=== PATIENT | male | born 1955 | race Caucasian/White ===

== ENCOUNTER → 2016-12-23 | Outpatient (CLI) | payer OTHER ==
[~2016-12-23] MED LIST: ASPI325T45 PO; CHOLCAP5 PO; LEVO75TA5 PO; LPT40 PO; METO25TA56 PO; NTRGSL/4 SL; OSEL75CA12 PO; PLV75 PO; WLLSR150 PO
[2016-12-23 14:47] LABS: ALT/SGPT 47 U/L (12-78); AST/SGOT 23 U/L (15-37); BLOOD UREA NITROGEN 23 mg/dl (7-18); BUN/CREATININE RATIO 19.1 (10-20); CALCIUM 8.4 mg/dl (8.5-10.1); CARBON DIOXIDE 25 mmol/L (21-32); CHLORIDE 108 mmol/L (98-107); GLUCOSE 110 mg/dl (70-99); POTASSIUM 3.7 mmol/L (3.5-5.1); SODIUM 142 mmol/L (136-145)
[2016-12-23 14:58] LABS: ALB/GLOB RATIO 1.4 (0.9-2); ALKALINE PHOSPHATASE 107 U/L (45-117); CHOLESTEROL 134 mg/dl (0-200); CHOLESTEROL/HDL RATIO 2.6; HDL CHOLESTEROL 52 mg/dl; LDL CHOLESTEROL CALCULATED 58 mg/dl; PROSTATE SPECIFIC ANTIGEN 0.264 ng/ml (0.000-4.000); TRIGLYCERIDES 122 mg/dl (0-150); VERY LOW DENSITY LIPOPROT CALC 24 mg/dl
== END | disposition home or self-care (01) ==
LOC: C.LAB 13:32
PROVIDERS: ATTEND Internal Medicine
DX: I10 Essential (primary) hypertension (principal); E53.8 Deficiency of other specified B group vitamins; E03.9 Hypothyroidism, unspecified; E55.9 Vitamin D deficiency, unspecified; Z12.5 Encounter for screening for malignant neoplasm of prostate

== ENCOUNTER 2017-01-29 12:40 | Emergency (ER) | payer OTHER ==
[~2017-01-29] VITALS: Ht 167.6 cm; Wt 119.6 kg
[~2017-01-29 12:40] MED LIST changes: -OSEL75CA12 PO; -WLLSR150 PO
[2017-01-29 12:44] VITALS: TEMP 37.1; Ht 167.6 cm; Wt 119.6 kg
[2017-01-29] MEDS ORDERED: WLLSR150 PO (12:52)
--- NOTE | 2017-01-29 13:03 | EMERGENCY ROOM VISIT NOTE ---
History Report prepared by Torie: Jerome Packer Under the Supervision of: Dr. Aleks Dow M.D. First contact with patient: 12:53 Chief Complaint: RESPIRATORY PROBLEMS Stated Complaint: TIGHTNESS IN CHEST X 2 DAYS, SOB Nursing Triage Summary: pt reports he was exposed to pneumonia has chest tightness started reports sorethroat. pt takes blood thinner for 2 stents pt wanting gloves in triage, seems to have issues with germs History of Present Illness The patient is a 61 year old male who presents to the Emergency Room with complaints of persistent cough and chest tightness for the past three days. The patient has shortness of breath and a cough that exacerbates his chest pain. He also complains of a mild sore throat. The patient has has had some relief of his symptoms with NyQuil. The patient has a history of CAD, and notes that his current chest pain does not feel cardiac. The patient follows up with Dr. Johns in cardiology and has had two stents placed. The patient has not recorded his temperature and does not believe he has had any fevers. He denies body aches, nausea, vomiting, or diarrhea. The patient has not had any recent trauma or injury. The patient states that he has been exposed to pneumonia through his daughter. 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 Source of History: patient, family Onset: three days ago Position: chest Timing: other (persistent) Modifying Factors (Worsening): other (coughing) Modifying Factors (Relieving): other (NyQuil) Associated Symptoms: + SOB, + cough, + sorethroat, No diarrhea, No fevers, No nausea, No vomiting Review of Systems See HPI for pertinent positives & negatives. A total of 10 systems reviewed and were otherwise negative. Past Medical & Surgical Medical Problems: (1) AC MYOCARD INFARC OTH ANTER WALL,INIT EPISODE CARE (2) CORON ATHEROSCLER NOS TYPE VESSEL, NIGHTMUTE OR GRAFT (3) CORONARY ATHEROSCLEROSIS OF NIGHT[place] CORONARY VESSEL (4) HYPERLIPIDEMIA NEC/NOS (5) HYPERTENSION NOS Old medical records were reviewed. Nurse's notes were reviewed and I agree with. Family History No pertinent family history Social History Smoking Status: Never Smoker Alcohol Use: none Drug Use: none Marital Status: Housing Status: lives with family Occupation Status: employed Current/Historical Medications Scheduled Aspirin (Aspirin), 325 MG PO DAILY Atorvastatin (Atorvastatin Calcium), 40 MG PO DAILY Bupropion HCl (Bupropion HCl Sr), 150 MG PO DAILY Cholecalciferol (Vitamin D3), 5,000 INTER.UNIT PO DAILY Clopidogrel Bisulfate (Clopidogrel), 75 MG PO DAILY Levothyroxine Sodium (Levothyroxine Sodium), 75 MCG PO DAILY Metoprolol Tartrate (Lopressor) (Lopressor), 25 MG PO BID Oseltamivir (Tamiflu), 75 MG PO BID Scheduled PRN Nitroglycerin (Nitrostat), 0.4 MG SL UD PRN for Chest Pain Allergies Coded Allergies: Tuberculin (Verified Allergy, Mild, ., 09/14/15) Physical Exam Vital Signs Date Time Temp Pulse Resp B/P Pulse Ox O2 Delivery O2 Flow Rate FiO2 01/29/17 16:21 75 18 146/78 98 01/29/17 12:44 96 Room Air 01/29/17 12:44 37.1 72 18 156/94 96 Room Air Physical Exam General: Non ill-appearing older male, no acute distress, occasional hacking cough. HEENT: Normal cephalic atraumatic. Pupils are equal round and reactive to light. Extraocular movements are intact. Oropharynx is pink with moist mucous membranes. No swelling of the mouth lips or tongue. Neck: Supple with a midline trachea. No meningeal signs or stiffness, no JVD or bruits. No Stridor. Chest: Clear to auscultation bilaterally. No wheezes or rhonchi. No increased work of breathing. Heart: regular rate and rhythm. Abdomen: Soft nontender, nondistended without rebound guarding or rigidity. Extremities: No cyanosis clubbing or edema. No calf tenderness or assymetry Spine/Back. Non tender to palpation. No CVA tenderness Skin: Good turgor without rashes. Neurologic exam: Cranial nerves two through 12 are intact. Motor and sensation are intact and symmetrical throughout. Medical Decision & Procedures ER Provider Diagnostic Interpretation: X-ray results as stated below per interpretation by me and the radiologist: SINGLE VIEW CHEST CLINICAL HISTORY: Atypical chest pain. FINDINGS: An AP, portable, upright chest radiograph is compared to study dated 02/21/2013. The examination is degraded by portable technique, large body habitus, and patient rotation. The heart is markedly enlarged. The pulmonary vasculature is noncongested. Chronic interstitial thickening similar to previous. There is no airspace consolidation, large pleural effusion, or pneumothorax. The skeletal structures appear osteopenic. The bony thorax is grossly intact. IMPRESSION: Marked cardiomegaly with no acute cardiopulmonary abnormality. Electronically signed by: Ismael Riojas M.D. 01/29/2017 1:44 PM Dictated Date/Time: 01/29/2017 1:43 PM Laboratory Results 01/29/17 13:20 Red Blood Count 4.63, Mean Corpuscular Volume 93.1, Mean Corpuscular Hemoglobin 32.2, Mean Corpuscular Hemoglobin Concent 34.6, Mean Platelet Volume 10.4, Neutrophils (%) (Auto) 69.9, Lymphocytes (%) (Auto) 20.3, Monocytes (%) (Auto) 8.8, Eosinophils (%) (Auto) 0.2, Basophils (%) (Auto) 0.6, Neutrophils # (Auto) 3.59, Lymphocytes # (Auto) 1.04, Monocytes # (Auto) 0.45, Eosinophils # (Auto) 0.01, Basophils # (Auto) 0.03 01/29/17 13:20 Test 01/29/17 13:15 01/29/17 13:20 Influenza Type A Antigen Neg for Influ A (NEG) Influenza Type B Antigen POS for Influ B (NEG) White Blood Count 5.13 K/uL (4.8-10.8) Red Blood Count 4.63 M/uL (4.7-6.1) Hemoglobin 14.9 g/dL (14.0-18.0) Hematocrit 43.1 % (42-52) Mean Corpuscular Volume 93.1 fL (80-100) Mean Corpuscular Hemoglobin 32.2 pg (25-34) Mean Corpuscular Hemoglobin Concent 34.6 g/dl (32-36) Platelet Count 142 K/uL (130-400) Mean Platelet Volume 10.4 fL (7.4-10.4) Neutrophils (%) (Auto) 69.9 % Lymphocytes (%) (Auto) 20.3 % Monocytes (%) (Auto) 8.8 % Eosinophils (%) (Auto) 0.2 % Basophils (%) (Auto) 0.6 % Neutrophils # (Auto) 3.59 K/uL (1.4-6.5) Lymphocytes # (Auto) 1.04 K/uL (1.2-3.4) Monocytes # (Auto) 0.45 K/uL (0.11-0.59) Eosinophils # (Auto) 0.01 K/uL (0-0.5) Basophils # (Auto) 0.03 K/uL (0-0.2) RDW Standard Deviation 47.3 fL (36.4-46.3) RDW Coefficient of Variation 13.8 % (11.5-14.5) Immature Granulocyte % (Auto) 0.2 % Immature Granulocyte # (Auto) 0.01 K/uL (0.00-0.02) Anion Gap 11.0 mmol/L (3-11) Est Creatinine Clear Calc Drug Dose 88.1 ml/min Estimated GFR () 84.7 Estimated GFR (Non- 73.1 BUN/Creatinine Ratio 16.4 (10-20) Calcium Level 8.5 mg/dl (8.5-10.1) Total Bilirubin 0.3 mg/dl (0.2-1) Direct Bilirubin mg/dl (0-0.2) Aspartate Amino Transf (AST/SGOT) 31 U/L (15-37) Alanine Aminotransferase (ALT/SGPT) 35 U/L (12-78) Alkaline Phosphatase 115 U/L (45-117) Total Creatine Kinase 166 U/L (39-308) Creatine Kinase MB 2.4 ng/ml (0.5-3.6) Creatine Kinase MB Ratio 1.4 (0-3.0) Troponin I < 0.015 ng/ml (0-0.045) Total Protein 7.5 gm/dl (6.4-8.2) Albumin 3.7 gm/dl (3.4-5.0) Lipase 334 U/L (73-393) Chemistry Specimen Hemolysis Laboratory studies as stated above per my review. Medications Administered Medications (Trade) Dose Ordered Sig/Keyanna Route Start Time Stop Time Status Last Admin Dose Admin Oseltamivir Phosphate (Tamiflu Cap) 75 mg NOW STAT PO 01/29/17 14:43 01/29/17 14:44 DC 01/29/17 15:09 75 MG ECG Indication: SOB/dyspnea Rate (beats per minute): 76 Rhythm: normal sinus Findings: T-wave inversion (Lateral), no acute ischemic change Change: Mild T wave inversions are now present compared to EKG dated 21 February 2013. ED Course 1255: Past medical records reviewed. The patient was evaluated in room A12b, and a complete history and physical examination were performed. 1443: Tamiflu 75 mg PO. 1618: Reassessed the patient. Discussed the findings with him. He verbalized understanding and agreement of the treatment plan. The patient is ready for discharge. Medical Decision Differential diagnosis includes bronchitis, pneumonia, influenza, CHF, acute coronary syndrome, arrhythmia. This patient comes in as described above. He's had cough and URI type symptoms and also has sore throat and flulike symptoms for couple days. He denies any chest pain per se. He has been exposed to the flu where he works in a half-way. He appears in no respiratory distress. IV access established, EKG was obtained and multiple blood tests was obtained. Chest x-ray was clear and has no evidence of pneumonia .his cardiac enzymes are all normal despite having several days of pain, EKG does have some subtle T-wave nonspecific abnormalities with some mild inversions laterally which do look different than the most recent EKG but similar to the one prior. Clinically, I do not suspect this is a cardiac event. He does have a positive influenza rapid flu here for influenza B. I will treat him for influenza. He was given Tamiflu here as well as a prescription for Tamiflu twice a day for 10 days. He should return if : Worsening of symptoms, not tolerating fluids, chest pain, shortness of breath , any new problems or concerns. Impression Primary Impression: Influenza Scribe Attestation The scribe's documentation has been prepared under my direction and personally reviewed by me in its entirety. I confirm that the note above accurately reflects all work, treatment, procedures, and medical decision making performed by me. Departure Information Dispostion Home / Self-Care Prescriptions Oseltamivir (Tamiflu) 75 Mg Cap 75 MG PO BID, #10 CAP Prov: Aleks Dow M.D. 01/29/17 Referrals RV. Allen MD (PCP) Forms HOME CARE DOCUMENTATION FORM, IMPORTANT VISIT INFORMATION, WORK / SCHOOL INSTRUCTIONS Patient Instructions My [facility] Additional Instructions Rest Drink plenty of fluids Return if: worsening of symptoms, any new problems or concerns, chest pain, shortness of breath Use Tamiflu twice a day Follow-up with your doctor on Tuesday for recheck
[2017-01-29 13:32] LABS: BASO % 0.6 %; BASO ABS # 0.03 K/uL (0-0.2); COMPLETE YES; EOS % 0.2 %; HEMATOCRIT 43.1 % (42-52); IG% 0.2 %; LYMPH % 20.3 %; LYMPH ABS # 1.04 K/uL (1.2-3.4); MEAN CELL VOLUME 93.1 fL (80-100); MEAN CORPUSCULAR HEMOGLOBIN 32.2 pg (25-34); MEAN CORPUSCULAR HGB CONC 34.6 g/dl (32-36); MEAN PLATELET VOLUME 10.4 fL (7.4-10.4); MONO % 8.8 %; NEUT % 69.9 %; PLATELET COUNT 142 K/uL (130-400); RED BLOOD COUNT 4.63 M/uL (4.7-6.1); WHITE BLOOD COUNT 5.13 K/uL (4.8-10.8)
--- NOTE | 2017-01-29 13:46 | DIAGNOSTIC IMAGING REPORT ---
SINGLE VIEW CHEST CLINICAL HISTORY: Atypical chest pain. FINDINGS: An AP, portable, upright chest radiograph is compared to study dated 02/21/2013. The examination is degraded by portable technique, large body habitus, and patient rotation. The heart is markedly enlarged. The pulmonary vasculature is noncongested. Chronic interstitial thickening similar to previous. There is no airspace consolidation, large pleural effusion, or pneumothorax. The skeletal structures appear osteopenic. The bony thorax is grossly intact. IMPRESSION: Marked cardiomegaly with no acute cardiopulmonary abnormality. Electronically signed by: Ismael Riojas M.D. 01/29/2017 1:44 PM Dictated Date/Time: 01/29/2017 1:43 PM
[2017-01-29 13:59] LABS: ALKALINE PHOSPHATASE 115 U/L (45-117); ALT/SGPT 35 U/L (12-78); AST/SGOT 31 U/L (15-37); BLOOD UREA NITROGEN 18 mg/dl (7-18); BUN/CREATININE RATIO 16.4 (10-20); CALCIUM 8.5 mg/dl (8.5-10.1); CARBON DIOXIDE 23 mmol/L (21-32); CHLORIDE 105 mmol/L (98-107); CKMB/CK RATIO 1.4 (0-3.0); GLUCOSE 101 mg/dl (70-99); SODIUM 139 mmol/L (136-145)
[2017-01-29] MEDS ORDERED: OSELTAMIVIR PHOSPHATE 75 MG CAP PO STA (14:43)
[2017-01-29] MEDS ORDERED: OSEL75CA12 PO (16:10)
[2017-01-29 16:21] VITALS: BP 146/78; PULSE 75; O2SAT 98
== END 2017-01-29 16:22 | disposition home or self-care (01) ==
LOC: C.EDB 12:41 → C.EDA 16:22
DX: J11.1 Influenza due to unidentified influenza virus with other respiratory manifestations (principal); I25.10 Atherosclerotic heart disease of native coronary artery without angina pectoris; Z95.5 Presence of coronary angioplasty implant and graft; E78.5 Hyperlipidemia, unspecified; Z79.82 Long term (current) use of aspirin; Z79.899 Other long term (current) drug therapy

== ENCOUNTER → 2017-12-28 | Outpatient (CLI) | payer OTHER ==
[~2017-12-28] MED LIST changes: +WLLSR150 PO
[2017-12-28 16:37] LABS: BASO % 0.9 %; BASO ABS # 0.07 K/uL (0-0.2); EOS % 0.8 %; EOS ABS # 0.06 K/uL (0-0.5); HEMATOCRIT 41.8 % (42-52); HEMOGLOBIN 14.1 g/dL (14.0-18.0); IG# 0.03 K/uL (0.00-0.02); LYMPH % 34.2 %; LYMPH ABS # 2.68 K/uL (1.2-3.4); MEAN CELL VOLUME 94.6 fL (80-100); MEAN CORPUSCULAR HEMOGLOBIN 31.9 pg (25-34); MEAN CORPUSCULAR HGB CONC 33.7 g/dl (32-36); MEAN PLATELET VOLUME 10.5 fL (7.4-10.4); MONO % 5.7 %; MONO ABS # 0.45 K/uL (0.11-0.59); NEUT ABS # 4.54 K/uL (1.4-6.5); PLATELET COUNT 171 K/uL (130-400); RED CELL DISTRIBUTION WIDTH SD 48.1 fL (36.4-46.3); WHITE BLOOD COUNT 7.83 K/uL (4.8-10.8)
[2017-12-28 17:06] LABS: ALT/SGPT 38 U/L (12-78); AST/SGOT 23 U/L (15-37); BLOOD UREA NITROGEN 21 mg/dl (7-18); CALCIUM 8.9 mg/dl (8.5-10.1); CARBON DIOXIDE 27 mmol/L (21-32); CREATININE 1.33 mg/dl (0.60-1.40); GLUCOSE 79 mg/dl (70-99); POTASSIUM 3.9 mmol/L (3.5-5.1); SODIUM 138 mmol/L (136-145)
[2017-12-28 17:16] LABS: ALKALINE PHOSPHATASE 97 U/L (45-117); CHOLESTEROL 143 mg/dl (0-200); LDL CHOLESTEROL CALCULATED 64 mg/dl; TOTAL PROTEIN 7.5 gm/dl (6.4-8.2)
[2017-12-29 06:05] LABS: HEMOGLOBIN A1C 5.8 % (4.5-5.6)
== END | disposition home or self-care (01) ==
LOC: C.LAB 15:42
PROVIDERS: ATTEND Internal Medicine
DX: Z12.5 Encounter for screening for malignant neoplasm of prostate (principal); E03.9 Hypothyroidism, unspecified; I10 Essential (primary) hypertension; R53.83 Other fatigue; R73.9 Hyperglycemia, unspecified; E53.8 Deficiency of other specified B group vitamins; E55.9 Vitamin D deficiency, unspecified

== ENCOUNTER → 2018-03-21 | Outpatient (CLI) | payer OTHER ==
[~2018-03-21] MED LIST changes: +ASPECOTC PO; -ASPI325T45 PO
[2018-03-21 12:49] LABS: FOLLICLE STIMULAT HORMONE 4.16 IU/L; LUTEINIZING HORMONE 5.49 IU/L; PROLACTIN 7.51 ng/mL
== END | disposition home or self-care (01) ==
LOC: C.LAB 09:57
PROVIDERS: ATTEND Physician Assistant
DX: E29.1 Testicular hypofunction (principal)

== ENCOUNTER → 2018-06-19 | Outpatient (CLI) | payer OTHER ==
--- NOTE | 2018-06-19 15:10 | DIAGNOSTIC IMAGING REPORT ---
BRAIN WITHOUT CONTRAST HISTORY: 63 years-old Male PITUITARY HYPOGONADISM COMPARISON: None available TECHNIQUE: Multiplanar multisequence MRI of the brain was obtained without the use of IV contrast. FINDINGS: Rate Inserter localizer images demonstrate no gross abnormality. Midline structures including the corpus callosum, brainstem, optic chiasm and pineal gland appear unremarkable. No no cerebellar tonsillar herniation. The pituitary gland appears unremarkable on this noncontrast study demonstrates no focal mass or heterogeneity. Infundibulum and hypothalamus appear unremarkable. Degenerative changes about the imaged cervical spine. There is no restricted diffusion to suggest acute or subacute infarction. There is no acute intracranial hemorrhage, midline shift, abnormal extra axial collections or hydrocephalus. The study is motion degraded. Major flow voids appear patent. The orbits are within normal limits. Small left and trace right mastoid effusions. Minimal mucosal thickening of the ethmoid air cells. Left maciel bullosa. Soft tissues and skull are unremarkable. The coronal T1 images through the pituitary are nearly nondiagnostic as are the axial fast images. IMPRESSION: 1. Motion degraded exam without definite pituitary lesion identified. 2. No acute intracranial abnormality. 3. Small left and trace right mastoid effusions. The above report was generated using voice recognition software. It may contain grammatical, syntax or spelling errors. Electronically signed by: Sina Jennings M.D. 06/19/2018 3:08 PM Dictated Date/Time: 06/19/2018 3:01 PM
== END | disposition home or self-care (01) ==
LOC: C.MRIBC 13:45
PROVIDERS: ATTEND Internal Medicine Endocrinology, Diabetes & Metabolism
DX: E23.0 Hypopituitarism (principal); H74.93 Unspecified disorder of middle ear and mastoid, bilateral

== ENCOUNTER 2021-10-15 10:21 | Inpatient (IN) ==
[2021-10-15 11:20] LABS: Appearance Urine Clear (Clear); Bacteria Urine Automated Negative (Negative); Bilirubin Urine Negative (Negative); Blood Urine 3+ (Negative); Color Urine Yellow; Glucose Urine UA Negative (Negative); Ketones Urine Negative (Negative); Leukocyte Esterase Urine Negative (Negative); Nitrite Urine Negative (Negative); Protein Urine 1+ (Negative); RBC Urine Automated 0-4 /hpf (0-4); Specific Gravity Urine 1.016 (1.000-1.030); Urobilinogen Urine Negative (Negative)
[2021-10-15 12:30] LABS: Basophils # (auto) 0.02 K/uL (0-0.2); Basophils % (auto) 0.2 %; Hematocrit (blood only) 42.5 % (42-52); Hemoglobin 13.6 g/dL (14.0-18.0); Immature Granulocytes # (auto) 0.01 K/uL (0.00-0.02); Immature Granulocytes % (auto) 0.1 %; Lymphocytes # (auto) 1.47 K/uL (1.2-3.4); Lymphocytes % (auto) 14.1 %; Mean Corpuscular Hemoglobin 31.7 pg (25-34); Mean Corpuscular Volume 99.1 fL (80-100); Monocytes # (auto) 0.88 K/uL (0.11-0.59); Monocytes % (auto) 8.5 %; Neutrophils # (auto) 8.03 K/uL (1.4-6.5); Neutrophils % (auto) 77.1 %; Platelet Count 216 K/uL (130-400); RDW Coefficient of Variation 14.8 % (11.5-14.5); RDW Standard Deviation 53.3 fL (36.4-46.3); Red Blood Count 4.29 M/uL (4.7-6.1); White Blood Count 10.41 K/uL (4.8-10.8)
--- NOTE | 2021-10-15 12:42 | XRay Report ---
XR chest 1V portable HISTORY: 66 years-old Male weakness acute weakness COMPARISON: Chest radiograph 10/07/2021 TECHNIQUE: Portable AP view of the chest FINDINGS: Cardiac silhouette is enlarged. Mild linear subsegmental bibasilar atelectasis/scarring. There is no pneumothorax, pleural effusion or overt pulmonary edema. Degenerative changes of the shoulders and sp ine. IMPRESSION: Cardiomegaly without acute process. ACT 112: Negative or not required by law. The above report was generated using voice recognition software. It may contain grammatical, syntax o r spelling errors. Electronically signed by: Houston Jennings M.D. 10/15/2021 12:41 PM
[2021-10-15 12:46] LABS: Albumin Level 3.8 gm/dl (3.4-5.0); Calcium 8.2 mg/dl (8.5-10.1); Creatinine Clr Calc Pharmacy 51.1 ml/min; Est GFR (African American) 41.7 ml/min; Magnesium 2.4 mg/dl (1.8-2.4); Potassium 4.3 mmol/L (3.5-5.1)
[2021-10-15 13:06] LABS: Bilirubin,Total 0.9 mg/dl (0.2-1); Globulin 3.8 gm/dl (2.5-4.0); Thyroid Stimulating Hormone 1.49 uIu/ml (0.300-4.500); Total Protein 7.6 gm/dl (6.4-8.2); Troponin I 1.42 ng/ml (0-0.045)
[2021-10-15] MEDS ORDERED: OPTIRAY 320 125ml IV ONE (13:21)
--- NOTE | 2021-10-15 13:45 | CT Scan Report ---
ABDOMEN AND PELVIS CT WITH IV CONTRAST CT DOSE: 2217.20 mGy.cm HISTORY: Acute weakness with elevated LFTs status post abdominal hernia repair. S/p hernia repair, el evated liver enzymes, weaknes TECHNIQUE: Multiaxial CT images of the abdomen and pelvis were performed following the IV administrat ion of 121 cc of Optiray, A dose lowering technique was utilized adhering to the principles of ALARA . COMPARISON STUDY: CT abdomen and pelvis 02/07/2019 FINDINGS: Cardiomegaly. Mural fibrofatty changes of the left ventricular apex and apical septal wall suggest prior myocardial infarction. Coronary artery calcifications. Subsegmental bibasilar densities suggest atelectasis. Scattered foci of pneumoperitoneum noted within the mid to upper abdomen. Subcu taneous emphysema of the anterolateral abdominal wall and scrotum. There is a Roberto catheter noted. T here is a skin incision noted along the right lateral aspect of the lower abdominal wall pannus. A dr forbes catheter extends through the incision into the right hemiscrotum which is partially imaged margarita ng with scrotal wall edema. Postoperative changes of right inguinal hernia repair with expected posto perative edema within the inguinal canal. No inguinal postoperative fluid collection identified. Unremarkable spleen, pancreas and adrenal glands. Cholelithiasis without CT evidence of acute cholecy stitis. No biliary ductal dilation. Unremarkable liver. Subcentimeter scattered hypodensities of the liver redemonstrated suggestive of probable cysts. Patent portal vein. Pelvic positioning of the righ t kidney redemonstrated. There is symmetric enhancement of the kidneys without hydronephrosis. Decomp ressed urinary bladder with Roberto catheter. Mild prostamegaly. Atherosclerosis of the aorta without a neurysm identified. There is no adenopathy. No bowel obstruction. No bowel wall thickening. Noninflamed appendix. No acute fracture. Ankylosis of the SI joints with ankylosis and bridging syndesmophytes of the spine, suggestive of ankylosing spon dylosis. IMPRESSION: 1. Postoperative changes of recent right inguinal hernia repair with expected edema within the right inguinal canal. Partially imaged ZAN drain of the right scrotum is noted along with scrotal edema. 2. No postoperative fluid collection. 3. Pneumoperitoneum with subcutaneous emphysema of the abdominal wall are likely expected postoperati ve changes. 4. No bowel obstruction or bowel wall thickening. 5. Cholelithiasis. 6. Additional findings as above. ACT 112: Negative or not required by law. The above report was generated using voice recognition software. It may contain grammatical, syntax o r spelling errors. Electronically signed by: Houston Jennings M.D. 10/15/2021 1:44 PM
--- NOTE | 2021-10-15 14:20 | History & Physical Report ---
Date of Service October 15, 2021 Assessment & Plan (1) Elevated troponin: Plan: Patient presents with a elevated troponin without cardiac symptoms. He is a history of coronary disease with bare-metal stents. He did stop his Plavix preoperatively. At this point time without corroborating symptoms we will continue trending his troponins check echocardiogram for decline in systolic function or new regional wall motion abnormalities. Continue his antiplatelet medications as well as metoprolol succinate 50 daily (2) Acute kidney injury: Plan: Patient with acute kidney injury with a history of chronic kidney disease stage III. Consideration if this is from a brief hypertensive episode concerning his operative procedure. Given his history of systolic dysfunction we will cautiously provide some hydration. Holding diuretic and BRANDAN inhibitor Typically chronic kidney disease stage II (3) Rhabdomyolysis: Plan: Patient is found of elevated CK on presentation recently did have surgery which was a prolonged event unclear whether the CK elevation is from surgical trauma or prolonged table time. This could certainly influence the patient's renal function. We will increase his hydration and follow CKs. (4) CHF (congestive heart failure), NYHA class II: Plan: Patient with history of heart failure reduced ejection fraction EF 45 to 50% on last check he typically takes diuretic and BRANDAN inhibitor which will be held in the face of his acute kidney injury continue metoprolol 50 aspirin and atorvastatin (5) Neuropathy: Plan: Patient with weakness and gait dysfunction. Surgical concern for long operation time with morbid obesity and body positioning may have led to some neuropathy associate with postoperative state. Checking a CK at this point we will have PT OT evaluation thyroid is replete. Patient is not hyperreflexic to be concern for spinal cord injury or positioning injury likewise has no back pain or loss of sphincter function consideration of gabapentin if neuropathic pain becomes more of an issue (6) Elevated AST (SGOT): Plan: Elevation of AST and ALT could be resultant from operative hypotensive. With some shock liver bilirubin alkaline phosphatase are normal (7) Hypertension: Plan: Patient's history of hypertension is typically treated with furosemide metoprolol and lisinopril as mentioned previously the furosemide lisinopril are held given the face of renal dysfunction (8) Dyslipidemia: Plan: Patient atorvastatin 80 this will be maintained (9) Hypothyroidism: Plan: Patient is a TSH checked on presentation which is normal continue Synthroid dosing on 112 mcg a day (10) DVT prophylaxis: Plan: Patient given heparin for DVT prevention in case the patient needs to be converted to parenteral heparin if his troponin escalates History of Present Illness Primary Care Provider: Elaine Sofia MD 66-year-old male underwent bilateral inguinal hernia repair on October 14 Dr. Dudley. Patient is a significant coronary history with bare-metal stents in his left circumflex and left anterior distending some 1-2008 in 2010 range. He was instructed to hold his Plavix 7 days preop. Patient presents to the ER inability to walk found to have a elevated troponin 1.5 no acute EKG changes. Patient suffers from morbid obesity, chronic chronic kidney disease stage III, congestive heart failure felt to be heart failure reduced ejection fraction with [place] [employer] class II. Pts biggest concern is not being able to stand or even walk to the bathroom, he has some neuropathic pain/burning sensation to the left lateral thigh. I personally spoke to Dr Dudley and he states that concern for rhabdo or neuropathy from prolonged table time and morbid obesity, pending CK at this time. Allergies Allergy/AdvReac Type Severity Reaction Status Date / Time tuberculin, purified protein Allergy Mild SWELLING Verified 10/15/21 11:26 deriva AT SITE guaifenesin [From Mucinex] AdvReac Intermediate felt like Verified 10/15/21 11:26 was on fire pseudoephedrine AdvReac Mild ELECTRIC Verified 10/15/21 11:26 [From Sudafed] CURRENTS THRU BODY simvastatin AdvReac Mild MYALGIA Verified 10/15/21 11:26 Home Medications Medication Instructions Recorded Confirmed Type aspirin 81 mg tablet,delayed 81 mg PO QAM 10/24/18 10/15/21 History release metoprolol succinate 50 mg 50 mg PO QAM #90 tab 02/20/21 10/15/21 Rx tablet,extended release 24 hr nitroglycerin 0.4 mg sublingual 0.4 mg SUBLINGUAL .Q5 mins PRN #25 05/22/21 10/15/21 Rx tablet tab cholecalciferol (vitamin D3) 50 50 mcg PO QAM 07/13/21 10/15/21 History mcg (2,000 unit) capsule furosemide 20 mg tablet (Lasix) 20 mg PO QAM tab 07/13/21 10/15/21 History atorvastatin 80 mg tablet (Lipitor) 80 mg PO PM #90 tab 08/27/21 10/15/21 Rx docusate sodium 100 mg tablet 100 mg PO DAILY PRN 10/06/21 10/15/21 History (Stool Softener) finasteride 5 mg tablet 5 mg PO QAM 10/06/21 10/15/21 History levothyroxine 112 mcg tablet 112 mcg PO QAM 10/06/21 10/15/21 History lisinopril 5 mg tablet 5 mg PO QAM 10/06/21 10/15/21 History omega 3-tix-phz-fish oil 1,000 mg 1 cap PO QAM 10/06/21 10/15/21 History (120 mg-180 mg) capsule (Fish Oil) tamsulosin 0.4 mg capsule (Flomax) 0.4 mg PO QAM 10/06/21 10/15/21 History thiamine HCl (vitamin B1) 100 mg 100 mg PO QAM 10/06/21 10/15/21 History tablet umeclidinium 62.5 mcg-vilanterol 1 inh INHALATION DAILY PRN 10/06/21 10/15/21 History 25 mcg/actuation powdr for inhalation (Anoro Ellipta) potassium chloride 20 mEq 20 meq PO QAM #30 tab 10/09/21 10/15/21 Rx tablet,extended release(part/cryst) bupropion HCl 100 mg tablet 100 mg PO HS tab 10/12/21 10/15/21 History oxycodone-acetaminophen 5 mg-325 1 - 2 tab PO .q4-6h PRN #15 tab 10/14/21 10/15/21 Rx mg tablet (Percocet) vitamin B12 500 mcg-folic acid 400 1 tab PO QAM 10/15/21 10/15/21 History mcg tablet Past Med/Surg History Medical History (Updated 10/15/21 @ 18:03 by Ran Mosley MD) Arthralgia of multiple sites Bilateral inguinal hernia Cardiac murmur none noted on last cardio office visit 06/2021 Carpal tunnel syndrome Chronic obstructive pulmonary disease on maintenance inhalers-stable per pt-few nightly coughs, denies wheezing Congestive heart failure follows with [facility], stable per last office note Coronary artery disease h/o [place] and s/p 2 bare metal stents-LAD and Cx in 2008, follows with [facility]; last visit 06/2021 and stable per note Dyspnea on exertion increased over past 16 months per pt with gradual 50 lb weight gain with reduced activity d/t COVID 19 Elevated alkaline phosphatase level Hypertension controlled, stable per pt Hypothyroidism Indigestion Infarction of spleen under observation Ischemic cardiomyopathy follows with [facility], stable per last note Morbid obesity with BMI of 45.0-49.9, adult Pituitary hypogonadism follows with PCP Pre-diabetes Right hydrocele Signs and symptoms involving cognition Pt reports chronic mild memory dysfunction Snoring reports sleep study 4 yrs ago negative for sleep apnea, occ witnessed apneas per Surgical History (Updated 10/15/21 @ 15:02 by Rodrigo Dudley DO, FACS) H/O right inguinal hernia repair (10/14/21) Laparoscopic Converted to Open Right Inguinal Hernia Repair with Mesh(Right) - Rodrigo Dudley DO, FACS 10-14-2021 History of cardiac cath bare metal stent placement x 2 to LAD and Cx in 2008 History of colonoscopy Family History Brother Hx of CABG Myocardial infarction Mother Myocardial infarction Other Coronary heart disease Lung disease Denies family history of Ovarian cancer Prostate cancer Breast cancer Colorectal cancer Social History (Updated 10/06/21 @ 10:43 by Genie Smith RN) Smoking Status: Former smoker Second Hand Exposure: No; Hx Alcohol Use: No Hx Substance Use: No Preferred Language: Luxembourgish Communication Ability: Effective Visual Impairment: No Limitations Hearing Ability: Normal 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 Beliefs That Will Affect Care: None marital status: Current Living Situation: Spouse current occupational status: other current occupation: HAS NOT WORKED PAST 1.5 YRS How many Children do You have: 2 Feels Safe at Home: Yes Childhood Exposure to Second-Hand Smoke: No during the past year weight has: increased > 10 lbs Seatbelt Use: always Assistive Devices: Glasses Review of Systems Review of Systems: Mild distress and fatigue no headache, no visual changes no speech or swallowing issues no chest pain, pressure or palpitations no shortness of breath, cough or wheezes post operative abdominal pain at right lower abdomen, no nausea or vomiting, does have constipation darkened urine now lightening with hernández placement no focal joint pain or swelling no back pain, CVA tenderness or radicular pain, some hot sensation to left laeral thigh post op wounds without concern focal signs of weakness of B/l lower legs with altered sensation no complaints of anxiety or depression.. Physical Exam Physical Exam: The patient appeared well nourished and normally developed. no distress but morbidly obese with BMI of 51 Vital signs as documented. Head exam is normocephalic atraumatic Neck is without JVD, thyromegaly, or carotid bruits. Lungs are clear to auscultation, no focal loss of breath sounds Cardiac exam, Rhythm is regular.. No murmurs, rubs or gallops. Abdominal exam reveals normal bowel sounds, soft non wounds are cdi, discoloration of panus Dr Luis Enrique feels is bruising Extremities aretrace edematous and both pedal pulses are present Neurologic exam is alert and oriented, cam move legs with 4/5 strenght, but no patella reflexes and altered senastation to thigh Skin is with some chronic venous discoloration to LE Psychologically is without concerns for anxiety or depression Results & Data Results & Data ([facility]) Vital Signs (Past 12 Hours) Vital Signs Temp Pulse Pulse Resp BP BP Pulse Ox 10/15/21 13:32 84 22 107/51 L 94 10/15/21 12:54 78 20 121/74 94 10/15/21 10:45 98.8 F 81 20 113/63 94 Diagnostic Findings Abdomen pelvis CT scan 10/15/2021uppurative changes of recent right inguinal hernia repair ZAN drain visualized no postoperative fluid collection residual pneumoperitoneum Chest x-ray 10/15/2021 no acute process patient does have cardiomegaly ECG Additional Comments: EKG shows sinus rhythm without acute changes PG Care Time/CCT Total # of Minutes Spent Total Time Spent with Patient: Total time spent is greater than 50% in coordination of care (as documented) at patient's floor/unit and/or counseling patient: Coding Level of Care Code 54127 Initial Inpt Care Lvl 3 Diagnoses Hypertension I10 Dyslipidemia E78.5 Hypothyroidism E03.9 CHF (congestive heart failure), NYHA class II I50.9 Elevated troponin R77.8 Elevated AST (SGOT) R74.01 Acute kidney injury N17.9 DVT prophylaxis Z29.9 Neuropathy G62.9 Rhabdomyolysis M62.82
[2021-10-15 14:27] LABS: Partial Thromboplastin Ratio 0.9; Partial Thromboplastin Time 24.5 Seconds (21.0-31.0); Prothrombin Time 10.5 Seconds (9.0-12.0)
--- NOTE | 2021-10-15 15:06 | Surgery Consultation ---
Date of Consultation October 15, 2021 Assessment & Plan (1) H/O right inguinal hernia repair: POD#1 lap converted to open RIH repair, now with elevated troponin, SOFÍA, urinary retention, and leg numbness/weakness. Patient is being admitted to medicine for further evaluation and treatment. Agree with medical admission, appreciate assistance check CK to r/o rhabdo given BMI 50 and prolonged time on table Trend trop trop/sofía/lft elevation likely related to hypotension/fluid contraction consider duplex to r/o DVT no indication for abx or surgical intervetion at this time surgery will follow, call with questions or concerns. (2) Elevated troponin: (3) Elevated AST (SGOT): (4) Acute kidney injury: (5) Coronary artery disease: (6) Morbid obesity with BMI of 50.0-59.9, adult: History of Present Illness History of Present Illness 66 y/o male POD#1 lap converted to open repair of large, incarcerated inguinal/scrotal hernia. D/C'ed post op yesterday, but had worsening left weakness and urinary retention and presented to ED. In ED hernández placed with 600cc urine output. Was feeling better in PACU but leg weakness got worse overnight. Allergies Allergy/AdvReac Type Severity Reaction Status Date / Time tuberculin, purified protein Allergy Mild SWELLING Verified 10/15/21 11:26 deriva AT SITE guaifenesin [From Mucinex] AdvReac Intermediate felt like Verified 10/15/21 11:26 was on fire pseudoephedrine AdvReac Mild ELECTRIC Verified 10/15/21 11:26 [From Sudafed] CURRENTS THRU BODY simvastatin AdvReac Mild MYALGIA Verified 10/15/21 11:26 Home Medications Medication Instructions Recorded Confirmed Type aspirin 81 mg tablet,delayed 81 mg PO QAM 10/24/18 10/15/21 History release metoprolol succinate 50 mg 50 mg PO QAM #90 tab 02/20/21 10/15/21 Rx tablet,extended release 24 hr nitroglycerin 0.4 mg sublingual 0.4 mg SUBLINGUAL .Q5 mins PRN #25 05/22/21 10/15/21 Rx tablet tab cholecalciferol (vitamin D3) 50 50 mcg PO QAM 07/13/21 10/15/21 History mcg (2,000 unit) capsule furosemide 20 mg tablet (Lasix) 20 mg PO QAM tab 08/16/21 11/18/21 History atorvastatin 80 mg tablet (Lipitor) 80 mg PO PM #90 tab 08/27/21 10/15/21 Rx docusate sodium 100 mg tablet 100 mg PO DAILY PRN 10/06/21 10/15/21 History (Stool Softener) finasteride 5 mg tablet 5 mg PO QAM 10/06/21 10/15/21 History levothyroxine 112 mcg tablet 112 mcg PO QAM 10/06/21 10/15/21 History lisinopril 5 mg tablet 5 mg PO QAM 10/06/21 10/15/21 History omega 8-uol-cxc-fish oil 1,000 mg 1 cap PO QAM 10/06/21 10/15/21 History (120 mg-180 mg) capsule (Fish Oil) tamsulosin 0.4 mg capsule (Flomax) 0.4 mg PO QAM 10/06/21 10/15/21 History thiamine HCl (vitamin B1) 100 mg 100 mg PO QAM 10/06/21 10/15/21 History tablet umeclidinium 62.5 mcg-vilanterol 1 inh INHALATION DAILY PRN 10/06/21 10/15/21 History 25 mcg/actuation powdr for inhalation (Anoro Ellipta) potassium chloride 20 mEq 20 meq PO QAM #30 tab 10/09/21 10/15/21 Rx tablet,extended release(part/cryst) bupropion HCl 100 mg tablet 100 mg PO HS tab 10/12/21 10/15/21 History oxycodone-acetaminophen 5 mg-325 1 - 2 tab PO .q4-6h PRN #15 tab 10/14/21 10/15/21 Rx mg tablet (Percocet) vitamin B12 500 mcg-folic acid 400 1 tab PO QAM 10/15/21 10/15/21 History mcg tablet Patient History Medical History (Updated 10/15/21 @ 14:19 by Ran Mosley MD) Arthralgia of multiple sites Bilateral inguinal hernia Cardiac murmur none noted on last cardio office visit 06/2021 Carpal tunnel syndrome Chronic obstructive pulmonary disease on maintenance inhalers-stable per pt-few nightly coughs, denies wheezing Congestive heart failure follows [facility], stable per last office note Coronary artery disease h/o [place] and s/p 2 bare metal stents-LAD and Cx in 2008, follows [facility]; last visit 06/2021 and stable per note Dyspnea on exertion increased over past 16 months per pt with gradual 50 lb weight gain with reduced activity d/t COVID 19 Elevated alkaline phosphatase level Hypertension controlled, stable per pt Hypothyroidism Indigestion Infarction of spleen under observation Ischemic cardiomyopathy follows with [facility], stable per last note Morbid obesity with BMI of 45.0-49.9, adult Pituitary hypogonadism follows with PCP Pre-diabetes Right hydrocele Signs and symptoms involving cognition Pt reports chronic mild memory dysfunction Snoring reports sleep study 4 yrs ago negative for sleep apnea, occ witnessed apneas per Surgical History (Updated 10/15/21 @ 15:02 by Rodrigo Dudley DO, FACS) H/O right inguinal hernia repair (10/14/21) Laparoscopic Converted to Open Right Inguinal Hernia Repair with Mesh(Right) - Rodrigo Dduley DO, FACS 10-14-2021 History of cardiac cath bare metal stent placement x 2 to LAD and Cx in 2008 History of colonoscopy Family History Brother Hx of CABG Myocardial infarction Mother Myocardial infarction Other Coronary heart disease Lung disease Denies family history of Ovarian cancer Prostate cancer Breast cancer Colorectal cancer Social History (Updated 10/06/21 @ 10:43 by Genie Smith RN) Smoking Status: Former smoker Second Hand Exposure: No; Hx Alcohol Use: No Hx Substance Use: No Preferred Language: Latvian Communication Ability: Effective Visual Impairment: No Limitations Hearing Ability: Normal 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[employer] Press 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 Required: No Beliefs That Will Affect Care: None marital status: Current Living Situation: Spouse current occupational status: other current occupation: HAS NOT WORKED PAST 1.5 YRS How many Children do You have: 2 Feels Safe at Home: Yes Childhood Exposure to Second-Hand Smoke: No during the past year weight has: increased > 10 lbs Seatbelt Use: always Assistive Devices: Glasses Physical Exam Constitutional: WD/WN, vitals as above + morbidly obese Gastrointestinal (Abdomen): normal bowel sounds, soft, nontender, no hepatosplenomegaly Inspection/Auscultation: + abdominal wall ecchymosis (lower pannus, expected post op.), + abdominal surgical incision (incisions with lupe, no infection) and + abdominal surgical drain present (scrotal drain with SS drainage) Results & Data ([facility]) Vital Signs (Past 12 Hours) Vital Signs Temp Pulse Pulse Resp BP BP Pulse Ox 10/15/21 13:32 84 22 107/51 L 94 10/15/21 12:54 78 20 121/74 94 10/15/21 10:45 37.1 C 81 20 113/63 94 Laboratory Results Laboratory Results - last 24 hr 10/15/21 10/15/21 10/15/21 11:00 12:10 12:10 WBC 10.41 RBC 4.29 L Hgb 13.6 L Hct 42.5 MCV 99.1 MCH 31.7 MCHC 32.0 RDW Std Deviation 53.3 H RDW Coeff of Emilee 14.8 H Plt Count 216 MPV 10.0 Immature Gran % (Auto) 0.1 Neut % (Auto) 77.1 Lymph % (Auto) 14.1 [place] % (Auto) 8.5 Eos % (Auto) 0.0 Baso % (Auto) 0.2 Neut # (Auto) 8.03 H Lymph # (Auto) 1.47 [place] # (Auto) 0.88 H Eos # (Auto) 0.00 Baso # (Auto) 0.02 Immature Gran # (Auto) 0.01 PT INR APTT PTT Ratio Sodium 136 Potassium 4.3 Chloride 101 Carbon Dioxide 26 Anion Gap 9.0 BUN 35 H Creatinine 1.92 H Est Cr Clr Drug Dosing 51.1 Est GFR ( Amer) 41.7 Est GFR (Non-Af Amer) 36.0 BUN/Creatinine Ratio 18.0 Glucose 122 H Calcium 8.2 L Magnesium 2.4 Total Bilirubin 0.9 AST 470 H ALT 87 H Alkaline Phosphatase 60 Troponin I 1.420 H* Total Protein 7.6 Albumin 3.8 Globulin 3.8 Albumin/Globulin Ratio 1.0 TSH 1.490 Urine Color Yellow Urine Appearance Clear Urine pH 5.0 Ur Specific [place] 1.016 Urine Protein 1+ H Urine Glucose (UA) Negative Urine Ketones Negative Urine Blood 3+ H Urine Nitrite Negative Urine Bilirubin Negative Urine Urobilinogen Negative Ur Leukocyte Esterase Negative Urine WBC (Auto) 1-5 Urine RBC (Auto) 0-4 U Hyaline Cast (Auto) 1-5 U Epithel Cells (Auto) 5-10 H Urine Bacteria (Auto) Negative 10/15/21 14:02 WBC RBC Hgb Hct MCV MCH MCHC RDW Std Deviation RDW Coeff of Emilee Plt Count MPV Immature Gran % (Auto) Neut % (Auto) Lymph % (Auto) [place] % (Auto) Eos % (Auto) Baso % (Auto) Neut # (Auto) Lymph # (Auto) [place] # (Auto) Eos # (Auto) Baso # (Auto) Immature Gran # (Auto) PT 10.5 INR 1.0 APTT 24.5 PTT Ratio 0.9 Sodium Potassium Chloride Carbon Dioxide Anion Gap BUN Creatinine Est Cr Clr Drug Dosing Est GFR ( Amer) Est GFR (Non-Af Amer) BUN/Creatinine Ratio Glucose Calcium Magnesium Total Bilirubin AST ALT Alkaline Phosphatase Troponin I Total Protein Albumin Globulin Albumin/Globulin Ratio TSH Urine Color Urine Appearance Urine pH Ur Specific [place] Urine Protein Urine Glucose (UA) Urine Ketones Urine Blood Urine Nitrite Urine Bilirubin Urine Urobilinogen Ur Leukocyte Esterase Urine WBC (Auto) Urine RBC (Auto) U Hyaline Cast (Auto) U Epithel Cells (Auto) Urine Bacteria (Auto) Diagnostic Findings Personally reviewed and interpreted the CT. Expected post surgical changes, no obvious complication. ABDOMEN AND PELVIS CT WITH IV CONTRAST CT DOSE: 2217.20 mGy.cm HISTORY: Acute weakness with elevated LFTs status post abdominal hernia repair. S/p hernia repair, elevated liver enzymes, weaknes TECHNIQUE: Multiaxial CT images of the abdomen and pelvis were performed following the IV administration of 121 cc of Optiray, A dose lowering technique was utilized adhering to the principles of ALARA. COMPARISON STUDY: CT abdomen and pelvis 02/07/2019 FINDINGS: Cardiomegaly. Mural fibrofatty changes of the left ventricular apex and apical septal wall suggest prior myocardial infarction. Coronary artery calcifications. Subsegmental bibasilar densities suggest atelectasis. Scattered foci of pneumoperitoneum noted within the mid to upper abdomen. Subcutaneous emphysema of the anterolateral abdominal wall and scrotum. There is a Hernández catheter noted. There is a skin incision noted along the right lateral aspect of the lower abdominal wall pannus. A drainage catheter extends through the incision into the right hemiscrotum which is partially imaged along with scrotal wall edema. Postoperative changes of right inguinal hernia repair with expected postoperative edema within the inguinal canal. No inguinal postoperative fluid collection identified. Unremarkable spleen, pancreas and adrenal glands. Cholelithiasis without CT evidence of acute cholecystitis. No biliary ductal dilation. Unremarkable liver. Subcentimeter scattered hypodensities of the liver redemonstrated suggestive of probable cysts. Patent portal vein. Pelvic positioning of the right kidney redemonstrated. There is symmetric enhancement of the kidneys without hydronephrosis. Decompressed urinary bladder with Hernández catheter. Mild prostamegaly. Atherosclerosis of the aorta without aneurysm identified. There is no adenopathy. No bowel obstruction. No bowel wall thickening. Noninflamed appendix. No acute fracture. Ankylosis of the SI joints with ankylosis and bridging syndesmophytes of the spine, suggestive of ankylosing spondylosis. IMPRESSION: 1. Postoperative changes of recent right inguinal hernia repair with expected edema within the right inguinal canal. Partially imaged ZAN drain of the right scrotum is noted along with scrotal edema. 2. No postoperative fluid collection. 3. Pneumoperitoneum with subcutaneous emphysema of the abdominal wall are likely expected postoperative changes. 4. No bowel obstruction or bowel wall thickening. 5. Cholelithiasis. 6. Additional findings as above. PG Care Time/CCT Total # of Minutes Spent Total Time Spent with Patient: Total time spent is greater than 50% in coordination of care (as documented) at patient's floor/unit and/or counseling patient: Coding Level of Care Code None Diagnoses Elevated troponin R77.8 Elevated AST (SGOT) R74.01 Acute kidney injury N17.9 Coronary artery disease I25.10 Morbid obesity with BMI of 50.0-59.9, adult E66.01; Z68.43 H/O right inguinal hernia repair Z98.890; Z87.19
--- NOTE | 2021-10-15 16:27 | XCELERA ---
[id number]
[2021-10-15] MEDS ORDERED: ALUMINUM/MAGNESIUM SUSP 30 ML UDC PO PRN (17:35)
[2021-10-15] MEDS ORDERED: NITROGLYCERIN SL 0.4 MG/TAB TAB SL PRN (17:35)
[2021-10-15] MEDS ORDERED: UMECLIDINIUM/VILANTEROL 62.5/25MCG 7 PUFFS/INHALER INH PRN (17:35)
[2021-10-15] MEDS ORDERED: DOCUSATE SODIUM 100 MG CAP PO PRN (17:35)
[2021-10-15] MEDS ORDERED: ONDANSETRON INJ 2 MG/ML 2 ML VIAL IV PRN (17:35)
[2021-10-15] MEDS ORDERED: POLYETHYLENE (MIRALAX) 17 GM PACK PO PRN (17:35)
--- NOTE | 2021-10-15 18:00 | Emergency Department Note ---
Impression & Plan Acute non-ST elevation myocardial infarction (NSTEMI), Morbid obesity with BMI of 50.0-59.9, adult, Status post right inguinal hernia repair ED Provider Note CHIEF COMPLAINT: Leg weakness, unable to stand, 1 day post hernia repair HISTORY OF PRESENT ILLNESS: This 66-year-old male patient presents to the emergency department with complaints of generalized weakness, inability to stand and bilateral thigh numbness. He states his legs are "." Patient states he has had no fever, chest pain or shortness of breath. Patient has no complaints of abdominal pain or vomiting. He is worried that his abdomen is reddened. He states he has not taken any pain med since yesterday evening. REVIEW OF SYSTEMS: A review of systems was performed with positives and pertinent negatives listed in the history of present illness. 10 systems were reviewed and are otherwise negative. ALLERGIES: see below MEDICATIONS: see below PMH: see below SOCIAL HISTORY: see below DDx:cellulitis, dehydration, metabolic abnormality, hypo/hyperglycemia, electrolyte disturbance, anemia, hypoxia, cardiac sources, intracerebral event, toxicologic, neurologic, as well as other pathologies. PHYSICAL EXAM: Vital signs reviewed. General: Chronically ill-appearing 66-year-old male, in no significant distress. HEENT: No scleral icterus, PERRLA, neck supple. Atraumatic. Cardiovascular: Regular rate and rhythm, occasional ectopy, no extra sounds. Pulmonary: Clear to auscultation bilaterally, normal work of breathing. Abdomen: Soft, obese, nontender, nondistended, positive bowel sounds. Incision noted to the right lower abdomen at the inguinal fold, lupe are in tact without erythema or drainage. ZAN drain is in place. Musculoskeletal: Atraumatic, no peripheral edema. Neurologic: Patient awake alert and oriented x 3 Skin: Warm, dry, no rash EMERGENCY DEPARTMENT COURSE/MDM: This patient was evaluated and appeared to be in no significant distress. IV access was seen and laboratory work was drawn. Patient was placed on lunchroom monitor and noted to be in a normal sinus rhythm with occasional ectopy. IV fluids were initiated. Patient appeared to be weak but in no distress. Laboratory work reveals a prerenal state with BUN of 35 and creatinine 1.92. Troponin is elevated at 1.42. Nonspecific changes are noted on the EKG however no ST elevation GA, patient is pain-free at this time. Given the postoperative state and elevated troponin with generalized weakness, the patient's case was discussed with the hospitalist service for further management. A decision was made to hold the heparin currently secondary to the recent surgery, no acute changes on EKG and no chest pain. MONITORING: An order for cardiac monitoring was placed and the patient is noted to be in a normal sinus rhythm with PACs at 78 beats per minute. RADIOLOGY: See below EKG: Normal sinus rhythm with PACs at 79 bpm. Previous septal infarct with Q waves noted. ST and T wave abnormality noted in the lateral leads. QTC is 447. Normal axis. DISPOSITION: Hospitalist evaluation for admission Past Med/Surg History Medical History Arthralgia of multiple sites Bilateral inguinal hernia Cardiac murmur none noted on last cardio office visit 06/2021 Carpal tunnel syndrome Chronic obstructive pulmonary disease on maintenance inhalers-stable per pt-few nightly coughs, denies wheezing Congestive heart failure follows with [facility], stable per last office note Coronary artery disease h/o GA and s/p 2 bare metal stents-LAD and Cx in 2008, follows with [facility]; last visit 06/2021 and stable per note Dyspnea on exertion increased over past 16 months per pt with gradual 50 lb weight gain with reduced activity d/t COVID 19 Elevated alkaline phosphatase level Hypertension controlled, stable per pt Hypothyroidism Indigestion Infarction of spleen under observation Ischemic cardiomyopathy follows with [facility], stable per last note Morbid obesity with BMI of 45.0-49.9, adult Pituitary hypogonadism follows with PCP Pre-diabetes Right hydrocele Signs and symptoms involving cognition Pt reports chronic mild memory dysfunction Snoring reports sleep study 4 yrs ago negative for sleep apnea, occ witnessed apneas per Surgical History H/O right inguinal hernia repair (10/14/21) Laparoscopic Converted to Open Right Inguinal Hernia Repair with Mesh(Right) - Rodrigo Dudley DO, FACS 10-14-2021 History of cardiac cath bare metal stent placement x 2 to LAD and Cx in 2008 History of colonoscopy Family History Brother Hx of CABG Myocardial infarction Mother Myocardial infarction Other Coronary heart disease Lung disease Denies family history of Ovarian cancer Prostate cancer Breast cancer Colorectal cancer Social History Smoking Status: Former smoker Second Hand Exposure: No; Hx Alcohol Use: No Hx Substance Use: No Preferred Language: [place]ankan Communication Ability: Effective Visual Impairment: No Limitations Hearing Ability: Normal Agronomy Technician Required: No Beliefs That Will Affect Care: None marital status: Current Living Situation: Spouse current occupational status: other current occupation: HAS NOT WORKED PAST 1.5 YRS How many Children do You have: 2 Feels Safe at Home: Yes Childhood Exposure to Second-Hand Smoke: No during the past year weight has: increased > 10 lbs Seatbelt Use: always Assistive Devices: Glasses Allergies Allergies Allergy/AdvReac Type Severity Reaction Status Date / Time tuberculin, purified protein Allergy Mild SWELLING Verified 10/15/21 11:26 deriva AT SITE guaifenesin [From Mucinex] AdvReac Intermediate felt like Verified 10/15/21 11:26 was on fire pseudoephedrine AdvReac Mild ELECTRIC Verified 10/15/21 11:26 [From Sudafed] CURRENTS THRU BODY simvastatin AdvReac Mild MYALGIA Verified 10/15/21 11:26 Home Meds Home Medications Medication Instructions Recorded Confirmed aspirin 81 mg tablet,delayed 81 mg PO QAM 10/24/18 10/15/21 release cholecalciferol (vitamin D3) 50 50 mcg PO QAM 07/13/21 10/15/21 mcg (2,000 unit) capsule furosemide 20 mg tablet (Lasix) 20 mg PO QAM tab 07/13/21 10/15/21 docusate sodium 100 mg tablet 100 mg PO DAILY PRN 10/06/21 10/15/21 (Stool Softener) finasteride 5 mg tablet 5 mg PO QAM 10/06/21 10/15/21 levothyroxine 112 mcg tablet 112 mcg PO QAM 10/06/21 10/15/21 lisinopril 5 mg tablet 5 mg PO QAM 10/06/21 10/15/21 omega 7-kxx-vny-fish oil 1,000 mg 1 cap PO QAM 10/06/21 10/15/21 (120 mg-180 mg) capsule (Fish Oil) tamsulosin 0.4 mg capsule (Flomax) 0.4 mg PO QAM 10/06/21 10/15/21 thiamine HCl (vitamin B1) 100 mg 100 mg PO QAM 10/06/21 10/15/21 tablet umeclidinium 62.5 mcg-vilanterol 1 inh INHALATION DAILY PRN 10/06/21 10/15/21 25 mcg/actuation powdr for inhalation (Anoro Ellipta) bupropion HCl 100 mg tablet 100 mg PO HS tab 10/12/21 10/15/21 vitamin B12 500 mcg-folic acid 400 1 tab PO QAM 10/15/21 10/15/21 mcg tablet Previous Rx's Medication Instructions Recorded metoprolol succinate 50 mg 50 mg PO QAM #90 tab 02/20/21 tablet,extended release 24 hr nitroglycerin 0.4 mg sublingual 0.4 mg SUBLINGUAL .Q5 mins PRN #25 05/22/21 tablet tab atorvastatin 80 mg tablet (Lipitor) 80 mg PO PM #90 tab 08/27/21 potassium chloride 20 mEq 20 meq PO QAM #30 tab 10/09/21 tablet,extended release(part/cryst) oxycodone-acetaminophen 5 mg-325 1 - 2 tab PO .q4-6h PRN #15 tab 10/14/21 mg tablet (Percocet) Results & Data (ED) Vital Signs Vital Signs - 24 hr 10/15/21 10:45 10/15/21 12:54 10/15/21 13:32 Temperature 37.1 C Temperature Source Oral Pulse Rate 81 84 Pulse Rate [Left Finger] 78 Pulse Rate from SpO2 Sensor 85 Respiratory Rate 20 20 22 Respiratory Effort / Characteristics Non-Labored Non-Labored Respiratory Depth Normal Normal Blood Pressure 113/63 107/51 L Blood Pressure [Left Arm] 121/74 Blood Pressure Mean 79 69 Blood Pressure Mean [Left Arm] 89 Pulse Oximetry 94 94 94 Oxygen Delivery Method Room Air Room Air Sepsis Recent Fever Within 48 Hours No Sepsis New/Unexplained Change in Mental Status N/A Sepsis Action Taken by Nursing No Action Required Home Medications Current Medication List: was personally reviewed by me Laboratory Data Attestation: I reviewed the patient's lab results. Result diagrams: 10/15/21 12:10 10/15/21 12:10 Lab Results 10/15/21 10/15/21 10/15/21 Range/Units 11:00 12:10 12:10 WBC 10.41 (4.8-10.8) K/uL RBC 4.29 L (4.7-6.1) M/uL Hgb 13.6 L (14.0-18.0) g/dL Hct 42.5 (42-52) % MCV 99.1 (80-100) fL MCH 31.7 (25-34) pg MCHC 32.0 (32-36) g/dL RDW Std Deviation 53.3 H (36.4-46.3) fL RDW Coeff of Emilee 14.8 H (11.5-14.5) % Plt Count 216 (130-400) K/uL MPV 10.0 (7.4-10.4) fL Immature Gran % (Auto) 0.1 % Neut % (Auto) 77.1 % Lymph % (Auto) 14.1 % Elliott % (Auto) 8.5 % Eos % (Auto) 0.0 % Baso % (Auto) 0.2 % Neut # (Auto) 8.03 H (1.4-6.5) K/uL Lymph # (Auto) 1.47 (1.2-3.4) K/uL Elliott # (Auto) 0.88 H (0.11-0.59) K/uL Eos # (Auto) 0.00 (0-0.5) K/uL Baso # (Auto) 0.02 (0-0.2) K/uL Immature Gran # (Auto) 0.01 (0.00-0.02) K/uL PT (9.0-12.0) Seconds INR (0.9-1.1) APTT (21.0-31.0) Seconds PTT Ratio Sodium 136 (136-145) mmol/L Potassium 4.3 (3.5-5.1) mmol/L Chloride 101 (98-107) mmol/L Carbon Dioxide 26 (21-32) mmol/L Anion Gap 9.0 (3-11) BUN 35 H (7-18) mg/dl Creatinine 1.92 H (0.6-1.4) mg/dl Est Cr Clr Drug Dosing 51.1 ml/min Est GFR ( Amer) 41.7 ml/min Est GFR (Non-Af Amer) 36.0 ml/min BUN/Creatinine Ratio 18.0 (10-20) Glucose 122 H (70-99) mg/dl Calcium 8.2 L (8.5-10.1) mg/dl Magnesium 2.4 (1.8-2.4) mg/dl Total Bilirubin 0.9 (0.2-1) mg/dl AST 470 H (15-37) U/L ALT 87 H (12-78) U/L Alkaline Phosphatase 60 (45-117) U/L Total Creatine Kinase (39-308) U/L Troponin I 1.420 H* (0-0.045) ng/ml Total Protein 7.6 (6.4-8.2) gm/dl Albumin 3.8 (3.4-5.0) gm/dl Globulin 3.8 (2.5-4.0) gm/dl Albumin/Globulin Ratio 1.0 (0.9-2) TSH 1.490 (0.300-4.500) uIu/ml Urine Color Yellow Urine Appearance Clear (Clear) Urine pH 5.0 (4.5-7.5) Ur Specific Semora 1.016 (1.000-1.030) Urine Protein 1+ H (Negative) Urine Glucose (UA) Negative (Negative) Urine Ketones Negative (Negative) Urine Blood 3+ H (Negative) Urine Nitrite Negative (Negative) Urine Bilirubin Negative (Negative) Urine Urobilinogen Negative (Negative) Ur Leukocyte Esterase Negative (Negative) Urine WBC (Auto) 1-5 (0-5) /hpf Urine RBC (Auto) 0-4 (0-4) /hpf U Hyaline Cast (Auto) 1-5 (0-5) /lpf U Epithel Cells (Auto) 5-10 H (0-5) /lpf Urine Bacteria (Auto) Negative (Negative) 10/15/21 10/15/21 Range/Units 12:10 14:02 WBC (4.8-10.8) K/uL RBC (4.7-6.1) M/uL Hgb (14.0-18.0) g/dL Hct (42-52) % MCV (80-100) fL MCH (25-34) pg MCHC (32-36) g/dL RDW Std Deviation (36.4-46.3) fL RDW Coeff of Emilee (11.5-14.5) % Plt Count (130-400) K/uL MPV (7.4-10.4) fL Immature Gran % (Auto) % Neut % (Auto) % Lymph % (Auto) % Elliott % (Auto) % Eos % (Auto) % Baso % (Auto) % Neut # (Auto) (1.4-6.5) K/uL Lymph # (Auto) (1.2-3.4) K/uL Elliott # (Auto) (0.11-0.59) K/uL Eos # (Auto) (0-0.5) K/uL Baso # (Auto) (0-0.2) K/uL Immature Gran # (Auto) (0.00-0.02) K/uL PT 10.5 (9.0-12.0) Seconds INR 1.0 (0.9-1.1) APTT 24.5 (21.0-31.0) Seconds PTT Ratio 0.9 Sodium (136-145) mmol/L Potassium (3.5-5.1) mmol/L Chloride (98-107) mmol/L Carbon Dioxide (21-32) mmol/L Anion Gap (3-11) BUN (7-18) mg/dl Creatinine (0.6-1.4) mg/dl Est Cr Clr Drug Dosing ml/min Est GFR ( Amer) ml/min Est GFR (Non-Af Amer) ml/min BUN/Creatinine Ratio (10-20) Glucose (70-99) mg/dl Calcium (8.5-10.1) mg/dl Magnesium (1.8-2.4) mg/dl Total Bilirubin (0.2-1) mg/dl AST (15-37) U/L ALT (12-78) U/L Alkaline Phosphatase (45-117) U/L Total Creatine Kinase 93475 H (39-308) U/L Troponin I (0-0.045) ng/ml Total Protein (6.4-8.2) gm/dl Albumin (3.4-5.0) gm/dl Globulin (2.5-4.0) gm/dl Albumin/Globulin Ratio (0.9-2) TSH (0.300-4.500) uIu/ml Urine Color Urine Appearance (Clear) Urine pH (4.5-7.5) Ur Specific Semora (1.000-1.030) Urine Protein (Negative) Urine Glucose (UA) (Negative) Urine Ketones (Negative) Urine Blood (Negative) Urine Nitrite (Negative) Urine Bilirubin (Negative) Urine Urobilinogen (Negative) Ur Leukocyte Esterase (Negative) Urine WBC (Auto) (0-5) /hpf Urine RBC (Auto) (0-4) /hpf U Hyaline Cast (Auto) (0-5) /lpf U Epithel Cells (Auto) (0-5) /lpf Urine Bacteria (Auto) (Negative) Administered Medications Discontinued Medications Ioversol (Optiray 320 125ml) 121 ml IV ONCE ONE Stop: 10/15/21 13:22 Last Admin: 10/15/21 13:21 Dose: 121 ml Documented by: [id number] Imaging Data Radiologist's Impression: Chest X-Ray 10/15/21 11:24 XR chest 1V portable HISTORY: 66 years-old Male weakness acute weakness COMPARISON: Chest radiograph 10/07/2021 TECHNIQUE: Portable AP view of the chest FINDINGS: Cardiac silhouette is enlarged. Mild linear subsegmental bibasilar atelectasis/scarring. There is no pneumothorax, pleural effusion or overt pulmonary edema. Degenerative changes of the shoulders and spine. IMPRESSION: Cardiomegaly without acute process. ACT 112: Negative or not required by law. The above report was generated using voice recognition software. It may contain grammatical, syntax or spelling errors. Electronically signed by: Houston Jennings M.D. 10/15/2021 12:41 PM Abdomen/Pelvis CT 10/15/21 12:[address] WITH IV CONTRAST CT DOSE: 2217.20 mGy.cm HISTORY: Acute weakness with elevated LFTs status post abdominal hernia repair. S/p hernia repair, elevated liver enzymes, weaknes TECHNIQUE: Multiaxial CT images of the abdomen and pelvis were performed following the IV administration of 121 cc of Optiray, A dose lowering technique was utilized adhering to the principles of ALARA. COMPARISON STUDY: CT abdomen and pelvis 02/07/2019 FINDINGS: Cardiomegaly. Mural fibrofatty changes of the left ventricular apex and apical septal wall suggest prior myocardial infarction. Coronary artery calcifications. Subsegmental bibasilar densities suggest atelectasis. Scattered foci of pneumoperitoneum noted within the mid to upper abdomen. Subcutaneous emphysema of the anterolateral abdominal wall and scrotum. There is a Roberto catheter noted. There is a skin incision noted along the right lateral aspect of the lower abdominal wall pannus. A drainage catheter extends through the incision into the right hemiscrotum which is partially imaged along with scrotal wall edema. Postoperative changes of right inguinal hernia repair with expected postoperative edema within the inguinal canal. No inguinal postoperative fluid collection identified. Unremarkable spleen, pancreas and adrenal glands. Cholelithiasis without CT evidence of acute cholecystitis. No biliary ductal dilation. Unremarkable liver. Subcentimeter scattered hypodensities of the liver redemonstrated suggestive of probable cysts. Patent portal vein. Pelvic positioning of the right kidney redemonstrated. There is symmetric enhancement of the kidneys without hydronephrosis. Decompressed urinary bladder with Roberto catheter. Mild prostamegaly. Atherosclerosis of the aorta without aneurysm identified. There is no adenopathy. No bowel obstruction. No bowel wall thickening. Noninflamed appendix. No acute fracture. Ankylosis of the SI joints with ankylosis and bridging syndesmophytes of the spine, suggestive of ankylosing spondylosis. IMPRESSION: 1. Postoperative changes of recent right inguinal hernia repair with expected edema within the right inguinal canal. Partially imaged ZAN drain of the right scrotum is noted along with scrotal edema. 2. No postoperative fluid collection. 3. Pneumoperitoneum with subcutaneous emphysema of the abdominal wall are likely expected postoperative changes. 4. No bowel obstruction or bowel wall thickening. 5. Cholelithiasis. 6. Additional findings as above. ACT 112: Negative or not required by law. The above report was generated using voice recognition software. It may contain grammatical, syntax or spelling errors. Electronically signed by: Houston Jennings M.D. 10/15/2021 1:44 PM Blood Pressure Blood Pressure Findings: Normal blood pressure Blood Pressure Disposition: did not require urgent referral Discharge Plan Visit Data Chief Complaint: Illness Stated Complaint: DIFFICULTY AMBULATING ED Provider: Radha Dawn Discharge Problem: Acute non-ST elevation myocardial infarction (NSTEMI), Morbid obesity with BMI of 50.0-59.9, adult, Status post right inguinal hernia repair Patient Disposition: Admitted As Inpatient Discharge Instructions Interventions: ED Discharge Assessment Last Done: 10/15/21 17:27
[2021-10-15] MEDS: LACTATED RINGER'S 1,000 ML IV SCH (19:46)
[2021-10-15] MEDS: oxyCODONE HCL IR 5 MG TAB (IMMEDIATE RELEASE) PO PRN (19:47)
[2021-10-15] MEDS: buPROPion HCl 100 MG TABLET PO SCH (20:08)
[2021-10-15] MEDS: HEPARIN SOD 5,000 UNIT/0.5 ML VIAL SQ SCH (20:21)
[2021-10-15] MEDS: ATORVASTATIN 40 MG TAB PO SCH (20:21)
[2021-10-16] MEDS: ACETAMINOPHEN 325 MG TAB PO PRN (00:44)
[2021-10-16 01:48] LABS: Albumin Level 3.4 gm/dl (3.4-5.0); BUN Creatinine Ratio 19.4 (10-20); Bilirubin Direct 0.3 mg/dl (0-0.2); Calcium 7.9 mg/dl (8.5-10.1); Creatinine Clr Calc Pharmacy 49.5 ml/min; Est GFR (African American) 40.2 ml/min; Est GFR (Non-African American) 34.7 ml/min; Magnesium 2.2 mg/dl (1.8-2.4); Potassium 4.4 mmol/L (3.5-5.1)
[2021-10-16] MEDS: LACTATED RINGER'S 1,000 ML IV SCH ×4 (02:01→22:34)
[2021-10-16 02:28] LABS: Bilirubin,Total 0.9 mg/dl (0.2-1); Total Protein 7.1 gm/dl (6.4-8.2)
[2021-10-16] MEDS: LEVOTHYROXINE SODIUM 112 MCG TABLET PO SCH (06:10)
[2021-10-16] MEDS: HEPARIN SOD 5,000 UNIT/0.5 ML VIAL SQ SCH ×3 (06:11→21:33)
--- NOTE | 2021-10-16 08:00 | Surgery Progress Note ---
Date of Service October 16, 2021 Assessment & Plan (1) H/O right inguinal hernia repair: Plan: POD 2 lap/open hernia CK, trop down slightly, Cr remains 1.9 will follow peripherally, may remove drain prior to discharge Admission and Anticipated Discharge Date Admission Date: October 15, 2021 Subjective still has numbness in thighs, no other c/o Physical Exam Gastrointestinal (Abdomen): Inspection/Auscultation: + abdominal surgical d rain present (25 cc overnight serous) UOP 300 Results & Data ([facility]) Vital Signs (Past 12 Hours) Vital Signs Temp Pulse Pulse Resp BP Pulse Ox 10/16/21 03:36 36.8 C 86 17 116/69 92 10/16/21 00:35 36.8 C 92 H 18 130/69 91 10/15/21 22:19 90 PG Care Time/CCT Total # of Minutes Spent Total Time Spent with Patient: Total time spent is greater than 50% in coordination of care (as documented) at patient's floor/unit and/or counseling patient: Coding Level of Care Code None Diagnoses H/O right inguinal hernia repair Z98.890; Z87.19
[2021-10-16] MEDS: METOPROLOL SUCC 50MG EXT REL TAB PO SCH (08:13)
[2021-10-16] MEDS: TAMSULOSIN HCL 0.4 MG CAP PO SCH (08:14)
[2021-10-16] MEDS: ASPIRIN 81 MG ECTAB PO SCH (08:14)
[2021-10-16] MEDS: FINASTERIDE 5 MG TAB PO SCH (08:14)
[2021-10-16] MEDS: THIAMINE HCL 100 MG TAB PO SCH (08:14)
--- NOTE | 2021-10-16 08:28 | Electrocardiogram Report ---
Test Reason : Blood Pressure : / mmHG Vent. Rate : 085 BPM Atrial Rate : 085 BPM P-R Int : 120 ms QRS Dur : 076 ms QT Int : 384 ms P-R-T Axes : 063 018 135 degrees QTc Int : 456 ms Sinus rhythm with Premature supraventricular complexes Old Anteroseptal infarct (cited on or before 11-JAN-2020) Abnormal ECG When compared with ECG of 15-OCT-2021 11:59, No significant change Confirmed by Giovanni Benjamin ([id number]) on 10/16/2021 8:28:16 AM Referred By: REFERRED SELF Confirmed By:Giovanni Benjamin
--- NOTE | 2021-10-16 08:53 | Electrocardiogram Report ---
Test Reason : Blood Pressure : / mmHG Vent. Rate : 079 BPM Atrial Rate : 079 BPM P-R Int : 122 ms QRS Dur : 074 ms QT Int : 390 ms P-R-T Axes : 053 006 181 degrees QTc Int : 447 ms Sinus rhythm with Premature atrial complexes Old Septal infarct (cited on or before 11-JAN-2020) Abnormal ECG When compared with ECG of 07-OCT-2021 14:16, Premature atrial complexes are now Present Confirmed by Giovanni Benjamin ([id number]) on 10/16/2021 8:52:46 AM Referred By: REFERRED SELF Confirmed By:Giovanni Benjamin
[2021-10-16] MEDS ORDERED: COUGH DROP (SUGAR FREE) LOZ 24 LOZ/1 BOX BUCCAL PRN (10:35)
[2021-10-16] MEDS ORDERED: COUGH DROP (SUGAR FREE) LOZ 24 LOZ/1 BOX BUCCAL ONE (10:37)
--- NOTE | 2021-10-16 11:48 | Hospitalist Progress Note ---
Date of Service October 16, 2021 Assessment & Plan (1) Rhabdomyolysis: Plan: Patient is found of elevated CK on presentation recently did have surgery which was a prolonged event unclear whether the CK elevation is from surgical trauma or prolonged table time. This could certainly influence the patient's renal function. CK was 23,000 admission is now down to 21,000 Urine output is acceptable Continue LR at 150 mL's per hour and monitor pulmonary status closely given history of ischemic cardiomyopathy Follow BMP, CPK, LFTs in the morning Carefully monitor electrolytes, would not replace calcium even if low (2) Acute kidney injury: Plan: Patient with acute kidney injury with a history of chronic kidney disease stage III. This is most likely secondary to rhabdomyolysis Urinalysis with 1+ protein and 3+ blood but 0 RBCs consistent with myoglobinuria from rhabdomyolysis -Continue holding diuretic and BRANDAN inhibitor -Follow BMP in the morning Continue IV fluids Roberto catheter in place, no obstruction in the tract (3) Elevated troponin: Plan: Patient presents with a elevated troponin at 1.4 on admission without cardiac symptoms or EKG changes He is a history of coronary disease with bare-metal stents. He did stop his Plavix preoperatively. Echocardiogram here actually improved from previous as far as wall motion abnormalities, with preserved EF Troponin did trend downward after admission to 1.04 -Continue aspirin, metoprolol succinate 50 daily, and will restart Plavix when okay with surgery-still has a ZAN drain in place (4) CHF (congestive heart failure), NYHA class II: Plan: Patient with history of heart failure reduced ejection fraction EF 45 to 50% on last check, although echocardiogram here with improved/normalized EF He typically takes diuretic and BRANDAN inhibitor which will be held in the face of his acute kidney injury -Continue metoprolol 50 (5) Neuropathy: Plan: Patient with weakness and gait dysfunction with numbness down the legs all likely secondary to rhabdomyolysis and edema causing lateral femoral cutaneous impingement and meralgia paresthetica Numbness is now resolved today and he is ambulating PT/OT consults (6) Elevated AST (SGOT): Plan: Elevated LFTs most likely secondary to rhabdomyolysis Follow LFTs in the morning Improving (7) Hypertension: Plan: Blood pressures are acceptable Holding home Lasix and BRANDAN inhibitor Continue metoprolol (8) Dyslipidemia: Plan: Continue atorvastatin (9) Hypothyroidism: Plan: Patient is a TSH checked on presentation which is normal -Continue Synthroid dosing on 112 mcg a day (10) Coronary artery disease: Plan: With history of bare-metal stents Continue aspirin, statin, metoprolol, restart Plavix when okay with surgery (11) CKD (chronic kidney disease) stage 3, GFR 30-59 ml/min: Plan: As above (12) DVT prophylaxis: Plan: SQ heparin Disposition-continued stay in PCU Admission and Anticipated Discharge Date Admission Date: October 15, 2021 Subjective Patient very irritated about being in the hospital. I did explain that he has rhabdomyolysis and acute kidney injury and he was surprised to find out that he had kidney problems and this has convinced him to stay. He originally had wanted to leave the hospital today. His also called in later and discussed with the nurse that the patient would likely need a nicotine patch and perhaps this will help his agitation. He reports no further numbness in his legs. He denies chest pains or shortness of breath. He is having pain in his scrotal area and is requesting a waffle cushion and an air mattress bed. Telemetry with normal sinus rhythm with rates in the 80s to 90s He is making urine in his Roberto catheter but it is dark yellow in color Review of Systems Review of Systems: All systems reviewed & are unremarkable except as noted in HPI & below Physical Exam Constitutional: WD/WN, vitals as above + obese Eyes: + anicteric sclerae Neck: trachea midline, no thyromegaly Respiratory: normal respiratory effort, lungs clear to auscultation Cardiovascular: RRR, no murmur, no edema Chest (Breasts): Chest: normal inspection of chest Gastrointestinal (Abdomen): Inspection/Auscultation: normal bowel sounds; + abdomen abnormal to inspection (Multiple incisional wounds with Dermabond in place) and abdomen not distended With ZAN drain draining serosanguineous fluid coming from right scrotal region Musculoskeletal: Extremities: extremities normal to inspection; no cyanosis and no clubbing Skin: no rashes, warm and dry Neurologic: moves all extremities and awake; no focal motor deficits Psychiatric: Orientation: alert and oriented x 3 Affect: + irritable affect Genitourinary: Roberto catheter in place draining dark yellow urine Lymphatic: no lymphedema Results & Data Results & Data ([facility]) Vital Signs (Past 12 Hours) Vital Signs Temp Pulse Pulse Resp BP Pulse Ox 10/16/21 11:33 36.4 C L 84 19 136/71 91 10/16/21 08:43 100 H 10/16/21 07:59 36.6 C 86 21 128/63 91 10/16/21 03:36 36.8 C 86 17 116/69 92 10/16/21 00:35 36.8 C 92 H 18 130/69 91 Laboratory Results 10/16/21 10/16/21 Range/Units 01:25 01:25 Sodium 137 (136-145) mmol/L Potassium 4.4 (3.5-5.1) mmol/L Chloride 102 (98-107) mmol/L Carbon Dioxide 24 (21-32) mmol/L Anion Gap 11.0 (3-11) BUN 39 H (7-18) mg/dl Creatinine 1.98 H (0.6-1.4) mg/dl Est Cr Clr Drug Dosing 49.5 ml/min Est GFR ( Amer) 40.2 ml/min Est GFR (Non-Af Amer) 34.7 ml/min BUN/Creatinine Ratio 19.4 (10-20) Glucose 121 H (70-99) mg/dl Calcium 7.9 L (8.5-10.1) mg/dl Magnesium 2.2 (1.8-2.4) mg/dl Total Bilirubin 0.9 (0.2-1) mg/dl Direct Bilirubin 0.3 H (0-0.2) mg/dl AST 417 H (15-37) U/L ALT 81 H (12-78) U/L Alkaline Phosphatase 51 (45-117) U/L Total Creatine Kinase 86829 H (39-308) U/L Troponin I 1.040 H* (0-0.045) ng/ml Total Protein 7.1 (6.4-8.2) gm/dl Albumin 3.4 (3.4-5.0) gm/dl PG Care Time/CCT Total # of Minutes Spent Total Time Spent with Patient: Total time spent is greater than 50% in coordination of care (as documented) at patient's floor/unit and/or counseling patient: Coding Level of Care Code 54014 Subseq Hosp Care Lvl 3 Diagnoses Elevated troponin R77.8 Acute kidney injury N17.9 Rhabdomyolysis M62.82 CHF (congestive heart failure), NYHA class II I50.9 Neuropathy G62.9 Elevated AST (SGOT) R74.01 Hypertension I10 Dyslipidemia E78.5 Hypothyroidism E03.9 DVT prophylaxis Z29.9 Coronary artery disease I25.10 CKD (chronic kidney disease) stage 3, GFR 30-59 ml/min N18.30
[2021-10-16] MEDS: oxyCODONE HCL IR 5 MG TAB (IMMEDIATE RELEASE) PO PRN (16:18)
[2021-10-16] MEDS: NICOTINE 14 MG/24 HR PATCH TD SCH (17:00)
[2021-10-16] MEDS: ATORVASTATIN 40 MG TAB PO SCH (20:03)
[2021-10-16] MEDS: buPROPion HCl 100 MG TABLET PO SCH (20:04)
[2021-10-17] MEDS: ACETAMINOPHEN 325 MG TAB PO PRN (04:54)
[2021-10-17] MEDS: LACTATED RINGER'S 1,000 ML IV SCH ×3 (05:21→17:57)
[2021-10-17] MEDS: HEPARIN SOD 5,000 UNIT/0.5 ML VIAL SQ SCH ×3 (05:28→21:49)
[2021-10-17] MEDS: LEVOTHYROXINE SODIUM 112 MCG TABLET PO SCH (05:33)
[2021-10-17 06:52] LABS: Hematocrit (blood only) 35.4 % (42-52); Hemoglobin 11.1 g/dL (14.0-18.0); Mean Corpuscular Hemoglobin 31.4 pg (25-34); Mean Corpuscular Hgb Conc 31.4 g/dL (32-36); Mean Corpuscular Volume 100.3 fL (80-100); Mean Platelet Volume 10.1 fL (7.4-10.4); Platelet Count 185 K/uL (130-400); RDW Coefficient of Variation 14.5 % (11.5-14.5); RDW Standard Deviation 52.5 fL (36.4-46.3); Red Blood Count 3.53 M/uL (4.7-6.1); White Blood Count 9.79 K/uL (4.8-10.8)
--- NOTE | 2021-10-17 07:06 | Surgery Progress Note ---
Date of Service October 17, 2021 Assessment & Plan (1) Rhabdomyolysis: Plan: Patient readmitted after undergoing laparoscopic/open hernia repair Elevated troponin, rhabdomyolysis, acute renal insufficiency Patient currently is awake and alert sitting in his chair at the bedside and he wants to go home- He does have a Roberto catheter in place with clear yellow urine output and IV fluids running He does have a ZAN drain in place with minimal output Continue with medical management Leave drain for now and encourage ambulation in the hallway if possible Check a.m. labs-I did encourage him that he needs to stay in the hospital and going home would be the wrong decision Admission and Anticipated Discharge Date Admission Date: October 15, 2021 Results & Data ([facility]) Vital Signs (Past 12 Hours) Vital Signs Temp Pulse Pulse Resp BP Pulse Ox 10/17/21 04:08 36.6 C 77 18 130/74 90 10/16/21 23:15 36.7 C 77 18 148/84 H 93 10/16/21 23:10 76 10/16/21 20:12 37.0 C 83 18 112/65 93 PG Care Time/CCT Total # of Minutes Spent Total Time Spent with Patient: Total time spent is greater than 50% in coordination of care (as documented) at patient's floor/unit and/or counseling patient: Coding Level of Care Code None Diagnoses Rhabdomyolysis M62.82
[2021-10-17 07:32] LABS: BUN Creatinine Ratio 20.7 (10-20); Bilirubin Direct 0.2 mg/dl (0-0.2); Calcium 8.6 mg/dl (8.5-10.1); Creatinine Clr Calc Pharmacy 79.8 ml/min; Est GFR (African American) 75.1 ml/min; Est GFR (Non-African American) 64.8 ml/min; Magnesium 2.6 mg/dl (1.8-2.4); Potassium 4.1 mmol/L (3.5-5.1)
[2021-10-17 07:57] LABS: Bilirubin,Total 0.8 mg/dl (0.2-1); Total Protein 6.8 gm/dl (6.4-8.2)
[2021-10-17] MEDS: FINASTERIDE 5 MG TAB PO SCH (08:22)
[2021-10-17] MEDS: TAMSULOSIN HCL 0.4 MG CAP PO SCH (08:22)
[2021-10-17] MEDS: METOPROLOL SUCC 50MG EXT REL TAB PO SCH (08:22)
[2021-10-17] MEDS: ASPIRIN 81 MG ECTAB PO SCH (08:22)
[2021-10-17] MEDS: THIAMINE HCL 100 MG TAB PO SCH (08:22)
[2021-10-17] MEDS: NICOTINE 14 MG/24 HR PATCH TD SCH (08:22)
[2021-10-17 12:04] LABS: Albumin Level 3.1 gm/dl (3.4-5.0); BUN Creatinine Ratio 18.8 (10-20); Calcium 8.5 mg/dl (8.5-10.1); Creatinine Clr Calc Pharmacy 82.6 ml/min; Est GFR (African American) 78.3 ml/min; Est GFR (Non-African American) 67.6 ml/min
[2021-10-17 12:33] LABS: Albumin Globulin Ratio 0.8 (0.9-2); Bilirubin,Total 0.6 mg/dl (0.2-1); Globulin 3.9 gm/dl (2.5-4.0)
--- NOTE | 2021-10-17 14:47 | Hospitalist Progress Note ---
Date of Service October 17, 2021 Assessment & Plan (1) Rhabdomyolysis: Plan: Patient is found of elevated CK on presentation recently did have surgery which was a prolonged event unclear whether the CK elevation is from surgical trauma or prolonged table time. This could certainly influence the patient's renal function. CK was 23,000 admission is now down to 11,000 with IV fluid hydration Urine output is acceptable Continue LR but reduce rate to 125mL's per hour and monitor pulmonary status closely given history of ischemic cardiomyopathy Follow BMP, CPK, LFTs in the morning Carefully monitor electrolytes, would not replace calcium even if low (2) Acute kidney injury: Plan: Patient with acute kidney injury with a history of chronic kidney disease stage III. This is most likely secondary to rhabdomyolysis as well as urinary retention Urinalysis with 1+ protein and 3+ blood but 0 RBCs consistent with myoglobinuria from rhabdomyolysis -Continue holding diuretic and BRANDAN inhibitor -Maintain Roberto catheter Creatinine now improved back to normal at 1.1 -Follow BMP in the morning Continue IV fluids Roberto catheter in place, likely had urinary retention due to recent inguinal hernia surgery (3) Elevated troponin: Plan: Patient presents with a elevated troponin at 1.4 on admission without cardiac symptoms or EKG changes He is a history of coronary disease with bare-metal stents. He did stop his Plavix preoperatively. Echocardiogram here actually improved from previous as far as wall motion abnormalities, with preserved EF Troponin did trend downward after admission to 1.04 -Continue aspirin, metoprolol succinate 50 daily, and will restart Plavix when okay with surgery-still has a ZAN drain in place (4) CHF (congestive heart failure), NYHA class II: Plan: Patient with history of heart failure reduced ejection fraction EF 45 to 50% on last check, although echocardiogram here with improved/normalized EF He typically takes diuretic and BRANDAN inhibitor which will be held in the face of his acute kidney injury -Continue metoprolol 50 (5) Neuropathy: Plan: Patient with weakness and gait dysfunction with numbness down the legs all likely secondary to rhabdomyolysis and edema causing lateral femoral cutaneous impingement and meralgia paresthetica Numbness is now resolved today and he is ambulating PT/OT consults (6) Elevated AST (SGOT): Plan: Elevated LFTs most likely secondary to rhabdomyolysis LFTs continue to be trending downward today as rhabdomyolysis improving Follow LFTs in the morning (7) Hypertension: Plan: Blood pressures are acceptable Holding home Lasix and BRANDAN inhibitor Continue metoprolol (8) Dyslipidemia: Plan: Continue atorvastatin (9) Hypothyroidism: Plan: Patient is a TSH checked on presentation which is normal -Continue Synthroid dosing on 112 mcg a day (10) Coronary artery disease: Plan: With history of bare-metal stents Continue aspirin, statin, metoprolol, restart Plavix when okay with surgery (11) CKD (chronic kidney disease) stage 3, GFR 30-59 ml/min: Plan: As above (12) Urinary retention: Plan: Was having issues with urinary retention prior to his inguinal hernia surgery which acutely worsened postoperatively Now relieved with Roberto catheter in place Plan to maintain Roberto catheter upon discharge and have him follow-up with urology in the office in 1 week for trial of void Continue finasteride and tamsulosin (13) DVT prophylaxis: Plan: SQ heparin Disposition-continued stay in PCU, but can likely be discharged home tomorrow if okay with surgery and rhabdo continues to be improved Admission and Anticipated Discharge Date Admission Date: October 15, 2021 Subjective Patient feeling better, less pain when he feels the air mattress helped him however he still has trouble sleeping. Denies chest pain or shortness of breath, has some mild abdominal pain especially around the site of the ZAN drain. Telemetry with normal sinus rhythm PACs with rates in the 80s. I discussed his care with the general surgeon. Review of Systems Review of Systems: All systems reviewed & are unremarkable except as noted in HPI & below Physical Exam Constitutional: WD/WN, vitals as above + obese Eyes: + anicteric sclerae Neck: trachea midline, no thyromegaly Respiratory: normal respiratory effort, lungs clear to auscultation Cardiovascular: RRR, no murmur, no edema Chest (Breasts): Chest: normal inspection of chest Gastrointestinal (Abdomen): Inspection/Auscultation: normal bowel sounds; + abdomen abnormal to inspection (Multiple incisional wounds with Dermabond in place) and abdomen not distended ZAN drain coming from right lower quadrant with minimal serous fluid Musculoskeletal: Extremities: extremities normal to inspection; no cyanosis and no clubbing Skin: no rashes, warm and dry Neurologic: moves all extremities and awake; no focal motor deficits Psychiatric: Orientation: alert and oriented x 3 Lymphatic: no lymphedema Results & Data Results & Data ([facility]) Vital Signs (Past 12 Hours) Vital Signs Temp Pulse Resp BP Pulse Ox 10/17/21 11:15 36.4 C L 79 20 150/88 H 93 10/17/21 07:28 36.5 C 75 18 146/76 H 94 10/17/21 04:08 36.6 C 77 18 130/74 90 Laboratory Results 10/17/21 10/17/21 10/17/21 Range/Units 11:36 11:36 06:04 WBC 9.79 (4.8-10.8) K/uL RBC 3.53 L (4.7-6.1) M/uL Hgb 11.1 L (14.0-18.0) g/dL Hct 35.4 L (42-52) % MCV 100.3 H (80-100) fL MCH 31.4 (25-34) pg MCHC 31.4 L (32-36) g/dL RDW Std Deviation 52.5 H (36.4-46.3) fL RDW Coeff of Emilee 14.5 (11.5-14.5) % Plt Count 185 (130-400) K/uL MPV 10.1 (7.4-10.4) fL Sodium 134 L (136-145) mmol/L Potassium 4.0 (3.5-5.1) mmol/L Chloride 101 (98-107) mmol/L Carbon Dioxide 30 (21-32) mmol/L Anion Gap 3.0 (3-11) BUN 21 H (7-18) mg/dl Creatinine 1.14 (0.6-1.4) mg/dl Est Cr Clr Drug Dosing 82.6 ml/min Est GFR ( Amer) 78.3 ml/min Est GFR (Non-Af Amer) 67.6 ml/min BUN/Creatinine Ratio 18.8 (10-20) Glucose 116 H (70-99) mg/dl Calcium 8.5 (8.5-10.1) mg/dl Magnesium (1.8-2.4) mg/dl Total Bilirubin 0.6 (0.2-1) mg/dl Direct Bilirubin (0-0.2) mg/dl AST 295 H (15-37) U/L ALT 84 H (12-78) U/L Alkaline Phosphatase 55 (45-117) U/L Total Creatine Kinase Cancelled 75630 H (39-308) U/L Total Protein 7.0 (6.4-8.2) gm/dl Albumin 3.1 L (3.4-5.0) gm/dl Globulin 3.9 (2.5-4.0) gm/dl Albumin/Globulin Ratio 0.8 L (0.9-2) 10/17/ Range/Units 06:04 WBC (4.8-10.8) K/uL RBC (4.7-6.1) M/uL Hgb (14.0-18.0) g/dL Hct (42-52) % MCV (80-100) fL MCH (25-34) pg MCHC (32-36) g/dL RDW Std Deviation (36.4-46.3) fL RDW Coeff of Emilee (11.5-14.5) % Plt Count (130-400) K/uL MPV (7.4-10.4) fL Sodium 134 L (136-145) mmol/L Potassium 4.1 (3.5-5.1) mmol/L Chloride 100 (98-107) mmol/L Carbon Dioxide 30 (21-32) mmol/L Anion Gap 4.0 (3-11) BUN 24 H (7-18) mg/dl Creatinine 1.18 D (0.6-1.4) mg/dl Est Cr Clr Drug Dosing 79.8 ml/min Est GFR ( Amer) 75.1 ml/min Est GFR (Non-Af Amer) 64.8 ml/min BUN/Creatinine Ratio 20.7 H (10-20) Glucose 129 H (70-99) mg/dl Calcium 8.6 (8.5-10.1) mg/dl Magnesium 2.6 H (1.8-2.4) mg/dl Total Bilirubin 0.8 (0.2-1) mg/dl Direct Bilirubin 0.2 (0-0.2) mg/dl AST 302 H (15-37) U/L ALT 80 H (12-78) U/L Alkaline Phosphatase 51 (45-117) U/L Total Creatine Kinase 89960 H (39-308) U/L Total Protein 6.8 (6.4-8.2) gm/dl Albumin 3.0 L (3.4-5.0) gm/dl Globulin (2.5-4.0) gm/dl Albumin/Globulin Ratio (0.9-2) PG Care Time/CCT Total # of Minutes Spent Total Time Spent with Patient: Total time spent is greater than 50% in coordination of care (as documented) at patient's floor/unit and/or counseling patient: Coding Level of Care Code 39851 Subseq Hosp Care Lvl 3 Diagnoses Rhabdomyolysis M62.82 Acute kidney injury N17.9 Elevated troponin R77.8 CHF (congestive heart failure), NYHA class II I50.9 Neuropathy G62.9 Elevated AST (SGOT) R74.01 Hypertension I10 Dyslipidemia E78.5 Hypothyroidism E03.9 Coronary artery disease I25.10 CKD (chronic kidney disease) stage 3, GFR 30-59 ml/min N18.30 DVT prophylaxis Z29.9 Urinary retention R33.9
[2021-10-17] MEDS: buPROPion HCl 100 MG TABLET PO SCH (21:49)
[2021-10-17] MEDS: ATORVASTATIN 40 MG TAB PO SCH (21:49)
[2021-10-17] MEDS: oxyCODONE HCL IR 5 MG TAB (IMMEDIATE RELEASE) PO PRN (23:38)
[2021-10-18] MEDS: LACTATED RINGER'S 1,000 ML IV SCH ×2 (04:35→08:40)
[2021-10-18] MEDS: LEVOTHYROXINE SODIUM 112 MCG TABLET PO SCH (06:04)
[2021-10-18] MEDS: HEPARIN SOD 5,000 UNIT/0.5 ML VIAL SQ SCH (06:04)
--- NOTE | 2021-10-18 06:29 | Surgery Progress Note ---
Date of Service October 18, 2021 Assessment & Plan (1) Rhabdomyolysis: Plan: Patient is awake and alert sitting in the chair-he wants to go home and says he cannot stand it here another day He is frustrated at being in the hospital He has not had a bowel movement or is not passing flatus-he is trying He has had some belching There is some concern for an ileus We will try some MiraLAX and Senokot-S I try to warn the patient that if he goes home which would be essentially against my advice he gave begin to vomit And end up coming back to the emergency room and also stressed his surgical repairs We will see how he does this morning and check his laboratories Admission and Anticipated Discharge Date Admission Date: October 15, 2021 Results & Data ([place]) Vital Signs (Past 12 Hours) Vital Signs Temp Pulse Pulse Resp BP Pulse Ox 10/18/21 03:10 36.6 C 81 20 135/83 95 10/18/21 00:41 77 10/17/21 23:45 36.5 C 78 20 152/86 H 96 10/17/21 20:42 36.6 C 76 20 134/69 97 PG Care Time/CCT Total # of Minutes Spent Total Time Spent with Patient: Total time spent is greater than 50% in coordination of care (as documented) at patient's floor/unit and/or counseling patient: Coding Level of Care Code None Diagnoses Rhabdomyolysis M62.82
[2021-10-18 07:27] LABS: Albumin Level 2.9 gm/dl (3.4-5.0); BUN Creatinine Ratio 19.4 (10-20); Calcium 8.6 mg/dl (8.5-10.1); Creatinine Clr Calc Pharmacy 104.1 ml/min; Est GFR (African American) 98.9 ml/min; Est GFR (Non-African American) 85.3 ml/min; Magnesium 2.3 mg/dl (1.8-2.4)
[2021-10-18 07:42] LABS: Albumin Globulin Ratio 0.8 (0.9-2); Bilirubin,Total 0.8 mg/dl (0.2-1); Globulin 3.8 gm/dl (2.5-4.0); Total Protein 6.7 gm/dl (6.4-8.2)
[2021-10-18] MEDS: FINASTERIDE 5 MG TAB PO SCH (08:41)
[2021-10-18] MEDS: TAMSULOSIN HCL 0.4 MG CAP PO SCH (08:41)
[2021-10-18] MEDS: NICOTINE 14 MG/24 HR PATCH TD SCH (08:41)
[2021-10-18] MEDS: METOPROLOL SUCC 50MG EXT REL TAB PO SCH (08:41)
[2021-10-18] MEDS: ASPIRIN 81 MG ECTAB PO SCH (08:41)
[2021-10-18] MEDS: THIAMINE HCL 100 MG TAB PO SCH (08:41)
[2021-10-18] MEDS ORDERED: DOCUSATE SODIUM/SENNA 50/8.6MG TAB PO SCH (09:00)
[2021-10-18] MEDS ORDERED: POLYETHYLENE (MIRALAX) 17 GM PACK PO SCH (09:00)
--- NOTE | 2021-10-18 10:29 | Electrocardiogram Report ---
Test Reason : Blood Pressure : / mmHG Vent. Rate : 081 BPM Atrial Rate : 081 BPM P-R Int : 122 ms QRS Dur : 068 ms QT Int : 374 ms P-R-T Axes : 069 001 194 degrees QTc Int : 434 ms Sinus rhythm with Premature supraventricular complexes Septal infarct (cited on or before 11-JAN-2020) Abnormal ECG When compared with ECG of 16-OCT-2021 06:05, Questionable change in initial forces of Anteroseptal leads Nonspecific T wave abnormality now evident in Inferior leads Confirmed by Juan Eagle ([id number]) on 10/18/2021 10:29:08 AM Referred By: REFERRED SELF Confirmed By:Juan Eagle
--- NOTE | 2021-10-18 11:18 | Discharge Summary ---
Date of Service October 18, 2021 Admission HPI Per Admitting Provider 66-year-old male underwent bilateral inguinal hernia repair on October 14 Dr. Dudley. Patient is a significant coronary history with bare-metal stents in his left circumflex and left anterior distending some 1-2008 in 2010 range. He was instructed to hold his Plavix 7 days preop. Patient presents to the ER inability to walk found to have a elevated troponin 1.5 no acute EKG changes. Patient suffers from morbid obesity, chronic chronic kidney disease stage III, congestive heart failure felt to be heart failure reduced ejection fraction with [place] Heart [employer] class II. Pts biggest concern is not being able to stand or even walk to the bathroom, he has some neuropathic pain/burning sensation to the left lateral thigh. I personally spoke to Dr Dudley and he states that concern for rhabdo or neuropathy from prolonged table time and morbid obesity, pending CK at this time. Principal Diagnosis SOFÍA, Rhabdomyolysis, Urinary retention Discharge Exam Constitutional WD/WN, vitals as above + obese Eyes + anicteric sclerae Neck trachea midline, no thyromegaly Respiratory normal respiratory effort, lungs clear to auscultation Cardiovascular RRR, no murmur, no edema Chest (Breasts) Chest: normal inspection of chest Gastrointestinal (Abdomen) Inspection/Auscultation: normal bowel sounds; + abdomen abnormal to inspection (Multiple incisional wounds with Dermabond in place) and abdomen not distended Musculoskeletal Extremities: extremities normal to inspection; no cyanosis and no clubbing Skin no rashes, warm and dry Neurologic moves all extremities and awake; no focal motor deficits Psychiatric Orientation: alert and oriented x 3 Lymphatic no lymphedema Discharge Data Allergies Allergy/AdvReac Type Severity Reaction Status Date / Time tuberculin, purified protein Allergy Mild SWELLING Verified 10/15/21 11:26 deriva AT SITE guaifenesin [From Mucinex] AdvReac Intermediate felt like Verified 10/15/21 11:26 was on fire pseudoephedrine AdvReac Mild ELECTRIC Verified 10/15/21 11:26 [From Sudafed] CURRENTS THRU BODY simvastatin AdvReac Mild MYALGIA Verified 10/15/21 11:26 Consultations 10/15/21 14:15 ED Decision to Admit Stat 10/15/21 14:46 Consult General Surgery Stat Ordered Studies 10/15/21 12:55 CT abd pelvis IV con only Stat ECHO Hospital Course (1) Rhabdomyolysis: Patient is found of elevated CK on presentation recently did have surgery which was a prolonged event unclear whether the CK elevation is from surgical trauma or prolonged table time. This could certainly influence the patient's renal function. CK was 23,000 admission is now down to 6,000 with IV fluid hydration Urine output is acceptable Encouraged po fluid intake at home after discharge cautiously due to CHF, limit 2400mL per day discussed with him Follow CPK,CMP in 3 days as outpt Feels well, ambulating, no pain in thighs or buttocks (2) Acute kidney injury: Patient with acute kidney injury with a history of chronic kidney disease stage III. This is most likely secondary to rhabdomyolysis as well as urinary retention Urinalysis with 1+ protein and 3+ blood but 0 RBCs consistent with myoglobinuria from rhabdomyolysis -Continue holding diuretic but ok to restart BRANDAN inhibitor upon discharge [employer] down to normal x 2 days in a row prior to discharge -Maintain Roberto catheter upon discharge--> had urinary retention due to recent inguinal hernia surgery in setting of enlarged prostate--> f/u with Urology in 1 week -Follow CMP in 3 days as outpt (3) Elevated troponin: Patient presents with a elevated troponin at 1.4 on admission without cardiac symptoms or EKG changes He is a history of coronary disease with bare- metal stents. He did stop his Plavix preoperatively. Echocardiogram here actually improved from previous as far as wall motion abnormalities, with preserved EF Troponin did trend downward after admission to 1.04 -Continue aspirin, metoprolol succinate 50 daily, and will restart Plavix as per my d/w surgery-still has a ZAN drain in place and will go home with this (4) CHF (congestive heart failure), NYHA class II: Patient with history of heart failure reduced ejection fraction EF 45 to 50% on last check, although echocardiogram here with improved/normalized EF He typically takes diuretic and BRANDAN inhibitor which will be held in the face of his acute kidney injury -Continue metoprolol 50 (5) Neuropathy: Patient with weakness and gait dysfunction with numbness down the legs all likely secondary to rhabdomyolysis and edema causing lateral femoral cutaneous impingement and meralgia paresthetica Numbness is now resolved today and he is ambulating PT/OT consults appreciated (6) Elevated AST (SGOT): Elevated LFTs most likely secondary to rhabdomyolysis LFTs continue to be trending downward today as rhabdomyolysis improving Follow LFTs in 3 days (7) Hypertension: Blood pressures are acceptable Holding home Lasix and ok to restart BRANDAN inhibitor upon discharge Continue metoprolol (8) Dyslipidemia: Continue atorvastatin (9) Hypothyroidism: Patient is a TSH checked on presentation which is normal -Continue Synthroid dosing on 112 mcg a day (10) Coronary artery disease: With history of bare-metal stents Continue aspirin, statin, metoprolol, restart Plavix now (11) CKD (chronic kidney disease) stage 3, GFR 30-59 ml/min: As above (12) Urinary retention: Was having issues with urinary retention prior to his inguinal hernia surgery which acutely worsened postoperatively Now relieved with Roberto catheter in place Plan to maintain Roberto catheter upon discharge and have him follow-up with ur ology in the office in 1 week for trial of void Continue finasteride and tamsulosin (13) DVT prophylaxis: SQ heparin Disposition-dc to home. Had large BM prior to surgery and no further concern for ileus Total Time Total Time Spent Total Time Spent (In Minutes): 35 min Total Time Includes: Examination of the Patient, Discharge Planning, Medication Reconciliation and Communication With Other Providers Discharge Plan Discharge Items Patient Disposition: Home - Self-Care Reason For Visit: ELEVATED TROPONIN, SOFÍA, TRANSAMINITIS, WEAKNESS Discharge Diagnosis: Acute kidney injury, rhabdomyolysis, urinary retention Condition on Discharge: Fair Activity: Per Instructions section Lifting: No more than 10 pounds Bathing Comment: may shower; no soaking in tubs/pools Exercise/Sports: Wait until after follow-up appointment Driving/Machine Use: no driving while taking narcotics for pain Non-emergency contact: Primary Care Provider, Surgeon and Urologist Call non-emergency contact if: you have any medication questions, your symptoms worsen, your pain is not controlled, your pain is worsening, your pain is concerning for you, you have a fever, your temperature is above 101.5, your wound has increased redness, your wound has increased drainage and your wound pain has increased Follow-up/Referrals: Elaine Sofia MD [Primary Care Provider] - (Follow up within 1-2 weeks) Rodrigo Dudley DO, FACS [Physician] - (Please call to schedule follow up in clinic within 1-2 weeks) Roosevelt Lee DO [Physician] - (Please follow up within 1 week for your Roberto catheter.) Diet: Heart Healthy and Low Sodium (2gm) Ambulatory Orders: Creatine Kinase (Routine) Timeframe: 3 Days Location: Determined by Patient Ordered By: Daisy Marie Comprehensive Metabolic Panel (Routine) Timeframe: 3 Days Location: Determined by Patient Ordered By: Daisy Marie Addtl Attending Provider Instructions: You were admitted with kidney injury and rhabdomyolysis (injury to the muscles) as well as urinary retention requiring placement of a Roberto catheter. This all improved with IV fluids and draining your urine properly with the Roberto catheter. Please continue to follow your previous instructions as to your restrictions after surgery. Your drain will remain in place upon discharge and you need to follow up with the Surgeon to see when this can be removed. You also will be s ent home with the Roberto catheter in place as you were unable to empty your bladder. Hopefully this can be removed in the Urology office in 1 week and they will determine if you can then urinate on your own. Continue to drink about 2400mL per day for a few days and have repeat blood work done on Tuesday to check your muscle enzymes and kidney function. Follow up with your PCP within 1-2 weeks also. Keep your bowels moving with stool softeners or laxatives as needed. Pending Studies at Discharge: No Stand-Alone Forms: [facility], Sm[facility] Cess[facility] Medications and DC Order Prescriptions: New polyethylene glycol 3350 [Miralax] 17 gram Powder In Packet 17 g PO DAILY PRN (Reason: constipation) Qty: 14 RF: 0 clopidogrel [Plavix] 75 mg tablet 75 mg PO DAILY Qty: 30 RF: 0 Continued metoprolol succinate 50 mg tablet extended release 24 hr 50 mg PO QAM Qty: 90 RF: 3 nitroglycerin 0.4 mg tablet, sublingual 0.4 mg Sublingual .Q5 mins PRN (Reason: chest pain) Qty: 25 RF: 3 atorvastatin [Lipitor] 80 mg tablet 80 mg PO PM Qty: 90 RF: 3 cholecalciferol (vitamin D3) 50 mcg (2,000 unit) capsule 50 mcg PO QAM RF: 0 bupropion HCl 100 mg tablet 100 mg PO HS RF: 0 aspirin 81 mg Tablet,Delayed Release (Dr/Ec) 81 mg PO QAM RF: 0 finasteride 5 mg tablet 5 mg PO QAM RF: 0 levothyroxine 112 mcg tablet 112 mcg PO QAM RF: 0 tamsulosin [Flomax] 0.4 mg capsule 0.4 mg PO QAM RF: 0 lisinopril 5 mg tablet 5 mg PO QAM RF: 0 Anoro Ellipta 62.5-25 mcg/actuation blister with device 1 inh inhalation DAILY PRN (Reason: Shortness Of Breath) RF: 0 thiamine HCl (vitamin B1) 100 mg Tablet 100 mg PO QAM RF: 0 omega [id number] oil [Fish Oil] 1,000 mg (120 mg-180 mg) Capsule 1 cap PO QAM RF: 0 docusate sodium [Stool Softener] 100 mg Tablet 100 mg PO DAILY PRN (Reason: Constipation) RF: 0 oxycodone-acetaminophen [Percocet] 5-325 mg tablet 1 - 2 tab PO .q4-6h PRN (Reason: pain, for initial therapy, max 6 tabs per day) Qty: 15 RF: 0 vitamin [id number]-ltwbt acid 500-400 mcg Tablet 1 tab PO QAM RF: 0 Discontinued furosemide [Lasix] 20 mg tablet 20 mg PO QAM RF: 0 potassium chloride 20 mEq tablet,ER particles/crystals 20 meq PO QAM Qty: 30 RF: 5 Discharge Orders: Discharge Order (Routine); Ordered 10/18/21 Ordered By: Daisy Marie Admission Data Admit Date/Time: 10/15/21 14:31 Attending Provider: Daisy Marie Admit Provider: Ran Mosley Primary Care Provider: Elaine Sofia V. Other Providers: Rodrigo Dudley ; Ran Mosley Coding Level of Care Code D/C DAY MANAGEMENT >30 MINS Diagnoses Rhabdomyolysis M62.82 Acute kidney injury N17.9 Elevated troponin R77.8 CHF (congestive heart failure), NYHA class II I50.9 Neuropathy G62.9 Elevated AST (SGOT) R74.01 Hypertension I10 Dyslipidemia E78.5 Hypothyroidism E03.9 Coronary artery disease I25.10 CKD (chronic kidney disease) stage 3, GFR 30-59 ml/min N18.30 Urinary retention R33.9 DVT prophylaxis Z29.9
== END 2021-10-18 12:01 | disposition home or self-care (01) | DRG 683 ==
LOC: ED 10:21 → EDINP 14:31 → SUATTDRO 14:31 → EDINP 17:27 → 2S 18:34

== ENCOUNTER 2021-10-24 16:05 | Inpatient (IN) ==
[2021-10-24] MEDS ORDERED: SODIUM CHLORIDE 0.9% 1000ML 1,000 ML IV ONE (16:28)
[2021-10-24] MEDS ORDERED: PANTOprazole 40 MG in SYRINGE 0 ML IV ONE (16:31)
--- NOTE | 2021-10-24 16:38 | Emergency Department Note ---
Impression & Plan Acute GI bleeding, Symptomatic anemia, Hypotension, Elevated lactic acid level, Acute renal insufficiency ED Provider Note NAME: ANABELLA STEEL AGE: 66 SEX: M ARRIVES VIA: Ambulance INFORMANT: Patient, ED PROVIDER(S): Stone Prather MD CHIEF COMPLAINT: Bloody stool. PLAN: Disposition: Admit MEDICAL DECISION MAKING: The patient is a pleasant 66-year-old gentleman with a past medical history of CHF with history of reduced EF but with recent normalization, history of neuropathy, hypertension, hyperlipidemia, hypothyroidism, CAD with history of bare-metal stents on aspirin and Plavix, CKD who presents to the emergency department via EMS for gross blood per rectum in the setting of having an inguinal hernia repair on 10/14 with subsequent readmission for rhabdomyolysis. The patient reports he had well formed dark/black stool yesterday and this morning but then he had an episode of reddish blood which they had called EMS for initial evaluation but given he was appearing well and this was a single episode he did not come to the hospital. However subsequently he had numerous episodes of maroon-colored bloody stool and so EMS was called and brought him to the hospital. Of note, the patient did have urinary retention on his readmission and Roberto catheter was placed. On arrival the patient is acute on chronically ill-appearing, hypotensive with blood pressure 70s/40s which was fluid responsive. He has mild ecchymosis across his lower abdomen and healing lower abdominal trocar site and right lower quadrant incision site with lupe intact. The patient did have numerous maroon-colored stools in the emergency department. WBC 12.8K nonspecific. H/H 7.3/23 down from 11.1/35.41-week ago. Platelets within normal limits. Chemistry without metabolic acidosis. Creatinine is 1.7 increased from 0.91-week ago. Lactic acid 2.6. Electrolytes without significant abnormality. LFTs without significant abnormality. Lipase is mildly elevated at 566. COVID-19 RNA, NAAT test was negative. CT of the abdomen pelvis was performed and demonstrates inflammatory change between the pancreatic head and duodenum which could be suspicious for pancreatitis however given the patient's GI bleed unclear if represents duodenal ulcer. Given the patient's active GI bleed with acute anemia and hypotension he was consented and ordered for 2 units PRBCs. He additionally was given IV fluid hydration to which he was fluid res ponsive though still with guarded clinical status and low blood pressure. Case was discussed with Dr. Marie, [facility] hospitalist, who will evaluate the patient for admission. She discussed patient's presentation with GI on-call, Dr. Bunch. Plan for NPO, transfusion, and endoscopy in AM. Triage Nursing notes reviewed and agree them. Prior medical records reviewed Vital Signs: reviewed and remarkable for hypotension. Differential diagnosis: Diverticulosis, AVM, coagulopathy, colitis, inflammatory bowel disease, malignancy, Tamra-Burnham tear, esophagitis, peptic ulcer disease, variceal bleed, gastritis, epistaxis, fissure, hemorrhoids, as well as other pathologies. ER treatment provided: See below. Diagnostics interpreted by me: ECG: Sinus rhythm, 82 bpm, no ectopy, ST and TWA, no overt ST elevation or depression. Cardiac Monitoring: An order for continuous cardiac monitoring was placed and demonstrated Sinus rhythm, 82 bpm, no ectopy. Laboratory studies: See below Imaging studies: See below Consultation(s): Case was discussed with Dr. Marie [facility] hospitalist, who will evaluate the patient for admission. HPI: The patient is a pleasant 66-year-old gentleman with a past medical history of CHF with history of reduced EF but with recent normalization, history of neuropathy, hypertension, hyperlipidemia, hypothyroidism, CAD with history of bare-metal stents on aspirin and Plavix, CKD who presents to the emergency department via EMS for gross blood per rectum in the setting of having an inguinal hernia repair on 10/14 with subsequent readmission for rhabdomyolysis. The patient reports he had well formed dark/black stool yesterday and this morning but then he had an episode of reddish blood which they had called EMS for initial evaluation but given he was appearing well and this was a single ep isode he did not come to the hospital. However subsequently he had numerous episodes of maroon-colored bloody stool and so EMS was called and brought him to the hospital. Of note, the patient did have urinary retention on his readmission and Roberto catheter was placed. ROS: See above HPI for pertinent positives & negatives. A total of 10 systems reviewed and were otherwise negative. PAST MEDICAL HISTORY:See Below PAST SURGICAL HISTORY:See Below FAMILY HISTORY:See Below SOCIAL HISTORY:See Below HOME MEDICATIONS:See Below ALLERGIES:See Below VITALS:See Below PHYSICAL EXAMINATION: GENERAL: Awake, alert, acute on chronically ill-appearing, in no distress HENT: Normocephalic, atraumatic. Oropharynx with dry mucous membranes and otherwise unremarkable. EYES: Normal conjunctiva. Sclera non-icteric. NECK: Supple. No nuchal rigidity. FROM. No JVD. RESPIRATORY: Clear to auscultation. CARDIAC: Regular rate, normal rhythm. Extremities warm and well perfused. Pulses equal. ABDOMEN: Soft, non-distended. No tenderness to palpation. No rebound or guarding. Mild ecchymosis across his lower abdomen and healing lower abdominal trocar site and right lower quadrant incision site with lupe intact. : Edematous scrotum with scant ecchymosis. No crepitus. RECTAL: Deferred. MUSCULOSKELETAL: Chest examination reveals no tenderness. The back is symmetrical on inspection without obvious abnormality. There is no CVA tenderness to palpation. No joint edema. LOWER EXTREMITIES: Calves are equal size bilaterally and non-tender. No edema. No discoloration. NEURO: Normal sensorium. No sensory or motor deficits noted. SKIN: Moderate pallor. No rash or jaundice noted. ED COURSE: Critical Care: I have personally spent greater than 95 minutes of critical care time in the direct management of this patient. This includes bedside care, interpretation of diagnostic studies, and testing, discussion with consultants, patient, and family members, and other required patient management activities. This 95 minutes is in excess of all separately billable procedures. Stnoe Prather MD Past Med/Surg History Medical History Arthralgia of multiple sites Bilateral inguinal hernia Cardiac murmur none noted on last cardio office visit 06/2021 Carpal tunnel syndrome Chronic obstructive pulmonary disease on maintenance inhalers-stable per pt-few nightly coughs, denies wheezing Congestive heart failure follows with [facility], stable per last office note Coronary artery disease h/o NC and s/p 2 bare metal stents-LAD and Cx in 2008, follows with [facility]; last visit 06/2021 and stable per note Dyspnea on exertion increased over past 16 months per pt with gradual 50 lb weight gain with reduced activity d/t COVID 19 Elevated alkaline phosphatase level Hypertension controlled, stable per pt Hypothyroidism Indigestion Infarction of spleen under observation Ischemic cardiomyopathy follows with [facility], stable per last note Morbid obesity with BMI of 45.0-49.9, adult Pituitary hypogonadism follows with PCP Pre-diabetes Right hydrocele Signs and symptoms involving cognition Pt reports chronic mild memory dysfunction Snoring reports sleep study 4 yrs ago negative for sleep apnea, occ witnessed apneas per Surgical History H/O right inguinal hernia repair (10/14/21) Laparoscopic Converted to Open Right Inguinal Hernia Repair with Mesh(Right) - Rodrigo Dudley DO, FACS 10-14-2021 History of cardiac cath bare metal stent placement x 2 to LAD and Cx in 2008 History of colonoscopy Family History Brother Hx of CABG Myocardial infarction Mother Myocardial infarction Other Coronary heart disease Lung disease Denies family history of Ovarian cancer Prostate cancer Breast cancer Colorectal cancer Social History Smoking Status: Former smoker Tobacco Type: Cigarettes Second Hand Exposure: No; Hx Alcohol Use: No Hx Substance Use: No Preferred Language: Yakut Communication Ability: Effective Visual Impairment: No Limitations Hearing Ability: Normal 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 [employer]ing Required: No Beliefs That Will Affect Care: None marital status: Current Living Situation: Spouse current occupational status: other current occupation: HAS NOT WORKED PAST 1.5 YRS How many Children do You have: 2 Feels Safe at Home: Yes Childhood Exposure to Second-Hand Smoke: No during the past year weight has: increased > 10 lbs Seatbelt Use: always Assistive Devices: Glasses Allergies Allergies Allergy/AdvReac Type Severity Reaction Status Date / Time tuberculin, purified protein Allergy Mild SWELLING Verified 10/20/21 09:20 deriva AT SITE guaifenesin [From Mucinex] AdvReac Intermediate felt like Verified 10/20/21 09:20 was on fire pseudoephedrine AdvReac Mild ELECTRIC Verified 10/20/21 09:20 [From Sudafed] CURRENTS THRU BODY simvastatin AdvReac Mild MYALGIA Verified 10/20/21 09:20 Home Meds Home Medications Medication Instructions Recorded Confirmed aspirin 81 mg tablet,delayed 81 mg PO QAM 10/24/18 10/24/21 release cholecalciferol (vitamin D3) 50 50 mcg PO QAM 07/13/21 10/24/21 mcg (2,000 unit) capsule docusate sodium 100 mg tablet 100 mg PO DAILY PRN 10/06/21 10/24/21 (Stool Softener) finasteride 5 mg tablet 5 mg PO QAM 10/06/21 10/24/21 levothyroxine 112 mcg tablet 112 mcg PO QAM 10/06/21 10/24/21 lisinopril 5 mg tablet 5 mg PO QAM 10/06/21 10/24/21 omega [id number]-[id number]-fish oil 1,000 mg 1 cap PO QAM 10/06/21 10/24/21 (120 mg-180 mg) capsule (Fish Oil) tamsulosin 0.4 mg capsule (Flomax) 0.4 mg PO QAM 10/06/21 10/24/21 thiamine HCl (vitamin B1) 100 mg 100 mg PO QAM 10/06/21 10/24/21 tablet umeclidinium 62.5 mcg-vilanterol 1 inh INHALATION DAILY PRN 10/06/21 10/24/21 25 mcg/actuation powdr for inhalation (Anoro Ellipta) bupropion HCl 100 mg tablet 100 mg PO HS tab 10/12/21 10/24/21 vitamin B12 500 mcg-folic acid 400 1 tab PO QAM 10/15/21 10/24/21 mcg tablet Previous Rx's Medication Instructions Recorded metoprolol succinate 50 mg 50 mg PO QAM #90 tab 02/20/21 tablet,extended release 24 hr nitroglycerin 0.4 mg sublingual 0.4 mg SUBLINGUAL .Q5 mins PRN #25 05/22/21 tablet tab atorvastatin 80 mg tablet (Lipitor) 80 mg PO PM #90 tab 08/27/21 oxycodone-acetaminophen 5 mg-325 1 - 2 tab PO .q4-6h PRN #15 tab 10/14/21 mg tablet (Percocet) clopidogrel 75 mg tablet (Plavix) 75 mg PO DAILY #30 tab 10/18/21 polyethylene glycol 3350 17 gram 17 g PO DAILY PRN #14 ea 10/18/21 oral powder packet (Miralax) Results & Data (ED) Vital Signs Vital Signs - 24 hr 10/24/21 16:20 10/24/21 16:25 10/24/21 16:28 Temperature 36.9 C Temperature Source Oral Pulse Rate Pulse Rate [Right Finger] 83 Respiratory Rate 20 Blood Pressure Blood Pressure [Right Arm] 73/49 L 89/46 L Blood Pressure Mean Blood Pressure Mean [Right Arm] 57 60 Blood Pressure Position [Right Arm] Sitting Pulse Oximetry 99 96 Oxygen Delivery Method Room Air Room Air Sepsis Recent Fever Within 48 Hours Sepsis New/Unexplained Change in Mental Status Sepsis Action Taken by Nursing 10/24/21 16:29 10/24/21 17:30 10/24/21 18:18 Temperature Temperature Source Pulse Rate Pulse Rate [Right Finger] Respiratory Rate Blood Pressure Blood Pressure [Right Arm] 81/45 L 102/60 Blood Pressure Mean Blood Pressure Mean [Right Arm] 57 74 Blood Pressure Position [Right Arm] Pulse Oximetry Oxygen Delivery Method Sepsis Recent Fever Within 48 Hours No Sepsis New/Unexplained Change in Mental Status No Sepsis Action Taken by Nursing No Action Required 10/24/21 19:00 10/24/21 19:49 Temperature 36.6 C Temperature Source Oral Pulse Rate 120 H Pulse Rate [Right Finger] Respiratory Rate 20 Blood Pressure 108/76 Blood Pressure [Right Arm] 62/50 L Blood Pressure Mean 86 Blood Pressure Mean [Right Arm] 54 Blood Pressure Position [Right Arm] Pulse Oximetry 96 Oxygen Delivery Method Sepsis Recent Fever Within 48 Hours Sepsis New/Unexplained Change in Mental Status Sepsis Action Taken by Nursing Laboratory Data Attestation: I reviewed the patient's lab results. Result diagrams: 10/24/21 23:16 10/24/21 16:21 Lab Results 10/24/21 10/24/21 10/24/21 Range/Units 16:19 16:21 16:21 WBC 12.85 H (4.8-10.8) K/uL RBC 2.34 L (4.7-6.1) M/uL Hgb 7.3 L (14.0-18.0) g/dL POC Hgb (14.0-18.0) g/dl Hct 23.0 L (42-52) % POC Hct (42-52) % MCV 98.3 (80-100) fL MCH 31.2 (25-34) pg MCHC 31.7 L (32-36) g/dL RDW Std Deviation 52.7 H (36.4-46.3) fL RDW Coeff of Emilee 14.8 H (11.5-14.5) % Plt Count 363 (130-400) K/uL MPV 9.5 (7.4-10.4) fL Neutrophils % (Manual) 88.7 % Lymphocytes % (Manual) 7.8 % Monocytes % (Manual) 1.7 % Metamyelocytes % (Man) 0.9 % Myelocytes % (Man) 0.9 % Neutrophils # (Manual) 11.40 H (1.4-6.5) K/uL Total Absolute Neuts 11.40 H (1.4-6.5) K/uL Lymphocytes # (Manual) 1.00 L (1.2-3.4) K/uL Total Abs Lymphocytes 1.00 L (1.2-3.4) K/uL Monocytes # (Manual) 0.22 (0.11-0.59) K/uL Metamyelocytes # (Man) 0.12 H (0-0) K/uL Myelocytes # (Manual) 0.12 H (0-0) K/uL Polychromasia 1+ Hypochromasia Present PT 10.9 (9.0-12.0) Seconds INR 1.1 (0.9-1.1) POC Sodium (135-144) mmol/L Sodium (136-145) mmol/L POC Potassium (3.3-5.0) mmol/L Potassium (3.5-5.1) mmol/L POC Chloride (101-112) mmol/L Chloride (98-107) mmol/L Carbon Dioxide (21-32) mmol/L POC Total CO2 (24-31) mmol/L Anion Gap (3-11) POC Anion Gap (16-25) mmol/L POC BUN (7-18) mg/dl BUN (7-18) mg/dl Creatinine (0.6-1.4) mg/dl POC Creatinine (0.6-1.3) mg/dl Est Cr Clr Drug Dosing ml/min Est GFR ( Amer) ml/min Est GFR (Non-Af Amer) ml/min BUN/Creatinine Ratio (10-20) Glucose (70-99) mg/dl POC Glucose (other) (70-99) mg/dl Lactate (0.4-2.0) mmol/L Calcium (8.5-10.1) mg/dl POC Ioniz Calcium Shelli (1.12-1.32) mmol/l Total Bilirubin (0.2-1) mg/dl AST (15-37) U/L ALT (12-78) U/L Alkaline Phosphatase (45-117) U/L Total Creatine Kinase (39-308) U/L Total Protein (6.4-8.2) gm/dl Albumin (3.4-5.0) gm/dl Globulin (2.5-4.0) gm/dl Albumin/Globulin Ratio (0.9-2) Lipase (73-393) U/L Blood Type O Positive Blood Type Recheck Antibody Screen NEGATIVE Crossmatch See Detail 10/24/21 10/24/21 10/24/21 Range/Units 16:21 16: 16:30 WBC (4.8-10.8) K/uL RBC (4.7-6.1) M/uL Hgb (14.0-18.0) g/dL POC Hgb 7.8 L (14.0-18.0) g/dl Hct (42-52) % POC Hct 23 L (42-52) % MCV (80-100) fL MCH (25-34) pg MCHC (32-36) g/dL RDW Std Deviation (36.4-46.3) fL RDW Coeff of Emilee (11.5-14.5) % Plt Count (130-400) K/uL MPV (7.4-10.4) fL Neutrophils % (Manual) % Lymphocytes % (Manual) % Monocytes % (Manual) % Metamyelocytes % (Man) % Myelocytes % (Man) % Neutrophils # (Manual) (1.4-6.5) K/uL Total Absolute Neuts (1.4-6.5) K/uL Lymphocytes # (Manual) (1.2-3.4) K/uL Total Abs Lymphocytes (1.2-3.4) K/uL Monocytes # (Manual) (0.11-0.59) K/uL Metamyelocytes # (Man) (0-0) K/uL Myelocytes # (Manual) (0-0) K/uL Polychromasia Hypochromasia PT (9.0-12.0) Seconds INR (0.9-1.1) POC Sodium 133 L (135-144) mmol/L Sodium 135 L (136-145) mmol/L POC Potassium 5.1 H (3.3-5.0) mmol/L Potassium 5.1 (3.5-5.1) mmol/L POC Chloride 99 L (101-112) mmol/L Chloride 103 (98-107) mmol/L Carbon Dioxide 22 (21-32) mmol/L POC Total CO2 22 L (24-31) mmol/L Anion Gap 10.0 (3-11) POC Anion Gap 18.0 (16-25) mmol/L POC BUN 35 H (7-18) mg/dl BUN 39 H (7-18) mg/dl Creatinine 1.70 H (0.6-1.4) mg/dl POC Creatinine 1.7 H (0.6-1.3) mg/dl Est Cr Clr Drug Dosing 56.3 ml/min Est GFR ( Amer) 48.3 ml/min Est GFR (Non-Af Amer) 41.7 ml/min BUN/Creatinine Ratio 22.6 H (10-20) Glucose 117 H (70-99) mg/dl POC Glucose (other) 118 H (70-99) mg/dl Lactate 2.6 H* (0.4-2.0) mmol/L Calcium 8.0 L (8.5-10.1) mg/dl POC Ioniz Calcium Shelli 1.08 L (1.12-1.32) mmol/l Total Bilirubin 0.4 (0.2-1) mg/dl AST 27 (15-37) U/L ALT 50 (12-78) U/L Alkaline Phosphatase 49 (45-117) U/L Total Creatine Kinase 180 (39-308) U/L Total Protein 5.8 L (6.4-8.2) gm/dl Albumin 2.4 L (3.4-5.0) gm/dl Globulin 3.4 (2.5-4.0) gm/dl Albumin/Globulin Ratio 0.7 L (0.9-2) Lipase 566 H (73-393) U/L Blood Type Blood Type Recheck Antibody Screen Crossmatch 10/24/21 Range/Units 18:40 WBC (4.8-10.8) K/uL RBC (4.7-6.1) M/uL Hgb (14.0-18.0) g/dL POC Hgb (14.0-18.0) g/dl Hct (42-52) % POC Hct (42-52) % MCV (80-100) fL MCH (25-34) pg MCHC (32-36) g/dL RDW Std Deviation (36.4-46.3) fL RDW Coeff of Emilee (11.5-14.5) % Plt Count (130-400) K/uL MPV (7.4-10.4) fL Neutrophils % (Manual) % Lymphocytes % (Manual) % Monocytes % (Manual) % Metamyelocytes % (Man) % Myelocytes % (Man) % Neutrophils # (Manual) (1.4-6.5) K/uL Total Absolute Neuts (1.4-6.5) K/uL Lymphocytes # (Manual) (1.2-3.4) K/uL Total Abs Lymphocytes (1.2-3.4) K/uL Monocytes # (Manual) (0.11-0.59) K/uL Metamyelocytes # (Man) (0-0) K/uL Myelocytes # (Manual) (0-0) K/uL Polychromasia Hypochromasia PT (9.0-12.0) Seconds INR (0.9-1.1) POC Sodium (135-144) mmol/L Sodium (136-145) mmol/L POC Potassium (3.3-5.0) mmol/L Potassium (3.5-5.1) mmol/L POC Chloride (101-112) mmol/L Chloride (98-107) mmol/L Carbon Dioxide (21-32) mmol/L POC Total CO2 (24-31) mmol/L Anion Gap (3-11) POC Anion Gap (16-25) mmol/L POC BUN (7-18) mg/dl BUN (7-18) mg/dl Creatinine (0.6-1.4) mg/dl POC Creatinine (0.6-1.3) mg/dl Est Cr Clr Drug Dosing ml/min Est GFR ( Amer) ml/min Est GFR (Non-Af Amer) ml/min BUN/Creatinine Ratio (10-20) Glucose (70-99) mg/dl POC Glucose (other) (70-99) mg/dl Lactate (0.4-2.0) mmol/L Calcium (8.5-10.1) mg/dl POC Ioniz Calcium Shelli (1.12-1.32) mmol/l Total Bilirubin (0.2-1) mg/dl AST (15-37) U/L ALT (12-78) U/L Alkaline Phosphatase (45-117) U/L Total Creatine Kinase (39-308) U/L Total Protein (6.4-8.2) gm/dl Albumin (3.4-5.0) gm/dl Globulin (2.5-4.0) gm/dl Albumin/Globulin Ratio (0.9-2) Lipase (73-393) U/L Blood Type Blood Type Recheck O Positive Antibody Screen Crossmatch Administered Medications Atorvastatin Calcium (Atorvastatin 40 Mg Tab) 80 mg PO PM TREVOR Stop: 11/24/21 00:37 Last Admin: 10/25/21 01:37 Dose: 80 mg Documented by: [id number] Bupropion HCl (Bupropion Hcl 100 Mg Tablet) 100 mg PO HS TREVOR Stop: 11/24/21 00:37 Last Admin: 10/25/21 01:39 Dose: Not Given Documented by: [id number] Pantoprazole Sodium 40 mg/ (Dextrose) 100 mls @ 20 mls/hr IV Q5H TREVOR Stop: 11/23/21 20:31 Last Admin: 10/24/21 22:02 Dose: 8 mg/hr, 20 mls/hr Documented by: [id number] Discontinued Medications Fentanyl Citrate (Fentanyl Citrate 100 Mcg/2 Ml Vial) 50 mcg IV NOW STA Stop: 10/24/21 18:24 Last Admin: 10/24/21 18:31 Dose: 50 mcg Documented by: [id number] Sodium Chloride (Nss 1000ml) 1,000 mls @ 999 mls/hr IV .Q1H1M ONE Stop: 10/24/21 17:28 Last Infusion: 10/24/21 17:44 Dose: 0 mls/hr Documented by: [id number] Admin: 10/24/21 16:43 Dose: 999 mls/hr Documented by: [id number] Pantoprazole Sodium 40 mg/ (Syringe) 10 mls @ 5 mls/min IV NOW ONE Stop: 10/24/21 16:32 Last Admin: 10/24/21 20:15 Dose: 5 mls/min Documented by: [id number] Calcium Gluconate 1,000 mg/ (Sodium Chloride) 60 mls @ 240 mls/hr IV NOW ONE Stop: 10/24/21 21:14 Last Infusion: 10/24/21 21:31 Dose: 0 mls/hr Documented by: [id number] Admin: 10/24/21 21:16 Dose: 240 mls/hr Documented by: [id number] Morphine Sulfate (Morphine Sulfate 2 Mg/Ml Carp) 2 mg IV NOW STA Stop: 10/24/21 19:19 Last Admin: 10/24/21 19:29 Dose: 2 mg Documented by: [id number] Ondansetron HCl (Ondansetron Inj 2 Mg/Ml 2 Ml Vial) 4 mg IV NOW STA Stop: 10/24/21 18:24 Last Admin: 10/24/21 18:31 Dose: 4 mg Documented by: [id number] Imaging Data Radiologist's Impression: Abdomen/Pelvis CT 10/24/21 17:31 CT SCAN OF THE ABDOMEN AND PELVIS WITHOUT IV CONTRAST CLINICAL HISTORY: Generalized abdominal pain. Hematochezia. COMPARISON STUDY: Abdominal CT dated 10/15/2021. TECHNIQUE: CT scan of the abdomen and pelvis is performed from the lung bases to the proximal femora. Images are reviewed in the axial, sagittal, and coronal planes. IV contrast was not administered for this examination. Note that the exa mination was performed in significantly suboptimal fashion without oral and IV contrast. A dose lowering technique was utilized adhering to the principles of ALARA. CT DOSE: 1637.31 mGy.cm FINDINGS: Lung bases: The heart is normal in size and without pericardial effusion. The coronary arteries are densely calcified. There is diminished attenuation of the cardiac blood pool as compared to the myocardium suggesting anemia. The lung bases are clear noting dependent atelectasis. Liver: The unenhanced liver is normal in size, contour, and attenuation. There is no intrahepatic biliary ductal dilatation. Gallbladder: There are calcified gallstones with no CT evidence of acute cholecystitis. Spleen: Normal in size and attenuation. Pancreas: There is inflammatory change between the pancreatic head and duodenum, suspicious for acute pancreatitis. The unenhanced pancreas is otherwise grossly unremarkable. There is no evidence of organized peripancreatic fluid collection on this unenhanced examination. Adrenal glands: Unremarkable. Kidneys: The unenhanced kidneys are atrophic and without hydronephrosis. There are no renal calculi identified. There is no evidence of contour deforming renal mass lesion. Abdominal vasculature: The abdominal aorta is normal in course and caliber noting mild to moderate atherosclerotic calcification. Bowel: Mild duodenal wall thickening is likely related to adjacent pancreatitis. There is no bowel obstruction. Liquid stool is seen throughout the colon. The appendix is normal as visualized. Peritoneum: There is no intraperitoneal free air or abdominal ascites. There is a fat-containing umbilical hernia. Lymphadenopathy: None. Pelvic viscera: The bladder is decompressed around a Roberto catheter and could not be evaluated. The prostate and seminal vesicles are normal as imaged. Skeletal structures: No lytic or blastic lesions are seen. The skeletal structures are osteopenic. Spondylosis throughout the lumbosacral spine is similar to previous and suggests ankylosing spondylitis. There is near complete fusion of the sacroiliac joints. Soft tissues: Skin clips are noted in the right ventral pelvis. There is nonspecific anterior perineal soft tissue induration around the base of the penis. IMPRESSION: 1. Significantly suboptimal examination without oral and IV contrast. 2. Findings suggest acute pancreatitis. Correlate with clinical findings and serum amylase/lipase levels. 3. No organized peripancreatic fluid collection is identified. 4. Cholelithiasis. 5. Liquid stool seen throughout the colon. Correlate clinically for evidence of a diarrheal illness. 6. There is nonspecific anterior perineal soft tissue induration around the base of the penis. Clinical correlation will be required. 7. Additional findings as above. ACT 112: Negative or not required by law. Electronically signed by: Ismael Riojas M.D. 10/24/2021 6:24 PM Discharge Plan Visit Data Chief Complaint: Rectal Bleed Stated Complaint: Rectal Bleed, Abdominal Pain, Hypotension ED Provider: Stone Prather Discharge Problem: Acute GI bleeding, Symptomatic anemia, Hypotension, Elevated lactic acid level, Acute renal insufficiency Discharge Problem: Hypotension Qualifiers: Hypotension type: unspecified hypotension type Qualified Code(s): I95.9 - Hypotension, unspecified
[2021-10-24 16:41] LABS: Hemoglobin 7.3 g/dL (14.0-18.0); Mean Corpuscular Hemoglobin 31.2 pg (25-34); Mean Corpuscular Hgb Conc 31.7 g/dL (32-36); Mean Corpuscular Volume 98.3 fL (80-100); Mean Platelet Volume 9.5 fL (7.4-10.4); Platelet Count 363 K/uL (130-400); RDW Coefficient of Variation 14.8 % (11.5-14.5); RDW Standard Deviation 52.7 fL (36.4-46.3); Red Blood Count 2.34 M/uL (4.7-6.1); White Blood Count 12.85 K/uL (4.8-10.8)
[2021-10-24 16:42] LABS: iSTAT Creatinine 1.7 mg/dl (0.6-1.3); iSTAT Hemoglobin 7.8 g/dl (14.0-18.0); iSTAT Ionized Calcium 1.08 mmol/l (1.12-1.32); iSTAT Potassium 5.1 mmol/L (3.3-5.0)
[2021-10-24] MEDS ORDERED: SODIUM CHLORIDE 0.9% 250 ML IV PRN ×2 (16:47→23:37)
[2021-10-24 16:48] LABS: INR 1.1 (0.9-1.1); Prothrombin Time 10.9 Seconds (9.0-12.0)
[2021-10-24 16:55] LABS: Albumin Level 2.4 gm/dl (3.4-5.0); BUN Creatinine Ratio 22.6 (10-20); Creatinine Clr Calc Pharmacy 56.3 ml/min; Est GFR (African American) 48.3 ml/min; Est GFR (Non-African American) 41.7 ml/min; Potassium 5.1 mmol/L (3.5-5.1)
[2021-10-24 16:58] LABS: Albumin Globulin Ratio 0.7 (0.9-2); Bilirubin,Total 0.4 mg/dl (0.2-1); Globulin 3.4 gm/dl (2.5-4.0); Total Protein 5.8 gm/dl (6.4-8.2)
[2021-10-24 17:01] LABS: Hypochromasia Present; Lymphocytes % (manual) 7.8 %; Metamyelocytes # (manual) 0.12 K/uL (0-0); Metamyelocytes % (manual) 0.9 %; Monocytes # (manual) 0.22 K/uL (0.11-0.59); Monocytes % (manual) 1.7 %; Myelocytes # (manual) 0.12 K/uL (0-0); Myelocytes % (manual) 0.9 %; Neutrophils % (manual) 88.7 %; Polychromasia 1+
[2021-10-24] MEDS ORDERED: fentaNYL citrate 100 MCG/2 ML VIAL IV STA (18:23)
[2021-10-24] MEDS ORDERED: ONDANSETRON INJ 2 MG/ML 2 ML VIAL IV STA (18:23)
--- NOTE | 2021-10-24 18:25 | CT Scan Report ---
CT SCAN OF THE ABDOMEN AND PELVIS WITHOUT IV CONTRAST CLINICAL HISTORY: Generalized abdominal pain. Hematochezia. COMPARISON STUDY: Abdominal CT dated 10/15/2021. TECHNIQUE: CT scan of the abdomen and pelvis is performed from the lung bases to the proximal femora. Images are reviewed in the axial, sagittal, and coronal planes. IV contrast was not administered for this examination. Note that the examination was performed in significantly suboptimal fashion withou t oral and IV contrast. A dose lowering technique was utilized adhering to the principles of ALARA. CT DOSE: 1637.31 mGy.cm FINDINGS: Lung bases: The heart is normal in size and without pericardial effusion. The coronary arteries are d ensely calcified. There is diminished attenuation of the cardiac blood pool as compared to the myocar dium suggesting anemia. The lung bases are clear noting dependent atelectasis. Liver: The unenhanced liver is normal in size, contour, and attenuation. There is no intrahepatic narcisa iary ductal dilatation. Gallbladder: There are calcified gallstones with no CT evidence of acute cholecystitis. Spleen: Normal in size and attenuation. Pancreas: There is inflammatory change between the pancreatic head and duodenum, suspicious for acute pancreatitis. The unenhanced pancreas is otherwise grossly unremarkable. There is no evidence of org anized peripancreatic fluid collection on this unenhanced examination. Adrenal glands: Unremarkable. Kidneys: The unenhanced kidneys are atrophic and without hydronephrosis. There are no renal calculi i dentified. There is no evidence of contour deforming renal mass lesion. Abdominal vasculature: The abdominal aorta is normal in course and caliber noting mild to moderate at herosclerotic calcification. Bowel: Mild duodenal wall thickening is likely related to adjacent pancreatitis. There is no bowel ob struction. Liquid stool is seen throughout the colon. The appendix is normal as visualized. Peritoneum: There is no intraperitoneal free air or abdominal ascites. There is a fat-containing umbi lical hernia. Lymphadenopathy: None. Pelvic viscera: The bladder is decompressed around a Roberto catheter and could not be evaluated. The p rostate and seminal vesicles are normal as imaged. Skeletal structures: No lytic or blastic lesions are seen. The skeletal structures are osteopenic. Sp ondylosis throughout the lumbosacral spine is similar to previous and suggests ankylosing spondylitis . There is near complete fusion of the sacroiliac joints. Soft tissues: Skin clips are noted in the right ventral pelvis. There is nonspecific anterior perinea l soft tissue induration around the base of the penis. IMPRESSION: 1. Significantly suboptimal examination without oral and IV contrast. 2. Findings suggest acute pancreatitis. Correlate with clinical findings and serum amylase/lipase lev els. 3. No organized peripancreatic fluid collection is identified. 4. Cholelithiasis. 5. Liquid stool seen throughout the colon. Correlate clinically for evidence of a diarrheal illness. 6. There is nonspecific anterior perineal soft tissue induration around the base of the penis. Clinic al correlation will be required. 7. Additional findings as above. ACT 112: Negative or not required by law. Electronically signed by: Ismael Riojas M.D. 10/24/2021 6:24 PM
--- NOTE | 2021-10-24 19:15 | History & Physical Report ---
Date of Service October 24, 2021 Assessment & Plan (1) GI bleed: Plan: Presents with melena and maroon-colored stools quite frequently throughout the day of admission With epigastric pain radiating through to the back and evidence of peripancreatic inflammation between pancreatic head and duodenum on CT abdomen/pelvis. Lipase elevated in the 500s This is in the setting of recent surgery followed by hospitalization for rhabdomyolysis and acute kidney injury, followed by taking frequent NSAIDs for pain Suspect peptic ulcer disease, duodenal ulcer likely causing acute pancreatitis With hemoglobin 7.3 on admission down from 11.1 just 6 days ago-acute blood loss anemia With hypotension on arrival with systolics in the 70s-hemorrhagic shock- responded to boluses of crystalloid fluid -Admit to PCU -Awaiting transfusion of 2 units PRBCs -Follow serial CBC and transfuse as needed to keep him hemodynamically stable and to keep hemoglobin greater than 8 in the setting of active bleeding -Received Protonix 40 mg IV x1 in the ER-we will now start Protonix continuous infusion -Consult GI-plan to stabilize him overnight with transfusions, PPI drip, and perform EGD tomorrow -Keep n.p.o. -Morphine as needed for epigastric pain -Ionized calcium low-give 1 g of calcium gluconate stat x1 -Hold home aspirin, Plavix, and advised discontinuation of all NSAIDs in the future (2) Acute blood loss anemia: Plan: As above, secondary to GI bleed, but also does have some evidence of hematoma with large scrotum although I do not believe most of the bleeding and blood loss is into the scrotum (3) Hemorrhagic shock: Plan: As above, secondary to GI bleed (4) H/O right inguinal hernia repair: Plan: Had ZAN drain removed earlier this week, lupe remain in place Consult general surgery for further follow-up on postoperative care and scrotal hematoma (5) Acute kidney injury: Plan: Creatinine up to 1.7 which is an increase from previous 6 days ago Likely secondary to ATN from hypotension from hemorrhagic shock Potassium mildly elevated at 5.1 He is making plenty of urine UA pending Follow BMP -Treat hemorrhagic shock with blood transfusion as above (6) Acute pancreatitis: Plan: As above, likely secondary to duodenal ulcer or duodenitis from NSAID use With evidence on CT abdomen/pelvis of pancreatitis, lipase elevated in the 500s Gallbladder does have gallstones but no CBD dilatation He does not drink alcohol Calcium is actually low Keep n.p.o. Giving volume with PRBCs and IV fluids Pain control with IV morphine Follow lipase in the morning (7) Hypertension: Plan: With hypotension as above Hold home lisinopril, but can give metoprolol in the morning with hold parameters of blood pressure improved (8) CHF (congestive heart failure), NYHA class II: Plan: With a history of combined systolic and diastolic CHF, but most recent EF had improved back to normal No evidence of volume overload as above, with hypovolemia Holding home lisinopril, giving metoprolol with hold parameters Not on diuretics (9) Coronary artery disease: Plan: With a history of bare-metal stents Last admission had elevated troponin secondary to myocardial demand ischemia and echocardiogram was without change in wall motion abnormalities and with preserved EF Hold aspirin Plavix for GI bleeding Continue statin and metoprolol with hold parameters No chest pain (10) Ischemic cardiomyopathy: Plan: Improved since previous Holding lisinopril as above Metoprolol can be given with hold parameters Holding aspirin and Plavix (11) Chronic obstructive pulmonary disease: Plan: No acute issues Continue home Anoro (12) Urinary retention: Plan: With Roberto catheter in place since prior admission for urinary retention related to enlarged prostate as well as scrotal edema Follows with urology Maintain Roberto catheter Follow-up with urology as an outpatient Continue finasteride Hold home tamsulosin given ongoing hypotension (13) Dyslipidemia: Plan: Continue statin (14) Hypothyroidism: Plan: Continue levothyroxine (15) Obesity, morbid, BMI 40.0-49.9: Plan: BMI 49.3 Needs continued weight loss Continue bupropion Plan: DVT prophylaxis-SCDs only given GI bleeding Disposition-admit to PCU Full code His care was discussed with his at length at the bedside History of Present Illness Chief Complaint: Bloody stools Primary Care Provider: Elaine Sofia MD This patient is 66-year-old male well-known to myself very recently discharged 6 days ago after admission for rhabdomyolysis and acute kidney injury status post prolonged open bilateral inguinal hernia repair, with a history of CAD s/p bare- metal stent on aspirin/Plavix, ischemic cardiomyopathy, HTN, dyslipidemia, hypothyroidism, CKD stage III, and urinary retention requiring Roberto catheter placement who presents to the ER with development of initial formed dark/black stools yesterday which transitioned into maroon/reddish bloody stools all day long today. He has been having significant epigastric pain radiating straight through to his mid back all day long. He reports since he ran out of Percocet 5 days ago, he has been taking ibuprofen and Tylenol quite frequently for pain in addition to his aspirin and Plavix. He was brought in by EMS. Initially, his blood pressure was in the 70s systolic and this improved with IV fluid boluses. His hemoglobin was found to be 7.3 down from 11.1 just 6 days ago. He had acute kidney injury with creatinine up to 1.7. His CT of the abdomen/pelvis showed peripancreatic inflammation around the pancreatic head between the pancreas and the duodenum, but with was otherwise normal. There is a little bit of a delay in him getting his blood transfusion in the ER, but he was finally receiving first unit of blood shortly after I saw him. I discussed his care with GI at the time of admission who recommended volume resuscitation and transfusion along with Protonix drip and likely will perform EGD tomorrow. Allergies Allergy/AdvReac Type Severity Reaction Status Date / Time tuberculin, purified protein Allergy Mild SWELLING Verified 10/20/21 09:20 deriva AT SITE guaifenesin [From Mucinex] AdvReac Intermediate felt like Verified 10/20/21 09:20 was on fire pseudoephedrine AdvReac Mild ELECTRIC Verified 10/20/21 09:20 [From Sudafed] CURRENTS THRU BODY simvastatin AdvReac Mild MYALGIA Verified 10/20/21 09:20 Home Medications Medication Instructions Recorded Confirmed Type aspirin 81 mg tablet,delayed 81 mg PO QAM 10/24/18 10/24/21 History release metoprolol succinate 50 mg 50 mg PO QAM #90 tab 02/20/21 10/24/21 Rx tablet,extended release 24 hr nitroglycerin 0.4 mg sublingual 0.4 mg SUBLINGUAL .Q5 mins PRN #25 05/22/21 10/24/21 Rx tablet tab cholecalciferol (vitamin D3) 50 50 mcg PO QAM 07/13/21 10/24/21 History mcg (2,000 unit) capsule atorvastatin 80 mg tablet (Lipitor) 80 mg PO PM #90 tab 08/27/21 10/24/21 Rx docusate sodium 100 mg tablet 100 mg PO DAILY PRN 10/06/21 10/24/21 History (Stool Softener) finasteride 5 mg tablet 5 mg PO QAM 10/06/21 10/24/21 History levothyroxine 112 mcg tablet 112 mcg PO QAM 10/06/21 10/24/21 History lisinopril 5 mg tablet 5 mg PO QAM 10/06/21 10/24/21 History omega 4-ush-ovh-fish oil 1,000 mg 1 cap PO QAM 10/06/21 10/24/21 History (120 mg-180 mg) capsule (Fish Oil) tamsulosin 0.4 mg capsule (Flomax) 0.4 mg PO QAM 10/06/21 10/24/21 History thiamine HCl (vitamin B1) 100 mg 100 mg PO QAM 10/06/21 10/24/21 History tablet umeclidinium 62.5 mcg-vilanterol 1 inh INHALATION DAILY PRN 10/06/21 10/24/21 History 25 mcg/actuation powdr for inhalation (Anoro Ellipta) bupropion HCl 100 mg tablet 100 mg PO HS tab 10/12/21 10/24/21 History oxycodone-acetaminophen 5 mg-325 1 - 2 tab PO .q4-6h PRN #15 tab 10/14/21 10/24/21 Rx mg tablet (Percocet) vitamin B12 500 mcg-folic acid 400 1 tab PO QAM 10/15/21 10/24/21 History mcg tablet clopidogrel 75 mg tablet (Plavix) 75 mg PO DAILY #30 tab 10/18/21 10/24/21 Rx polyethylene glycol 3350 17 gram 17 g PO DAILY PRN #14 ea 10/18/21 10/24/21 Rx oral powder packet (Miralax) Past Med/Surg History Medical History Arthralgia of multiple sites Bilateral inguinal hernia Cardiac murmur none noted on last cardio office visit 06/2021 Carpal tunnel syndrome Chronic obstructive pulmonary disease on maintenance inhalers-stable per pt-few nightly coughs, denies wheezing Congestive heart failure follows with [facility], stable per last office note Coronary artery disease h/o HI and s/p 2 bare metal stents-LAD and Cx in 2008, follows with [facility]; last visit 06/2021 and stable per note Dyspnea on exertion increased over past 16 months per pt with gradual 50 lb weight gain with reduced activity d/t COVID 19 Elevated alkaline phosphatase level Hypertension controlled, stable per pt Hypothyroidism Indigestion Infarction of spleen under observation Ischemic cardiomyopathy follows with [facility], stable per last note Morbid obesity with BMI of 45.0-49.9, adult Pituitary hypogonadism follows with PCP Pre-diabetes Right hydrocele Signs and symptoms involving cognition Pt reports chronic mild memory dysfunction Snoring reports sleep study 4 yrs ago negative for sleep apnea, occ witnessed apneas per Surgical History H/O right inguinal hernia repair (10/14/21) Laparoscopic Converted to Open Right Inguinal Hernia Repair with Mesh(Right) - Rodrigo Dudley DO, FACS 10-14-2021 History of cardiac cath bare metal stent placement x 2 to LAD and Cx in 2008 History of colonoscopy Family History Brother Hx of CABG Myocardial infarction Mother Myocardial infarction Other Coronary heart disease Lung disease Denies family history of Ovarian cancer Prostate cancer Breast cancer Colorectal cancer Social History Smoking Status: Former smoker Tobacco Type: Cigarettes Second Hand Exposure: No; Hx Alcohol Use: No Hx Substance Use: No Preferred Language: Divehi Communication Ability: Effective Visual Impairment: No Limitations Hearing Ability: Normal Second Grade Teacher Required: No Beliefs That Will Affect Care: None marital status: Current Living Situation: Spouse current occupational status: other current occupation: HAS NOT WORKED PAST 1.5 YRS How many Children do You have: 2 Feels Safe at Home: Yes Childhood Exposure to Second-Hand Smoke: No during the past year weight has: increased > 10 lbs Seatbelt Use: always Assistive Devices: Glasses Review of Systems Review of Systems: All systems reviewed & are unremarkable except as noted in HPI & below Denies lightheadedness, no chest pains or shortness of breath Physical Exam Constitutional: WD/WN, vitals as above + morbidly obese Eyes: + anicteric sclerae ENMT: external ear and nose normal, oropharynx normal Neck: trachea midline, no thyromegaly Respiratory: normal respiratory effort, lungs clear to auscultation Cardiovascular: RRR, no murmur, no edema Chest (Breasts): Chest: normal inspection of chest Gastrointestinal (Abdomen): Inspection/Auscultation: + abdomen abnormal to inspection (Multiple surgical incisions healing well, scant serous drainage inferiorly) Percussion/Palpation: + abdomen tender (In epigastric region without guarding or rebound tenderness) and abdomen soft Musculoskeletal: Extremities: extremities normal to inspection; no cyanosis and no clubbing Skin: no rashes, warm and dry Neurologic: moves all extremities and awake; no focal motor deficits Psychiatric: Orientation: alert and oriented x 3 Affect: + anxious affect Genitourinary: Scrotum is quite large approximately the size of a small cantaloupe and with ecchymosis and edema, penis is partially buried Lymphatic: no lymphedema Results & Data Results & Data ([facility]) Vital Signs (Past 12 Hours) Vital Signs Temp Pulse Resp BP Pulse Ox 10/24/21 16:28 96 10/24/21 16:20 36.9 C 83 20 73/49 L 99 Laboratory Results 10/24/21 10/24/21 10/24/21 Range/Units Unknown 18:40 16:30 WBC (4.8-10.8) K/uL RBC (4.7-6.1) M/uL Hgb (14.0-18.0) g/dL POC Hgb 7.8 L (14.0-18.0) g/dl Hct (42-52) % POC Hct 23 L (42-52) % MCV (80-100) fL MCH (25-34) pg MCHC (32-36) g/dL RDW Std Deviation (36.4-46.3) fL RDW Coeff of Emilee (11.5-14.5) % Plt Count (130-400) K/uL MPV (7.4-10.4) fL Neutrophils % (Manual) % Lymphocytes % (Manual) % Monocytes % (Manual) % Metamyelocytes % (Man) % Myelocytes % (Man) % Neutrophils # (Manual) (1.4-6.5) K/uL Total Absolute Neuts (1.4-6.5) K/uL Lymphocytes # (Manual) (1.2-3.4) K/uL Total Abs Lymphocytes (1.2-3.4) K/uL Monocytes # (Manual) (0.11-0.59) K/uL Metamyelocytes # (Man) (0-0) K/uL Myelocytes # (Manual) (0-0) K/uL Polychromasia Hypochromasia PT (9.0-12.0) Seconds INR (0.9-1.1) POC Sodium 133 L (135-144) mmol/L Sodium (136-145) mmol/L POC Potassium 5.1 H (3.3-5.0) mmol/L Potassium (3.5-5.1) mmol/L POC Chloride 99 L (101-112) mmol/L Chloride (98-107) mmol/L Carbon Dioxide (21-32) mmol/L POC Total CO2 22 L (24-31) mmol/L Anion Gap (3-11) POC Anion Gap 18.0 (16-25) mmol/L POC BUN 35 H (7-18) mg/dl BUN (7-18) mg/dl Creatinine (0.6-1.4) mg/dl POC Creatinine 1.7 H (0.6-1.3) mg/dl Est Cr Clr Drug Dosing ml/min Est GFR ( Amer) ml/min Est GFR (Non-Af Amer) ml/min BUN/Creatinine Ratio (10-20) Glucose (70-99) mg/dl POC Glucose (other) 118 H (70-99) mg/dl Lactate (0.4-2.0) mmol/L Calcium (8.5-10.1) mg/dl POC Ioniz Calcium Shelli 1.08 L (1.12-1.32) mmol/l Total Bilirubin (0.2-1) mg/dl AST (15-37) U/L ALT (12-78) U/L Alkaline Phosphatase (45-117) U/L Total Creatine Kinase (39-308) U/L Total Protein (6.4-8.2) gm/dl Albumin (3.4-5.0) gm/dl Globulin (2.5-4.0) gm/dl Albumin/Globulin Ratio (0.9-2) Lipase (73-393) U/L SARS-CoV-2, RNA, NAAT NEGATIVE (NEGATIVE) Blood Type Blood Type Recheck O Positive Antibody Screen Crossmatch 10/24/21 10/24/21 10/24/21 Range/Units 16:21 16:21 16:21 WBC (4.8-10.8) K/uL RBC (4.7-6.1) M/uL Hgb (14.0-18.0) g/dL POC Hgb (14.0-18.0) g/dl Hct (42-52) % POC Hct (42-52) % MCV (80-100) fL MCH (25-34) pg MCHC (32-36) g/dL RDW Std Deviation (36.4-46.3) fL RDW Coeff of Emilee (11.5-14.5) % Plt Count (130-400) K/uL MPV (7.4-10.4) fL Neutrophils % (Manual) % Lymphocytes % (Manual) % Monocytes % (Manual) % Metamyelocytes % (Man) % Myelocytes % (Man) % Neutrophils # (Manual) (1.4-6.5) K/uL Total Absolute Neuts (1.4-6.5) K/uL Lymphocytes # (Manual) (1.2-3.4) K/uL Total Abs Lymphocytes (1.2-3.4) K/uL Monocytes # (Manual) (0.11-0.59) K/uL Metamyelocytes # (Man) (0-0) K/uL Myelocytes # (Manual) (0-0) K/uL Polychromasia Hypochromasia PT 10.9 (9.0-12.0) Seconds INR 1.1 (0.9-1.1) POC Sodium (135-144) mmol/L Sodium 135 L (136-145) mmol/L POC Potassium (3.3-5.0) mmol/L Potassium 5.1 (3.5-5.1) mmol/L POC Chloride (101-112) mmol/L Chloride 103 (98-107) mmol/L Carbon Dioxide 22 (21-32) mmol/L POC Total CO2 (24-31) mmol/L Anion Gap 10.0 (3-11) POC Anion Gap (16-25) mmol/L POC BUN (7-18) mg/dl BUN 39 H (7-18) mg/dl Creatinine 1.70 H (0.6-1.4) mg/dl POC Creatinine (0.6-1.3) mg/dl Est Cr Clr Drug Dosing 56.3 ml/min Est GFR ( Amer) 48.3 ml/min Est GFR (Non-Af Amer) 41.7 ml/min BUN/Creatinine Ratio 22.6 H (10-20) Glucose 117 H (70-99) mg/dl POC Glucose (other) (70-99) mg/dl Lactate 2.6 H* (0.4-2.0) mmol/L Calcium 8.0 L (8.5-10.1) mg/dl POC Ioniz Calcium Shelli (1.12-1.32) mmol/l Total Bilirubin 0.4 (0.2-1) mg/dl AST 27 (15-37) U/L ALT 50 (12-78) U/L Alkaline Phosphatase 49 (45-117) U/L Total Creatine Kinase 180 (39-308) U/L Total Protein 5.8 L (6.4-8.2) gm/dl Albumin 2.4 L (3.4-5.0) gm/dl Globulin 3.4 (2.5-4.0) gm/dl Albumin/Globulin Ratio 0.7 L (0.9-2) Lipase 566 H (73-393) U/L SARS-CoV-2, RNA, NAAT (NEGATIVE) Blood Type Blood Type Recheck Antibody Screen Crossmatch 10/24/21 10/24/21 Range/Units 16:21 16:19 WBC 12.85 H (4.8-10.8) K/uL RBC 2.34 L (4.7-6.1) M/uL Hgb 7.3 L (14.0-18.0) g/dL POC Hgb (14.0-18.0) g/dl Hct 23.0 L (42-52) % POC Hct (42-52) % MCV 98.3 (80-100) fL MCH 31.2 (25-34) pg MCHC 31.7 L (32-36) g/dL RDW Std Deviation 52.7 H (36.4-46.3) fL RDW Coeff of Emilee 14.8 H (11.5-14.5) % Plt Count 363 (130-400) K/uL MPV 9.5 (7.4-10.4) fL Neutrophils % (Manual) 88.7 % Lymphocytes % (Manual) 7.8 % Monocytes % (Manual) 1.7 % Metamyelocytes % (Man) 0.9 % Myelocytes % (Man) 0.9 % Neutrophils # (Manual) 11.40 H (1.4-6.5) K/uL Total Absolute Neuts 11.40 H (1.4-6.5) K/uL Lymphocytes # (Manual) 1.00 L (1.2-3.4) K/uL Total Abs Lymphocytes 1.00 L (1.2-3.4) K/uL Monocytes # (Manual) 0.22 (0.11-0.59) K/uL Metamyelocytes # (Man) 0.12 H (0-0) K/uL Myelocytes # (Manual) 0.12 H (0-0) K/uL Polychromasia 1+ Hypochromasia Present PT (9.0-12.0) Seconds INR (0.9-1.1) POC Sodium (135-144) mmol/L Sodium (136-145) mmol/L POC Potassium (3.3-5.0) mmol/L Potassium (3.5-5.1) mmol/L POC Chloride (101-112) mmol/L Chloride (98-107) mmol/L Carbon Dioxide (21-32) mmol/L POC Total CO2 (24-31) mmol/L Anion Gap (3-11) POC Anion Gap (16-25) mmol/L POC BUN (7-18) mg/dl BUN (7-18) mg/dl Creatinine (0.6-1.4) mg/dl POC Creatinine (0.6-1.3) mg/dl Est Cr Clr Drug Dosing ml/min Est GFR ( Amer) ml/min Est GFR (Non-Af Amer) ml/min BUN/Creatinine Ratio (10-20) Glucose (70-99) mg/dl POC Glucose (other) (70-99) mg/dl Lactate (0.4-2.0) mmol/L Calcium (8.5-10.1) mg/dl POC Ioniz Calcium Shelli (1.12-1.32) mmol/l Total Bilirubin (0.2-1) mg/dl AST (15-37) U/L ALT (12-78) U/L Alkaline Phosphatase (45-117) U/L Total Creatine Kinase (39-308) U/L Total Protein (6.4-8.2) gm/dl Albumin (3.4-5.0) gm/dl Globulin (2.5-4.0) gm/dl Albumin/Globulin Ratio (0.9-2) Lipase (73-393) U/L SARS-CoV-2, RNA, NAAT (NEGATIVE) Blood Type O Positive Blood Type Recheck Antibody Screen NEGATIVE Crossmatch See Detail Diagnostic Findings Abdomen/Pelvis CT 10/24/21 17:31 CT SCAN OF THE ABDOMEN AND PELVIS WITHOUT IV CONTRAST CLINICAL HISTORY: Generalized abdominal pain. Hematochezia. COMPARISON STUDY: Abdominal CT dated 10/15/2021. TECHNIQUE: CT scan of the abdomen and pelvis is performed from the lung bases to the proximal femora. Images are reviewed in the axial, sagittal, and coronal planes. IV contrast was not administered for this examination. Note that the examination was performed in significantly suboptimal fashion without oral and IV contrast. A dose lowering technique was utilized adhering to the principles of ALARA. CT DOSE: 1637.31 mGy.cm FINDINGS: Lung bases: The heart is normal in size and without pericardial effusion. The coronary arteries are densely calcified. There is diminished attenuation of the cardiac blood pool as compared to the myocardium suggesting anemia. The lung bases are clear noting dependent atelectasis. Liver: The unenhanced liver is normal in size, contour, and attenuation. There is no intrahepatic biliary ductal dilatation. Gallbladder: There are calcified gallstones with no CT evidence of acute cholecystitis. Spleen: Normal in size and attenuation. Pancreas: There is inflammatory change between the pancreatic head and duodenum, suspicious for acute pancreatitis. The unenhanced pancreas is otherwise grossly unremarkable. There is no evidence of organized peripancreatic fluid collection on this unenhanced examination. Adrenal glands: Unremarkable. Kidneys: The unenhanced kidneys are atrophic and without hydronephrosis. There are no renal calculi identified. There is no evidence of contour deforming renal mass lesion. Abdominal vasculature: The abdominal aorta is normal in course and caliber noting mild to moderate atherosclerotic calcification. Bowel: Mild duodenal wall thickening is likely related to adjacent pancreatitis. There is no bowel obstruction. Liquid stool is seen throughout the colon. The appendix is normal as visualized. Peritoneum: There is no intraperitoneal free air or abdominal ascites. There is a fat-containing umbilical hernia. Lymphadenopathy: None. Pelvic viscera: The bladder is decompressed around a Roberto catheter and could not be evaluated. The prostate and seminal vesicles are normal as imaged. Skeletal structures: No lytic or blastic lesions are seen. The skeletal structures are osteopenic. Spondylosis throughout the lumbosacral spine is similar to previous and suggests ankylosing spondylitis. There is near complete fusion of the sacroiliac joints. Soft tissues: Skin clips are noted in the right ventral pelvis. There is nonspecific anterior perineal soft tissue induration around the base of the penis. IMPRESSION: 1. Significantly suboptimal examination without oral and IV contrast. 2. Findings suggest acute pancreatitis. Correlate with clinical findings and serum amylase/lipase levels. 3. No organized peripancreatic fluid collection is identified. 4. Cholelithiasis. 5. Liquid stool seen throughout the colon. Correlate clinically for evidence of a diarrheal illness. 6. There is nonspecific anterior perineal soft tissue induration around the base of the penis. Clinical correlation will be required. 7. Additional findings as above. ACT 112: Negative or not required by law. Electronically signed by: Ismael Riojas M.D. 10/24/2021 6:24 PM Code Status & VTE Plan Code Status FULL CODE VTE Prophylaxis Plan VTE Prophylaxis will be ordered: Yes PG Care Time/CCT Total # of Minutes Spent Total Time Spent with Patient: Total time spent is greater than 50% in coordination of care (as documented) at patient's floor/unit and/or counseling patient: Coding Level of Care Code 69410 Initial Inpt Care Lvl 3 Diagnoses Urinary retention R33.9 H/O right inguinal hernia repair Z98.890; Z87.19 Acute kidney injury N17.9 Hypertension I10 Dyslipidemia E78.5 Hypothyroidism E03.9 Obesity, morbid, BMI 40.0-49.9 E66.01 CHF (congestive heart failure), NYHA class II I50.9 Coronary artery disease I25.10 Ischemic cardiomyopathy I25.5 Chronic obstructive pulmonary disease J44.9 GI bleed K92.2 Acute blood loss anemia D62 Hemorrhagic shock R57.8 Acute pancreatitis K85.90
[2021-10-24] MEDS ORDERED: MoRPHine SULFATE 2 MG/ML CARP IV STA (19:18)
[2021-10-24] MEDS ORDERED: CALCIUM GLUCONATE 10% 1,000 MG in SODIUM CHLORIDE 0.9% 50 ML IV ONE (21:00)
[2021-10-24] MEDS: PANTOprazole 40 MG in DEXTROSE 5% 100 ML IV SCH (22:02)
[2021-10-24 23:29] LABS: Hematocrit (blood only) 23.6 % (42-52); Hemoglobin 7.7 g/dL (14.0-18.0); Mean Corpuscular Hemoglobin 30.9 pg (25-34); Mean Corpuscular Hgb Conc 32.6 g/dL (32-36); Mean Corpuscular Volume 94.8 fL (80-100); Platelet Count 304 K/uL (130-400); RDW Coefficient of Variation 15.6 % (11.5-14.5); RDW Standard Deviation 53.8 fL (36.4-46.3); Red Blood Count 2.49 M/uL (4.7-6.1); White Blood Count 11.38 K/uL (4.8-10.8)
[2021-10-25] MEDS ORDERED: ONDANSETRON INJ 2 MG/ML 2 ML VIAL IV PRN ×2 (00:38→09:20)
[2021-10-25] MEDS ORDERED: MoRPHine SULFATE 2 MG/ML CARP IV PRN (00:38)
[2021-10-25] MEDS ORDERED: SODIUM CHLORIDE 0.9% 250 ML IV PRN (00:38)
[2021-10-25] MEDS: ATORVASTATIN 40 MG TAB PO SCH ×2 (01:37→23:36)
[2021-10-25] MEDS: buPROPion HCl 100 MG TABLET PO SCH ×2 (01:39→22:30)
[2021-10-25 03:26] LABS: Appearance Urine Clear (Clear); Bacteria Urine Automated 2+ (Negative); Bilirubin Urine Negative (Negative); Blood Urine Trace (Negative); Color Urine Yellow; Glucose Urine UA Negative (Negative); Ketones Urine Negative (Negative); Leukocyte Esterase Urine Trace (Negative); Nitrite Urine Negative (Negative); Protein Urine Negative (Negative); RBC Urine Automated 0-4 /hpf (0-4); Specific Gravity Urine 1.016 (1.000-1.030); Urobilinogen Urine Negative (Negative)
[2021-10-25] MEDS: PANTOprazole 40 MG in DEXTROSE 5% 100 ML IV SCH ×5 (03:45→21:58)
[2021-10-25 03:48] LABS: Hemoglobin 8.6 g/dL (14.0-18.0); Mean Corpuscular Volume 93.9 fL (80-100); Mean Platelet Volume 9.2 fL (7.4-10.4); Platelet Count 294 K/uL (130-400); RDW Coefficient of Variation 15.8 % (11.5-14.5); RDW Standard Deviation 54.3 fL (36.4-46.3); Red Blood Count 2.77 M/uL (4.7-6.1); White Blood Count 9.74 K/uL (4.8-10.8)
[2021-10-25] MEDS ORDERED: SODIUM CHLORIDE 0.9% 1000ML 1,000 ML IV SCH (04:00)
[2021-10-25 04:10] LABS: Basophils # (auto) 0.04 K/uL (0-0.2); Basophils % (auto) 0.4 %; Eosinophils # (auto) 0.02 K/uL (0-0.5); Eosinophils % (auto) 0.2 %; Immature Granulocytes # (auto) 0.05 K/uL (0.00-0.02); Immature Granulocytes % (auto) 0.5 %; Lymphocytes # (auto) 1.86 K/uL (1.2-3.4); Lymphocytes % (auto) 19.1 %; Mean Corpuscular Hgb Conc 33.1 g/dL (32-36); Monocytes # (auto) 0.56 K/uL (0.11-0.59); Monocytes % (auto) 5.7 %; Neutrophils # (auto) 7.21 K/uL (1.4-6.5); Neutrophils % (auto) 74.1 %; RBC Morphology Unremarkable
[2021-10-25] MEDS: LEVOTHYROXINE SODIUM 112 MCG TABLET PO SCH (06:10)
--- NOTE | 2021-10-25 07:09 | Anesthesiology Consultation ---
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 History Surgery Operation Date: 10/25/21 11:00 Proposed Procedures p EGD Hemostasis - Yasmany GPj Case, DO Height/Weight Height: 5 ft 5 in Weight: 134.5 kg Allergies Allergy/AdvReac Type Severity Reaction Status Date / Time tuberculin, purified protein Allergy Mild SWELLING Verified 10/20/21 09:20 deriva AT SITE guaifenesin [From Mucinex] AdvReac Intermediate felt like Verified 10/20/21 09:20 was on fire pseudoephedrine AdvReac Mild ELECTRIC Verified 10/20/21 09:20 [From Sudafed] CURRENTS THRU BODY simvastatin AdvReac Mild MYALGIA Verified 10/20/21 09:20 Medications Home Medications Medication Instructions Recorded Confirmed Last Taken aspirin 81 mg tablet,delayed 81 mg PO QAM 10/24/18 10/24/21 10/13/21 10:00 release metoprolol succinate 50 mg 50 mg PO QAM #90 tab 02/20/21 10/24/21 10/15/21 tablet,extended release 24 hr nitroglycerin 0.4 mg sublingual 0.4 mg SUBLINGUAL .Q5 mins PRN #25 05/22/21 10/24/21 Unknown tablet tab cholecalciferol (vitamin D3) 50 50 mcg PO QAM 07/13/21 10/24/21 10/15/21 mcg (2,000 unit) capsule atorvastatin 80 mg tablet (Lipitor) 80 mg PO PM #90 tab 08/27/21 10/24/21 10/12/21 10:00 docusate sodium 100 mg tablet 100 mg PO DAILY PRN 10/06/21 10/24/21 10/12/21 (Stool Softener) finasteride 5 mg tablet 5 mg PO QAM 10/06/21 10/24/21 10/13/21 10:00 levothyroxine 112 mcg tablet 112 mcg PO QAM 10/06/21 10/24/21 10/14/21 lisinopril 5 mg tablet 5 mg PO QAM 10/06/21 10/24/21 10/15/21 omega 4-kjp-tyy-fish oil 1,000 mg 1 cap PO QAM 10/06/21 10/24/21 10/12/21 (120 mg-180 mg) capsule (Fish Oil) tamsulosin 0.4 mg capsule (Flomax) 0.4 mg PO QAM 10/06/21 10/24/21 10/13/21 thiamine HCl (vitamin B1) 100 mg 100 mg PO QAM 10/06/21 10/24/21 10/12/21 10:00 tablet umeclidinium 62.5 mcg-vilanterol 1 inh INHALATION DAILY PRN 10/06/21 10/24/21 10/12/21 25 mcg/actuation powdr for inhalation (Anoro Ellipta) bupropion HCl 100 mg tablet 100 mg PO HS tab 10/12/21 10/24/21 10/13/21 10:00 oxycodone-acetaminophen 5 mg-325 1 - 2 tab PO .q4-6h PRN #15 tab 10/14/21 10/24/21 10/14/21 mg tablet (Percocet) vitamin B12 500 mcg-folic acid 400 1 tab PO QAM 10/15/21 10/24/21 10/12/21 mcg tablet clopidogrel 75 mg tablet (Plavix) 75 mg PO DAILY #30 tab 10/18/21 10/24/21 Unknown polyethylene glycol 3350 17 gram 17 g PO DAILY PRN #14 ea 10/18/21 10/24/21 Unknown oral powder packet (Miralax) Active Medications Generic Name Dose Route Start Last Admin Trade Name Freq PRN Reason Stop Dose Admin Atorvastatin Calcium 80 mg 10/25/21 00:38 10/25/21 01:37 Atorvastatin 40 Mg Tab PO 11/24/21 00:37 80 mg PM TREVOR Administration Bupropion HCl 100 mg 10/25/21 00:38 10/25/21 01:39 Bupropion Hcl 100 Mg Tablet PO 11/24/21 00:37 Not Given HS TREVOR Pantoprazole Sodium 40 mg/ 100 mls @ 20 mls/hr 10/24/21 20:32 10/25/21 03:45 Dextrose IV 11/23/21 20:31 8 mg/hr Q5H TREVOR 20 mls/hr Administration 8 MG/HR Sodium Chloride 1,000 mls @ 250 mls/hr 10/25/21 04:00 10/25/21 04:01 Nss 1000ml IV 10/25/21 07:59 250 mls/hr .Q4H TREVOR Administration Levothyroxine Sodium 112 mcg 10/25/21 06:30 10/25/21 06:10 Levothyroxine Sodium 112 Mcg Tablet PO 11/24/21 06:29 Not Given DAILYBB [facility] Past Medical History Medical History Arthralgia of multiple sites Bilateral inguinal hernia Cardiac murmur none noted on last cardio office visit 06/2021 Carpal tunnel syndrome Chronic obstructive pulmonary disease on maintenance inhalers-stable per pt-few nightly coughs, denies wheezing Congestive heart failure follows [facility], stable per last office note Coronary artery disease h/o DC and s/p 2 bare metal stents-LAD and Cx in 2008, follows [facility]; last visit 06/2021 and stable per note Dyspnea on exertion increased over past 16 months per pt with gradual 50 lb weight gain with reduced activity d/t COVID 19 Elevated alkaline phosphatase level Hypertension controlled, stable per pt Hypothyroidism Indigestion Infarction of spleen under observation Ischemic cardiomyopathy follows with [facility], stable per last note Morbid obesity with BMI of 45.0-49.9, adult Pituitary hypogonadism follows with PCP Pre-diabetes Right hydrocele Signs and symptoms involving cognition Pt reports chronic mild memory dysfunction Snoring reports sleep study 4 yrs ago negative for sleep apnea, occ witnessed apneas per Past Family History Family History Brother Hx of CABG Myocardial infarction Mother Myocardial infarction Other Coronary heart disease Lung disease Denies family history of Ovarian cancer Prostate cancer Breast cancer Colorectal cancer Past Surgical History Surgical History H/O right inguinal hernia repair (10/14/21) Laparoscopic Converted to Open Right Inguinal Hernia Repair with Mesh(Right) - Rodrigo Dudley DO, FACS 10-14-2021 History of cardiac cath bare metal stent placement x 2 to LAD and Cx in 2008 History of colonoscopy Social History Smoking Status: Former smoker Hx Alcohol Use: No Hx Substance Use: No Physical Exam Vital Signs Last Vital Signs Temp 98.2 F 10/25/21 03:32 Pulse 94 H 10/25/21 06:00 Resp 22 10/25/21 06:00 BP 122/78 10/25/21 06:00 Pulse Ox 91 10/25/21 06:00 Testing Laboratory Results 10/25/21 03:42 10/24/21 16:21 PT 10.9 Seconds (9.0-12.0) 10/24/21 16:21 INR 1.1 (0.9-1.1) 10/24/21 16:21 Urine Color Yellow 10/25/21 03:14 Urine Appearance Clear (Clear) 10/25/21 03:14 Urine pH 5.0 (4.5-7.5) 10/25/21 03:14 Ur Specific Cummings 1.016 (1.000-1.030) 10/25/21 03:14 Urine Protein Negative (Negative) 10/25/21 03:14 Urine Glucose (UA) Negative (Negative) 10/25/21 03:14 Urine Ketones Negative (Negative) 10/25/21 03:14 Urine Nitrite Negative (Negative) 10/25/21 03:14 Ur Leukocyte Esterase Trace (Negative) H 10/25/21 03:14 Urine WBC (Auto) 5-10 /hpf (0-5) H 10/25/21 03:14 Urine RBC (Auto) 0-4 /hpf (0-4) 10/25/21 03:14 U Hyaline Cast (Auto) 1-5 /lpf (0-5) 10/25/21 03:14 U Epithel Cells (Auto) 5-10 /lpf (0-5) H 10/25/21 03:14 Urine Bacteria (Auto) 2+ (Negative) H 10/25/21 03:14 Blood Type O Positive 10/24/21 16:19 Antibody Screen NEGATIVE 10/24/21 16:19 Electrocardiogram Date: 10/24/21 Sinus rhythm with short OK, rate 82 bpm Septal infarct (cited on or before 11-JAN-2020) ST & T wave abnormality, consider lateral ischemia Abnormal ECG When compared with ECG of 17-OCT-2021 17:29, Premature supraventricular complexes are no longer Present Questionable change in initial forces of Septal leads Chest X-Ray Date: 10/15/21 IMPRESSION: Cardiomegaly without acute process. Echocardiogram Date: 10/15/21 Compared with 12/25/20 study, wall motion abnormalities appear less severe and LV systolic function mildly improved LV is grossly normal size LV systolic function is low normal There is moderate apical wall hypokinesis
--- NOTE | 2021-10-25 07:13 | Electrocardiogram Report ---
Test Reason : Blood Pressure : / mmHG Vent. Rate : 082 BPM Atrial Rate : 082 BPM P-R Int : 106 ms QRS Dur : 078 ms QT Int : 374 ms P-R-T Axes : 052 008 174 degrees QTc Int : 436 ms Sinus rhythm Nonspecific ST abnormality Abnormal ECG When compared with ECG of 17-OCT-2021 17:29, Premature supraventricular complexes are no longer Present Confirmed by Rodney Hooks ([id number]) on 10/25/2021 7:13:11 AM Referred By: REFERRED SELF Confirmed By:Master Hooks
--- NOTE | 2021-10-25 08:05 | Surgery Consultation ---
Date of Consultation October 25, 2021 Assessment & Plan (1) H/O right inguinal hernia repair: No acute surgical issues Will remove skin lupe soon History of Present Illness Attending Physician: Rush Tong DO History of Present Illness 66 y/o male 11 s/p right inguinal hernia repair, laparoscopic converted to open. Was readmitted the next day for rhabdo, ALVINA, urinary retention. Was seen in clinic by Dr. Dudley last week. Once he finished his Percocet he was taking a combination of Advil, Tylenol and some left over ibuprofen 800 mg. Began having melena, now in ED holding and awaiting endoscopy. He still has hernández which was to be removed tomorrow in urology clinic. Has some scrotal swelling, thigh numbness has resolved. Allergies Allergy/AdvReac Type Severity Reaction Status Date / Time tuberculin, purified protein Allergy Mild SWELLING Verified 10/20/21 09:20 deriva AT SITE guaifenesin [From Mucinex] AdvReac Intermediate felt like Verified 10/20/21 09:20 was on fire pseudoephedrine AdvReac Mild ELECTRIC Verified 10/20/21 09:20 [From Sudafed] CURRENTS THRU BODY simvastatin AdvReac Mild MYALGIA Verified 10/20/21 09:20 Home Medications Medication Instructions Recorded Confirmed Type aspirin 81 mg tablet,delayed 81 mg PO QAM 10/24/18 10/24/21 History release metoprolol succinate 50 mg 50 mg PO QAM #90 tab 02/20/21 10/24/21 Rx tablet,extended release 24 hr nitroglycerin 0.4 mg sublingual 0.4 mg SUBLINGUAL .Q5 mins PRN #25 05/22/21 10/24/21 Rx tablet tab cholecalciferol (vitamin D3) 50 50 mcg PO QAM 07/13/21 10/24/21 History mcg (2,000 unit) capsule atorvastatin 80 mg tablet (Lipitor) 80 mg PO PM #90 tab 08/27/21 10/24/21 Rx docusate sodium 100 mg tablet 100 mg PO DAILY PRN 10/06/21 10/24/21 History (Stool Softener) finasteride 5 mg tablet 5 mg PO QAM 10/06/21 10/24/21 History levothyroxine 112 mcg tablet 112 mcg PO QAM 10/06/21 10/24/21 History lisinopril 5 mg tablet 5 mg PO QAM 10/06/21 10/24/21 History omega 6-aar-ihw-fish oil 1,000 mg 1 cap PO QAM 10/06/21 10/24/21 History (120 mg-180 mg) capsule (Fish Oil) tamsulosin 0.4 mg capsule (Flomax) 0.4 mg PO QAM 10/06/21 10/24/21 History thiamine HCl (vitamin B1) 100 mg 100 mg PO QAM 10/06/21 10/24/21 History tablet umeclidinium 62.5 mcg-vilanterol 1 inh INHALATION DAILY PRN 10/06/21 10/24/21 History 25 mcg/actuation powdr for inhalation (Anoro Ellipta) bupropion HCl 100 mg tablet 100 mg PO HS tab 10/12/21 10/24/21 History oxycodone-acetaminophen 5 mg-325 1 - 2 tab PO .q4-6h PRN #15 tab 10/14/21 10/24/21 Rx mg tablet (Percocet) vitamin B12 500 mcg-folic acid 400 1 tab PO QAM 10/15/21 10/24/21 History mcg tablet clopidogrel 75 mg tablet (Plavix) 75 mg PO DAILY #30 tab 10/18/21 10/24/21 Rx polyethylene glycol 3350 17 gram 17 g PO DAILY PRN #14 ea 10/18/21 10/24/21 Rx oral powder packet (Miralax) Patient History Medical History Arthralgia of multiple sites Bilateral inguinal hernia Cardiac murmur none noted on last cardio office visit 06/2021 Carpal tunnel syndrome Chronic obstructive pulmonary disease on maintenance inhalers-stable per pt-few nightly coughs, denies wheezing Congestive heart failure [place] [facility], stable per last office note Coronary artery disease h/o SD and s/p 2 bare metal stents-LAD and Cx in 2008, follows [facility]; last visit 06/2021 and stable per note Dyspnea on exertion increased over past 16 months per pt with gradual 50 lb weight gain with reduced activity d/t COVID 19 Elevated alkaline phosphatase level Hypertension controlled, stable per pt Hypothyroidism Indigestion Infarction of spleen under observation Ischemic cardiomyopathy follows with [facility], stable per last note Morbid obesity with BMI of 45.0-49.9, adult Pituitary hypogonadism follows with PCP Pre-diabetes Right hydrocele Signs and symptoms involving cognition Pt reports chronic mild memory dysfunction Snoring reports sleep study 4 yrs ago negative for sleep apnea, occ witnessed apneas per Surgical History H/O right inguinal hernia repair (10/14/21) Laparoscopic Converted to Open Right Inguinal Hernia Repair with Mesh(Right) - Rodrigo Dudley DO, FACS 10-14-2021 History of cardiac cath bare metal stent placement x 2 to LAD and Cx in 2008 History of colonoscopy Family History Brother Hx of CABG Myocardial infarction Mother Myocardial infarction Other Coronary heart disease Lung disease Denies family history of Ovarian cancer Prostate cancer Breast cancer Colorectal cancer Social History Smoking Status: Former smoker Tobacco Type: Cigarettes Second Hand Exposure: No; Hx Alcohol Use: No Hx Substance Use: No Preferred Language: [place] Citizen Communication Ability: Effective Visual Impairment: No Limitations Hearing Ability: Normal 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 Beliefs That Will Affect Care: None marital status: Current Living Situation: Spouse current occupational status: other current occupation: HAS NOT WORKED PAST 1.5 YRS How many Children do You have: 2 Feels Safe at Home: Yes Childhood Exposure to Second-Hand Smoke: No during the past year weight has: increased > 10 lbs Seatbelt Use: always Assistive Devices: Glasses Review of Systems Gastrointestinal: + blood in stools (red blood this AM) and + melena Physical Exam Constitutional: WD/WN, vitals as above Gastrointestinal (Abdomen): Inspection/Auscultation: + abdominal surgical incision (right groin dry no erythema, lupe in place) Genitourinary: + scrotal swelling; no scrotal ecchymosis Results & Data ([facility]) Vital Signs (Past 12 Hours) Vital Signs Temp Pulse Pulse Resp BP BP Pulse Ox 10/25/21 07:00 120 H 18 120/62 100 10/25/21 06:00 94 H 22 122/78 91 10/25/21 05:49 95 H 20 97/50 L 98 10/25/21 03:32 36.8 C 123 H 18 90/54 L 96 10/25/21 03:20 36.8 C 122 H 18 90/54 L 97 10/25/21 02:20 36.9 C 121 H 18 128/70 96 10/25/21 01:43 10/25/21 01:42 122 H 20 113/56 L 97 10/25/21 01:20 36.9 C 122 H 20 109/63 96 10/25/21 00:50 36.9 C 121 H 18 91/58 L 96 10/25/21 00:35 36.8 C 126 H 20 100/55 L 96 10/25/21 00:17 37.0 C 121 H 20 100/51 L 97 10/24/21 23:34 122 H 18 102/57 L 96 10/24/21 22:34 37.1 C 115 H 20 87/46 L 95 10/24/21 21:55 37.0 C 18 88/47 L 95 10/24/21 20:55 37.1 C 110 H 18 91/51 L 96 10/24/21 20:25 119 H 18 87/53 L 97 10/24/21 20:10 37.0 C 120 H 20 103/53 L 98 Pulse Ox 10/25/21 07:00 10/25/21 06:00 10/25/21 05:49 10/25/21 03:32 10/25/21 03:20 10/25/21 02:20 10/25/21 01:43 97 10/25/21 01:42 10/25/21 01:20 10/25/21 00:50 10/25/21 00:35 10/25/21 00:17 10/24/21 23:34 10/24/21 22:34 10/24/21 21:55 10/24/21 20:55 10/24/21 20:25 10/24/21 20:10 PG Care Time/CCT Total # of Minutes Spent Total Time Spent with Patient: Total time spent is greater than 50% in coordination of care (as documented) at patient's floor/unit and/or counseling patient: Coding Level of Care Code None Diagnoses H/O right inguinal hernia repair Z98.890; Z87.19
--- NOTE | 2021-10-25 08:27 | Gastrointestinal Consultation ---
Date of Consultation October 25, 2021 Assessment & Plan (1) Acute blood loss anemia: (2) Melena: (3) Melena: Continue protonix gtt at 8 mg/hour Keep NPO EGD this AM for further evaluation Further recommendations to follow above noted testing. History of Present Illness Reason for Consultation: Melena Attending Physician: Rush Tong DO History of Present Illness Froy Noel is a 66 yo CM who recently underwent a Right inguinal hernia repair which was complicated by an episode of Rhabdomyolysis and SOFÍA and NSAID use for pain from surgical incisional site who presented to the ER yesterday with melena. He also complained of epigastric pain 8/10 in intensity, sharp and stabbing which radiated into his back. Upon arrival to the ER he was noted to be hypotensive, and have an H/H of 7.3/23, which was noted to be 11.1/35.4 six days prior while hospitalized. He received IVF hydration with a good response, and subsequently had a CT abd/pelvis which showed peripancreatic inflammation between the pancreatic head and duodenum. I spoke with Dr. Marie regarding his care, and recommended further volume resuscitation prior to EGD, and he did receive 2 u of PRBC overnight with a rise in his H/H to 8.6/26.0. At the time I saw him, he was resting comfortably in bed. He states his abdominal pain has i mproved, but he did have a dark stool overnight. He denies any fevers, chills, nausea, vomiting, hematemesis, or hematochezia. He states he was taking, "alot of Ibuprofen over the past few days," leading up to his ER visit. He has no further complaints. Allergies Allergy/AdvReac Type Severity Reaction Status Date / Time tuberculin, purified protein Allergy Mild SWELLING Verified 10/20/21 09:20 deriva AT SITE guaifenesin [From Mucinex] AdvReac Intermediate felt like Verified 10/20/21 09:20 was on fire pseudoephedrine AdvReac Mild ELECTRIC Verified 10/20/21 09:20 [From Sudafed] CURRENTS THRU BODY simvastatin AdvReac Mild MYALGIA Verified 10/20/21 09:20 Home Medications Medication Instructions Recorded Confirmed Type aspirin 81 mg tablet,delayed 81 mg PO QAM 10/24/18 10/24/21 History release metoprolol succinate 50 mg 50 mg PO QAM #90 tab 02/20/21 10/24/21 Rx tablet,extended release 24 hr nitroglycerin 0.4 mg sublingual 0.4 mg SUBLINGUAL .Q5 mins PRN #25 05/22/21 10/24/21 Rx tablet tab cholecalciferol (vitamin D3) 50 50 mcg PO QAM 07/13/21 10/24/21 History mcg (2,000 unit) capsule atorvastatin 80 mg tablet (Lipitor) 80 mg PO PM #90 tab 08/27/21 10/24/21 Rx docusate sodium 100 mg tablet 100 mg PO DAILY PRN 10/06/21 10/24/21 History (Stool Softener) finasteride 5 mg tablet 5 mg PO QAM 10/06/21 10/24/21 History levothyroxine 112 mcg tablet 112 mcg PO QAM 10/06/21 10/24/21 History lisinopril 5 mg tablet 5 mg PO QAM 10/06/21 10/24/21 History omega 8-xre-gki-fish oil 1,000 mg 1 cap PO QAM 10/06/21 10/24/21 History (120 mg-180 mg) capsule (Fish Oil) tamsulosin 0.4 mg capsule (Flomax) 0.4 mg PO QAM 10/06/21 10/24/21 History thiamine HCl (vitamin B1) 100 mg 100 mg PO QAM 10/06/21 10/24/21 History tablet umeclidinium 62.5 mcg-vilanterol 1 inh INHALATION DAILY PRN 10/06/21 10/24/21 History 25 mcg/actuation powdr for inhalation (Anoro Ellipta) bupropion HCl 100 mg tablet 100 mg PO HS tab 10/12/21 10/24/21 History oxycodone-acetaminophen 5 mg-325 1 - 2 tab PO .q4-6h PRN #15 tab 10/14/21 10/24/21 Rx mg tablet (Percocet) vitamin B12 500 mcg-folic acid 400 1 tab PO QAM 10/15/21 10/24/21 History mcg tablet clopidogrel 75 mg tablet (Plavix) 75 mg PO DAILY #30 tab 10/18/21 10/24/21 Rx polyethylene glycol 3350 17 gram 17 g PO DAILY PRN #14 ea 10/18/21 10/24/21 Rx oral powder packet (Miralax) Patient History Medical History Arthralgia of multiple sites Bilateral inguinal hernia Cardiac murmur none noted on last cardio office visit 06/2021 Carpal tunnel syndrome Chronic obstructive pulmonary disease on maintenance inhalers-stable per pt-few nightly coughs, denies wheezing Congestive heart failure follows [facility], stable per last office note Coronary artery disease h/o CA and s/p 2 bare metal stents-LAD and Cx in 2008, follows [facility]; last visit 06/2021 and stable per note Dyspnea on exertion increased over past 16 months per pt with gradual 50 lb weight gain with reduced activity d/t COVID 19 Elevated alkaline phosphatase level Hypertension controlled, stable per pt Hypothyroidism Indigestion Infarction of spleen under observation Ischemic cardiomyopathy follows with [facility], stable per last note Morbid obesity with BMI of 45.0-49.9, adult Pituitary hypogonadism follows with PCP Pre-diabetes Right hydrocele Signs and symptoms involving cognition Pt reports chronic mild memory dysfunction Snoring reports sleep study 4 yrs ago negative for sleep apnea, occ witnessed apneas per Surgical History H/O right inguinal hernia repair (10/14/21) Laparoscopic Converted to Open Right Inguinal Hernia Repair with Mesh(Right) - Rodrigo Dudley DO, FACS 10-14-2021 History of cardiac cath bare metal stent placement x 2 to LAD and Cx in 2008 History of colonoscopy Family History Brother Hx of CABG Myocardial infarction Mother Myocardial infarction Other Coronary heart disease Lung disease Denies family history of Ovarian cancer Prostate cancer Breast cancer Colorectal cancer Social History Smoking Status: Former smoker Tobacco Type: Cigarettes Second Hand Exposure: No; Hx Alcohol Use: No Hx Substance Use: No Preferred Language: [place] Communication Ability: Effective Visual Impairment: No Limitations Hearing Ability: Normal 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 Beliefs That Will Affect Care: None marital status: Current Living Situation: Spouse current occupational status: other current occupation: HAS NOT WORKED PAST 1.5 YRS How many Children do You have: 2 Feels Safe at Home: Yes Childhood Exposure to Second-Hand Smoke: No during the past year weight has: increased > 10 lbs Seatbelt Use: always Assistive Devices: Glasses Review of Systems Constitutional: as per Subjective / HPI Eyes: as per Subjective / HPI Ear, Nose, Mouth, Throat: as per Subjective / HPI Respiratory: as per Subjective / HPI Cardiovascular: as per Subjective / HPI Gastrointestinal: as per Subjective / HPI Musculoskeletal: as per Subjective / HPI Integumentary: as per Subjective / HPI Neurologic: as per Subjective / HPI Psychiatric: as per Subjective / HPI Endocrine: as per Subjective / HPI Hematologic / Lymphatic: as per Subjective / HPI Allergy / Immunological: as per Subjective / HPI Physical Exam Constitutional: + ill appearing (Chronically) and + morbidly obese; no acute distress Eyes: + anicteric sclerae ENMT: external ear and nose normal, oropharynx normal Neck: trachea midline, no thyromegaly Respiratory: normal respiratory effort, lungs clear to auscultation Cardiovascular: RRR, no murmur, no edema Gastrointestinal (Abdomen): normal bowel sounds, soft, nontender, no hepatosplenomegaly Skin: + pallor Psychiatric: A+Ox3, euthymic affect Results & Data ([facility]) Vital Signs (Past 12 Hours) Vital Signs Temp Pulse Pulse Resp BP BP Pulse Ox 10/25/21 07:00 120 H 18 120/62 100 10/25/21 06:00 94 H 22 122/78 91 10/25/21 05:49 95 H 20 97/50 L 98 10/25/21 03:32 36.8 C 123 H 18 90/54 L 96 10/25/21 03:20 36.8 C 122 H 18 90/54 L 97 10/25/21 02:20 36.9 C 121 H 18 128/70 96 10/25/21 01:43 10/25/21 01:42 122 H 20 113/56 L 97 10/25/21 01:20 36.9 C 122 H 20 109/63 96 10/25/21 00:50 36.9 C 121 H 18 91/58 L 96 10/25/21 00:35 36.8 C 126 H 20 100/55 L 96 10/25/21 00:17 37.0 C 121 H 20 100/51 L 97 10/24/21 23:34 122 H 18 102/57 L 96 10/24/21 22:34 37.1 C 115 H 20 87/46 L 95 10/24/21 21:55 37.0 C 18 88/47 L 95 10/24/21 20:55 37.1 C 110 H 18 91/51 L 96 10/24/21 20:25 119 H 18 87/53 L 97 10/24/21 20:10 37.0 C 120 H 20 103/53 L 98 Pulse Ox 10/25/21 07:00 10/25/21 06:00 10/25/21 05:49 10/25/21 03:32 10/25/21 03:20 10/25/21 02:20 10/25/21 01:43 97 10/25/21 01:42 10/25/21 01:20 10/25/21 00:50 10/25/21 00:35 10/25/21 00:17 10/24/21 23:34 10/24/21 22:34 10/24/21 21:55 10/24/21 20:55 10/24/21 20:25 10/24/21 20:10 PG Care Time/CCT Total # of Minutes Spent Total Time Spent with Patient: Total time spent is greater than 50% in coordination of care (as documented) at patient's floor/unit and/or counseling patient: Coding Level of Care Code 48111 Inpt Consult Level 4 Diagnoses Acute blood loss anemia D62 Melena K92.1 Melena K92.1
[2021-10-25 08:39] LABS: Basophils # (auto) 0.03 K/uL (0-0.2); Basophils % (auto) 0.3 %; Eosinophils # (auto) 0.02 K/uL (0-0.5); Eosinophils % (auto) 0.2 %; Hemoglobin 8.9 g/dL (14.0-18.0); Immature Granulocytes # (auto) 0.08 K/uL (0.00-0.02); Immature Granulocytes % (auto) 0.8 %; Lymphocytes # (auto) 1.57 K/uL (1.2-3.4); Lymphocytes % (auto) 15.6 %; Mean Corpuscular Hemoglobin 30.1 pg (25-34); Mean Corpuscular Hgb Conc 31.8 g/dL (32-36); Mean Corpuscular Volume 94.6 fL (80-100); Mean Platelet Volume 10.1 fL (7.4-10.4); Monocytes # (auto) 0.56 K/uL (0.11-0.59); Monocytes % (auto) 5.6 %; Neutrophils # (auto) 7.82 K/uL (1.4-6.5); Neutrophils % (auto) 77.5 %; Platelet Count 276 K/uL (130-400); RDW Coefficient of Variation 16.1 % (11.5-14.5); Red Blood Count 2.96 M/uL (4.7-6.1); White Blood Count 10.08 K/uL (4.8-10.8)
[2021-10-25 08:57] LABS: Albumin Level 2.4 gm/dl (3.4-5.0); BUN Creatinine Ratio 21.8 (10-20); Calcium 7.9 mg/dl (8.5-10.1); Creatinine Clr Calc Pharmacy 80.3 ml/min; Est GFR (African American) 74.4 ml/min; Est GFR (Non-African American) 64.2 ml/min; Magnesium 2.1 mg/dl (1.8-2.4); Potassium 4.7 mmol/L (3.5-5.1)
[2021-10-25 09:00] LABS: Albumin Globulin Ratio 0.7 (0.9-2); Bilirubin,Total 0.6 mg/dl (0.2-1); Globulin 3.4 gm/dl (2.5-4.0); Total Protein 5.8 gm/dl (6.4-8.2)
[2021-10-25] MEDS: METOPROLOL SUCC 50MG EXT REL TAB PO SCH (09:14)
[2021-10-25] MEDS: UMECLIDINIUM/VILANTEROL 62.5/25MCG 7 PUFFS/INHALER INH SCH (09:17)
[2021-10-25] MEDS ORDERED: fentaNYL citrate 100 MCG/2 ML VIAL IV PRN (09:20)
[2021-10-25] MEDS ORDERED: ATROPINE SULFATE 0.1 MG/ML 10ML SYR IV PRN (09:20)
[2021-10-25] MEDS ORDERED: ePHEDrine sulfate 50 MG/ML AMP IV PRN (09:20)
[2021-10-25] MEDS ORDERED: MIDAZOLAM HCL 1 MG/ML 2ML VIAL ONE (09:50)
[2021-10-25] MEDS ORDERED: LIDOCAINE 2% 2 ML VIAL/AMP(20MG/ML) INFIL ONE (10:11)
[2021-10-25] MEDS ORDERED: ONDANSETRON INJ 2 MG/ML 2 ML VIAL ONE (10:11)
[2021-10-25] MEDS ORDERED: PROPOFOL IV EMULSION 10 MG/ML 20 ML VIAL IV ONE (10:11)
--- NOTE | 2021-10-25 10:22 | GI REPORT ---
Patient Name: Froy Noel Procedure Date: 10/25/2021 9:47 AM Date of : 1955 Admit Type: Inpatient Age: 66 Gender: Male Attending MD: Yasmany Bunch DO Procedure: Upper GI endoscopy Providers: Yasmany Bunch DO Referring MD: ROCHELLE KEYS Indications: Acute post hemorrhagic anemia, Melena Medicines: Monitored Anesthesia Care Complications: No immediate complications. Estimated Blood Loss: Estimated blood loss: none. Procedure: Pre-Anesthesia Assessment: - Prior to the procedure, a History and Physical was performed, and patient medications and allergies were reviewed. The patient's tolerance of previous anesthesia was also reviewed. The risks and benefits of the procedure and the sedation options and risks were discussed with the patient. All questions were answered, and informed consent was obtained. Prior Anticoagulants: The patient has taken Plavix (clopidogrel), last dose was 2 days prior to procedure. ASA Grade Assessment: IV - A patient with severe systemic disease that is a constant threat to life. After reviewing the risks and benefits, the patient was deemed in satisfactory condition to undergo the procedure. After obtaining informed consent, the endoscope was passed under direct vision. Throughout the procedure, the patient's blood pressure, pulse, and oxygen saturations were monitored continuously. The Endoscope was introduced through the mouth, and advanced to the second part of duodenum. The upper GI endoscopy was accomplished without difficulty. The patient tolerated the procedure well. Findings: The esophagus was normal. The stomach was normal. Biopsies were taken with a cold forceps for Helicobacter pylori testing. One non-bleeding cratered duodenal ulcer with no stigmata of bleeding was found in the duodenal bulb. The lesion was 30 mm in largest dimension. Impression: - Normal esophagus. - Normal stomach. Biopsied. - Non-bleeding duodenal ulcer with no stigmata of bleeding. Recommendation: - Return patient to [facility] for ongoing care. - Clear liquid diet. - Continue present medications, and will need to be on Protonix 40 mg PO BID indefinitely. - Avoid all NSAID's - Repeat upper endoscopy in 3 months to check healing. Yasmany Bunch DO 10/25/2021 10:21:14 AM This report has been signed electronically. Note Initiated On: 10/25/2021 9:47 AM Number of Addenda: 0 I attest to the content of the Intraoperative Record and orders documented therein, exceptions below {[id number]}
--- NOTE | 2021-10-25 10:33 | Anesthesiology Progress Note ---
Date of Service October 25, 2021 Anesthesia Post Procedure Vital Signs Vital Signs: Temp Pulse Pulse Pulse Resp BP BP 10/25/21 10:25 90 12 103/62 10/25/21 10:16 97.0 F L 88 16 108/67 10/25/21 07:00 120 H 18 10/25/21 06:00 94 H 22 10/25/21 05:49 95 H 20 10/25/21 03:32 98.2 F 123 H 18 10/25/21 03:20 98.2 F 122 H 18 90/54 L 10/25/21 02:20 98.4 F 121 H 18 128/70 10/25/21 01:43 10/25/21 01:42 122 H 20 10/25/21 01:20 98.4 F 122 H 20 109/63 10/25/21 00:50 98.4 F 121 H 18 91/58 L 10/25/21 00:35 98.2 F 126 H 20 100/55 L 10/25/21 00:17 98.6 F 121 H 20 100/51 L 10/24/21 23:34 122 H 18 10/24/21 22:34 98.8 F 115 H 20 10/24/21 21:55 98.6 F 18 88/47 L 10/24/21 20:55 98.7 F 110 H 18 91/51 L 10/24/21 20:25 119 H 18 87/53 L 10/24/21 20:10 98.6 F 120 H 20 103/53 L 10/24/21 19:49 97.9 F 120 H 20 108/76 10/24/21 19:00 10/24/21 18:18 10/24/21 17:30 10/24/21 16:28 10/24/21 16:25 10/24/21 16:20 98.4 F 83 20 BP Pulse Ox Pulse Ox 10/25/21 10:25 92 10/25/21 10:16 95 10/25/21 07:00 120/62 100 10/25/21 06:00 122/78 91 10/25/21 05:49 97/50 L 98 10/25/21 03:32 90/54 L 96 10/25/21 03:20 97 10/25/21 02:20 96 10/25/21 01:43 97 10/25/21 01:42 113/56 L 97 10/25/21 01:20 96 10/25/21 00:50 96 10/25/21 00:35 96 10/25/21 00:17 97 10/24/21 23:34 102/57 L 96 10/24/21 22:34 87/46 L 95 10/24/21 21:55 95 10/24/21 20:55 96 10/24/21 20:25 97 10/24/21 20:10 98 10/24/21 19:49 96 10/24/21 19:00 62/50 L 10/24/21 18:18 102/60 10/24/21 17:30 81/45 L 10/24/21 16:28 96 10/24/21 16:25 89/46 L 10/24/21 16:20 73/49 L 99 Pain Intensity Lower Abdomen: Pain Intensity: 3 Transfer of Care Handoff Completed per policy Notes Mental Status: alert / awake / arousable and participated in evaluation Patient Amnestic to Procedure: Yes Nausea / Vomiting: adequately controlled Pain: adequately controlled Airway Patency, RR, SpO2: stable & adequate BP & HR: stable & adequate Hydration State: stable & adequate Anesthetic Complications: no major complications apparent and Pt Satisfied with anesthetic care
[2021-10-25] MEDS: FINASTERIDE 5 MG TAB PO SCH (11:40)
--- NOTE | 2021-10-25 12:54 | Hospitalist Progress Note ---
Date of Service October 25, 2021 Assessment & Plan (1) GI bleed: Plan: - Presents with melena and maroon-colored stools quite frequently throughout the day of admission -- With epigastric pain radiating through to the back and evidence of peripancreatic inflammation between pancreatic head and duodenum on CT abdomen/pelvis. Lipase elevated in the 500s -- This is in the setting of recent surgery followed by hospitalization for rhabdomyolysis and acute kidney injury, followed by taking frequent NSAIDs for pain -- Suspect peptic ulcer disease, duodenal ulcer likely causing acute pancreatitis - With hemoglobin 7.3 on admission down from 11.1 just 6 days ago-acute blood loss anemia - With hypotension on arrival with systolics in the 70s-hemorrhagic shock- responded to boluses of crystalloid fluid - Transfused 2 units PRBC on 10/24 - Hgb currently at 8.9 -- BPs still low normal but mentation is baseline -Follow serial CBC and transfuse as needed to keep him hemodynamically stable and to keep hemoglobin greater than 8 in the setting of active bleeding -Will continue Protonix gtt for now -- will need Protonix 40 mg BID indefinitely per GI - Clear liquid diet - Pain control - Hold ASA, Plavix currently; Discontinuation of all NSAIDs in the future - S/P EGD on 10/25 -- Non-bleeding cratered duodenal ulcer with no stigmata of bleeding; 30 mm at largest dimension - GI following - appreciate assistance (2) Acute blood loss anemia: Plan: - As above, secondary to GI bleed, but also does have some evidence of hematoma with large scrotum although do not believe most of the bleeding and blood loss is into the scrotum (3) Hemorrhagic shock: Plan: - BP low normal but stable - As above, secondary to GI bleed (4) H/O right inguinal hernia repair: Plan: - Had ZAN drain removed earlier this week, lupe remain in place - General surgery - no acute surgical needs; planning to removal lupe soon (5) Acute kidney injury: Plan: - Creatinine up to 1.7 on admission but resolved to 1.19 on AM labs - Maybe ATN from hypotension/hemorrhagic shock - quickly resolved though and making appropriate urine/electrolytes stable - UA with 2+ bacteria with UCx pending -- Will cover with Rocephin empirically given retention issues/hernández/recent surgery (6) Acute pancreatitis: Plan: - Likely secondary to duodenal ulcer or duodenitis from NSAID use? Lipase 500s on admission but now resolved -- Gallbladder does have gallstones but no CBD dilatation; He does not drink alcohol - Was given volume with transfusion and IVF on admission - Clear liquid diet (7) Hypertension: Plan: - Low normal BPs currently - Hold home lisinopril, but can give metoprolol in the morning with hold parameters -- Was tachycardic but not bothered by it - resolved with metoprolol (8) CHF (congestive heart failure), NYHA class II: Plan: - With a history of combined systolic and diastolic CHF, but most recent EF had improved back to normal -- No evidence of volume overload as above; scrotum is independently edematous - Holding home lisinopril, giving metoprolol with hold parameters - Not on diuretics - no indication for this at this time (9) Coronary artery disease: Plan: - No acute symptoms - With a history of bare-metal stents -- Last admission had elevated troponin secondary to myocardial demand ischemia and echocardiogram was without change in wall motion abnormalities and with preserved EF - Hold aspirin and Plavix for GI bleeding - Continue statin and metoprolol with hold parameters (10) Ischemic cardiomyopathy: Plan: - Improved since previous - Plan as above (11) Chronic obstructive pulmonary disease: Plan: - No acute issues - Continue home Anoro (12) Urinary retention: Plan: - With Hernández catheter in place since prior admission for urinary retention related to enlarged prostate as well as scrotal edema - Follows with urology - Maintain Hernández catheter - was supposed to be removed as outpatient on 10/26 - can keep for now given scrotal edema and pending Urine Cx - can either sidebar Urology and do TOV in house or arrange as outpatient - Continue finasteride - Hold home tamsulosin for now given soft pressures - if improved can restart (13) Dyslipidemia: Plan: - Continue statin (14) Hypothyroidism: Plan: - Continue levothyroxine (15) Obesity, morbid, BMI 40.0-49.9: Plan: - BMI 49.3; Needs continued weight loss - Continue bupropion Plan: DVT prophylaxis-SCDs only given GI bleeding Disposition-monitor Hgb and advance diet as allowed by GI Full code Admission and Anticipated Discharge Date Admission Date: October 24, 2021 Subjective Patient seen prior to EGD. Reports feeling well. Some tenderness with sitting too long due to scrotal edema. Was tachycardic during visit but asymptomatic and was given his Metoprolol. Review of Systems Review of Systems: All systems reviewed & are unremarkable except as noted in Subjective Physical Exam Physical Exam: PHYSICAL EXAM General Appearance: WDWN in NAD who is A&O x 3; morbidly obese HEENT: Head is normocephalic/atraumatic; Hearing grossly intact; Mucous membranes moist Neck: Supple; Trachea midline; Neg JVD Heart: RRR with no M/G/R Lungs: CTA in all lung jacob bilaterally; Respirations unlabored; Neg accessory muscle use Abdomen: Soft, tender in epigastric without guarding, non-distended; Positive BS x 4 quadrants Extremities: Neg cyanosis or edema Genitourinary: Large scrotum; ecchymosis/edema; lupe intact to surgical site Neurological: Speech clear; Gross motor/sensory function intact; Neg focal neurologic deficits Psychiatric: Appropriate mood/affect Skin: Normal Color; Warm/Dry Results & Data Results & Data ([facility]) Vital Signs (Past 12 Hours) Vital Signs Temp Pulse Pulse Pulse Resp BP BP 10/25/21 12:00 95 H 26 H 102/50 L 10/25/21 11:04 90 16 98/63 L 10/25/21 10:55 90 20 97/57 L 10/25/21 10:45 91 H 24 100/64 10/25/21 10:35 36.3 C L 94 H 21 102/65 10/25/21 10:25 90 12 103/62 10/25/21 10:16 36.1 C L 88 16 108/67 10/25/21 09:00 124 H 29 H 10/25/21 08:00 94 H 21 10/25/21 07:00 120 H 18 10/25/21 06:00 94 H 22 10/25/21 05:49 95 H 20 10/25/21 03:32 36.8 C 123 H 18 10/25/21 03:20 36.8 C 122 H 18 90/54 L 10/25/21 02:20 36.9 C 121 H 18 128/70 10/25/21 01:43 10/25/21 01:42 122 H 20 10/25/21 01:20 36.9 C 122 H 20 109/63 BP Pulse Ox Pulse Ox 10/25/21 12:00 96 10/25/21 11:04 96 10/25/21 10:55 94 10/25/21 10:45 94 10/25/21 10:35 93 10/25/21 10:25 92 10/25/21 10:16 95 10/25/21 09:00 10/25/21 08:00 98 10/25/21 07:00 120/62 100 10/25/21 06:00 122/78 91 10/25/21 05:49 97/50 L 98 10/25/21 03:32 90/54 L 96 10/25/21 03:20 97 10/25/21 02:20 96 10/25/21 01:43 97 10/25/21 01:42 113/56 L 97 10/25/21 01:20 96 PG Care Time/CCT Total # of Minutes Spent Total Time Spent with Patient: Total time spent is greater than 50% in coordination of care (as documented) at patient's floor/unit and/or counseling patient: Coding Level of Care Code 55014 Subseq Hosp Care Lvl 3 Diagnoses GI bleed K92.2 Acute blood loss anemia D62 Hemorrhagic shock R57.8 H/O right inguinal hernia repair Z98.890; Z87.19 Acute kidney injury N17.9 Acute pancreatitis K85.90 Hypertension I10 CHF (congestive heart failure), NYHA class II I50.9 Coronary artery disease I25.10 Ischemic cardiomyopathy I25.5 Chronic obstructive pulmonary disease J44.9 Urinary retention R33.9 Dyslipidemia E78.5 Hypothyroidism E03.9 Obesity, morbid, BMI 40.0-49.9 E66.01
[2021-10-25] MEDS: cefTRIAXone SODIUM 2,000 MG in DEXTROSE 5% 50 ML IV SCH (14:29)
[2021-10-25] MEDS ORDERED: LORazepam 0.5 MG TAB ONE (18:12)
[2021-10-25] MEDS ORDERED: ZOLPIDEM TARTRATE 5 MG TAB PO PRN (21:28)
[2021-10-25] MEDS: LORazepam 0.5 MG TAB PO PRN (22:30)
[2021-10-26] MEDS: PANTOprazole 40 MG in DEXTROSE 5% 100 ML IV SCH ×5 (02:32→23:23)
[2021-10-26] MEDS: LEVOTHYROXINE SODIUM 112 MCG TABLET PO SCH (04:54)
[2021-10-26 06:20] LABS: Hematocrit (blood only) 25.5 % (42-52); Hemoglobin 8.2 g/dL (14.0-18.0); Mean Corpuscular Hemoglobin 30.6 pg (25-34); Mean Corpuscular Hgb Conc 32.2 g/dL (32-36); Mean Corpuscular Volume 95.1 fL (80-100); Mean Platelet Volume 8.9 fL (7.4-10.4); Platelet Count 356 K/uL (130-400); RDW Coefficient of Variation 16.1 % (11.5-14.5); RDW Standard Deviation 55.8 fL (36.4-46.3); Red Blood Count 2.68 M/uL (4.7-6.1)
[2021-10-26 06:49] LABS: BUN Creatinine Ratio 13.3 (10-20); Calcium 8.3 mg/dl (8.5-10.1); Creatinine Clr Calc Pharmacy 68.2 ml/min; Est GFR (African American) 61.1 ml/min; Est GFR (Non-African American) 52.7 ml/min; Potassium 4.2 mmol/L (3.5-5.1)
[2021-10-26] MEDS: UMECLIDINIUM/VILANTEROL 62.5/25MCG 7 PUFFS/INHALER INH SCH (08:23)
[2021-10-26] MEDS: FINASTERIDE 5 MG TAB PO SCH (08:23)
[2021-10-26] MEDS: METOPROLOL SUCC 50MG EXT REL TAB PO SCH (08:23)
--- NOTE | 2021-10-26 10:17 | Hospitalist Progress Note ---
Date of Service October 26, 2021 Assessment & Plan (1) GI bleed: Plan: - Acute UGI bleed -- likely d/t PUD in setting of increased NSAID use following recent surgery - Findings of duodenal ulcer confirms suspicion, biopsies for h. pylori pending - Currently on Protonix gtt, can convert to 40mg IV BID versus PO in AM - Tolerating clear liquid diet, will advance back to regular if GI agreeable - Continue holding ASA, Plavix - No further NSAIDs - H&H stable following 2 units transfused 10/24, maintain hgb >8 - GI following, appreciate their assistance in managing (2) Acute blood loss anemia: Plan: - Secondary to GI bleed - Plan as per #1 (3) Hemorrhagic shock: Plan: - Secondary to GI bleed - HD stable - Plan as per #1 (4) H/O right inguinal hernia repair: Plan: - Had ZAN drain removed last week - General surgery consulted, no acute surgical needs - D/w surgery PA-C, will remove lupe prior to d/c (5) Acute kidney injury: Plan: - Creatinine has been waxing and waning since admission (1.7 on 10/24 and down to 1.19 on 10/25, up to 1.4 on 10/26) - Likely multifactoral -- combo of ATN from hypotension/hemorrhagic shock + UTI - Will monitor (6) UTI (urinary tract infection): Plan: - Preliminary urine cx >100K GNB - Empirically covered with Rocephin - Follow up urine culture and sensitivities, tailor abx accordingly (7) Leukocytosis: Plan: - Possibly related to resistant bacteria in urine - Afebrile, not tachycardic - Trend (8) Acute pancreatitis: Plan: - RESOLVED; Likely secondary to duodenal ulcer or duodenitis from NSAID use? Lipase 500s on admission but now resolved - GB has gallstones but no CBD dilatation; No ETOH use; Calcium low - Tolerating clear liquid diet, will advance to regular (9) Hypertension: Plan: - BP WNL at this time - Initially Lisinopril and Tamsulosin was held d/t soft BPs, but can resume at this time - Continue Metoprolol Succinate (10) CHF (congestive heart failure), NYHA class II: Plan: - Currently compensated (11) Coronary artery disease: Plan: - No acute symptoms - With a history of bare-metal stents dating back to 2008 - Aspirin and Plavix held d/t GI bleed - hold for ~14 days - Could consider d/c'ing Plavix indefinitely given age of stents - Continue statin and metoprolol (12) Urinary retention: Plan: - Hernández catheter in place since [employer] for urinary retention related to enlarged prostate as well as scrotal edema - Follows with urology and was due for removal and TOV as outpatient today (10/26) - Remove hernández in house and allow for TOV - Continue Finasteride and restart Tamsulosin (13) Obesity, morbid, BMI 40.0-49.9: Plan: - BMI 49.3; Needs continued weight loss - Continue bupropion Plan: Patient is hemodynamically stable, will initiate transfer from PCU to med/surg bed. Advance diet to regular/low fat if GI agreeable. Trend labs. Follow up urine cx results. DVT prophylaxis-SCDs only (pharmacologic dvt ppx contraindicated in setting of GI bleed) Disposition-anticipate home tomorrow Admission and Anticipated Discharge Date Admission Date: October 24, 2021 Subjective Mr. Noel was seen on rounds this morning. Pt hospitalized for acute UGI bleed with associated blood loss anemia and hemorrhagic shock. He is s/p EGD performed 10/25 with findings of non-bleeding cratered duodenal ulcer. Pt is currently resting in bedside chair, reports that he wants to be discharged. He mentioned that he is due for his hernández catheter to be removed as well as his lupe from his recent hernia repair (done 10/14). He notes ongoing scrotal edema, but feels that this is slowly improving. He denies abdominal pain, n/v/d, f/c, headache, chest pain, or shortness of breath. Had one dark bowel movement so far this AM, no BRBPR. Review of Systems Review of Systems: CONSTITUTIONAL: Denies weight loss/gain, fever and chills, fatigue, malaise, generalized weakness. HEENT: Denies changes in vision and hearing. RESPIRATORY: Denies SOB, cough, wheezing. CV: Denies palpitations, CP, lower extremity edema, orthopnea, PND. GI: Denies abdominal pain, nausea, vomiting and diarrhea. : + hernández. +scrotal edema. MUSCULOSKELETAL: Denies myalgia and joint pain. SKIN: Denies rash and pruritus. NEUROLOGICAL: Denies headache, syncope, focal weakness, numbness, tingling. PSYCHIATRIC: Denies recent changes in mood. Denies anxiety and depression. Physical Exam Physical Exam: GENERAL: 66 yo morbidly obese WM. NAD. LUNGS: Clear to auscultation bilaterally. No W/R/R. CARDIOVASCULAR: Regular rate and rhythm. No M/G/R. No JVD. ABDOMEN: Soft, NT, ND. Obese. BS normoactive x 4 quad. healing RLQ surgical incision noted with lupe intact. : hernández catheter in place EXTREMITIES: No edema. Non-tender. Peripheral pulses +2/4. NEUROLOGIC: A&O x3. No focal neurological deficits. CN II-XII grossly intact. PSYCHIATRIC: Cooperative. Appropriate mood and affect. SKIN: Warm, dry, intact. No rashes or lesions. Results & Data Results & Data ([facility]) Vital Signs (Past 12 Hours) Vital Signs Temp Pulse Pulse Resp BP Pulse Ox 10/26/21 08:00 36.5 C 72 16 139/62 96 10/26/21 04:38 36.5 C 82 20 116/76 92 10/25/21 23:37 120 H 10/25/21 23:21 37.4 C 113 H 16 117/65 93 Laboratory Results 10/26/21 05:59 10/26/21 05:59 Diagnostic Findings EGD Findings 10/25: - Normal esophagus - Normal stomach. Biopsies taken w/ cold forceps for h. pylori - One non-bleeding cratered duodenal ulcer with no stigmata of bleeding was found in the duodenal bulb. The lesion was 30 mm in largest dimension. PG Care Time/CCT Total # of Minutes Spent Total Time Spent with Patient: Total time spent is greater than 50% in coordination of care (as documented) at patient's floor/unit and/or counseling patient: Coding Level of Care Code 94459 Subseq Hosp Care Lvl 2 Diagnoses GI bleed K92.2 Acute blood loss anemia D62 Hemorrhagic shock R57.8 H/O right inguinal hernia repair Z98.890; Z87.19 Acute kidney injury N17.9 Acute pancreatitis K85.90 Hypertension I10 CHF (congestive heart failure), NYHA class II I50.9 Coronary artery disease I25.10 Urinary retention R33.9 Obesity, morbid, BMI 40.0-49.9 E66.01 UTI (urinary tract infection) N39.0 Leukocytosis D72.829
--- NOTE | 2021-10-26 10:19 | Gastroenterology Progress Note ---
Date of Service October 26, 2021 Assessment & Plan (1) Duodenal ulcer: Plan: -Will need Protonix 40 BID indefinitely -Continue advancing diet as tolerated -EGD to be repeated in 3 months -Avoid NSAIDs -Continue to monitor H/H and for further signs of GI bleeding Admission and Anticipated Discharge Date Admission Date: October 24, 2021 Supervising Physician Co-Signing Physician Notes Agree with CIRO Olsen as above Abd: Soft, NT, ND, +BS No overt GI bleeding overnight Feeling better today Continue Protonix 40 mg PO BID Repeat EGD in 8 weeks Will sign off at present Subjective Patient is a 66 yo male with duodenal ulcer noted on EGD on 10/25/21. H/H 8 .2/25.5. He is currently on a Protonix gtt. He reports one dark bowel movement this AM, but denies other bleeding. His only physical complaints are related to his catheter and surgical lupe. He is tolerating a liquid diet. He denies new GI complaints at present. Review of Systems Constitutional: no fever and no chills Respiratory: no cough and no dyspnea Cardiovascular: no chest pain Gastrointestinal: + melena; no abdominal pain and no heartburn Physical Exam Constitutional: WD/WN, vitals as above Respiratory: normal respiratory effort, lungs clear to auscultation Cardiovascular: Rate/Rhythm: regular rate Gastrointestinal (Abdomen): Inspection/Auscultation: abdomen normal to inspection and normal bowel sounds Percussion/Palpation: abdomen soft; abdomen nontender Psychiatric: Orientation: alert and oriented x 3 Results & Data Results & Data ([facility]) Vital Signs (Past 12 Hours) Vital Signs Temp Pulse Pulse Resp BP Pulse Ox 10/26/21 08:00 36.5 C 72 16 139/62 96 10/26/21 04:38 36.5 C 82 20 116/76 92 10/25/21 23:37 120 H 10/25/21 23:21 37.4 C 113 H 16 117/65 93 PG Care Time/CCT Total # of Minutes Spent Total Time Spent with Patient: Total time spent is greater than 50% in coordination of care (as documented) at patient's floor/unit and/or counseling patient: Coding Level of Care Code 27869 Subseq Hosp Care Lvl 3 Diagnoses Duodenal ulcer K26.9
[2021-10-26] MEDS: TAMSULOSIN HCL 0.4 MG CAP PO SCH (12:10)
--- NOTE | 2021-10-26 12:50 | Surgery Progress Note ---
Date of Service October 26, 2021 Assessment & Plan (1) H/O right inguinal hernia repair: Plan: s/p rih repair, doing well. resolving scrotal hematoma. remove lupe prior to d/c no heavy lifting or strenuous activity for 4 weeks f/u in 1 month in general surgery clinic discussed hernández with urology, recommend f/u later this week as outpatient for fill and pull continue protonix, avoid nsaids could use tramadol for pain scrotal hematoma will likely resolve over next few months plavix per GI/primary team/cardiology (2) Duodenal ulcer: (3) Acute GI bleeding: (4) Morbid obesity with BMI of 50.0-59.9, adult: Admission and Anticipated Discharge Date Admission Date: October 24, 2021 Subjective 66 y/o morbidly obese male s/p lap converted to open right inguinal hernia repair, admitted POD#2 for rhabdo, readmitted with UGI bleed secondary to nsaids' and plavix. Transfused over weekend, scope with non bleeding ulcer, on protonix and hgb stable. wants to go home. Physical Exam Constitutional: WD/WN, vitals as above Gastrointestinal (Abdomen): normal bowel sounds, soft, nontender, no hepatosplenomegaly Inspection/Auscultation: + abdominal surgical incision (lupe in place, no infection) Percussion/Palpation: no hernia (resolving scrotal hematoma, no recurrence) Results & Data ([facility]) Vital Signs (Past 12 Hours) Vital Signs Temp Pulse Resp BP Pulse Ox 10/26/21 12:00 36.7 C 88 16 141/62 H 95 10/26/21 08:00 36.5 C 72 16 139/62 96 10/26/21 04:38 36.5 C 82 20 116/76 92 Laboratory Results Laboratory Results - last 24 hr 10/24/21 10/26/21 10/26/21 16:19 05:59 05:59 WBC 14.00 H RBC 2.68 L Hgb 8.2 L Hct 25.5 L MCV 95.1 MCH 30.6 MCHC 32.2 RDW Std Deviation 55.8 H RDW Coeff of Emilee 16.1 H Plt Count 356 MPV 8.9 Sodium 135 L Potassium 4.2 Chloride 102 Carbon Dioxide 23 Anion Gap 10.0 BUN 19 H Creatinine 1.40 Est Cr Clr Drug Dosing 68.2 Est GFR ( Amer) 61.1 Est GFR (Non-Af Amer) 52.7 BUN/Creatinine Ratio 13.3 Glucose 181 H Calcium 8.3 L Crossmatch See Detail PG Care Time/CCT Total # of Minutes Spent Total Time Spent with Patient: Total time spent is greater than 50% in coordination of care (as documented) at patient's floor/unit and/or counseling patient: Coding Level of Care Code None Diagnoses H/O right inguinal hernia repair Z98.890; Z87.19 Duodenal ulcer K26.9 Acute GI bleeding K92.2 Morbid obesity with BMI of 50.0-59.9, adult E66.01; Z68.43
[2021-10-26] MEDS: lisinopril 5 MG TAB PO SCH (13:14)
[2021-10-26] MEDS: cefTRIAXone SODIUM 2,000 MG in DEXTROSE 5% 50 ML IV SCH (13:14)
--- NOTE | 2021-10-26 15:34 | Communication Note ---
Date of Service: October 26, 2021 Skin lupe removed. Can f/u in clinic. Discussed with urology, will remove catheter.
[2021-10-26] MEDS: buPROPion HCl 100 MG TABLET PO SCH (19:28)
[2021-10-26] MEDS: ATORVASTATIN 40 MG TAB PO SCH (19:28)
[2021-10-26] MEDS: LORazepam 0.5 MG TAB PO PRN (21:53)
[2021-10-27] MEDS: PANTOprazole 40 MG in DEXTROSE 5% 100 ML IV SCH (04:22)
[2021-10-27] MEDS: LEVOTHYROXINE SODIUM 112 MCG TABLET PO SCH (05:49)
[2021-10-27] MEDS: FINASTERIDE 5 MG TAB PO SCH (07:25)
[2021-10-27] MEDS: UMECLIDINIUM/VILANTEROL 62.5/25MCG 7 PUFFS/INHALER INH SCH (07:25)
[2021-10-27] MEDS: lisinopril 5 MG TAB PO SCH (07:25)
[2021-10-27] MEDS: TAMSULOSIN HCL 0.4 MG CAP PO SCH (07:25)
[2021-10-27] MEDS: METOPROLOL SUCC 50MG EXT REL TAB PO SCH (07:25)
[2021-10-27 07:51] LABS: Basophils # (auto) 0.04 K/uL (0-0.2); Basophils % (auto) 0.3 %; Eosinophils # (auto) 0.03 K/uL (0-0.5); Eosinophils % (auto) 0.2 %; Hematocrit (blood only) 23.8 % (42-52); Hemoglobin 7.6 g/dL (14.0-18.0); Immature Granulocytes # (auto) 0.06 K/uL (0.00-0.02); Immature Granulocytes % (auto) 0.5 %; Lymphocytes # (auto) 1.48 K/uL (1.2-3.4); Lymphocytes % (auto) 12.2 %; Mean Corpuscular Hemoglobin 30.5 pg (25-34); Mean Corpuscular Hgb Conc 31.9 g/dL (32-36); Mean Corpuscular Volume 95.6 fL (80-100); Mean Platelet Volume 9.8 fL (7.4-10.4); Monocytes # (auto) 0.69 K/uL (0.11-0.59); Monocytes % (auto) 5.7 %; Neutrophils # (auto) 9.85 K/uL (1.4-6.5); Neutrophils % (auto) 81.1 %; Nucleated RBC # (auto) 0.02 K/uL (0-0); Nucleated RBC % (auto) 0.1 %; Platelet Count 317 K/uL (130-400); RDW Standard Deviation 55.7 fL (36.4-46.3); Red Blood Count 2.49 M/uL (4.7-6.1); White Blood Count 12.15 K/uL (4.8-10.8)
[2021-10-27 08:26] LABS: BUN Creatinine Ratio 13.5 (10-20); Calcium 8.3 mg/dl (8.5-10.1); Est GFR (Non-African American) 39.7 ml/min; Magnesium 2.2 mg/dl (1.8-2.4); Potassium 4.2 mmol/L (3.5-5.1)
[2021-10-27] MEDS ORDERED: SODIUM CHLORIDE 0.9% 250 ML IV PRN (08:42)
[2021-10-27] MEDS ORDERED: diphenhydrAMINE Capsule 25 MG CAP PO ONE (08:42)
[2021-10-27] MEDS ORDERED: ACETAMINOPHEN 325 MG TAB PO ONE (08:42)
[2021-10-27] MEDS ORDERED: FUROSEMIDE 40 MG/4 ML VIAL IV ONE (08:42)
[2021-10-27] MEDS ORDERED: PANTOprazole 40 MG in SYRINGE 0 ML IV SCH (09:00)
[2021-10-27] MEDS: FERROUS SULFATE 325 MG TAB PO SCH ×3 (09:37→15:01)
[2021-10-27 09:50] LABS: Polychromasia 1+
--- NOTE | 2021-10-27 10:45 | Surgery Progress Note ---
Date of Service October 27, 2021 Assessment & Plan (1) H/O right inguinal hernia repair: Plan: s/p rih repair, doing well. resolving scrotal hematoma. lupe removed no heavy lifting or strenuous activity for 4 weeks f/u in 1 month in general surgery clinic hernández removed continue protonix, avoid nsaids could use tramadol for pain scrotal hematoma will likely resolve over next few months plavix per GI/primary team/cardiology surgery will sign off, call with questions or concerns (2) Duodenal ulcer: (3) Acute GI bleeding: (4) Morbid obesity with BMI of 50.0-59.9, adult: Admission and Anticipated Discharge Date Admission Date: October 24, 2021 Subjective 66 y/o morbidly obese male s/p lap converted to open right inguinal hernia repair, admitted POD#2 for rhabdo, readmitted with UGI bleed secondary to nsaids' and plavix. Transfused over weekend, scope with non bleeding ulcer, on protonix. HGB with slight drop, likely dilutional, being transfused. Physical Exam Constitutional: WD/WN, vitals as above Gastrointestinal (Abdomen): normal bowel sounds, soft, nontender, no hepatosplenomegaly Inspection/Auscultation: + abdominal surgical incision (lupe removed, no infection) Percussion/Palpation: no hernia (resolving scrotal hematoma, no recurrence) Results & Data ([facility]) Vital Signs (Past 12 Hours) Vital Signs Temp Pulse Pulse Resp BP BP Pulse Ox 10/27/21 10:08 36.6 C 82 16 91/55 L 96 10/27/21 09:53 36.6 C 82 18 90/54 L 96 10/27/21 09:33 36.9 C 86 18 94/59 L 10/27/21 07:53 37 C 76 16 106/67 94 Laboratory Results Laboratory Results - last 24 hr 10/24/21 10/27/21 10/27/21 16:19 07:34 07:34 WBC 12.15 H RBC 2.49 L Hgb 7.6 L Hct 23.8 L MCV 95.6 MCH 30.5 MCHC 31.9 L RDW Std Deviation 55.7 H RDW Coeff of Emilee 16.0 H Plt Count 317 MPV 9.8 Immature Gran % (Auto) 0.5 Neut % (Auto) 81.1 Lymph % (Auto) 12.2 [place] % (Auto) 5.7 Eos % (Auto) 0.2 Baso % (Auto) 0.3 Neut # (Auto) 9.85 H Lymph # (Auto) 1.48 [place] # (Auto) 0.69 H Eos # (Auto) 0.03 Baso # (Auto) 0.04 Immature Gran # (Auto) 0.06 H Absolute Nucleated RBC 0.02 H Nucleated RBC % (auto) 0.1 Polychromasia 1+ Sodium 135 L Potassium 4.2 Chloride 102 Carbon Dioxide 24 Anion Gap 9.0 BUN 24 H Creatinine 1.77 H D Est Cr Clr Drug Dosing 54.0 Est GFR ( Amer) 46.0 Est GFR (Non-Af Amer) 39.7 BUN/Creatinine Ratio 13.5 Glucose 160 H Calcium 8.3 L Magnesium 2.2 Blood Type O Positive Antibody Screen NEGATIVE Crossmatch See Detail PG Care Time/CCT Total # of Minutes Spent Total Time Spent with Patient: Total time spent is greater than 50% in coordination of care (as documented) at patient's floor/unit and/or counseling patient: Coding Level of Care Code None Diagnoses H/O right inguinal hernia repair Z98.890; Z87.19 Duodenal ulcer K26.9 Acute GI bleeding K92.2 Morbid obesity with BMI of 50.0-59.9, adult E66.01; Z68.43
[2021-10-27] MEDS: cefTRIAXone SODIUM 2,000 MG in DEXTROSE 5% 50 ML IV SCH (14:48)
[2021-10-27 16:12] LABS: Hematocrit (blood only) 28.4 % (42-52); Hemoglobin 9.3 g/dL (14.0-18.0)
--- NOTE | 2021-10-27 17:08 | Discharge Summary ---
Date of Service October 27, 2021 Admission HPI Per Admitting Provider This patient is 66-year-old male well-known to myself very recently discharged 6 days ago after admission for rhabdomyolysis and acute kidney injury status post prolonged open bilateral inguinal hernia repair, with a history of CAD s/p bare- metal stent on aspirin/Plavix, ischemic cardiomyopathy, HTN, dyslipidemia, hypothyroidism, CKD stage III, and urinary retention requiring Hernández catheter placement who presents to the ER with development of initial formed dark/black stools yesterday which transitioned into maroon/reddish bloody stools all day long today. He has been having significant epigastric pain radiating straight through to his mid back all day long. He reports since he ran out of Percocet 5 days ago, he has been taking ibuprofen and Tylenol quite frequently for pain in addition to his aspirin and Plavix. He was brought in by EMS. Initially, his blood pressure was in the 70s systolic and this improved with IV fluid boluses. His hemoglobin was found to be 7.3 down from 11.1 just 6 days ago. He had acute kidney injury with creatinine up to 1.7. His CT of the abdomen/pelvis showed peripancreatic inflammation around the pancreatic head between the pancreas and the duodenum, but with was otherwise normal. There is a little bit of a delay in him getting his blood transfusion in the ER, but he was finally receiving first unit of blood shortly after I saw him. I discussed his care with GI at the time of admission who recommended volume resuscitation and transfusion along with Protonix drip and likely will perform EGD tomorrow. Admission Exam Per Admitting Provider Constitutional: WD/WN, vitals as above + morbidly obese Eyes: + anicteric sclerae ENMT: external ear and nose normal, oropharynx normal Neck: trachea midline, no thyromegaly Respiratory: normal respiratory effort, lungs clear to auscultation Cardiovascular: RRR, no murmur, no edema Chest (Breasts): Chest: normal inspection of chest Gastrointestinal (Abdomen): Inspection/Auscultation: + abdomen abnormal to inspection (Multiple surgical incisions healing well, scant serous drainage inferiorly) Percussion/Palpation: + abdomen tender (In epigastric region without guarding or rebound tenderness) and abdomen soft Musculoskeletal: Extremities: extremities normal to inspection; no cyanosis and no clubbing Skin: no rashes, warm and dry Neurologic: moves all extremities and awake; no focal motor deficits Psychiatric: Orientation: alert and oriented x 3 Affect: + anxious affect Genitourinary: Scrotum is quite large approximately the size of a small cantaloupe and with ecchymosis and edema, penis is partially buried Lymphatic: no lymphedema Principal Diagnosis 1. Upper GI Bleed 2. Acute blood loss anemia d/t #1 requiring transfusion 3. Catheter-associated UTI 4. Mild SOFÍA -- likely prerenal d/t hypovolemia/blood loss Discharge Exam Vital Signs Temp Pulse Pulse Resp BP BP BP 10/27/21 16:54 36.9 C 76 16 99/62 L 106/67 10/27/21 14:53 36.9 C 84 16 110/67 10/27/21 14:44 36.9 C 86 16 113/64 10/27/21 13:55 36.9 C 88 16 98/57 L 10/27/21 13:27 36.6 C 84 17 96/54 L 10/27/21 13:21 36.9 C 85 18 95/54 L 10/27/21 13:12 36.8 C 85 16 95/55 L 10/27/21 12:53 36.9 C 81 18 96/59 L 10/27/21 12:25 36.6 C 79 16 92/60 L 10/27/21 11:38 36.8 C 82 16 91/55 L 10/27/21 10:38 36.4 C L 86 18 93/53 L 10/27/21 10:08 36.6 C 82 16 91/55 L 10/27/21 09:53 36.6 C 82 18 90/54 L 10/27/21 09:33 36.9 C 86 18 94/59 L 10/27/21 07:53 37 C 76 16 106/67 10/26/21 19:06 37.2 C 98 H 18 99/62 L Pulse Ox 10/27/21 16:54 96 10/27/21 14:53 96 10/27/21 14:44 96 10/27/21 13:55 96 10/27/21 13:27 96 10/27/21 13:21 95 10/27/21 13:12 95 10/27/21 12:53 10/27/21 12:25 95 10/27/21 11:38 96 10/27/21 10:38 98 10/27/21 10:08 96 10/27/21 09:53 96 10/27/21 09:33 10/27/21 07:53 94 10/26/21 19:06 92 Intake and Output 10/27/21 10/27/21 10/27/21 06:59 14:59 22:59 Intake Total 178.667 / 1528.667 661 / 661 Balance 178.667 / 1178.667 661 / 661 Intake: IV 178.667 / 548.667 100 / 100 PANTOprazole 40 mg In Dextrose 178.667 / 478.667 100 / 100 5% 100 ml @ 8 MG/HR 20 mls/hr IV Q5H [facility] Rx#:[id number] Intake (Blood Product) Amt 561 / 561 Packed Cells, Leukoreduced 2 279 / 279 Unit [id number] Packed Cells, Leukoreduced 2 282 / 282 Unit [id number] Other: # Unmeasured Voids 1 1 1 Weight 134 kg Patient Weight 10/28/21 06:59 Weight 134 kg GENERAL: 66 yo morbidly obese WM. NAD. A&Ox3. LUNGS: Clear to auscultation bilaterally. No W/R/R. CARDIOVASCULAR: Regular rate and rhythm. No M/G/R. No JVD. ABDOMEN: Soft, NT, ND. Obese. BS normoactive x 4 quad. : scrotal edema EXTREMITIES: No edema. Non-tender. Peripheral pulses +2/4. PSYCHIATRIC: Cooperative. Appropriate mood and affect. SKIN: Warm, dry, intact. No rashes or lesions. Discharge Data Allergies Allergy/AdvReac Type Severity Reaction Status Date / Time tuberculin, purified protein Allergy Mild SWELLING Verified 10/20/21 09:20 deriva AT SITE guaifenesin [From Mucinex] AdvReac Intermediate felt like Verified 10/20/21 09:20 was on fire pseudoephedrine AdvReac Mild ELECTRIC Verified 10/20/21 09:20 [From Sudafed] CURRENTS THRU BODY simvastatin AdvReac Mild MYALGIA Verified 10/20/21 09:20 Consultations 1. Gastroenterology consulted d/t acute gi bleed -- seen and scoped by Case 2. General Surgery consulted d/t recent hernia repair -- seen by Tor Wray PAC and Dr. Dudley. Procedures Performed Operation Date: 10/25/21 11:00 Actual Procedures p Esophagogastroduodenoscopy, Gastric Antrum Biopsy, Duodenal Ulcer - Yasmany GPj Case, DO Ordered Studies Laboratory Results - last 24 hr 10/24/21 10/27/21 10/27/21 16:19 07:34 07:34 WBC 12.15 H RBC 2.49 L Hgb 7.6 L Hct 23.8 L MCV 95.6 MCH 30.5 MCHC 31.9 L RDW Std Deviation 55.7 H RDW Coeff of Emilee 16.0 H Plt Count 317 MPV 9.8 Immature Gran % (Auto) 0.5 Neut % (Auto) 81.1 Lymph % (Auto) 12.2 [place] % (Auto) 5.7 Eos % (Auto) 0.2 Baso % (Auto) 0.3 Neut # (Auto) 9.85 H Lymph # (Auto) 1.48 [place] # (Auto) 0.69 H Eos # (Auto) 0.03 Baso # (Auto) 0.04 Immature Gran # (Auto) 0.06 H Absolute Nucleated RBC 0.02 H Nucleated RBC % (auto) 0.1 Polychromasia 1+ Sodium 135 L Potassium 4.2 Chloride 102 Carbon Dioxide 24 Anion Gap 9.0 BUN 24 H Creatinine 1.77 H D Est Cr Clr Drug Dosing 54.0 Est GFR ( Amer) 46.0 Est GFR (Non-Af Amer) 39.7 BUN/Creatinine Ratio 13.5 Glucose 160 H Calcium 8.3 L Magnesium 2.2 Blood Type O Positive Antibody Screen NEGATIVE Crossmatch See Detail 10/27/21 16:03 WBC RBC Hgb 9.3 L Hct 28.4 L MCV MCH MCHC RDW Std Deviation RDW Coeff of Emilee Plt Count MPV Immature Gran % (Auto) Neut % (Auto) Lymph % (Auto) [place] % (Auto) Eos % (Auto) Baso % (Auto) Neut # (Auto) Lymph # (Auto) [place] # (Auto) Eos # (Auto) Baso # (Auto) Immature Gran # (Auto) Absolute Nucleated RBC Nucleated RBC % (auto) Polychromasia Sodium Potassium Chloride Carbon Dioxide Anion Gap BUN Creatinine Est Cr Clr Drug Dosing Est GFR ( Amer) Est GFR (Non-Af Amer) BUN/Creatinine Ratio Glucose Calcium Magnesium Blood Type Antibody Screen Crossmatch Abdomen/Pelvis CT 10/24/21 17:31 CT SCAN OF THE ABDOMEN AND PELVIS WITHOUT IV CONTRAST CLINICAL HISTORY: Generalized abdominal pain. Hematochezia. COMPARISON STUDY: Abdominal CT dated 10/15/2021. TECHNIQUE: CT scan of the abdomen and pelvis is performed from the lung bases to the proximal femora. Images are reviewed in the axial, sagittal, and coronal planes. IV contrast was not administered for this examination. Note that the examination was performed in significantly suboptimal fashion without oral and IV contrast. A dose lowering technique was utilized adhering to the principles of ALARA. CT DOSE: 1637.31 mGy.cm FINDINGS: Lung bases: The heart is normal in size and without pericardial effusion. The coronary arteries are densely calcified. There is diminished attenuation of the cardiac blood pool as compared to the myocardium suggesting anemia. The lung bases are clear noting dependent atelectasis. Liver: The unenhanced liver is normal in size, contour, and attenuation. There is no intrahepatic biliary ductal dilatation. Gallbladder: There are calcified gallstones with no CT evidence of acute cholecystitis. Spleen: Normal in size and attenuation. Pancreas: There is inflammatory change between the pancreatic head and duodenum, suspicious for acute pancreatitis. The unenhanced pancreas is otherwise grossly unremarkable. There is no evidence of organized peripancreatic fluid collection on this unenhanced examination. Adrenal glands: Unremarkable. Kidneys: The unenhanced kidneys are atrophic and without hydronephrosis. There are no renal calculi identified. There is no evidence of contour deforming renal mass lesion. Abdominal vasculature: The abdominal aorta is normal in course and caliber n oting mild to moderate atherosclerotic calcification. Bowel: Mild duodenal wall thickening is likely related to adjacent pancreatitis. There is no bowel obstruction. Liquid stool is seen throughout the colon. The appendix is normal as visualized. Peritoneum: There is no intraperitoneal free air or abdominal ascites. There is a fat-containing umbilical hernia. Lymphadenopathy: None. Pelvic viscera: The bladder is decompressed around a Hernández catheter and could not be evaluated. The prostate and seminal vesicles are normal as imaged. Skeletal structures: No lytic or blastic lesions are seen. The skeletal structures are osteopenic. Spondylosis throughout the lumbosacral spine is similar to previous and suggests ankylosing spondylitis. There is near complete fusion of the sacroiliac joints. Soft tissues: Skin clips are noted in the right ventral pelvis. There is nonspecific anterior perineal soft tissue induration around the base of the penis. IMPRESSION: 1. Significantly suboptimal examination without oral and IV contrast. 2. Findings suggest acute pancreatitis. Correlate with clinical findings and serum amylase/lipase levels. 3. No organized peripancreatic fluid collection is identified. 4. Cholelithiasis. 5. Liquid stool seen throughout the colon. Correlate clinically for evidence of a diarrheal illness. 6. There is nonspecific anterior perineal soft tissue induration around the base of the penis. Clinical correlation will be required. 7. Additional findings as above. ACT 112: Negative or not required by law. Electronically signed by: Ismael Riojas M.D. 10/24/2021 6:24 PM Hospital Course (1) GI bleed: - Acute UGI bleed -- likely d/t PUD in setting of increased NSAID use following recent surgery - Findings of duodenal ulcer confirms suspicion, biopsies for h. pylori pending - Currently on Protonix gtt, can convert to 40mg IV BID versus PO in AM - Tolerating clear liquid diet, will advance back to regular if GI agreeable - Continue holding ASA, Plavix -- would recommend holding x 14 days (minimum) and can restart when cleared to do so by GI - No further NSAIDs - Transfused 2 units on 10/24. H&H has been stable since until this AM, hgb 7.6, T&C for 2 units of PRBCs, premedicated and Lasix given between units. - GI following, recommended indefinite Protonix 40mg BID and outpatient f/u with repeat EGD in 8 weeks - Post transfusion H&H as noted above (2) Acute blood loss anemia: - Secondary to GI bleed - Plan as per #1 (3) Hemorrhagic shock: - Secondary to GI bleed - HD stable/Resolved. - Plan as per #1 (4) H/O right inguinal hernia repair: - Had ZAN drain removed last week - General surgery consulted, no acute surgical needs - Yudelka removed this morning by general surgery - Advise no heavy lifting or strenuous activity and f/u in office in 1 month (5) Acute kidney injury: - Creatinine has been waxing and waning since admission (1.7 on 10/24 and down to 1.19 on 10/25, up to 1.4 on 10/26) - Likely multifactoral -- combo of ATN from hypotension/hemorrhagic shock + UTI - Creat back up to 1.7 this AM, likely pre-renal from hypovolemia d/t blood loss - Can be followed as outpatient (6) UTI (urinary tract infection): Spec: [id number] Collected: 10/25/21 Received: 10/25/[address]: Stone Prather M.D. Copy To: Daisy Marie MD Source: Urine,Clean Catch OV Order: Ordered: Urine Culture Procedure Result Verified Site Urine Culture Final 10/27/21 Organism 1 Enterobacter hormaechei [place] Count >100,000 CFU/ml Sens Sensitivities to Follow E hormaech RX M.I.C. --- --------- Amox/Clav R >16/8 Ampicillin R >16 Amp/Sul R >16/8 Cefazolin R >16 Cefepime S <=2 Ceftriaxone S <=1 Ciprofloxacin S <=0.25 Ertapenem S <=0.5 Gentamicin S <=4 Levofloxacin S <=0.5 Meropenem S <=1 Nitrofurantoin I 64 Tobramycin I 8 Trimeth/Sulfa S <=2/38 Pip/Tazo S <=16 S = SENSITIVE I = INTERMEDIATE R = RESISTANT - Empirically placed on Rocpehin (has gotten 2 doses, refused dose today 10/27) - Transition to oral Cipro 250mg BID x 5 more days (for total of 7) - PCP can f/u with repeat UA and urine culture to ensure resolution (7) Leukocytosis: - Mild and downtrending - Afebrile, not tachycardic - Treat UTI as per #6 (8) Acute pancreatitis: - RESOLVED; Likely secondary to duodenal ulcer or duodenitis from NSAID use? Lipase 500s on admission but now resolved - GB has gallstones but no CBD dilatation; No ETOH use; Calcium low - Tolerating clear liquid diet, will advance to regular (9) Hypertension: - BP WNL at this time - Initially Lisinopril and Tamsulosin was held d/t soft BPs, but can resume at this time - Continue Metoprolol Succinate (10) CHF (congestive heart failure), NYHA class II: - Currently compensated (11) Coronary artery disease: - No acute symptoms - With a history of bare-metal stents dating back to 2008 - Aspirin and Plavix held d/t GI bleed - hold for ~14 days - Could consider d/c'ing Plavix indefinitely given age of stents - Continue statin and metoprolol (12) Urinary retention: - Hernández catheter in place since [employer] for urinary retention related to enlarged prostate as well as scrotal edema - Follows with urology and was due for removal and TOV as outpatient today (10/26) - Removed hernández in house on 10/26 - Continued Finasteride and restarted Tamsulosin - Pt is voiding without issue (13) Obesity, morbid, BMI 40.0-49.9: - BMI 49.3; Needs continued weight loss - Continue bupropion Patient is medically stable for discharge home today. Will repeat CBC in 3 days to f/u leukocytosis and blood counts. Follow up with specialists as scheduled (General surgery, GI). Total Time Total Time Spent Total Time Spent (In Minutes): >30 minutes Discharge Plan Discharge Items Patient Disposition: Home - Self-Care Reason For Visit: GI BLEED, ACUTE BLOOD LOSS ANEMIA, HYPOTENSION Discharge Diagnosis: 1. Gastrointestinal bleeding due to ulcer 2. Urinary tract infection due to catheter 3. Blood loss due to #1 Activity: As commented below Lifting: No more than 5 pounds Lifting Comment: No heavy lifting or strenuous activity Non-emergency contact: Primary Care Provider, Surgeon and Insemination Worker Call non-emergency contact if: you have any medication questions, your symptoms worsen and your pain is not controlled Follow-up/Referrals: Yasmany Bunch DO [Physician] - (Follow up for repeat EGD. Please schedule appt for 1 month.) Elaine Sofia MD [Primary Care Provider] - Rodrigo Dudley DO, SG [Physician] - (Follow up in clinic within 1 month) [facility],Nurse [FAKE FOR SCHEDULES] - 10/29/21 11:00 am (Urology voiding trial) Diet: Low Fat Ambulatory Orders: Complete Blood Count no Diff (Routine) Timeframe: 3 Days Location: Determined by Patient Ordered By: Cintia Lee Addtl Attending Provider Instructions: 1. Take all medications as directed. 2. DO NOT USE ANY NSAIDS: No Advil, Ibuprofen, Motrin, Aleve 3. May use Tylenol as needed for pain. 4. Continue elevating scrotum and may use ice intermittently as needed. 5. Follow up with specialists. 6. No heavy lifting or strenuous activity until after seen in follow up by Dr. Dudley (within 1 month). 7. Follow up blood work on Tuesday to make sure blood counts are stable. 8. New Medications: Ferrous Sulfate 325mg twice daily and Protonix 40mg twice daily. 9. Will need a follow up upper endoscopy (scope) done in 8 weeks. Will schedule a follow up appointment with GI within 1 month. 10. Complete antibiotics (Cipro) for urinary tract infection. Start tonight (10/27). Take twice daily. 11. Hold Aspirin and Plavix for at least 14 days. Do not restart until cleared by Dr. Bunch. Pending Studies at Discharge: No Stand-Alone Forms: My [facility], Smoking Cessation Medications and DC Order Prescriptions: New ferrous sulfate 325 mg (65 mg iron) Tablet,Delayed Release (Dr/Ec) 325 mg PO BID Qty: 60 RF: 0 pantoprazole [Protonix] 40 mg tablet,delayed release (DR/EC) 40 mg PO BID Qty: 60 RF: 0 ciprofloxacin HCl [Cipro] 250 mg tablet 250 mg PO BID Qty: 10 RF: 0 Continued metoprolol succinate 50 mg tablet extended release 24 hr 50 mg PO QAM Qty: 90 RF: 3 nitroglycerin 0.4 mg tablet, sublingual 0.4 mg Sublingual .Q5 mins PRN (Reason: chest pain) Qty: 25 RF: 3 atorvastatin [Lipitor] 80 mg tablet 80 mg PO PM Qty: 90 RF: 3 cholecalciferol (vitamin D3) 50 mcg (2,000 unit) capsule 50 mcg PO QAM RF: 0 bupropion HCl 100 mg tablet 100 mg PO HS RF: 0 finasteride 5 mg tablet 5 mg PO QAM RF: 0 levothyroxine 112 mcg tablet 112 mcg PO QAM RF: 0 tamsulosin [Flomax] 0.4 mg capsule 0.4 mg PO QAM RF: 0 lisinopril 5 mg tablet 5 mg PO QAM RF: 0 Anoro Ellipta 62.5-25 mcg/actuation blister with device 1 inh inhalation DAILY PRN (Reason: Shortness Of Breath) RF: 0 thiamine HCl (vitamin B1) 100 mg Tablet 100 mg PO QAM RF: 0 omega [id number] oil [Fish Oil] 1,000 mg (120 mg-180 mg) Capsule 1 cap PO QAM RF: 0 docusate sodium [Stool Softener] 100 mg Tablet 100 mg PO DAILY PRN (Reason: Constipation) RF: 0 oxycodone-acetaminophen [Percocet] 5-325 mg tablet 1 - 2 tab PO .q4-6h PRN (Reason: pain, for initial therapy, max 6 tabs per day) Qty: 15 RF: 0 vitamin J30-cksxe acid 500-400 mcg Tablet 1 tab PO QAM RF: 0 polyethylene glycol 3350 [Miralax] 17 gram Powder In Packet 17 g PO DAILY PRN (Reason: constipation) Qty: 14 RF: 0 Discontinued aspirin 81 mg Tablet,Delayed Release (Dr/Ec) 81 mg PO QAM RF: 0 clopidogrel [Plavix] 75 mg tablet 75 mg PO DAILY Qty: 30 RF: 0 Discharge Orders: Discharge Order (Routine); Ordered 10/27/21 Ordered By: Cintia Lee Admission Data Admit Date/Time: 10/24/21 19:52 Attending Provider: Ran Mosley Admit Provider: Daisy Marie Primary Care Provider: Elaine Sofia V. Other Providers: Daisy Marie ; Yasmany Bnuch ; Salvador Dennis Coding Level of Care Code D/C DAY MANAGEMENT >30 MINS Diagnoses GI bleed K92.2 Acute blood loss anemia D62 Hemorrhagic shock R57.8 H/O right inguinal hernia repair Z98.890; Z87.19 Acute kidney injury N17.9 UTI (urinary tract infection) N39.0 Leukocytosis D72.829 Acute pancreatitis K85.90 Hypertension I10 CHF (congestive heart failure), NYHA class II I50.9 Coronary artery disease I25.10 Urinary retention R33.9 Obesity, morbid, BMI 40.0-49.9 E66.01
== END 2021-10-27 17:16 | disposition home or self-care (01) | DRG 377 ==
LOC: ED 16:05 → SUATTDRO 19:52 → EDINP 19:52 → 2S 10-25 03:01 → 3W 10-26 10:24
DX: E03.9 Hypothyroidism, unspecified; I25.10 Atherosclerotic heart disease of native coronary artery without angina pectoris; Z79.02 Long term (current) use of antithrombotics/antiplatelets; E66.01 Morbid (severe) obesity due to excess calories; T39.395A Adverse effect of other nonsteroidal anti-inflammatory drugs [NSAID], initial encounter; Z79.82 Long term (current) use of aspirin; I50.40 Unspecified combined systolic (congestive) and diastolic (congestive) heart failure; Z68.42 Body mass index [BMI] 45.0-49.9, adult; I25.2 Old myocardial infarction; N40.1 Benign prostatic hyperplasia with lower urinary tract symptoms; I25.5 Ischemic cardiomyopathy; Z87.891 Personal history of nicotine dependence; Z88.8 Allergy status to other drugs, medicaments and biological substances; D62 Acute posthemorrhagic anemia; N17.0 Acute kidney failure with tubular necrosis; E78.5 Hyperlipidemia, unspecified; T83.511A Infection and inflammatory reaction due to indwelling urethral catheter, initial encounter; Y92.009 Unspecified place in unspecified non-institutional (private) residence as the place of occurrence of the external cause; R57.8 Other shock; N39.0 Urinary tract infection, site not specified; K85.90 Acute pancreatitis without necrosis or infection, unspecified; Z95.5 Presence of coronary angioplasty implant and graft; R33.9 Retention of urine, unspecified; K26.4 Chronic or unspecified duodenal ulcer with hemorrhage; Z98.890 Other specified postprocedural states; I11.0 Hypertensive heart disease with heart failure; J44.9 Chronic obstructive pulmonary disease, unspecified; G62.9 Polyneuropathy, unspecified

== ENCOUNTER 2021-11-05 11:02 | Inpatient (IN) ==
[2021-11-05 11:39] LABS: Basophils # (auto) 0.03 K/uL (0-0.2); Basophils % (auto) 0.4 %; Eosinophils # (auto) 0.09 K/uL (0-0.5); Eosinophils % (auto) 1.1 %; Hematocrit (blood only) 29.7 % (42-52); Hemoglobin 9.3 g/dL (14.0-18.0); Immature Granulocytes # (auto) 0.02 K/uL (0.00-0.02); Immature Granulocytes % (auto) 0.3 %; Lymphocytes # (auto) 1.13 K/uL (1.2-3.4); Lymphocytes % (auto) 14.2 %; Mean Corpuscular Hemoglobin 30.6 pg (25-34); Mean Corpuscular Hgb Conc 31.3 g/dL (32-36); Mean Corpuscular Volume 97.7 fL (80-100); Mean Platelet Volume 9.4 fL (7.4-10.4); Monocytes # (auto) 0.62 K/uL (0.11-0.59); Monocytes % (auto) 7.8 %; Neutrophils # (auto) 6.08 K/uL (1.4-6.5); Neutrophils % (auto) 76.2 %; Platelet Count 287 K/uL (130-400); RDW Coefficient of Variation 17.5 % (11.5-14.5); RDW Standard Deviation 60.2 fL (36.4-46.3); Red Blood Count 3.04 M/uL (4.7-6.1); White Blood Count 7.97 K/uL (4.8-10.8)
[2021-11-05 11:52] LABS: INR 1.1 (0.9-1.1); Prothrombin Time 11.2 Seconds (9.0-12.0)
--- NOTE | 2021-11-05 11:53 | XRay Report ---
XR chest 1V portable HISTORY: Weakness. Shortness of breath. COMPARISON: Chest 10/15/2021. FINDINGS: The heart remains enlarged. No pneumothorax. No pleural effusions. There is mild central pu lmonary vascular congestion without overt edema. This has slightly progressed in the interval. No foc al lung consolidations to suggest pneumonia. Degenerative changes noted within the shoulders. IMPRESSION: Cardiomegaly with mild central pulmonary vascular congestion. This has slightly progressed in the int erval. ACT 112: Negative or not required by law. Electronically signed by: Cornelius Mendez M.D. 11/05/2021 11:52 AM
[2021-11-05 11:57] LABS: Albumin Level 2.7 gm/dl (3.4-5.0); Calcium 8.5 mg/dl (8.5-10.1); Creatinine Clr Calc Pharmacy 64.1 ml/min; Est GFR (African American) 52.8 ml/min; Est GFR (Non-African American) 45.6 ml/min; Potassium 4.3 mmol/L (3.5-5.1)
[2021-11-05 12:18] LABS: Albumin Globulin Ratio 0.7 (0.9-2); Bilirubin,Total 0.5 mg/dl (0.2-1); Globulin 3.7 gm/dl (2.5-4.0); Thyroid Stimulating Hormone 5.05 uIu/ml (0.300-4.500); Total Protein 6.4 gm/dl (6.4-8.2); Troponin I 0.368 ng/ml (0-0.045)
--- NOTE | 2021-11-05 12:27 | Emergency Department Note ---
Impression & Plan Acute exacerbation of CHF (congestive heart failure), SOFÍA (acute kidney injury), Breathlessness, Leg swelling, Scrotal swelling ED Provider Note Provider: Costa Khalil MD DATE OF SERVICE: 11/05/2021 CHIEF COMPLAINT: Shortness of breath, swelling, weak HISTORY OF PRESENT ILLNESS: Patient is a 66-year-old gentleman past medical history including obesity, CKD, CHF, COPD, urinary retention, UTI, recent hernia repair who subsequently developed rhabdomyolysis and GI bleed presenting here referred from the general surgery office where he was evaluated today for follow-up with a low blood pressure detected there and his complaints. Patient states he felt that short of breath today and thus took several tabs of his nitro but denies real chest pain. Patient states he is no some increased when his leg particular swelling of the lower abdomen and scrotum region. Patient denies falls. He states he is concerned he may be bleeding out. Patient has difficulty lying flat due to shortness of breath. Patient states he has been taking recently some Lasix to help with fluid. Denies significant abdominal pain at this time. Denies bloody stools to his knowledge. Patient states he is always had some swelling in the groin and scrotal region but this might be a little bit worse. REVIEW OF SYSTEMS: A total of 10 review of systems was obtained and negative except as stated above in the HPI. PAST MEDICAL HISTORY: As noted above MEDICATIONS: Reviewed home medications SOCIAL HISTORY: Lives at home with PHYSICAL EXAM: GENERAL: alert and oriented in no acute distress on stretcher Head: normocephalic and atraumatic EYES: No injection, discharge or icterus. NECK: Trachea midline. ENT: Mucous membranes pink and moist. LUNGS: Airway patent. No retractions. Breath sounds diminished in the bases. HEART: Regular rate and rhythm. No chest wall tenderness ABDOMEN: Soft moderately distended with healing abdominal port sites. Small areas of contusions on the abdomen. Patient with a significantly swollen scrotum. SKIN: Acyanotic, warm, dry, without rashes EXTREMITIES: without significant obvious deformity beyond 2+ lower extremity edema. No weeping or rashes appreciated. NEUROLOGICAL: No focal deficits. No aphasia. No facial droop or slurred speech. EK bpm sinus rhythm with PAC. No acute ST segment elevation. QTc 466. Some worsened inferior lateral T wave inversions are no today compared to previous from October 24. CONTINUOUS CARDIAC MONITORING: was ordered and showed a heart rate of 60s to 80s bpm in normal sinus rhythm Patient's laboratory studies and imaging reviewed. Differential includes Infection, dehydration, metabolic abnormality, hypo /hyperglycemia, electrolyte disturbance, anemia, hypoxia, cardiac sources, intracerebral event, toxicologic, neurologic, as well as other pathologies. IMPRESSION/MEDICAL DECISION MAKING: Patient appears grossly fluid overloaded. Some borderline blood pressures. Patient is also at times talking to himself and has a somewhat odd affect. No focal deficits. Blood work without significant leukocytosis and stable anemia. Some mild renal dysfunction noted. Lactate mildly elevated troponin mildly elevated but troponin is downtrending from previous. proBNP significantly elevated again I believe this is a fluid overloaded state primarily for this gentleman. Covid and flu/RSV negative. Procalcitonin tachycardia low and I doubt this is infectious. No evidence of transaminitis today. No lipase elevation today. CT of the chest and abdomen pelvis obtained given his postsurgical state and the swelling to exclude intra-abdominal bleeding or PE. CHF findings per radiology but no evidence of PE on the chest CTA today. CT abdomen pelvis per radiology with some edema regular in the left inguinal region but no abscess or bleeding noted. Patient ambulatory to the bathroom. Believe grossly fluid overload & given some Lasix. Not requiring oxygen at this time. Given his SOFÍA and blood pressure as well as his complaints feel that further care here at the hospital is indicated for diuresis. Hospitalist contacted. Do not believe further anticoagulation given recent GI bleed is indicated the patient not having any chest pain although some nonspecific T wave changes doubt this is ACS. Roberto catheter placed for diuresis. DIAGNOSIS: Fluid overload, shortness of breath, SOFÍA DISPOSITION: Hospitalist will evaluate Patient was agreeable with this plan. Past Med/Surg History Medical History Arthralgia of multiple sites Cardiac murmur none noted on last cardio office visit 06/2021 Carpal tunnel syndrome Chronic obstructive pulmonary disease on maintenance inhalers-stable per pt-few nightly coughs, denies wheezing Congestive heart failure follows with [facility], stable per last office note Coronary artery disease h/o LA and s/p 2 bare metal stents-LAD and Cx in 2008, follows with [facility]; last visit 06/2021 and stable per note Dyspnea on exertion increased over past 16 months per pt with gradual 50 lb weight gain with reduced activity d/t COVID 19 Elevated alkaline phosphatase level Hypertension controlled, stable per pt Hypothyroidism Indigestion Infarction of spleen under observation Ischemic cardiomyopathy follows with [facility], stable per last note Morbid obesity with BMI of 45.0-49.9, adult Pituitary hypogonadism follows with PCP Pre-diabetes Right hydrocele Signs and symptoms involving cognition Pt reports chronic mild memory dysfunction Snoring reports sleep study 4 yrs ago negative for sleep apnea, occ witnessed apneas per Surgical History H/O right inguinal hernia repair (10/14/21) Laparoscopic Converted to Open Right Inguinal Hernia Repair with Mesh(Right) - Rodrigo Dudley DO, FACS 10-14-2021 History of cardiac cath bare metal stent placement x 2 to LAD and Cx in 2008 History of colonoscopy Family History Brother Hx of CABG Myocardial infarction Mother Myocardial infarction Other Coronary heart disease Lung disease Denies family history of Ovarian cancer Prostate cancer Breast cancer Colorectal cancer Social History Smoking Status: Never smoker Tobacco Type: Cigarettes Second Hand Exposure: No; Hx Alcohol Use: No Hx Substance Use: No Preferred Language: Danish Communication Ability: Effective Visual Impairment: No Limitations Hearing Ability: Normal Ribbon Lapper Tender Required: No Beliefs That Will Affect Care: None marital status: Current Living Situation: Spouse current occupational status: other current occupation: HAS NOT WORKED PAST 1.5 YRS How many Children do You have: 2 Feels Safe at Home: Yes Childhood Exposure to Second-Hand Smoke: No during the past year weight has: increased > 10 lbs Seatbelt Use: always Assistive Devices: None Allergies Allergies Allergy/AdvReac Type Severity Reaction Status Date / Time tuberculin, purified protein Allergy Mild SWELLING Verified 11/05/21 11:59 deriva AT SITE guaifenesin [From Mucinex] AdvReac Intermediate felt like Verified 11/05/21 11:59 was on fire pseudoephedrine AdvReac Mild ELECTRIC Verified 11/05/21 11:59 [From Sudafed] CURRENTS THRU BODY simvastatin AdvReac Mild MYALGIA Verified 11/05/21 11:59 Home Meds Home Medications Medication Instructions Recorded Confirmed cholecalciferol (vitamin D3) 50 50 mcg PO QAM 07/13/21 11/05/21 mcg (2,000 unit) capsule docusate sodium 100 mg tablet 100 mg PO DAILY PRN 10/06/21 11/05/21 (Stool Softener) finasteride 5 mg tablet 5 mg PO QAM 10/06/21 11/05/21 lisinopril 5 mg tablet 5 mg PO QAM 10/06/21 11/05/21 omega 4-nml-tux-fish oil 1,000 mg 1 cap PO QAM 10/06/21 11/05/21 (120 mg-180 mg) capsule (Fish Oil) tamsulosin 0.4 mg capsule (Flomax) 0.4 mg PO QAM 10/06/21 11/05/21 thiamine HCl (vitamin B1) 100 mg 100 mg PO QAM 10/06/21 11/05/21 tablet umeclidinium 62.5 mcg-vilanterol 1 inh INHALATION QAM PRN 10/06/21 11/05/21 25 mcg/actuation powdr for inhalation (Anoro Ellipta) bupropion HCl 100 mg tablet 100 mg PO HS tab 10/12/21 11/05/21 vitamin B12 500 mcg-folic acid 400 1 tab PO QAM 10/15/21 11/05/21 mcg tablet aspirin 81 mg tablet,delayed 81 mg PO QAM 11/05/21 11/05/21 release clopidogrel 75 mg tablet 75 mg PO QAM 11/05/21 11/05/21 furosemide 20 mg tablet 20 mg PO QAM 11/05/21 11/05/21 potassium chloride 20 mEq 20 meq PO QAM 11/05/21 11/05/21 tablet,extended release(part/cryst) (Klor-Con M) Previous Rx's Medication Instructions Recorded metoprolol succinate 50 mg 50 mg PO QAM #90 tab 02/20/21 tablet,extended release 24 hr nitroglycerin 0.4 mg sublingual 0.4 mg SUBLINGUAL .Q5 mins PRN #25 05/22/21 tablet tab polyethylene glycol 3350 17 gram 17 g PO DAILY PRN #14 ea 10/18/21 oral powder packet (Miralax) ciprofloxacin HCl 250 mg tablet 250 mg PO BID #10 tab 10/27/21 (Cipro) ferrous sulfate 325 mg (65 mg 325 mg PO BID #60 tab 10/27/21 iron) tablet,delayed release pantoprazole 40 mg tablet,delayed 40 mg PO BID #60 tab 10/27/21 release (Protonix) atorvastatin 80 mg tablet (Lipitor) 80 mg PO PM #90 tab 11/02/21 levothyroxine 112 mcg tablet 112 mcg PO QAM #30 tab 11/02/21 Results & Data (ED) Vital Signs Vital Signs - 24 hr 11/05/21 11:05 11/05/21 12:56 Temperature 36.5 C Temperature Source Oral Pulse Rate 77 Pulse Rate [Apical] 73 Pulse Rhythm Regular Pulse Strength Normal Respiratory Rate 24 20 Respiratory Effort / Characteristics Grunting Non-Labored Respiratory Depth Normal Normal Respiratory Pattern Regular Regular Blood Pressure 95/60 L Blood Pressure [Left Arm] 94/53 L Blood Pressure Mean 71 Blood Pressure Mean [Left Arm] 66 Blood Pressure Position Sitting Pulse Oximetry 98 98 Oxygen Delivery Method Room Air Room Air Sepsis Recent Fever Within 48 Hours No Sepsis New/Unexplained Change in Mental Status No Sepsis Action Taken by Nursing No Action Required Laboratory Data Result diagrams: 11/05/21 11:24 11/05/21 11:24 Lab Results 11/05/21 11/05/21 11/05/21 Range/Units 11:24 11:24 11:24 WBC (4.8-10.8) K/uL RBC (4.7-6.1) M/uL Hgb (14.0-18.0) g/dL Hct (42-52) % MCV (80-100) fL MCH (25-34) pg MCHC (32-36) g/dL RDW Std Deviation (36.4-46.3) fL RDW Coeff of Emilee (11.5-14.5) % Plt Count (130-400) K/uL MPV (7.4-10.4) fL Immature Gran % (Auto) % Neut % (Auto) % Lymph % (Auto) % Dent % (Auto) % Eos % (Auto) % Baso % (Auto) % Neut # (Auto) (1.4-6.5) K/uL Lymph # (Auto) (1.2-3.4) K/uL Dent # (Auto) (0.11-0.59) K/uL Eos # (Auto) (0-0.5) K/uL Baso # (Auto) (0-0.2) K/uL Immature Gran # (Auto) (0.00-0.02) K/uL PT 11.2 (9.0-12.0) Seconds INR 1.1 (0.9-1.1) Sodium 132 L (136-145) mmol/L Potassium 4.3 (3.5-5.1) mmol/L Chloride 97 L (98-107) mmol/L Carbon Dioxide 28 (21-32) mmol/L Anion Gap 7.0 (3-11) BUN 19 H (7-18) mg/dl Creatinine 1.58 H (0.6-1.4) mg/dl Est Cr Clr Drug Dosing 64.1 ml/min Est GFR ( Amer) 52.8 ml/min Est GFR (Non-Af Amer) 45.6 ml/min BUN/Creatinine Ratio 12.0 (10-20) Glucose 120 H (70-99) mg/dl Lactate (0.4-2.0) mmol/L Calcium 8.5 (8.5-10.1) mg/dl Total Bilirubin 0.5 (0.2-1) mg/dl AST 24 (15-37) U/L ALT 56 (12-78) Alkaline Phosphatase 101 (45-117) U/L Total Creatine Kinase 215 (39-308) U/L Troponin I 0.368 H* (0-0.045) ng/ml NT-Pro-B Natriuret Pep 5424 H (0-900) pg/ml Total Protein 6.4 (6.4-8.2) gm/dl Albumin 2.7 L (3.4-5.0) gm/dl Globulin 3.7 (2.5-4.0) gm/dl Albumin/Globulin Ratio 0.7 L (0.9-2) Lipase 110 (73-393) U/L Procalcitonin < 0.05 (0-0.5) ng/ml TSH 5.050 H (0.300-4.500) uIu/ml Free T4 1.17 (0.8-1.6) ng/dl SARS-CoV-2 (PCR) (Negative) Influenza Type A (PCR) (Neg) Influenza Type B (PCR) (Neg) RSV (RT-PCR) (Neg) Blood Type Antibody Screen 11/05/21 11/05/21 11/05/21 Range/Units 11:24 11:24 11:34 WBC 7.97 (4.8-10.8) K/uL RBC 3.04 L (4.7-6.1) M/uL Hgb 9.3 L (14.0-18.0) g/dL Hct 29.7 L (42-52) % MCV 97.7 (80-100) fL MCH 30.6 (25-34) pg MCHC 31.3 L (32-36) g/dL RDW Std Deviation 60.2 H (36.4-46.3) fL RDW Coeff of Emilee 17.5 H (11.5-14.5) % Plt Count 287 (130-400) K/uL MPV 9.4 (7.4-10.4) fL Immature Gran % (Auto) 0.3 % Neut % (Auto) 76.2 % Lymph % (Auto) 14.2 % Dent % (Auto) 7.8 % Eos % (Auto) 1.1 % Baso % (Auto) 0.4 % Neut # (Auto) 6.08 (1.4-6.5) K/uL Lymph # (Auto) 1.13 L (1.2-3.4) K/uL Dent # (Auto) 0.62 H (0.11-0.59) K/uL Eos # (Auto) 0.09 (0-0.5) K/uL Baso # (Auto) 0.03 (0-0.2) K/uL Immature Gran # (Auto) 0.02 (0.00-0.02) K/uL PT (9.0-12.0) Seconds INR (0.9-1.1) Sodium (136-145) mmol/L Potassium (3.5-5.1) mmol/L Chloride (98-107) mmol/L Carbon Dioxide (21-32) mmol/L Anion Gap (3-11) BUN (7-18) mg/dl Creatinine (0.6-1.4) mg/dl Est Cr Clr Drug Dosing ml/min Est GFR ( Amer) ml/min Est GFR (Non-Af Amer) ml/min BUN/Creatinine Ratio (10-20) Glucose (70-99) mg/dl Lactate 2.4 H* (0.4-2.0) mmol/L Calcium (8.5-10.1) mg/dl Total Bilirubin (0.2-1) mg/dl AST (15-37) U/L ALT (12-78) Alkaline Phosphatase (45-117) U/L Total Creatine Kinase (39-308) U/L Troponin I (0-0.045) ng/ml NT-Pro-B Natriuret Pep (0-900) pg/ml Total Protein (6.4-8.2) gm/dl Albumin (3.4-5.0) gm/dl Globulin (2.5-4.0) gm/dl Albumin/Globulin Ratio (0.9-2) Lipase (73-393) U/L Procalcitonin (0-0.5) ng/ml TSH (0.300-4.500) uIu/ml Free T4 (0.8-1.6) ng/dl SARS-CoV-2 (PCR) (Negative) Influenza Type A (PCR) (Neg) Influenza Type B (PCR) (Neg) RSV (RT-PCR) (Neg) Blood Type O Positive Antibody Screen NEGATIVE 11/05/21 Range/Units 11:49 WBC (4.8-10.8) K/uL RBC (4.7-6.1) M/uL Hgb (14.0-18.0) g/dL Hct (42-52) % MCV (80-100) fL MCH (25-34) pg MCHC (32-36) g/dL RDW Std Deviation (36.4-46.3) fL RDW Coeff of Emilee (11.5-14.5) % Plt Count (130-400) K/uL MPV (7.4-10.4) fL Immature Gran % (Auto) % Neut % (Auto) % Lymph % (Auto) % Dent % (Auto) % Eos % (Auto) % Baso % (Auto) % Neut # (Auto) (1.4-6.5) K/uL Lymph # (Auto) (1.2-3.4) K/uL Dent # (Auto) (0.11-0.59) K/uL Eos # (Auto) (0-0.5) K/uL Baso # (Auto) (0-0.2) K/uL Immature Gran # (Auto) (0.00-0.02) K/uL PT (9.0-12.0) Seconds INR (0.9-1.1) Sodium (136-145) mmol/L Potassium (3.5-5.1) mmol/L Chloride (98-107) mmol/L Carbon Dioxide (21-32) mmol/L Anion Gap (3-11) BUN (7-18) mg/dl Creatinine (0.6-1.4) mg/dl Est Cr Clr Drug Dosing ml/min Est GFR ( Amer) ml/min Est GFR (Non-Af Amer) ml/min BUN/Creatinine Ratio (10-20) Glucose (70-99) mg/dl Lactate (0.4-2.0) mmol/L Calcium (8.5-10.1) mg/dl Total Bilirubin (0.2-1) mg/dl AST (15-37) U/L ALT (12-78) Alkaline Phosphatase (45-117) U/L Total Creatine Kinase (39-308) U/L Troponin I (0-0.045) ng/ml NT-Pro-B Natriuret Pep (0-900) pg/ml Total Protein (6.4-8.2) gm/dl Albumin (3.4-5.0) gm/dl Globulin (2.5-4.0) gm/dl Albumin/Globulin Ratio (0.9-2) Lipase (73-393) U/L Procalcitonin (0-0.5) ng/ml TSH (0.300-4.500) uIu/ml Free T4 (0.8-1.6) ng/dl SARS-CoV-2 (PCR) NEGATIVE (Negative) Influenza Type A (PCR) Negative (Neg) Influenza Type B (PCR) Negative (Neg) RSV (RT-PCR) Negative (Neg) Blood Type Antibody Screen Administered Medications Discontinued Medications Furosemide (Furosemide 40 Mg/4 Ml Vial) 40 mg IV ONE ONE Stop: 11/05/21 13:17 Last Admin: 11/05/21 13:39 Dose: 40 mg Documented by: [id number] Ioversol (Optiray 320 125ml) 120 ml IV ONCE ONE Stop: 11/05/21 12:51 Last Admin: 11/05/21 12:42 Dose: 120 ml Documented by: [id number] Imaging Data Radiologist's Impression: Chest X-Ray 11/05/21 11:22 XR chest 1V portable HISTORY: Weakness. Shortness of breath. COMPARISON: Chest 10/15/2021. FINDINGS: The heart remains enlarged. No pneumothorax. No pleural effusions. There is mild central pulmonary vascular congestion without overt edema. This has slightly progressed in the interval. No focal lung consolidations to suggest pneumonia. Degenerative changes noted within the shoulders. IMPRESSION: Cardiomegaly with mild central pulmonary vascular congestion. This has slightly progressed in the interval. ACT 112: Negative or not required by law. Electronically signed by: Cornelius Mendez M.D. 11/05/2021 11:52 AM Abdomen/Pelvis CT 11/05/21 11:23 CT abd pelvis IV con only CLINICAL HISTORY: swelling, postop, sob TECHNIQUE: Helical axial images of the abdomen and pelvis were obtained and displayed. Automated dose lowering techniques and/or adjustment according to patient size were utilized for this exam. This exam was performed with intravenous contrast. COMPARISON: Comparison is made to CT abdomen pelvis 10/24/2021 and 02/07/2019 FINDINGS: Lower chest: For findings above the diaphragm, please see CT chest performed same day. Liver: Unremarkable. No focal lesions are seen. Gallbladder and biliary tree: Cholelithiasis is seen without evidence of cholecystitis. No intra- or extrahepatic biliary ductal dilation. Pancreas: Unremarkable, no focal lesions. Spleen: Unremarkable. Adrenals: Unremarkable. Kidneys and ureters: Incidentally noted is low position of the right kidney. Bladder: Unremarkable. Reproductive organs: Unremarkable. Bowel: Unremarkable appearance of the bowel. The appendix is normal. Lymph nodes Retroperitoneal: Unremarkable. Mesenteric: Unremarkable. Pelvic: Unremarkable. Peritoneum: Fat stranding is seen most prominent in the right lower quadrant. Vessels: Unremarkable. Abdominal wall: Patient is status post hernia repair. Bones: Degenerative changes in the visualized spine. IMPRESSION: 1. Patient is status post hernia repair. There is increased fat stranding in the lower abdomen, right greater than left compared to prior exam. Clinical correlation for infection is recommended. 2. No acute abnormality. In particular no evidence of pancreatitis. ACT 112: Negative or not required by law. Electronically signed by: Rush Salas M.D. 11/05/2021 1:07 PM Chest CTA 11/05/21 11:23 CT angio chest PE protocol CLINICAL HISTORY: PE, post op, swelling, sob TECHNIQUE: Multidetector row helical CT of the chest was performed. Coronal and sagittal reformations were obtained. Automated dose lowering techniques and/or adjustment according to patient size were utilized for this exam. Comparison: None available at the time of this dictation. FINDINGS: Lungs and pleura: Trace atelectasis is seen bilaterally. Heart and pericardium: There is cardiomegaly without evidence of pericardial effusion. Reflux of contrast is seen into the inferior vena cava. Vessels: No evidence of pulmonary embolism. Mediastinum and tab: Unremarkable. Chest wall and lower neck: Unremarkable. Abdomen: Unremarkable. Bones: Unremarkable. IMPRESSION: 1. No evidence of pulmonary embolism. 2. Cardiomegaly and heart failure. ACT 112: Negative or not required by law. Electronically signed by: Rush Salas M.D. 11/05/2021 1:01 PM Discharge Plan Visit Data Chief Complaint: Cardiac Assessment Stated Complaint: HYPOTENSION ED Provider: Costa Khalil Discharge Problem: Acute exacerbation of CHF (congestive heart failure), SOFÍA (acute kidney injury), Breathlessness, Leg swelling, Scrotal swelling Patient Disposition: Being Evaluated by Hospitalist Discharge Instructions Interventions: ED Discharge Assessment Last Done: 11/05/21 15:41 Discharge Problem: Acute exacerbation of CHF (congestive heart failure) Qualifiers: Heart failure type: unspecified Qualified Code(s): I50.9 - Heart failure, unspecified
[2021-11-05 12:36] LABS: T4 Free Thyroxine 1.17 ng/dl (0.8-1.6)
[2021-11-05 12:44] LABS: Influenza A virus by PCR Negative (Neg); Influenza B virus by PCR Negative (Neg); RSV by PCR Negative (Neg); SARS CoV2 RNA(COVID-19) InHosp NEGATIVE (Negative)
[2021-11-05] MEDS ORDERED: OPTIRAY 320 125ml IV ONE (12:50)
--- NOTE | 2021-11-05 13:02 | CT Scan Report ---
CT angio chest PE protocol CLINICAL HISTORY: PE, post op, swelling, sob TECHNIQUE: Multidetector row helical CT of the chest was performed. Coronal and sagittal reformations were obtained. Automated dose lowering techniques and/or adjustment according to patient size were u tilized for this exam. Comparison: None available at the time of this dictation. FINDINGS: Lungs and pleura: Trace atelectasis is seen bilaterally. Heart and pericardium: There is cardiomegaly without evidence of pericardial effusion. Reflux of cont rast is seen into the inferior vena cava. Vessels: No evidence of pulmonary embolism. Mediastinum and tab: Unremarkable. Chest wall and lower neck: Unremarkable. Abdomen: Unremarkable. Bones: Unremarkable. IMPRESSION: 1. No evidence of pulmonary embolism. 2. Cardiomegaly and heart failure. ACT 112: Negative or not required by law. Electronically signed by: Rush Salas M.D. 11/05/2021 1:01 PM
--- NOTE | 2021-11-05 13:08 | CT Scan Report ---
CT abd pelvis IV con only CLINICAL HISTORY: swelling, postop, sob TECHNIQUE: Helical axial images of the abdomen and pelvis were obtained and displayed. Automated dose lowering techniques and/or adjustment according to patient size were utilized for this exam. This e xam was performed with intravenous contrast. COMPARISON: Comparison is made to CT abdomen pelvis 10/24/2021 and 02/07/2019 FINDINGS: Lower chest: For findings above the diaphragm, please see CT chest performed same day. Liver: Unremarkable. No focal lesions are seen. Gallbladder and biliary tree: Cholelithiasis is seen without evidence of cholecystitis. No intra- or extrahepatic biliary ductal dilation. Pancreas: Unremarkable, no focal lesions. Spleen: Unremarkable. Adrenals: Unremarkable. Kidneys and ureters: Incidentally noted is low position of the right kidney. Bladder: Unremarkable. Reproductive organs: Unremarkable. Bowel: Unremarkable appearance of the bowel. The appendix is normal. Lymph nodes Retroperitoneal: Unremarkable. Mesenteric: Unremarkable. Pelvic: Unremarkable. Peritoneum: Fat stranding is seen most prominent in the right lower quadrant. Vessels: Unremarkable. Abdominal wall: Patient is status post hernia repair. Bones: Degenerative changes in the visualized spine. IMPRESSION: 1. Patient is status post hernia repair. There is increased fat stranding in the lower abdomen, righ t greater than left compared to prior exam. Clinical correlation for infection is recommended. 2. No acute abnormality. In particular no evidence of pancreatitis. ACT 112: Negative or not required by law. Electronically signed by: Rush Salas M.D. 11/05/2021 1:07 PM
[2021-11-05] MEDS ORDERED: FUROSEMIDE 40 MG/4 ML VIAL IV ONE (13:16)
--- NOTE | 2021-11-05 13:31 | History & Physical Report ---
Date of Service November 05, 2021 Assessment & Plan (1) CHF (congestive heart failure), NYHA class II: Plan: Patient will be admitted to the telemetry unit proceeding as follows: �We will gently diurese the patient with Lasix. He is receiving his first dose in the emergency department at this time. We will continually reassess him each day to determine proper dosing of this medicine �We will implement a cardiac diet �We will follow daily weights �We will trend his cardiac enzymes �We will resume antiplatelet therapy in the form of aspirin. Due to his recent GI bleed we will not use his Plavix at this time. Due to his history of GI bleed we will maintain the patient on his home dose of Protonix. �We will continue his other cardiac medications including Lipitor and metoprolol at his home doses. (Appropriate holds are in place for hypotension concerning h is metoprolol) �We will hold his lisinopril for the present time due to the noted hypotension and reassess daily to see if this can be resumed. We will use SCDs for DVT prevention. Due to recent GI bleed we will not use chemical means �I discussed CODE STATUS with the patient he notes in the event of cardiopulmonary arrest he wishes to be a level 1 full code History of Present Illness Primary Care Provider: Elaine Sofia MD Hypotension this is a 66-year-old male who recently underwent surgical repair of incarcerated hernia by Dr. Dudley. Following patient's hernia repair he required readmission to the hospital secondary to rhabdomyolysis. He was treated with IV fluid resuscitation was able to be discharged home. The patient was subsequently readmitted with hemorrhagic shock secondary to a GI bleed. He underwent an EGD on 10/25/2021 and was found to have bleeding duodenal ulcer. It was recommended the patient be maintained on a proton pump inhibitor and NSAIDs be avoided for 2 weeks. Patient was discharged home and he was doing reasonably well. Patient was seen in the general surgery clinic today in follow-up for his recent hernia surgery where he was noted to be hypotensive with a blood pressure in the 70s on multiple checks. Patient did have some lightheadedness and some nausea. Because of this he was sent to the emergency department for further evaluation. Today in the emergency department the patient had labs and imaging which I independently reviewed. His white blood cell count is normal. His hemoglobin and hematocrit were 9.3 and 27.9. These values were stable from previous levels. His platelet count is known to be within normal range. His coagulation studies are normal. Sodium was noted to be 132 with a normal potassium. His BUN and creatinine were 19 and 1.5. Lactic acid level was noted to be 2.4. Patient was noted to have an elevated BNP at 5424 which was elevated when compared to previous values. He was also noted to have an elevated troponin at 0.368 which was actually decreased from previous values from September of this year at which time his troponin peaked at 1.4. Patient was noted to have an elevated TSH at 5.0 with a normal free T4 level. He was checked for Covid, influenza, and RSV all of which were negative. Patient did have an EKG that did show findings concerning for inferior lateral ischemia. When I visited with the patient in the emergency department the patient notes that he is somewhat short of breath but he notes that this is a chronic condition due to his underlying COPD. He does not feel that this is worse. He specifically any chest pain in the last 24 to 48 hours. Patient does note that when he was in the general surgery office that he did feel somewhat fatigued with some lightheadedness. He says he has not had any falls or head injuries. He denies any fevers, shakes, chills. He denies any nausea or vomiting. The patient notes that he did take his hypertensive medications today. He notes that due to his recent GI bleed he has not resumed his aspirin or Plavix. At the time of my interview the patient was resting comfortably in bed and he was in no distress. He did note his symptomatology had improved somewhat since arrival to the emergency department. Allergies Allergy/AdvReac Type Severity Reaction Status Date / Time tuberculin, purified protein Allergy Mild SWELLING Verified 11/05/21 11:59 deriva AT SITE guaifenesin [From Mucinex] AdvReac Intermediate felt like Verified 11/05/21 11:59 was on fire pseudoephedrine AdvReac Mild ELECTRIC Verified 11/05/21 11:59 [From Sudafed] CURRENTS THRU BODY simvastatin AdvReac Mild MYALGIA Verified 11/05/21 11:59 Home Medications Medication Instructions Recorded Confirmed Type metoprolol succinate 50 mg 50 mg PO QAM #90 tab 02/20/21 11/05/21 Rx tablet,extended release 24 hr nitroglycerin 0.4 mg sublingual 0.4 mg SUBLINGUAL .Q5 mins PRN #25 05/22/21 11/05/21 Rx tablet tab cholecalciferol (vitamin D3) 50 50 mcg PO QAM 07/13/21 11/05/21 History mcg (2,000 unit) capsule docusate sodium 100 mg tablet 100 mg PO DAILY PRN 10/06/21 11/05/21 History (Stool Softener) finasteride 5 mg tablet 5 mg PO QAM 10/06/21 11/05/21 History lisinopril 5 mg tablet 5 mg PO QAM 10/06/21 11/05/21 History omega 6-abw-jfz-fish oil 1,000 mg 1 cap PO QAM 10/06/21 11/05/21 History (120 mg-180 mg) capsule (Fish Oil) tamsulosin 0.4 mg capsule (Flomax) 0.4 mg PO QAM 10/06/21 11/05/21 History thiamine HCl (vitamin B1) 100 mg 100 mg PO QAM 10/06/21 11/05/21 History tablet umeclidinium 62.5 mcg-vilanterol 1 inh INHALATION QAM PRN 10/06/21 11/05/21 History 25 mcg/actuation powdr for inhalation (Anoro Ellipta) bupropion HCl 100 mg tablet 100 mg PO HS tab 10/12/21 11/05/21 History vitamin B12 500 mcg-folic acid 400 1 tab PO QAM 10/15/21 11/05/21 History mcg tablet polyethylene glycol 3350 17 gram 17 g PO DAILY PRN #14 ea 10/18/21 11/05/21 Rx oral powder packet (Miralax) ciprofloxacin HCl 250 mg tablet 250 mg PO BID #10 tab 10/27/21 11/05/21 Rx (Cipro) ferrous sulfate 325 mg (65 mg 325 mg PO BID #60 tab 10/27/21 11/05/21 Rx iron) tablet,delayed release pantoprazole 40 mg tablet,delayed 40 mg PO BID #60 tab 10/27/21 11/05/21 Rx release (Protonix) atorvastatin 80 mg tablet (Lipitor) 80 mg PO PM #90 tab 11/02/21 11/05/21 Rx levothyroxine 112 mcg tablet 112 mcg PO QAM #30 tab 11/02/21 11/05/21 Rx aspirin 81 mg tablet,delayed 81 mg PO QAM 11/05/21 11/05/21 History release clopidogrel 75 mg tablet 75 mg PO QAM 11/05/21 11/05/21 History furosemide 20 mg tablet 20 mg PO QAM 11/05/21 11/05/21 History potassium chloride 20 mEq 20 meq PO QAM 11/05/21 11/05/21 History tablet,extended release(part/cryst) (Nai Yusuf) Past Med/Surg History Medical History Arthralgia of multiple sites Cardiac murmur none noted on last cardio office visit 06/2021 Carpal tunnel syndrome Chronic obstructive pulmonary disease on maintenance inhalers-stable per pt-few nightly coughs, denies wheezing Congestive heart failure follows with [facility], stable per last office note Coronary artery disease h/o [place] and s/p 2 bare metal stents-LAD and Cx in 2008, follows with [facility]; last visit 06/2021 and stable per note Dyspnea on exertion increased over past 16 months per pt with gradual 50 lb weight gain with reduced activity d/t COVID 19 Elevated alkaline phosphatase level Hypertension controlled, stable per pt Hypothyroidism Indigestion Infarction of spleen under observation Ischemic cardiomyopathy follows with [facility], stable per last note Morbid obesity with BMI of 45.0-49.9, adult Pituitary hypogonadism follows with PCP Pre-diabetes Right hydrocele Signs and symptoms involving cognition Pt reports chronic mild memory dysfunction Snoring reports sleep study 4 yrs ago negative for sleep apnea, occ witnessed apneas per Surgical History H/O right inguinal hernia repair (10/14/21) Laparoscopic Converted to Open Right Inguinal Hernia Repair with Mesh(Right) - Rodrigo Dudley DO, FACS 10-14-2021 History of cardiac cath bare metal stent placement x 2 to LAD and Cx in 2008 History of colonoscopy Family History Brother Hx of CABG Myocardial infarction Mother Myocardial infarction Other Coronary heart disease Lung disease Denies family history of Ovarian cancer Prostate cancer Breast cancer Colorectal cancer Social History Smoking Status: Former smoker Tobacco Type: Cigarettes Second Hand Exposure: No; Do You Dip or Chew Tobacco: No; Hx Alcohol Use: Yes Hx Substance Use: No Preferred Language: Thai Communication Ability: Effective Visual Impairment: No Limitations Hearing Ability: Normal Search Engine Optimization Consultant Required: No Beliefs That Will Affect Care: None marital status: Current Living Situation: Spouse current occupational status: other current occupation: HAS NOT WORKED PAST 1.5 YRS How many Children do You have: 2 Other Information That Helps Us Care for You: No Feels Safe at Home: Yes Safety Concerns: Feels Safe At This Time Childhood Exposure to Second-Hand Smoke: No during the past year weight has: increased > 10 lbs Seatbelt Use: always Assistive Devices: Walker Review of Systems Constitutional: no fever and no chills Eyes: no diplopia Ear, Nose, Mouth, Throat: no ear pain Respiratory: + dyspnea Cardiovascular: no chest pain Gastrointestinal: no abdominal pain, no nausea and no vomiting Genitourinary: no dysuria Integumentary: no rash Neurologic: no localized weakness Physical Exam Constitutional: well developed, well nourished and + obese; no acute distress Eyes: no conjunctival abnormality ENMT: Ears: no hearing impairment Neck: trachea midline Respiratory: Breath sounds are decreased at bases. He was not using accessory muscles. Cardiovascular: Rate/Rhythm: regular rate and regular rhythm Gastrointestinal (Abdomen): Abdomen is soft, nontender, nondistended. There is no pain with palpation. Musculoskeletal: No calf tenderness. The patient has 1-2+ lower extremity edema noted bilaterally Skin: no rashes Neurologic: moves all extremities Psychiatric: A+Ox3, euthymic affect Results & Data Results & Data ([facility]) Vital Signs (Past 12 Hours) Vital Signs Temp Pulse Pulse Resp BP BP Pulse Ox 11/05/21 12:56 73 20 94/53 L 98 11/05/21 11:05 36.5 C 77 24 95/60 L 98 Supervising Physician Co-Signing Physician Notes I personally saw and examined the patient. I verified all bear points and agree with Yadiel Mccallum PA-C with the following exceptions and/or additions: 66 year old male who presents to the ER with progressive shortness of breath since discharge. He was discharged on October 27 after treatment for Acute GI bleed, rhabdomyolysis. No acute chest pain. O/E Using accessory muscle, able to speck in complete sentences, bibasal crackles, Suprapubic tenderness on abdominal exam without rebound or guarding A/P Acute congestive heart failure with preserved ejection fraction - LVEF 50-55% in September 2021, no need to repeat this. Lasix 40mg IV with brisk diuresis after hernández cath placed. On 20mg PO as outpatient. Unclear whether he became worse due to IV fluids last admission or urinary retention after discharge or not enough outpatient lasix. Recommend keeping hernández catheter in on discharge and following up with urology. Acute urinary retention - 750ml output when hernández catheter placed in the ER, suspect this is partially cause of pulmonary edema as above Acute GI bleed - I suspect it is safe to continue back on aspirin, will continue to hold clopidogrel but if Hgb stable this admission can consider restarting this. CAD - No ACS suspected, troponin appears to be downtrending from last admission PG Care Time/CCT Total # of Minutes Spent Total Time Spent with Patient: Total time spent is greater than 50% in coordination of care (as documented) at patient's floor/unit and/or counseling patient: Coding Level of Care Code 68539 Initial Inpt Care Lvl 3 Diagnoses CHF (congestive heart failure), NYHA class II I50.9
[2021-11-05 14:42] LABS: Appearance Urine Clear (Clear); Bacteria Urine Automated Negative (Negative); Bilirubin Urine Negative (Negative); Blood Urine 1+ (Negative); Cast Urine Automated 0 /lpf (0-5); Color Urine Yellow; Epithelial Cell Urine Auto 0-5 /lpf (0-5); Glucose Urine UA Negative (Negative); Ketones Urine Negative (Negative); Leukocyte Esterase Urine Negative (Negative); Nitrite Urine Negative (Negative); Protein Urine Negative (Negative); Specific Gravity Urine 1.024 (1.000-1.030); Urobilinogen Urine Negative (Negative)
[2021-11-05] MEDS ORDERED: ONDANSETRON INJ 2 MG/ML 2 ML VIAL IV PRN (15:42)
[2021-11-05] MEDS ORDERED: POLYETHYLENE (MIRALAX) 17 GM PACK PO PRN ×2 (15:42)
[2021-11-05] MEDS ORDERED: UMECLIDINIUM/VILANTEROL 62.5/25MCG 7 PUFFS/INHALER INH PRN (15:42)
[2021-11-05] MEDS ORDERED: NITROGLYCERIN SL 0.4 MG/TAB TAB SL PRN (15:42)
[2021-11-05] MEDS ORDERED: ALUMINUM/MAGNESIUM SUSP 30 ML UDC PO PRN (15:42)
[2021-11-05] MEDS ORDERED: MAGNESIUM HYDROXIDE SUSP 30 ML UDC PO PRN (15:42)
[2021-11-05] MEDS ORDERED: DOCUSATE SODIUM 100 MG CAP PO PRN (16:04)
[2021-11-05 17:50] LABS: Troponin I 0.329 ng/ml (0-0.045)
[2021-11-05] MEDS ORDERED: ASPIRIN 81 MG ECTAB PO STA (18:15)
[2021-11-05 19:53] LABS: Magnesium 2.2 mg/dl (1.8-2.4)
[2021-11-05 20:19] LABS: Creatine Kinase MB 5.1 ng/ml (0.5-3.6)
[2021-11-05] MEDS: buPROPion HCl 100 MG TABLET PO SCH (20:32)
[2021-11-05] MEDS: ATORVASTATIN 40 MG TAB PO SCH (20:32)
[2021-11-05] MEDS: FERROUS SULFATE 325 MG TAB PO SCH (20:32)
[2021-11-05] MEDS: PANTOprazole 40 MG TAB PO SCH (20:32)
[2021-11-05] MEDS ORDERED: CIPROFLOXACIN 250 MG TAB PO SCH (21:00)
[2021-11-05] MEDS ORDERED: hydrOXYzine HCl 10 MG TAB PO ONE (22:59)
[2021-11-05] MEDS: ACETAMINOPHEN 325 MG TAB PO PRN (23:08)
[2021-11-05 23:13] LABS: Creatine Kinase MB 5.5 ng/ml (0.5-3.6); Troponin I 0.284 ng/ml (0-0.045)
[2021-11-06] MEDS ORDERED: oxyCODONE HCL IR 5 MG TAB (IMMEDIATE RELEASE) PO STA (01:20)
[2021-11-06] MEDS: LEVOTHYROXINE SODIUM 112 MCG TABLET PO SCH (05:11)
--- NOTE | 2021-11-06 06:23 | Electrocardiogram Report ---
Test Reason : Blood Pressure : / mmHG Vent. Rate : 077 BPM Atrial Rate : 077 BPM P-R Int : 118 ms QRS Dur : 086 ms QT Int : 412 ms P-R-T Axes : 087 060 249 degrees QTc Int : 466 ms Sinus rhythm with Premature atrial complexes Prolonged QT Abnormal ECG When compared with ECG of 24-OCT-2021 16:09, Premature atrial complexes are now Present Criteria for Septal infarct are no longer Present T wave inversion now evident in Inferolateral leads Confirmed by Isidro Baumann ([id number]) on 11/06/2021 6:22:50 AM Referred By: Confirmed By:Isidro Baumann
--- NOTE | 2021-11-06 07:47 | Hospitalist Progress Note ---
Date of Service November 06, 2021 Assessment & Plan (1) Acute exacerbation of CHF (congestive heart failure): Plan: CHF, acute on chronic diastolic heart failure - Acutely volume overloaded on admission - Lasix 40mg IV daily - Dry weight ?130-133kg - Current weight 138.6kg - Aspirin resumed, plaavix held due to recent hx of GIB - Lactate 2.6 on admission, downtrending to 2.1. Repeat normalized - Trop peaked at 1.4, downtrended - BNP recently <600; Increased to 5425 on admission - TSH 5.0, free t4 normal - COVID negative, FLU/RSV negative - CXR: Progressive congestion - CTA Chest: No PE. Cardiomegaly with evidence of heart failure. Trace atelectasis bilaterally. - ECHO 10/15/21: LV grossly normal size. Concentric LVH. EF 50-55%. Moderate apical hypokinesis. - EKG nsr no ST segment changes. No T wave inversion - Hgb 9.3 (stable from prior) - Remains volume overloaded above dry weight. 3L UOP with lasix, Cr elevated on admit with slight uptrend. Continue diuresis, will decrease dose by half given SOFÍA and brisk diuresis and follow UOP. Repeat BMP AM. (2) Chronic obstructive pulmonary disease: Plan: COPD - Pt denies wheezing �No apparent exacerbation at time of assessment �Continue Umeclidinium/Vilanterol (3) Coronary artery disease: Plan: CAD, hx of PCI with BMS - Home aspirin resumed on admit, plaavix held for hx GIB as below - Atorvastatin continued - Metoprolol 50mg qAM continued �Troponin elevated, downtrending consistent with demand ischemia (4) GI bleed: Plan: History of GIB - Thought to be PUD with increased NSAID and with stress in the setting of surgery (hernia repair) - EGD 10/25: Normal esophagus, non-bleeding duo ulcer - Recieved 2u pRBC last admit, then remained stable �Continue Protonix 40 mg p.o. twice daily Recent Hx of Pancreatisis thought to be 2/2 GI - None appreciated on CT 11/05/21, appears resolved (5) H/O right inguinal hernia repair: Plan: Hx of Hernia repair - CT with increased fat stranding R>L. - Clinically no signs of infection - Nontender at surgical site, no erythema/warmth, no fluctuance (6) SOFÍA (acute kidney injury): Plan: - Hx Urinary Retention. Continue Flomax - Roberto in place - Significant scrotal edema, diuresis as above and salt restrict - Lasix decreased (very brist UOP >3L) by half - BMP daily - Lisinopril held (7) Morbid obesity with BMI of 50.0-59.9, adult: Plan: Obesity, BMI 50.8 Plan: CHF, acute on chronic diastolic heart failure - Acutely volume overloaded on admission - Lasix 40mg IV daily - Dry weight ?130-133kg - Current weight 138.6kg - Aspirin resumed, plaavix held due to recent hx of GIB - Lactate 2.6 on admission, downtrending to 2.1. Repeat normalized - Trop peaked at 1.4, downtrended - BNP recently <600; Increased to 5425 on admission - TSH 5.0, free t4 normal - COVID negative, FLU/RSV negative - CXR: Progressive congestion - CTA Chest: No PE. Cardiomegaly with evidence of heart failure. Trace atelectasis bilaterally. - ECHO 10/15/21: LV grossly normal size. Concentric LVH. EF 50-55%. Moderate apical hypokinesis. - EKG nsr no ST segment changes. No T wave inversion - Hgb 9.3 (stable from prior) - Remains volume overloaded above dry weight. 3L UOP with lasix, Cr elevated on admit with slight uptrend. Continue diuresis, will decrease dose by half given SOFÍA and rapid diuresis and follow UOP. Repeat BMP AM. COPD - Pt denies wheezing CAD, hx of PCI with BMS - Home aspirin resumed on admit, plaavix held for hx GIB as below - Atorvastatin continued - Metoprolol 50mg qAM continued History of GIB - Thought to be PUD with increased NSAID and with stress in the setting of surgery (hernia repair) - EGD 10/25: Normal esophagus, non-bleeding duo ulcer - Recieved 2u pRBC last admit, then remained stable Recent Hx of Pancreatisis thought to be 2/2 GI - None appreciated on CT 11/05/21, appears resolved Hx of Hernia repair - CT with increased fat stranding R>L. - Clinically no signs of infection - Nontender at surgical site, no erythema/warmth, no fluctuance Hx Urinary Retention - Roberto in place - Significant scrotal edema, diuresis as above and salt restrict Obesity, BMI 50.8 Admission and Anticipated Discharge Date Admission Date: November 05, 2021 Subjective Patient seen at the bedside. HShortness of breath slightly present, greatly improved prior. Continues to have scrotal edema, leg edema, improved breathing at rest. Patient diuresing, continues to have uptrending creatinine and BNP 5277. Review of Systems Review of Systems: Constitutional: Denies fever, chills, malaise Eyes: Denies vision change ENT: Denies ear pain, sore throat, sinus pain Cardiovascular: Denies Chest pain, chest pressure. Endorses extremity swelling Respiratory: Some shortness of breath greatly improved from prior, denies cough, sputum production, difficulty breathing Gastrointestinal: Denies abdominal pain, nausea, vomiting, constipation, diarrhea Genitourinary: Denies dysuria, urinary frequency. Endorses scrotal edema, catheter in place Musculoskeletal: Denies acute focal weakness, muscle aches/pain, joint aches/pain Integumentary:Denies acute rash, lesions, bruising Neurological: Denies headache, numbness, tingling, focal weakness Physical Exam Physical Exam: General: A&Ox3. NAD. Cooperative. HEENT: Atraumatic, normocephalic. Hearing grossly intact. Bibasilar crackles, no rales or wheezes. Pulm: Bibasilar crackles, without overt rales/wheezes symmetrical chest rise. No increase work of breathing. No respiratory distress. Cardiac: RRR, -mrg. Radial pulses intact and symmetrical. Abdominal: Nontender, nondistended, soft. BS present. : R post-op hernia incision well healing without overlying erythema, discharge, or dehiscence. Nontender on firm palpation, no fluctuance. Extremities: Bilateral lower extremity edema, severe scrotal edema. Results & Data Results & Data ([facility]) Vital Signs (Past 12 Hours) Vital Signs Temp Pulse Pulse Pulse Resp BP Pulse Ox 11/06/21 07:26 107 H 11/06/21 04:07 36.7 C 109 H 19 101/69 91 11/06/21 00:00 109 H 11/05/21 21:29 36.7 C 100 H 108/67 95 11/05/21 20:37 103 H 22 96/63 L 97 PG Care Time/CCT Total # of Minutes Spent Total Time Spent with Patient: Total time spent is greater than 50% in coordination of care (as documented) at patient's floor/unit and/or counseling patient: Coding Level of Care Code 34852 Subseq Hosp Care Lvl 2 Diagnoses Acute exacerbation of CHF (congestive heart failure) I50.9 Heart failure type: unspecified Chronic obstructive pulmonary disease J44.9 Coronary artery disease I25.10 GI bleed K92.2 H/O right inguinal hernia repair Z98.890; Z87.19 SOFÍA (acute kidney injury) N17.9 Morbid obesity with BMI of 50.0-59.9, adult E66.01; Z68.43 (1) Acute exacerbation of CHF (congestive heart failure) Heart failure type: unspecified Qualified Code(s): I50.9 - Heart failure, un specified
[2021-11-06] MEDS ORDERED: NON-FORMULARY MEDICATION (Vitamin B12-Folic Acid 500-400 mcg Tablet) PO SCH (09:00)
[2021-11-06] MEDS: FUROSEMIDE 40 MG/4 ML VIAL IV SCH (09:14)
[2021-11-06] MEDS: ASPIRIN 81 MG ECTAB PO SCH (09:14)
[2021-11-06] MEDS: CYANOCOBALAMIN 500 MCG TABLET (VITAMIN B-12) PO SCH (09:15)
[2021-11-06] MEDS: THIAMINE HCL 100 MG TAB PO SCH (09:15)
[2021-11-06] MEDS: FERROUS SULFATE 325 MG TAB PO SCH ×2 (09:15→20:21)
[2021-11-06] MEDS: FOLIC ACID 400 MCG TAB PO SCH (09:15)
[2021-11-06] MEDS: PANTOprazole 40 MG TAB PO SCH ×2 (09:15→20:21)
[2021-11-06] MEDS: FINASTERIDE 5 MG TAB PO SCH (09:15)
[2021-11-06] MEDS: CHOLECALCIFEROL 1,000 UNITS 25 MCG TAB PO SCH (09:15)
[2021-11-06] MEDS: METOPROLOL SUCC 50MG EXT REL TAB PO SCH (09:16)
[2021-11-06] MEDS: TAMSULOSIN HCL 0.4 MG CAP PO SCH (09:16)
[2021-11-06 11:41] LABS: Basophils # (auto) 0.03 K/uL (0-0.2); Basophils % (auto) 0.3 %; Eosinophils # (auto) 0.15 K/uL (0-0.5); Eosinophils % (auto) 1.6 %; Hematocrit (blood only) 33.5 % (42-52); Hemoglobin 10.3 g/dL (14.0-18.0); Immature Granulocytes # (auto) 0.01 K/uL (0.00-0.02); Immature Granulocytes % (auto) 0.1 %; Lymphocytes # (auto) 1.45 K/uL (1.2-3.4); Lymphocytes % (auto) 15.6 %; Mean Corpuscular Hemoglobin 30.5 pg (25-34); Mean Corpuscular Hgb Conc 30.7 g/dL (32-36); Mean Corpuscular Volume 99.1 fL (80-100); Mean Platelet Volume 9.6 fL (7.4-10.4); Monocytes # (auto) 0.78 K/uL (0.11-0.59); Monocytes % (auto) 8.4 %; Platelet Count 317 K/uL (130-400); RDW Coefficient of Variation 17.3 % (11.5-14.5); RDW Standard Deviation 60.5 fL (36.4-46.3); Red Blood Count 3.38 M/uL (4.7-6.1); White Blood Count 9.32 K/uL (4.8-10.8)
[2021-11-06 11:57] LABS: Calcium 9.3 mg/dl (8.5-10.1); Creatinine Clr Calc Pharmacy 58.7 ml/min; Est GFR (African American) 49.7 ml/min; Est GFR (Non-African American) 42.9 ml/min; Potassium 4.4 mmol/L (3.5-5.1)
--- NOTE | 2021-11-06 14:53 | Electrocardiogram Report ---
Test Reason : Blood Pressure : / mmHG Vent. Rate : 107 BPM Atrial Rate : 107 BPM P-R Int : 128 ms QRS Dur : 096 ms QT Int : 376 ms P-R-T Axes : 048 048 230 degrees QTc Int : 501 ms Sinus tachycardia Abnormal ECG When compared with ECG of 05-NOV-2021 11:07, (unconfirmed) Premature atrial complexes are no longer Present Confirmed by Sunny Lrason ([id number]) on 11/06/2021 2:52:42 PM Referred By: REFERRED SELF Confirmed By:Sunny Larson
--- NOTE | 2021-11-06 15:09 | Electrocardiogram Report ---
Test Reason : Blood Pressure : / mmHG Vent. Rate : 086 BPM Atrial Rate : 086 BPM P-R Int : 122 ms QRS Dur : 082 ms QT Int : 374 ms P-R-T Axes : 074 -01 184 degrees QTc Int : 447 ms Sinus rhythm with Premature atrial complexes Abnormal ECG When compared with ECG of 05-NOV-2021 18:05, (unconfirmed) Premature atrial complexes are now Present T wave inversion less evident in Inferior leads QT has shortened Confirmed by Sunny Larson ([id number]) on 11/06/2021 3:08:35 PM Referred By: REFERRED SELF Confirmed By:Sunny Larson
[2021-11-06] MEDS ORDERED: MELATONIN 3 MG TAB PO PRN (16:46)
[2021-11-06] MEDS: buPROPion HCl 100 MG TABLET PO SCH (20:21)
[2021-11-06] MEDS: ATORVASTATIN 40 MG TAB PO SCH (20:21)
[2021-11-07] MEDS: NITROGLYCERIN SL 0.4 MG/TAB TAB SL PRN ×2 (04:00→04:20)
[2021-11-07] MEDS ORDERED: oxyCODONE HCL IR 5 MG TAB (IMMEDIATE RELEASE) PO STA (04:51)
[2021-11-07] MEDS: LEVOTHYROXINE SODIUM 112 MCG TABLET PO SCH (06:22)
[2021-11-07] MEDS: METOPROLOL SUCC 50MG EXT REL TAB PO SCH (07:56)
[2021-11-07] MEDS: FERROUS SULFATE 325 MG TAB PO SCH ×2 (07:57→20:23)
[2021-11-07] MEDS: PANTOprazole 40 MG TAB PO SCH ×2 (07:57→20:25)
[2021-11-07] MEDS: FINASTERIDE 5 MG TAB PO SCH (07:57)
[2021-11-07] MEDS: CYANOCOBALAMIN 500 MCG TABLET (VITAMIN B-12) PO SCH (07:58)
[2021-11-07] MEDS: THIAMINE HCL 100 MG TAB PO SCH (07:58)
[2021-11-07] MEDS: TAMSULOSIN HCL 0.4 MG CAP PO SCH (07:58)
[2021-11-07] MEDS: FOLIC ACID 400 MCG TAB PO SCH (07:58)
[2021-11-07] MEDS: ASPIRIN 81 MG ECTAB PO SCH (07:58)
[2021-11-07] MEDS: CHOLECALCIFEROL 1,000 UNITS 25 MCG TAB PO SCH (07:58)
[2021-11-07] MEDS: FUROSEMIDE 40 MG/4 ML VIAL IV SCH (08:02)
[2021-11-07] MEDS: ACETAMINOPHEN 325 MG TAB PO PRN (08:25)
[2021-11-07 08:35] LABS: Hematocrit (blood only) 30.4 % (42-52); Hemoglobin 9.5 g/dL (14.0-18.0); Mean Corpuscular Hemoglobin 30.5 pg (25-34); Mean Corpuscular Hgb Conc 31.3 g/dL (32-36); Mean Corpuscular Volume 97.7 fL (80-100); Mean Platelet Volume 9.4 fL (7.4-10.4); Platelet Count 291 K/uL (130-400); RDW Coefficient of Variation 17.3 % (11.5-14.5); RDW Standard Deviation 60.1 fL (36.4-46.3); Red Blood Count 3.11 M/uL (4.7-6.1)
[2021-11-07 09:02] LABS: BUN Creatinine Ratio 13.6 (10-20); Calcium 8.7 mg/dl (8.5-10.1); Creatinine Clr Calc Pharmacy 65.5 ml/min; Est GFR (African American) 56.7 ml/min; Est GFR (Non-African American) 48.9 ml/min; Potassium 3.9 mmol/L (3.5-5.1)
[2021-11-07 09:07] LABS: Ferritin 346.7 ng/ml (8-388)
--- NOTE | 2021-11-07 10:37 | Electrocardiogram Report ---
Test Reason : Blood Pressure : / mmHG Vent. Rate : 081 BPM Atrial Rate : 081 BPM P-R Int : 144 ms QRS Dur : 088 ms QT Int : 390 ms P-R-T Axes : 049 008 202 degrees QTc Int : 453 ms Sinus rhythm with marked sinus arrhythmia Abnormal ECG When compared with ECG of 06-NOV-2021 07:38, Premature atrial complexes are no longer Present Confirmed by Lee Castañeda ([id number]) on 11/07/2021 10:37:25 AM Referred By: REFERRED SELF Confirmed By:Lee Castañeda
[2021-11-07] MEDS ORDERED: FUROSEMIDE 40 MG/4 ML VIAL IV ONE (16:00)
[2021-11-07] MEDS ORDERED: hydrOXYzine HCl 25 MG TAB PO PRN (18:38)
[2021-11-07] MEDS: buPROPion HCl 100 MG TABLET PO SCH (20:23)
[2021-11-07] MEDS: ATORVASTATIN 40 MG TAB PO SCH (20:24)
[2021-11-08] MEDS: LEVOTHYROXINE SODIUM 112 MCG TABLET PO SCH (05:55)
--- NOTE | 2021-11-08 07:20 | Hospitalist Progress Note ---
Date of Service November 07, 2021 Assessment & Plan (1) Acute on chronic systolic heart failure: Plan: cont diuresis. still not euvolemic. give additional lasix this afternoon. repeat labs in am. cont BB. previous echo - 09/2021 - EF 50%, apical WMA. was only taking lasix 20mg at home - will need 40mg or higher at d/c. (2) Duodenal ulcer: Plan: on EGD 10/[address] Bunch. cont PPI BID. had mild stomach upset last night - now resolved, no recurrence - monitor. H/H stable. (3) Chronic obstructive pulmonary disease: Plan: no flare at this time stable in RA (4) Urinary retention: Plan: s/p hernández insertion 11/05/21 cont flomax cont finasteride (5) H/O right inguinal hernia repair: Plan: 10/14/21 - Dr Dudley full recovery from such (6) Hypertension: Plan: controlled (7) Past myocardial infarction: Plan: 2000s s/p stents x 2 cont statin, asa, BB, (8) Hypothyroidism: Plan: TSH 5 but previous TSHs wnl no change to synthroid (9) CKD (chronic kidney disease) stage 3, GFR 30-59 ml/min: Plan: CrCl 50-60 bmp in am due to diuresis (10) Morbid obesity with BMI of 50.0-59.9, adult: Plan: BMI 51 (11) Ischemic cardiomyopathy: Plan: previous [place] (12) Coronary artery disease: Plan: as above Plan: encouraged him to remain hospitalized for ongoing diuresis Admission and Anticipated Discharge Date Admission Date: November 05, 2021 Subjective patient sitting in chair requesting to go home if he doesn't go home he wants a different recliner his breathing is improved still w/ edema of legs can't tell me his baseline dry weight irritated with being in the hospital tele stable overnight Review of Systems Review of Systems: gen - no fever, eating well cv - no cp pulm - no no cough GI - epigastric pain last night - fleeting, did not recur, no emesis Physical Exam Physical Exam: gen - morbidly obese, NAD neck - no obvious JVD due to neck size mouth - MMM heart - RRR, s1 s2 lungs - b/l basilar rales abd - probable abd wall edema, BS+, NT ext - 2+ edema b/l, pulses 2+ b/l - severe scrotal edema, hernández in place Results & Data Results & Data ([facility]) Vital Signs (Past 12 Hours) Vital Signs Temp Pulse Pulse Pulse Resp BP Pulse Ox 11/08/21 07:17 63 11/08/21 07:14 36.7 C 71 20 105/68 94 11/08/21 03:29 36.7 C 74 17 115/73 92 11/07/21 23:09 36.8 C 74 19 123/83 95 11/07/21 19:20 36.5 C 77 15 118/77 97 Laboratory Results Laboratory Results - last 24 hr 11/07/21 11/07/21 08:15 08:15 WBC 6.40 RBC 3.11 L Hgb 9.5 L Hct 30.4 L MCV 97.7 MCH 30.5 MCHC 31.3 L RDW Std Deviation 60.1 H RDW Coeff of Emilee 17.3 H Plt Count 291 MPV 9.4 Sodium 135 L Potassium 3.9 Chloride 99 Carbon Dioxide 28 Anion Gap 8.0 BUN 20 H Creatinine 1.49 H Est Cr Clr Drug Dosing 65.5 Est GFR ( Amer) 56.7 Est GFR (Non-Af Amer) 48.9 BUN/Creatinine Ratio 13.6 Glucose 157 H Calcium 8.7 Iron 57 Transferrin 242 Transferrin % Sat 17 L Ferritin 346.7 PG Care Time/CCT Total # of Minutes Spent Total Time Spent with Patient: Total time spent is greater than 50% in coordination of care (as documented) at patient's floor/unit and/or counseling patient: Coding Level of Care Code 51958 Subseq Hosp Care Lvl 2 Diagnoses Acute on chronic systolic heart failure I50.23 Duodenal ulcer K26.9 Chronic obstructive pulmonary disease J44.9 Urinary retention R33.9 H/O right inguinal hernia repair Z98.890; Z87.19 Hypertension I10 Past myocardial infarction I25.2 Hypothyroidism E03.9 CKD (chronic kidney disease) stage 3, GFR 30-59 ml/min N18.30 Morbid obesity with BMI of 50.0-59.9, adult E66.01; Z68.43 Ischemic cardiomyopathy I25.5 Coronary artery disease I25.10
[2021-11-08] MEDS: ASPIRIN 81 MG ECTAB PO SCH (08:36)
[2021-11-08] MEDS: CHOLECALCIFEROL 1,000 UNITS 25 MCG TAB PO SCH (08:37)
[2021-11-08] MEDS: METOPROLOL SUCC 50MG EXT REL TAB PO SCH (08:38)
[2021-11-08] MEDS: FERROUS SULFATE 325 MG TAB PO SCH (08:38)
[2021-11-08] MEDS: THIAMINE HCL 100 MG TAB PO SCH (08:38)
[2021-11-08] MEDS: TAMSULOSIN HCL 0.4 MG CAP PO SCH (08:39)
[2021-11-08] MEDS: CYANOCOBALAMIN 500 MCG TABLET (VITAMIN B-12) PO SCH (08:39)
[2021-11-08] MEDS: FINASTERIDE 5 MG TAB PO SCH (08:39)
[2021-11-08] MEDS: PANTOprazole 40 MG TAB PO SCH (08:39)
[2021-11-08] MEDS: FOLIC ACID 400 MCG TAB PO SCH (08:40)
[2021-11-08] MEDS: FUROSEMIDE 40 MG/4 ML VIAL IV SCH (08:44)
[2021-11-08 08:48] LABS: BUN Creatinine Ratio 15.2 (10-20); Creatinine Clr Calc Pharmacy 67.7 ml/min; Est GFR (African American) 58.6 ml/min; Est GFR (Non-African American) 50.5 ml/min; Potassium 3.9 mmol/L (3.5-5.1)
--- NOTE | 2021-11-08 14:08 | Discharge Summary ---
Date of Service date of admission - November 05, 2021 date of discharge - November 08, 2021 Admission HPI Per Admitting Provider This is a 66-year-old male who recently underwent surgical repair of incarcerated hernia by Dr. Dudley. Following patient's hernia repair he required readmission to the hospital secondary to rhabdomyolysis. He was treated with IV fluid resuscitation was able to be discharged home. The patient was subsequently readmitted with hemorrhagic shock secondary to a GI bleed. He underwent an EGD on 10/25/2021 and was found to have bleeding duodenal ulcer. It was recommended the patient be maintained on a proton pump inhibitor and NSAIDs be avoided for 2 weeks. Patient was discharged home and he was doing reasonably well. Patient was seen in the general surgery clinic today in follow-up for his recent hernia surgery where he was noted to be hypotensive with a blood pressure in the 70s on multiple checks. Patient did have some lightheadedness and some nausea. Because of this he was sent to the emergency department for further evaluation. Today in the emergency department the patient had labs and imaging which I independently reviewed. His white blood cell count is normal. His hemoglobin and hematocrit were 9.3 and 27.9. These values were stable from previous levels. His platelet count is known to be within normal range. His coagulation studies are normal. Sodium was noted to be 132 with a normal potassium. His BUN and creatinine were 19 and 1.5. Lactic acid level was noted to be 2.4. Patient was noted to have an elevated BNP at 5424 which was elevated when compared to previous values. He was also noted to have an elevated troponin at 0.368 which was actually decreased from previous values from September of this year at which time his troponin peaked at 1.4. Patient was noted to have an elevated TSH at 5.0 with a normal free T4 level. He was checked for Covid, influenza, and RSV all of which were negative. Patient did have an EKG that did show findings concerning for inferior lateral ischemia. When I visited with the patient in the emergency department the patient notes that he is somewhat short of breath but he notes that this is a chronic condition due to his underlying COPD. He does not feel that this is worse. He specifically any chest pain in the last 24 to 48 hours. Patient does note that when he was in the general surgery office that he did feel somewhat fatigued with some lightheadedness. He says he has not had any falls or head injuries. He denies any fevers, shakes, chills. He denies any nausea or vomiting. The patient notes that he did take his hypertensive medications today. He notes that due to his recent GI bleed he has not resumed his aspirin or Plavix. At the time of my interview the patient was resting comfortably in bed and he was in no distress. He did note his symptomatology had improved somewhat since arrival to the emergency department. Principal Diagnosis acute/chronic systolic CHF Discharge Exam gen - morbidly obese, NAD neck - no obvious JVD due to neck size mouth - MMM heart - RRR, s1 s2 lungs - b/l basilar rales - marked improvement from prior exams abd - soft, NT, ND, BS+ ext - 1+ edema b/l, pulses 2+ b/l - mod-severe scrotal edema, hernández in place Discharge Data Allergies Allergy/AdvReac Type Severity Reaction Status Date / Time tuberculin, purified protein Allergy Mild SWELLING Verified 11/12/21 14:40 deriva AT SITE guaifenesin [From Mucinex] AdvReac Intermediate felt like Verified 11/12/21 14:40 was on fire pseudoephedrine AdvReac Mild ELECTRIC Verified 11/12/21 14:40 [From Sudafed] CURRENTS THRU BODY simvastatin AdvReac Mild MYALGIA Verified 11/12/21 14:40 Procedures Performed 2-step oxygen test - passed, lowest O2 sats 90% in room air with walking Ordered Studies Chest X-Ray 11/05/21 11:22 XR chest 1V portable HISTORY: Weakness. Shortness of breath. COMPARISON: Chest 10/15/2021. FINDINGS: The heart remains enlarged. No pneumothorax. No pleural effusions. There is mild central pulmonary vascular congestion without overt edema. This has slightly progressed in the interval. No focal lung consolidations to suggest pneumonia. Degenerative changes noted within the shoulders. IMPRESSION: Cardiomegaly with mild central pulmonary vascular congestion. This has slightly progressed in the interval. ACT 112: Negative or not required by law. Electronically signed by: Cornelius Mendez M.D. 11/05/2021 11:52 AM Abdomen/Pelvis CT 11/05/21 11:23 CT abd pelvis IV con only CLINICAL HISTORY: swelling, postop, sob TECHNIQUE: Helical axial images of the abdomen and pelvis were obtained and displayed. Automated dose lowering techniques and/or adjustment according to patient size were utilized for this exam. This exam was performed with intravenous contrast. COMPARISON: Comparison is made to CT abdomen pelvis 10/24/2021 and 02/07/2019 FINDINGS: Lower chest: For findings above the diaphragm, please see CT chest performed same day. Liver: Unremarkable. No focal lesions are seen. Gallbladder and biliary tree: Cholelithiasis is seen without evidence of cholecystitis. No intra- or extrahepatic biliary ductal dilation. Pancreas: Unremarkable, no focal lesions. Spleen: Unremarkable. Adrenals: Unremarkable. Kidneys and ureters: Incidentally noted is low position of the right kidney. Bladder: Unremarkable. Reproductive organs: Unremarkable. Bowel: Unremarkable appearance of the bowel. The appendix is normal. Lymph nodes Retroperitoneal: Unremarkable. Mesenteric: Unremarkable. Pelvic: Unremarkable. Peritoneum: Fat stranding is seen most prominent in the right lower quadrant. Vessels: Unremarkable. Abdominal wall: Patient is status post hernia repair. Bones: Degenerative changes in the visualized spine. IMPRESSION: 1. Patient is status post hernia repair. There is increased fat stranding in the lower abdomen, right greater than left compared to prior exam. Clinical correlation for infection is recommended. 2. No acute abnormality. In particular no evidence of pancreatitis. ACT 112: Negative or not required by law. Electronically signed by: Rush Salas M.D. 11/05/2021 1:07 PM Chest CTA 11/05/21 11:23 CT angio chest PE protocol CLINICAL HISTORY: PE, post op, swelling, sob TECHNIQUE: Multidetector row helical CT of the chest was performed. Coronal and sagittal reformations were obtained. Automated dose lowering techniques and/or adjustment according to patient size were utilized for this exam. Comparison: None available at the time of this dictation. FINDINGS: Lungs and pleura: Trace atelectasis is seen bilaterally. Heart and pericardium: There is cardiomegaly without evidence of pericardial effusion. Reflux of contrast is seen into the inferior vena cava. Vessels: No evidence of pulmonary embolism. Mediastinum and tab: Unremarkable. Chest wall and lower neck: Unremarkable. Abdomen: Unremarkable. Bones: Unremarkable. IMPRESSION: 1. No evidence of pulmonary embolism. 2. Cardiomegaly and heart failure. ACT 112: Negative or not required by law. Electronically signed by: Rush Salas M.D. 11/05/2021 1:01 PM Hospital Course (1) Acute on chronic systolic heart failure: Presented with evidence of volume overload. Presenting weight was about 139 kg. Discharge weight was 132 kg following diuresis. Previous echo - 09/2021 - EF 50%, apical WMA. At discharge was advised to take 40mg for 2 days, then resume 20mg daily thereafter. It is possible he may need 40mg daily moving forward but defer that to cardiology. He has scheduled f/u with Dr Momin, [facility], within a week of discharge. He will continue with metoprolol xl as previous. He was given CHF instructions, and advised to adhere to low salt diet and to flu id restrict at home. Of note - BRANDAN was held due to low-normal BPs. Can revisit the resumption of his BRANDAN as an outpatient. (2) Duodenal ulcer: Diagnosed on EGD 10/25/[address] Bunch. cont PPI BID. had mild stomach upset on one occasion during the stay - now resolved, did not recur. H/H remained stable during the visit. Discharge Hb 9.5 (3) Chronic obstructive pulmonary disease: no flare during the visit remained stable in room air while here O2 sats in room air with walking were normal (passed 2-step) (4) Urinary retention: s/p hernández insertion 11/05/21. Inadvertently his hernández was removed on day of discharge but he was able to spontaneously void. cont flomax cont finasteride (5) H/O right inguinal hernia repair: 10/14/21 - Dr Rodrigo Dudley Has had full recovery from such (6) Hypertension: controlled during the hospitalization (7) Past myocardial infarction: 2000s s/p stents x 2 cont statin, asa, BB (8) Hypothyroidism: TSH 5 but previous TSHs wnl I did not make any change to his synthroid during this visit recommend a repeat TSH in 4-6 weeks as outpatient (9) CKD (chronic kidney disease) stage 3, GFR 30-59 ml/min: CrCl 50-60 at baseline Discharge creatinine = 1.4 (10) Morbid obesity with BMI of 50.0-59.9, adult: BMI 50-51 (11) Ischemic cardiomyopathy: 2nd to previous [place] EF low-normal ~50% (12) Coronary artery disease: no ischemia or ACS while here Total Time Total Time Spent Total Time Spent (In Minutes): 40 Discharge Plan Discharge Items Patient Disposition: Home - Self-Care Reason For Visit: Nausea, lightheadedness Discharge Diagnosis: Fluid retention from Congestive Heart Failure Activity: Resume your previous activity Non-emergency contact: Primary Care Provider, [employer] and Urologist Call non-emergency contact if: you have any medication questions, your symptoms worsen and you have a fever Follow-up/Referrals: [facility] [Provider Group] (see [facility] within 1 week for hernández catheter management) Agapito Johns Jr, MD, [facility] [Physician] - (within [address] Johns - or one of his partners at the Cardiology office) Elaine Sofia MD [Primary Care Provider] - (1-2 weeks) Diet: Heart Healthy Fluids: 1800ml (7 cups) Addtl Attending Provider Instructions: Mr Noel, You were treated for congestive heart failure over your stay. This led to water retention in the lungs and your legs. The water retention improved with IV lasix and you lost a fair amount of weight. Your weight today is about 291 pounds. Please do the following - 1. On Friday 11/09 and Saturday 11/10 take a total of 40mg of your lasix (furosemide) each morning. 2. On Sunday 11/11 resume your lasix (furosemide) 20mg each morning thereafter. 3. weight yourself EVERY MORNING on the same scale. Write your weights down in a notebook to keep track. 4. limit total salt intake to no more than 2000mg in 24 hours. 5. limit total fluid intake to no more than 1800cc in 24 hours. 6. please HOLD your plavix (clopidogrel) until you see Dr Johns. OK to resume your aspirin. 7. your hernández catheter was removed, and after its removal it appears you were voiding adequately. The bladder scan showed you had emptied your bladder nicely. Regardless, please see [facility] in about 1 week for recheck of this recent problem. Additionally, if you get home and notice you are voiding every 1-2 hours (small amounts), feel like you are not emptying the bladder, have lower abdominal fullness/discomfort, etc - you will need to be rechecked to ensure the hernández catheter doesn't need to go back in. Your family doctor, [facility], or the ER can address this if the problem happens again. 8. please STOP your lisinopril for now. Follow-up - see separate section Return to [facility] if - * you have fevers over 100 degrees * you have chest pain * you have worsening shortness of breath * you have to use your nitroglycerin tablets * you have concerns regarding your urine * any other issues or concerns It was our pleasure to care for you! Dr Jarod Hinds [employer] Provider Instructions: Call 911 and go to the Emergency Room if: * You have tightness or pain in your chest that does not go away with rest or Nitroglycerin * You are very short of breath even with rest Call your doctor if any of the following symptoms or problems start or get worse: * Shortness of breath or difficulty breathing * Wake up at night short of breath * Chest pain * Cough * Swelling of your hands, fee, or legs * More fatigued or tired with your normal activity * Palpitations - sudden fast heart beats WEIGHT * Weigh yourself every morning after using the bathroom. * Use the same scale. * Wear the same amount of clothing. * Write your weight down on your chart. * Call your doctor if you gain more than 2-3 pounds in 1-2 days. This is usually a sign of water/fluid retention. Your discharge weight was 291 pounds. MEDICATIONS * Use this discharge instruction sheet for instructions. * Take your medications at the time your doctor ordered. * Do not skip a dose of your medicines. * If you miss a dose of medicine, take as soon as possible, but DO NOT DOUBLE A DOSE. * Read your medicine information when you get home. * Know all of the side effects of your medicine. * Call your doctor's office if you have any side effects. * Be sure all of your doctors know what medicine and herbs you take (including cold, flu, and herbal medicine). * Pain Medicine: If you do not get relief from your pain, please call your doctor for help. Take the following with you to your follow-up doctor appointments: * Weight Chart * Medication List * List of questions Do not drink excessive alcohol, beer or wine. Pending Studies at Discharge: No Stand-Alone Forms: My [facility] [employer], Smoking Cessation Medications and DC Order Prescriptions: Continued metoprolol succinate 50 mg tablet extended release 24 hr 50 mg PO QAM Qty: 90 RF: 3 nitroglycerin 0.4 mg tablet, sublingual 0.4 mg Sublingual .Q5 mins PRN (Reason: chest pain) Qty: 25 RF: 3 levothyroxine 112 mcg tablet 112 mcg PO QAM Qty: 30 RF: 2 atorvastatin [Lipitor] 80 mg tablet 80 mg PO PM Qty: 90 RF: 3 cholecalciferol (vitamin D3) 50 mcg (2,000 unit) capsule 50 mcg PO QAM RF: 0 finasteride 5 mg tablet 5 mg PO QAM RF: 0 tamsulosin [Flomax] 0.4 mg capsule 0.4 mg PO QAM RF: 0 Anoro Ellipta 62.5-25 mcg/actuation blister with device 1 inh inhalation QAM PRN (Reason: Shortness Of Breath) RF: 0 thiamine HCl (vitamin B1) 100 mg Tablet 100 mg PO QAM RF: 0 omega 9-xkb-cec-fish oil [Fish Oil] 1,000 mg (120 mg-180 mg) Capsule 1 cap PO QAM RF: 0 docusate sodium [Stool Softener] 100 mg Tablet 100 mg PO DAILY PRN (Reason: Constipation) RF: 0 vitamin Z77-bkexc acid 500-400 mcg Tablet 1 tab PO QAM RF: 0 polyethylene glycol 3350 [Miralax] 17 gram Powder In Packet 17 g PO DAILY PRN (Reason: constipation) Qty: 14 RF: 0 ferrous sulfate 325 mg (65 mg iron) Tablet,Delayed Release (Dr/Ec) 325 mg PO BID Qty: 60 RF: 0 pantoprazole [Protonix] 40 mg tablet,delayed release (DR/EC) 40 mg PO BID Qty: 60 RF: 0 aspirin 81 mg Tablet,Delayed Release (Dr/Ec) 81 mg PO QAM RF: 0 potassium chloride [Klor-Con M20] 20 mEq tablet,ER particles/crystals 20 meq PO QAM RF: 0 furosemide 20 mg tablet 20 mg PO QAM RF: 0 Discontinued lisinopril 5 mg tablet 5 mg PO QAM RF: 0 ciprofloxacin HCl [Cipro] 250 mg tablet 250 mg PO BID Qty: 10 RF: 0 clopidogrel 75 mg tablet 75 mg PO QAM RF: 0 No Action bupropion HCl 100 mg tablet 200 mg PO HS RF: 0 Discharge Orders: Discharge Order (Routine); Ordered 12/12/21 Ordered By: Elliott Olivera Admission Data Admit Date/Time: 11/05/21 13:35 Attending Provider: Elliott Olivera Admit Provider: Elliott Zaman Primary Care Provider: Elaine Sofia V. Other Providers: Elliott Zaman Other Interventions: Discharge Summary Assessment (RN) Last Done: 11/08/21 14:02 Coding Level of Care Code D/C DAY MANAGEMENT >30 MINS Diagnoses Acute on chronic systolic heart failure I50.23 Duodenal ulcer K26.9 Chronic obstructive pulmonary disease J44.9 Urinary retention R33.9 H/O right inguinal hernia repair Z98.890; Z87.19 Hypertension I10 Past myocardial infarction I25.2 Hypothyroidism E03.9 CKD (chronic kidney disease) stage 3, GFR 30-59 ml/min N18.30 Morbid obesity with BMI of 50.0-59.9, adult E66.01; Z68.43 Ischemic cardiomyopathy I25.5 Coronary artery disease I25.10
== END 2021-11-08 16:18 | disposition home or self-care (01) | DRG 291 ==
LOC: ED 11:02 → EDINP 13:35 → SUATTDRO 13:35 → 2S 20:48
DX: Z20.822 Contact with and (suspected) exposure to COVID-19; E66.01 Morbid (severe) obesity due to excess calories; Z88.8 Allergy status to other drugs, medicaments and biological substances; Z79.899 Other long term (current) drug therapy; R60.0 Localized edema; I95.9 Hypotension, unspecified; N18.30 Chronic kidney disease, stage 3 unspecified; I25.5 Ischemic cardiomyopathy; I25.2 Old myocardial infarction; I13.0 Hypertensive heart and chronic kidney disease with heart failure and stage 1 through stage 4 chronic kidney disease, or unspecified chronic kidney disease; Z79.82 Long term (current) use of aspirin; Z96.0 Presence of urogenital implants; R33.9 Retention of urine, unspecified; Z68.43 Body mass index [BMI] 50.0-59.9, adult; Z79.890 Hormone replacement therapy; I50.23 Acute on chronic systolic (congestive) heart failure; J44.9 Chronic obstructive pulmonary disease, unspecified; Z87.19 Personal history of other diseases of the digestive system; Z88.7 Allergy status to serum and vaccine; E03.9 Hypothyroidism, unspecified; I25.10 Atherosclerotic heart disease of native coronary artery without angina pectoris; Z87.891 Personal history of nicotine dependence; Z79.02 Long term (current) use of antithrombotics/antiplatelets; K26.9 Duodenal ulcer, unspecified as acute or chronic, without hemorrhage or perforation; Z98.890 Other specified postprocedural states; R77.8 Other specified abnormalities of plasma proteins

== ENCOUNTER 2021-11-16 15:51 | Inpatient (IN) ==
[2021-11-16] MEDS: METOPROLOL TARTRATE 1 MG/ML VIAL IV PRN ×2 (16:43→16:55)
[2021-11-16 17:12] LABS: Basophils # (auto) 0.03 K/uL (0-0.2); Basophils % (auto) 0.5 %; Eosinophils # (auto) 0.06 K/uL (0-0.5); Immature Granulocytes # (auto) 0.01 K/uL (0.00-0.02); Immature Granulocytes % (auto) 0.2 %; Lymphocytes # (auto) 1.19 K/uL (1.2-3.4); Lymphocytes % (auto) 20.6 %; Mean Corpuscular Hemoglobin 30.8 pg (25-34); Mean Corpuscular Hgb Conc 31.4 g/dL (32-36); Monocytes % (auto) 5.2 %; Neutrophils % (auto) 72.5 %; Nucleated RBC # (auto) 0.05 K/uL (0-0); Nucleated RBC % (auto) 0.9 %; Platelet Count 250 K/uL (130-400); RDW Coefficient of Variation 17.8 % (11.5-14.5); RDW Standard Deviation 63.5 fL (36.4-46.3); Red Blood Count 3.57 M/uL (4.7-6.1); White Blood Count 5.79 K/uL (4.8-10.8)
--- NOTE | 2021-11-16 17:24 | XRay Report ---
XR chest 1V portable CLINICAL HISTORY: palpitations. COMPARISON STUDY: 11/05/2021 TECHNIQUE: 1 view of the chest FINDINGS: Single frontal view of the chest demonstrates the heart to again be enlarged. The lungs are clear of alveolar opacities. There is no evidence for pleural effusion. There is no evidence for vascular corinne estion. There is no acute osseous pathology. IMPRESSION: No acute cardiopulmonary disease. There is again cardiomegaly. ACT 112: Negative or not required by law. Electronically signed by: Farhad Driscoll M.D. 11/16/2021 5:23 PM
[2021-11-16 17:28] LABS: Albumin Level 3.2 gm/dl (3.4-5.0); BUN Creatinine Ratio 15.6 (10-20); Calcium 8.9 mg/dl (8.5-10.1); Creatinine Clr Calc Pharmacy 69.8 ml/min; Est GFR (Non-African American) 56.1 ml/min
[2021-11-16] MEDS ORDERED: DIGOXIN 500 MCG/2 ML AMP IV ONE (17:42)
[2021-11-16 17:51] LABS: Albumin Globulin Ratio 0.9 (0.9-2); Bilirubin,Total 0.6 mg/dl (0.2-1); Globulin 3.6 gm/dl (2.5-4.0); Thyroid Stimulating Hormone 3.43 uIu/ml (0.300-4.500); Total Protein 6.8 gm/dl (6.4-8.2); Troponin I 0.064 ng/ml (0-0.045)
[2021-11-16] MEDS ORDERED: DIGOXIN 250 MCG in SYRINGE 9 ML IV ONE (18:00)
--- NOTE | 2021-11-16 18:31 | History & Physical Report ---
Date of Service November 16, 2021 Assessment & Plan (1) Atrial flutter with rapid ventricular response: Plan: New onset - suspect started today but difficult to be sure. No significant change with x2 metoprolol 5mg IV. Per cardiology recommendation started on digoxin 250mcg IV Q6H. HR appears to be persistently elevated therefore started on Diltiazem IV drip Prior history of GI bleed in setting of NSAID use, will start cautiously on heparin standard drip but without a bolus (2) Congestive heart failure: Plan: Mild pulmonary edema. Appears improved from 11/05 admission for CHF. Leg edema. Start Lasix 40mg IV. Will defer daily dose as suspect this is mainly as a result of urinary retention and rate related rather than LVEF. Monitor response with I&Os and daily weights. Fluid restrict 1500ml, Low sodium diet (3) Left-sided chest pain: Plan: Low suspicion of ACS. Reproducible on exam. Suspect combination of rate related ischemia and MSK pain. (4) Elevated troponin: Plan: Trend to assess for ACS - suspect will mildly increase in setting of continued e levated rates. (5) Acute urinary retention: Plan: Recommend leaving hernández catheter in and following up with urology on this occasion (6) Testicular swelling: Plan: Suspected from CHF Elevate Monitor for improvement, consider US if no significant improvement with diuresis (7) Hypothyroidism: Plan: TSH 3.43 Continue levothyroxine 112 mcg PO daily (8) Coronary artery disease: Plan: s/p bare metal stents placed in 2008 Continue aspirin, metoprolol succinate, atorvastatin Plan: VTE Prophylaxis - IV heaprin as above Diet - Low Na, heart healthy, fluid restrict 1500ml Disposition - admit to PCU Admission and Anticipated Discharge Date Admission Date: November 16, 2021 History of Present Illness Chief Complaint: Tachycardia Primary Care Provider: Elaine Sofia MD Froy Noel is a 66 year old male who presents to the ER on the advice of his PCP due to tachycardia, chest pain and presyncope on exertion. He reports his symptoms started acute onset today around 3pm just before and after his appointment. He denies significant pain but describes a left sided chest pressure that started around 5pm which is reproducible on palpation without radiation. He reports taking all his medications today but did take his moring medications later than usual around noon today. He has a recent complicated medical history starting with laparoscopic converted to open right inguinal hernia repair with mesh on October 14. He reports prolonged surgical time. He was discharged but readmitted the following day from October 15 - 2020 with rhabdomyolysis, urinary retention and SOFÍA. Unfortunately he was readmitted from October 242020 due to upper GI bleed suspected due to NSAID use, aspirin and plavix with a hemoglobin drop to 7.3. He received a total of 4 units packed RBCs this admission. He was again readmitted from November 05 - 2020 due to CHF exacerbation suspect secondary to urinary retention and recent IV fluids and blood products given. Unfortunately the patient requested the hernández catheter be removed on discharge despite recurrent urinary retention. He was able to pass urine but has been passing urine frequently and of low volume since. He denies any dysuria, CVA tenderness, fever or chills. He has a longstanding history of coronary artery disease with care metal stents placed in LAD and left circumflex in 2008. In the ER his HR has been consistently 150 with EKG concerning for atrial flutter with RVR. He was given metoprolol 5mg IV x2 with minimal response. On discussion with cardiology he was started on digoxin 250 mcg IV. HR remains 120- 150 when seen. Allergies Allergy/AdvReac Type Severity Reaction Status Date / Time tuberculin, purified protein Allergy Mild SWELLING Verified 11/16/21 11:26 deriva AT SITE guaifenesin [From Mucinex] AdvReac Intermediate felt like Verified 11/16/21 11:26 was on fire pseudoephedrine AdvReac Mild ELECTRIC Verified 11/16/21 11:26 [From Sudafed] CURRENTS THRU BODY simvastatin AdvReac Mild MYALGIA Verified 11/16/21 11:26 Home Medications Medication Instructions Recorded Confirmed Type metoprolol succinate 50 mg 50 mg PO QAM #90 tab 02/20/21 11/16/21 Rx tablet,extended release 24 hr nitroglycerin 0.4 mg sublingual 0.4 mg SUBLINGUAL .Q5 mins PRN #25 05/22/21 11/16/21 Rx tablet tab cholecalciferol (vitamin D3) 50 50 mcg PO QAM 07/13/21 11/16/21 History mcg (2,000 unit) capsule docusate sodium 100 mg tablet 100 mg PO DAILY PRN 10/06/21 11/16/21 History (Stool Softener) finasteride 5 mg tablet 5 mg PO QAM 10/06/21 11/16/21 History omega 9-uxi-yvz-fish oil 1,000 mg 1 cap PO QAM 10/06/21 11/16/21 History (120 mg-180 mg) capsule (Fish Oil) tamsulosin 0.4 mg capsule (Flomax) 0.4 mg PO QAM 10/06/21 11/16/21 History thiamine HCl (vitamin B1) 100 mg 100 mg PO QAM 10/06/21 11/16/21 History tablet umeclidinium 62.5 mcg-vilanterol 1 inh INHALATION QAM PRN 10/06/21 11/16/21 History 25 mcg/actuation powdr for inhalation (Anoro Ellipta) vitamin B12 500 mcg-folic acid 400 1 tab PO QAM 10/15/21 11/16/21 History mcg tablet polyethylene glycol 3350 17 gram 17 g PO DAILY PRN #14 ea 10/18/21 11/16/21 Rx oral powder packet (Miralax) ferrous sulfate 325 mg (65 mg 325 mg PO BID #60 tab 10/27/21 11/16/21 Rx iron) tablet,delayed release pantoprazole 40 mg tablet,delayed 40 mg PO BID #60 tab 10/27/21 11/16/21 Rx release (Protonix) atorvastatin 80 mg tablet (Lipitor) 80 mg PO PM #90 tab 11/02/21 11/16/21 Rx levothyroxine 112 mcg tablet 112 mcg PO QAM #30 tab 11/02/21 11/16/21 Rx aspirin 81 mg tablet,delayed 81 mg PO QAM 11/05/21 11/16/21 History release furosemide 20 mg tablet 20 mg PO QAM 11/05/21 11/16/21 History potassium chloride 20 mEq 20 meq PO QAM 11/05/21 11/16/21 History tablet,extended release(part/cryst) (Klor-Con M) bupropion HCl 100 mg tablet 200 mg PO HS tab 11/12/21 11/16/21 History Past Med/Surg History Medical History (Updated 11/16/21 @ 23:12 by Elliott Zaman MD) Acute blood loss anemia Acute GI bleeding Acute pancreatitis Acute renal insufficiency Arthralgia of multiple sites Cardiac murmur none noted on last cardio office visit 06/2021 Carpal tunnel syndrome Congestive heart failure follows with [facility], stable per last office note Coronary artery disease h/o [facility] and s/p 2 bare metal stents-LAD and Cx in 2008, follows with [facility]; last visit 06/2021 and stable per note Dyspnea on exertion increased over past 16 months per pt with gradual 50 lb weight gain with reduced activity d/t COVID 19 Elevated alkaline phosphatase level Hypertension controlled, stable per pt Hypothyroidism Hypothyroidism Indigestion Infarction of spleen under observation Morbid obesity with BMI of 45.0-49.9, adult Past myocardial infarction Pituitary hypogonadism follows with PCP Pre-diabetes Rhabdomyolysis Right hydrocele Signs and symptoms involving cognition Pt reports chronic mild memory dysfunction Snoring reports sleep study 4 yrs ago negative for sleep apnea, occ witnessed apneas per Surgical History (Updated 11/12/21 @ 18:21 by Paul Nicholson MD) History of cardiac cath bare metal stent placement x 2 to LAD and Cx in 2008 History of colonoscopy Family History Brother Hx of CABG Myocardial infarction Mother Myocardial infarction Other Coronary heart disease Lung disease Denies family history of Ovarian cancer Prostate cancer Breast cancer Colorectal cancer Social History Smoking Status: Never smoker Tobacco Type: Cigarettes Second Hand Exposure: No; Do You Dip or Chew Tobacco: Yes; Hx Alcohol Use: No Hx Substance Use: No Preferred Language: Dominican Communication Ability: Effective Visual Impairment: No Limitations Hearing Ability: Normal Ovens Supervisor Required: No Beliefs That Will Affect Care: None marital status: Current Living Situation: Spouse current occupational status: other current occupation: HAS NOT WORKED PAST 1.5 YRS How many Children do You have: 2 Other Information That Helps Us Care for You: No Feels Safe at Home: Yes Safety Concerns: Feels Safe At This Time Childhood Exposure to Second-Hand Smoke: No during the past year weight has: increased > 10 lbs Seatbelt Use: always Assistive Devices: None Review of Systems Review of Systems: All systems reviewed & are unremarkable except as noted in HPI & below Physical Exam Constitutional: well developed and + acute distress (shortness of breath); + not well nourished Eyes: + anicteric sclerae; normal pupil size ENMT: external ear and nose normal, oropharynx normal Neck: trachea midline, no thyromegaly Respiratory: + retractions, + uses accessory muscles and + prolonged expiratory phase Auscultation: + diminished lung sounds (bibasal); no crackles, no rales, no rhonchi and no wheezes Cardiovascular: Rate/Rhythm: regular rhythm and + tachycardic Heart Sounds: no murmur Extremities: normal capillary refill and + pedal edema (2+ to thighs b/l equal); no calf tenderness Gastrointestinal (Abdomen): Inspection/Auscultation: normal bowel sounds Percussion/Palpation: abdomen soft; abdomen nontender, no guarding and abdomen not rigid Skin: no rashes, warm and dry Neurologic: moves all extremities and awake; not confused Psychiatric: A+Ox3, euthymic affect Genitourinary: + testicular swelling (b/l); no CVA tenderness Results & Data Results & Data ([facility]) Vital Signs (Past 12 Hours) Vital Signs Temp Pulse Pulse Resp BP BP Pulse Ox 11/16/21 18:09 148 H 11/16/21 18:07 149 H 18 119/77 98 11/16/21 16:55 149 H 106/67 11/16/21 16:52 149 H 20 131/87 98 11/16/21 16:43 151 H 131/87 11/16/21 16:00 37.0 C 150 H 20 144/104 H 98 Laboratory Results Abnormal lab results 11/16/21 11/16/21 Range/Units 17:00 17:00 RBC 3.57 L (4.7-6.1) M/uL Hgb 11.0 L (14.0-18.0) g/dL Hct 35.0 L (42-52) % MCHC 31.4 L (32-36) g/dL RDW Std Deviation 63.5 H (36.4-46.3) fL RDW Coeff of Emilee 17.8 H (11.5-14.5) % Lymph # (Auto) 1.19 L (1.2-3.4) K/uL Absolute Nucleated RBC 0.05 H (0-0) K/uL BUN 21 H (7-18) mg/dl Glucose 122 H (70-99) mg/dl Troponin I 0.064 H* (0-0.045) ng/ml NT-Pro-B Natriuret Pep 3930 H (0-900) pg/ml Albumin 3.2 L (3.4-5.0) gm/dl Diagnostic Findings XR chest 1V portable CLINICAL HISTORY: palpitations. COMPARISON STUDY: 11/05/2021 TECHNIQUE: 1 view of the chest FINDINGS: Single frontal view of the chest demonstrates the heart to again be enlarged. The lungs are clear of alveolar opacities. There is no evidence for pleural effusion. There is no evidence for vascular congestion. There is no acute osseous pathology. IMPRESSION: No acute cardiopulmonary disease. There is again cardiomegaly. Medications Administered ER Medications Given: Metoprolol 5mg IV x2 Digoxin 250 mcg IV ECG Rate (beats per minute): 151 Rhythm: atrial flutter Findings: + nonspecific-ST abn (Inferolateral) Comparison ECG Date: from (November 07, 2021) Change: the following changes noted (Atrial flutter replaced NSR) Code Status & VTE Plan Code Status Full VTE Prophylaxis Plan VTE Prophylaxis will be ordered: Yes PG Care Time/CCT Total # of Minutes Spent Total Time Spent with Patient: Total time spent is greater than 50% in coordination of care (as documented) at patient's floor/unit and/or counseling patient: Coding Level of Care Code 56182 Initial Inpt Care Lvl 3 Diagnoses Testicular swelling N50.89 Atrial flutter with rapid ventricular response I48.92 Hypothyroidism E03.9 Congestive heart failure I50.9 Coronary artery disease I25.10 Acute urinary retention R33.8 Elevated troponin R77.8 Left-sided chest pain R07.9
[2021-11-16] MEDS ORDERED: POLYETHYLENE (MIRALAX) 17 GM PACK PO PRN (19:56)
[2021-11-16] MEDS ORDERED: ACETAMINOPHEN 325 MG TAB PO PRN (19:56)
[2021-11-16] MEDS ORDERED: ONDANSETRON INJ 2 MG/ML 2 ML VIAL IV PRN (19:56)
[2021-11-16] MEDS ORDERED: UMECLIDINIUM/VILANTEROL 62.5/25MCG 7 PUFFS/INHALER INH PRN (19:56)
[2021-11-16] MEDS ORDERED: DOCUSATE SODIUM 100 MG CAP PO PRN (19:56)
[2021-11-16] MEDS ORDERED: FUROSEMIDE 40 MG/4 ML VIAL IV STA (20:07)
--- NOTE | 2021-11-16 21:27 | Emergency Department Note ---
Impression & Plan Atrial flutter with rapid ventricular response, Acute urinary retention, Elevated troponin ED Provider Note INFORMANT: Patient ED PROVIDER(S): Can Smart MD CHIEF COMPLAINT: Tachycardia PLAN: Disposition: Admitted Condition: Guarded Outpatient prescription management: none Referral: None MEDICAL DECISION MAKING: Patient presented to the emergency department because of tachycardia and urinary retention. He had a Roberto catheter placed by myself and nursing due to his retracted glans. This went well. He drained about 400 mL of urine. He was still tachycardic. ECG was performed and he was found to have 2-1 A-flutter. He was given 2 doses of IV metoprolol and was still very tachycardic at 147 bpm. The patient's CBC and chemistry panel are unremarkable. The patient's BNP is mildly elevated as is his troponin. The patient was not started on anticoagulation given his recent significant GI bleed. I did consult with Dr. Castañeda of cardiology who reviewed the patient's information and ECGs. He agreed with the A-flutter 2-1. He recommended starting IV digoxin. First dose of 250 mcg IV given. I did discuss this with pharmacy. Patient will need further management in the hospital. Consultation was made with Dr. Zaman. Patient was evaluated in the admitted. Triage Nursing notes reviewed and agree them. Vital Signs: reviewed and remarkable for no significant abnormalities Differential diagnosis: Acute urinary retention, CHF, premature contractions, electrolyte abnormality, cardiac dysrhythmia, thyroid dysfunction, pulmonary embolism, infection, gastrointestinal, as well as other pathologies.m Diagnostics interpreted by me: ECG: Twelve-lead ECG #1 reveals atrial flutter with a 2-1 block at 151 bpm. LVH. Septal Q waves present. Inferolateral ST and T wave abnormality present. When compared to 11/07/2021 the heart rate is increased by 70 bpm and a flutter has replaced sinus rhythm. Twelve-lead ECG #2 reveals atrial flutter with a 2-1 block at 147 bpm. Septal Q waves and inferolateral ST segment changes present similar to ECG #1. Cardiac Monitoring: Cardiac monitoring ordered by me: The patient was placed on continuous cardiac monitoring and observed. It revealed atrial flutter at 149 beats per minute without ectopy or evidence of dysrhythmia. Imaging studies: Chest x-ray shows mild pulmonary edema. HPI: The patient is a 66year old male who presents to the Emergency Room with complaints of tachycardia. This started today and is persisting. Patient states that he is also having issues with urinary retention. He had a Roberto catheter after hernia surgery. The catheter was removed. He notes difficulty urinating today. He does note significant scrotal swelling which has been a developing problem for him. He feels like he may be retaining fluid. The patient also notes the following associated symptoms, lower abdominal discomfort. The patient has taken no medication for relieving factors. Current pain is rated as 4/10. Patient was at his PCPs office today. He was told that his heart rate was 135 and then he was sent home. He felt worse at home and then he called EMS. EMS noted his heart rate was in the 150 range. Pt denies LOC, headache, fevers, chills, diaphoresis, visual changes, neck pain, chest pain, breathing difficulties, nausea, vomiting, back pain, melena, hematochezia, numbness, weakness, lymphadenopathy, rash, or other complaints. ROS: See above HPI for pertinent positives & negatives. A total of 10 systems reviewed and were otherwise negative. PAST MEDICAL HISTORY:See Below , CHF, urinary retention PAST SURGICAL HISTORY:See Below, hernia surgery FAMILY HISTORY:See Below SOCIAL HISTORY:See Below, denies alcohol HOME MEDICATIONS:See Below ALLERGIES:See Below VITALS:See Below PHYSICAL EXAMINATION: GENERAL: Awake, alert, uncomfortable-appearing, in no distress HENT: Normocephalic, atraumatic. Oropharynx unremarkable. EYES: Normal conjunctiva. Sclera non-icteric. NECK: Inspection normal. Non-tender. Supple. No nuchal rigidity. FROM. No masses. RESPIRATORY: Clear to auscultation. No wheezes. No rales. Normal respiratory effort. CARDIAC: Tachycardic rate. Normal rhythm. No murmurs. No rubs. Extremities warm and well perfused. Pulses equal. No JVD. GI: Soft, non-distended. No tenderness to palpation. No rebound or guarding. No masses. RECTAL: Deferred. : Moderate scrotal edema present. The glans and shaft of penis is retracted within the suprapubic adipose tissue. MUSCULOSKELETAL: Atraumatic. Chest examination reveals no tenderness. The back is symmetrical on inspection without obvious abnormality. There is no CVA tenderness to palpation. No joint edema. LOWER EXTREMITIES: Calves are equal size bilaterally and non-tender. No edema. No discoloration. NEURO: Normal sensorium. No sensory or motor deficits noted. SKIN: No rash or jaundice noted. CRITICAL CARE: I have personally spent greater than 40 minutes of critical care time in the direct management of this patient. This includes bedside care, interpretation of diagnostic studies, and testing, discussion with consultants, patient, and other required patient management activities. These minutes are in excess of all separately billable procedures. Can Smart MD Past Med/Surg History Medical History (Updated 11/16/21 @ 21:27 by Can Smart MD) Acute blood loss anemia Acute GI bleeding Acute pancreatitis Acute renal insufficiency Arthralgia of multiple sites Cardiac murmur none noted on last cardio office visit 06/2021 Carpal tunnel syndrome Congestive heart failure follows with [facility], stable per last office note Coronary artery disease h/o [place] and s/p 2 bare metal stents-LAD and Cx in 2008, follows with [facility]; last visit 06/2021 and stable per note Dyspnea on exertion increased over past 16 months per pt with gradual 50 lb weight gain with reduced activity d/t COVID 19 Elevated alkaline phosphatase level Hypertension controlled, stable per pt Hypothyroidism Hypothyroidism Indigestion Infarction of spleen under observation Morbid obesity with BMI of 45.0-49.9, adult Past myocardial infarction Pituitary hypogonadism follows with PCP Pre-diabetes Rhabdomyolysis Right hydrocele Signs and symptoms involving cognition Pt reports chronic mild memory dysfunction Snoring reports sleep study 4 yrs ago negative for sleep apnea, occ witnessed apneas per Surgical History (Updated 11/12/21 @ 18:21 by Paul Nicholson MD) History of cardiac cath bare metal stent placement x 2 to LAD and Cx in 2008 History of colonoscopy Family History Brother Hx of CABG Myocardial infarction Mother Myocardial infarction Other Coronary heart disease Lung disease Denies family history of Ovarian cancer Prostate cancer Breast cancer Colorectal cancer Social History Smoking Status: Never smoker Tobacco Type: Cigarettes Second Hand Exposure: No; Do You Dip or Chew Tobacco: Yes; Hx Alcohol Use: No Hx Substance Use: No Preferred Language: Nigerien Communication Ability: Effective Visual Impairment: No Limitations Hearing Ability: Normal Shading Painter Required: No Beliefs That Will Affect Care: None marital status: Current Living Situation: Spouse current occupational status: other current occupation: HAS NOT WORKED PAST 1.5 YRS How many Children do You have: 2 Other Information That Helps Us Care for You: No Feels Safe at Home: Yes Safety Concerns: Feels Safe At This Time Childhood Exposure to Second-Hand Smoke: No during the past year weight has: increased > 10 lbs Seatbelt Use: always Assistive Devices: None Allergies Allergies Allergy/AdvReac Type Severity Reaction Status Date / Time tuberculin, purified protein Allergy Mild SWELLING Verified 11/16/21 11:26 deriva AT SITE guaifenesin [From Mucinex] AdvReac Intermediate felt like Verified 11/16/21 11:26 was on fire pseudoephedrine AdvReac Mild ELECTRIC Verified 11/16/21 11:26 [From Sudafed] CURRENTS THRU BODY simvastatin AdvReac Mild MYALGIA Verified 11/16/21 11:26 Home Meds Home Medications Medication Instructions Recorded Confirmed cholecalciferol (vitamin D3) 50 50 mcg PO QAM 07/13/21 11/16/21 mcg (2,000 unit) capsule docusate sodium 100 mg tablet 100 mg PO DAILY PRN 10/06/21 11/16/21 (Stool Softener) finasteride 5 mg tablet 5 mg PO QAM 10/06/21 11/16/21 omega 6-hiz-bch-fish oil 1,000 mg 1 cap PO QAM 10/06/21 11/16/21 (120 mg-180 mg) capsule (Fish Oil) tamsulosin 0.4 mg capsule (Flomax) 0.4 mg PO QAM 10/06/21 11/16/21 thiamine HCl (vitamin B1) 100 mg 100 mg PO QAM 10/06/21 11/16/21 tablet umeclidinium 62.5 mcg-vilanterol 1 inh INHALATION QAM PRN 10/06/21 11/16/21 25 mcg/actuation powdr for inhalation (Anoro Ellipta) vitamin B12 500 mcg-folic acid 400 1 tab PO QAM 10/15/21 11/16/21 mcg tablet aspirin 81 mg tablet,delayed 81 mg PO QAM 11/05/21 11/16/21 release furosemide 20 mg tablet 20 mg PO QAM 11/05/21 11/16/21 potassium chloride 20 mEq 20 meq PO QAM 11/05/21 11/16/21 tablet,extended release(part/cryst) (Klor-Con M) bupropion HCl 100 mg tablet 200 mg PO HS tab 11/12/21 11/16/21 Previous Rx's Medication Instructions Recorded metoprolol succinate 50 mg 50 mg PO QAM #90 tab 02/20/21 tablet,extended release 24 hr nitroglycerin 0.4 mg sublingual 0.4 mg SUBLINGUAL .Q5 mins PRN #25 05/22/21 tablet tab polyethylene glycol 3350 17 gram 17 g PO DAILY PRN #14 ea 10/18/21 oral powder packet (Miralax) ferrous sulfate 325 mg (65 mg 325 mg PO BID #60 tab 10/27/21 iron) tablet,delayed release pantoprazole 40 mg tablet,delayed 40 mg PO BID #60 tab 10/27/21 release (Protonix) atorvastatin 80 mg tablet (Lipitor) 80 mg PO PM #90 tab 11/02/21 levothyroxine 112 mcg tablet 112 mcg PO QAM #30 tab 11/02/21 Results & Data (ED) Vital Signs Vital Signs - 24 hr 11/16/21 16:00 11/16/21 16:18 11/16/21 16:43 Temperature 37.0 C Temperature Source Oral Pulse Rate 150 H 151 H Pulse Rate [Apical] Pulse Rhythm [Apical] Respiratory Rate 20 Respiratory Effort / Characteristics Non-Labored Short of Breath Respiratory Depth Normal Normal Respiratory Pattern Regular Blood Pressure 144/104 H 131/87 Blood Pressure [Left Arm] Blood Pressure Mean 117 Blood Pressure Mean [Left Arm] Pulse Oximetry 98 Oxygen Delivery Method Room Air Room Air Sepsis Recent Fever Within 48 Hours No Sepsis New/Unexplained Change in Mental Status No No Sepsis Action Taken by Nursing No Action Required No Action Required 11/16/21 16:52 11/16/21 16:55 11/16/21 18:07 Temperature Temperature Source Pulse Rate 149 H Pulse Rate [Apical] 149 H 149 H Pulse Rhythm [Apical] Regular Respiratory Rate 20 18 Respiratory Effort / Characteristics Short of Breath Non-Labored Respiratory Depth Normal Normal Respiratory Pattern Blood Pressure 106/67 Blood Pressure [Left Arm] 131/87 119/77 Blood Pressure Mean Blood Pressure Mean [Left Arm] 101 91 Pulse Oximetry 98 98 Oxygen Delivery Method Room Air Room Air Sepsis Recent Fever Within 48 Hours Sepsis New/Unexplained Change in Mental Status Sepsis Action Taken by Nursing 11/16/21 18:09 Temperature Temperature Source Pulse Rate 148 H Pulse Rate [Apical] Pulse Rhythm [Apical] Respiratory Rate Respiratory Effort / Characteristics Respiratory Depth Respiratory Pattern Blood Pressure Blood Pressure [Left Arm] Blood Pressure Mean Blood Pressure Mean [Left Arm] Pulse Oximetry Oxygen Delivery Method Sepsis Recent Fever Within 48 Hours Sepsis New/Unexplained Change in Mental Status Sepsis Action Taken by Nursing Laboratory Data Result diagrams: 11/16/21 17:00 11/16/21 17:00 Lab Results 11/16/21 11/16/21 11/16/21 Range/Units 17:00 17:00 17:00 WBC 5.79 (4.8-10.8) K/uL RBC 3.57 L (4.7-6.1) M/uL Hgb 11.0 L (14.0-18.0) g/dL Hct 35.0 L (42-52) % MCV 98.0 (80-100) fL MCH 30.8 (25-34) pg MCHC 31.4 L (32-36) g/dL RDW Std Deviation 63.5 H (36.4-46.3) fL RDW Coeff of Emilee 17.8 H (11.5-14.5) % Plt Count 250 (130-400) K/uL MPV 9.0 (7.4-10.4) fL Immature Gran % (Auto) 0.2 % Neut % (Auto) 72.5 % Lymph % (Auto) 20.6 % [place] % (Auto) 5.2 % Eos % (Auto) 1.0 % Baso % (Auto) 0.5 % Neut # (Auto) 4.20 (1.4-6.5) K/uL Lymph # (Auto) 1.19 L (1.2-3.4) K/uL [place] # (Auto) 0.30 (0.11-0.59) K/uL Eos # (Auto) 0.06 (0-0.5) K/uL Baso # (Auto) 0.03 (0-0.2) K/uL Immature Gran # (Auto) 0.01 (0.00-0.02) K/uL Absolute Nucleated RBC 0.05 H (0-0) K/uL Nucleated RBC % (auto) 0.9 % Sodium 138 (136-145) mmol/L Potassium 4.0 (3.5-5.1) mmol/L Chloride 104 (98-107) mmol/L Carbon Dioxide 28 (21-32) mmol/L Anion Gap 6.0 (3-11) BUN 21 H (7-18) mg/dl Creatinine 1.33 (0.6-1.4) mg/dl Est Cr Clr Drug Dosing 69.8 ml/min Est GFR ( Amer) 65.0 ml/min Est GFR (Non-Af Amer) 56.1 ml/min BUN/Creatinine Ratio 15.6 (10-20) Glucose 122 H (70-99) mg/dl Calcium 8.9 (8.5-10.1) mg/dl Magnesium 2.0 (1.8-2.4) mg/dl Total Bilirubin 0.6 (0.2-1) mg/dl AST 19 (15-37) U/L ALT 31 (12-78) Alkaline Phosphatase 104 (45-117) U/L Troponin I 0.064 H* (0-0.045) ng/ml NT-Pro-B Natriuret Pep 3930 H (0-900) pg/ml Total Protein 6.8 (6.4-8.2) gm/dl Albumin 3.2 L (3.4-5.0) gm/dl Globulin 3.6 (2.5-4.0) gm/dl Albumin/Globulin Ratio 0.9 (0.9-2) TSH 3.430 (0.300-4.500) uIu/ml SARS-CoV-2, RNA, NAAT (NEGATIVE) Blood Type O Positive Antibody Screen NEGATIVE 11/16/21 Range/Units 18:05 WBC (4.8-10.8) K/uL RBC (4.7-6.1) M/uL Hgb (14.0-18.0) g/dL Hct (42-52) % MCV (80-100) fL MCH (25-34) pg MCHC (32-36) g/dL RDW Std Deviation (36.4-46.3) fL RDW Coeff of Emilee (11.5-14.5) % Plt Count (130-400) K/uL MPV (7.4-10.4) fL Immature Gran % (Auto) % Neut % (Auto) % Lymph % (Auto) % [place] % (Auto) % Eos % (Auto) % Baso % (Auto) % Neut # (Auto) (1.4-6.5) K/uL Lymph # (Auto) (1.2-3.4) K/uL [place] # (Auto) (0.11-0.59) K/uL Eos # (Auto) (0-0.5) K/uL Baso # (Auto) (0-0.2) K/uL Immature Gran # (Auto) (0.00-0.02) K/uL Absolute Nucleated RBC (0-0) K/uL Nucleated RBC % (auto) % Sodium (136-145) mmol/L Potassium (3.5-5.1) mmol/L Chloride (98-107) mmol/L Carbon Dioxide (21-32) mmol/L Anion Gap (3-11) BUN (7-18) mg/dl Creatinine (0.6-1.4) mg/dl Est Cr Clr Drug Dosing ml/min Est GFR ( Amer) ml/min Est GFR (Non-Af Amer) ml/min BUN/Creatinine Ratio (10-20) Glucose (70-99) mg/dl Calcium (8.5-10.1) mg/dl Magnesium (1.8-2.4) mg/dl Total Bilirubin (0.2-1) mg/dl AST (15-37) U/L ALT (12-78) Alkaline Phosphatase (45-117) U/L Troponin I (0-0.045) ng/ml NT-Pro-B Natriuret Pep (0-900) pg/ml Total Protein (6.4-8.2) gm/dl Albumin (3.4-5.0) gm/dl Globulin (2.5-4.0) gm/dl Albumin/Globulin Ratio (0.9-2) TSH (0.300-4.500) uIu/ml SARS-CoV-2, RNA, NAAT NEGATIVE (NEGATIVE) Blood Type Antibody Screen Administered Medications Discontinued Medications Furosemide (Furosemide 40 Mg/4 Ml Vial) 40 mg IV ONE STA Stop: 11/16/21 20:08 Last Admin: 11/16/21 20:49 Dose: 40 mg Documented by: [id number] Digoxin 250 mcg/ Syringe 10 mls @ 2 mls/min IV ONE ONE Stop: 11/16/21 18:04 Last Admin: 11/16/21 18:09 Dose: 2 mls/min Documented by: [id number] Metoprolol Tartrate (Metoprolol Tartrate 1 Mg/Ml Vial) 5 mg IV Q5M PRN PRN Reason: Tachycardia Stop: 12/16/21 16:33 Last Admin: 11/16/21 16:55 Dose: 5 mg Documented by: [id number] Admin: 11/16/21 16:43 Dose: 5 mg Documented by: [id number] Imaging Data Radiologist's Impression: Chest X-Ray 11/16/21 16:36 XR chest 1V portable CLINICAL HISTORY: palpitations. COMPARISON STUDY: 11/05/2021 TECHNIQUE: 1 view of the chest FINDINGS: Single frontal view of the chest demonstrates the heart to again be enlarged. The lungs are clear of alveolar opacities. There is no evidence for pleural effusion. There is no evidence for vascular congestion. There is no acute osseous pathology. IMPRESSION: No acute cardiopulmonary disease. There is again cardiomegaly. ACT 112: Negative or not required by law. Electronically signed by: Farhad Driscoll M.D. 11/16/2021 5:23 PM Discharge Plan Visit Data Chief Complaint: Cardiac Assessment Stated Complaint: fast heart rate ED Provider: Can Smart Discharge Problem: Atrial flutter with rapid ventricular response, Acute urinary retention, Elevated troponin Discharge Instructions Interventions: ED Discharge Assessment Last Done: 11/16/21 20:05
[2021-11-16] MEDS: ATORVASTATIN 40 MG TAB PO SCH (21:47)
[2021-11-16] MEDS: buPROPion HCl 100 MG TABLET PO SCH (21:48)
[2021-11-16] MEDS: FERROUS SULFATE 325 MG TAB PO SCH (21:49)
[2021-11-16] MEDS: PANTOprazole 40 MG TAB PO SCH (21:50)
[2021-11-16] MEDS ORDERED: METOPROLOL TARTRATE 1 MG/ML VIAL IV STA (22:24)
[2021-11-16] MEDS ORDERED: Heparin IV Adult Wt-Based Standard *NO* Bolus Protocol IV ONE (22:25)
[2021-11-16] MEDS ORDERED: SODIUM CHLORIDE 0.9% 1000ML 500 ML IV ONE (22:27)
[2021-11-16] MEDS ORDERED: dilTIAZem HCl 5 MG/ML 5 ML VIAL IV STA (22:43)
[2021-11-16] MEDS ORDERED: STAT IV Infusion **Titration per Protocol STA (22:43)
[2021-11-16] MEDS ORDERED: dilTIAZem HCL 125 MG in DEXTROSE 5% 100 ML IV SCH (22:45)
[2021-11-16 23:21] LABS: Partial Thromboplastin Ratio 0.9; Partial Thromboplastin Time 23.7 Seconds (21.0-31.0)
[2021-11-16] MEDS: HEPARIN SODIUM/DEXTROSE 25,000 UNITS/500 ML BAG IV SCH (23:26)
[2021-11-16 23:45] LABS: INR 1.1 (0.9-1.1); Prothrombin Time 10.7 Seconds (9.0-12.0)
[2021-11-16 23:57] LABS: D Dimer 2000 ug/L FEU (0-500)
[2021-11-16] MEDS ORDERED: METOPROLOL TARTRATE 1 MG/ML VIAL IV PRN (23:57)
[2021-11-17] MEDS ORDERED: DIGOXIN 500 MCG/2 ML AMP IV SCH
[2021-11-17] MEDS ORDERED: OPTIRAY 320 125ml IV ONE (00:34)
[2021-11-17] MEDS: ZOLPIDEM TARTRATE 5 MG TAB PO PRN ×2 (00:45→20:27)
[2021-11-17] MEDS: DIGOXIN 250 MCG in SYRINGE 9 ML IV SCH ×3 (01:26→11:39)
[2021-11-17 05:45] LABS: Basophils # (auto) 0.03 K/uL (0-0.2); Basophils % (auto) 0.5 %; Eosinophils # (auto) 0.11 K/uL (0-0.5); Eosinophils % (auto) 1.8 %; Hematocrit (blood only) 37.3 % (42-52); Hemoglobin 11.8 g/dL (14.0-18.0); Lymphocytes # (auto) 1.53 K/uL (1.2-3.4); Lymphocytes % (auto) 24.8 %; Mean Corpuscular Hemoglobin 31.1 pg (25-34); Mean Corpuscular Hgb Conc 31.6 g/dL (32-36); Mean Corpuscular Volume 98.4 fL (80-100); Mean Platelet Volume 9.2 fL (7.4-10.4); Monocytes # (auto) 0.45 K/uL (0.11-0.59); Monocytes % (auto) 7.3 %; Neutrophils # (auto) 4.06 K/uL (1.4-6.5); Neutrophils % (auto) 65.6 %; Platelet Count 262 K/uL (130-400); RDW Coefficient of Variation 18.1 % (11.5-14.5); RDW Standard Deviation 64.5 fL (36.4-46.3); Red Blood Count 3.79 M/uL (4.7-6.1); White Blood Count 6.18 K/uL (4.8-10.8)
[2021-11-17] MEDS: LEVOTHYROXINE SODIUM 112 MCG TABLET PO SCH (05:49)
[2021-11-17 05:53] LABS: Partial Thromboplastin Ratio 1.6; Partial Thromboplastin Time 42.1 Seconds (21.0-31.0)
[2021-11-17 06:35] LABS: BUN Creatinine Ratio 13.1 (10-20); Calcium 9.2 mg/dl (8.5-10.1); Creatinine Clr Calc Pharmacy 65.3 ml/min; Est GFR (African American) 59.1 ml/min; Potassium 3.7 mmol/L (3.5-5.1)
[2021-11-17 06:44] LABS: Troponin I 0.226 ng/ml (0-0.045)
--- NOTE | 2021-11-17 07:17 | CT Scan Report ---
CT angio chest PE protocol CLINICAL HISTORY: PE TECHNIQUE: Multidetector row helical CT of the chest was performed. Coronal and sagittal reformations were obtained. Coronal and sagittal MIPS were obtained from the axial data set and were submitted fo r review. Automated dose lowering techniques and/or adjustment according to patient size were utiliz ed for this exam. Comparison: None available at the time of this dictation. FINDINGS: Lungs and pleura: Prominent pleural fat seen on the right. Heart and pericardium: There is cardiomegaly without evidence of pericardial effusion. Reflux of cont rast into the inferior vena cava is seen. Vessels: Evaluation for subsegmental pulmonary embolism is limited by patient motion. No central, lob ar, or segmental embolism is seen. Mediastinum and tab: Unremarkable. Chest wall and lower neck: Unremarkable. Abdomen: Diastases of the abdominal musculature seen. Bones: Degenerative changes in the thoracic spine. IMPRESSION: 1. No evidence of pulmonary embolism. Evaluation for subsegmental embolism is limited by patient mot ion. 2. Cardiomegaly with reflux of contrast into the inferior vena cava which can be seen in heart failu re. ACT 112: Negative or not required by law. Electronically signed by: Rush Salas M.D. 11/17/2021 7:16 AM
[2021-11-17] MEDS: FINASTERIDE 5 MG TAB PO SCH (07:59)
[2021-11-17] MEDS: FERROUS SULFATE 325 MG TAB PO SCH ×2 (07:59→20:28)
[2021-11-17] MEDS: THIAMINE HCL 100 MG TAB PO SCH (07:59)
[2021-11-17] MEDS: ASPIRIN 81 MG ECTAB PO SCH (07:59)
[2021-11-17] MEDS: POTASSIUM CHLORIDE CRTAB 20 MEQ TABCR PO SCH (07:59)
[2021-11-17] MEDS: OMEGA-3 (PURIFIED FISH OIL) 1 GM CAP PO SCH (07:59)
[2021-11-17] MEDS: FOLIC ACID 400 MCG TAB PO SCH (07:59)
[2021-11-17] MEDS: CHOLECALCIFEROL 1,000 UNITS 25 MCG TAB PO SCH (07:59)
[2021-11-17] MEDS: CYANOCOBALAMIN 500 MCG TABLET (VITAMIN B-12) PO SCH (07:59)
[2021-11-17] MEDS: PANTOprazole 40 MG TAB PO SCH ×2 (07:59→20:30)
[2021-11-17] MEDS ORDERED: NON-FORMULARY MEDICATION (Vitamin B12-Folic Acid 500-400 mcg Tablet) PO SCH (09:00)
[2021-11-17] MEDS ORDERED: METOPROLOL SUCC 50MG EXT REL TAB PO SCH (09:00)
[2021-11-17] MEDS: TAMSULOSIN HCL 0.4 MG CAP PO SCH (09:09)
--- NOTE | 2021-11-17 11:12 | Cardiology Consultation ---
Date of Consultation November 17, 2021 Assessment & Plan (1) Atrial flutter with rapid ventricular response: (2) Elevated troponin: (3) Chronic heart failure with preserved ejection fraction: (4) Coronary artery disease: (5) S/P coronary artery stent placement: (6) Dyslipidemia: (7) Hypertension: ASSESSMENT/PLAN: 1. Atrial flutter/fibrillation: Initial ECGs more consistent with atrial flutter. Not overly symptomatic. Onset may be 11/16/2021 but symptoms are vague and cannot exclude arrhythmia prior to that. Either way, he does not wish to undergo cardioversion or ORLY. He prefers conservative management. Management options were discussed with him in detail. His heart rate is currently in the 80s after receiving digoxin per on-call physician, diltiazem drip at 5 milligrams/hour, and usual metoprolol succinate 50 mg daily. Increase metoprolol succinate to 100 mg. Hold digoxin for now. Hopefully wean diltiazem drip. Anticoagulation for stroke risk reduction is indicated but has had recent significant GI bleeding. If okay from a GI standpoint, can continue antic oagulation therapy. If bleed risk is felt to be unacceptable, could consider Watchman device as an outpatient. 2. Chronic heart failure with preserved EF: Most recent LV systolic function described as low normal. He appears to be mildly hypervolemic. Would recommend Lasix 40 mg p.o. daily here and on discharge unless he becomes azotemic. Monitor and replete electrolytes as appropriate. Monitor renal function. Low- sodium diet. Consider heart failure program on discharge. Daily weights. Strict I&Os. 3. CAD s/p LAD and Cx PCI: No angina. Troponins slightly elevated likely due to prolonged tachycardia. Continue aspirin 81 mg daily. Continue high- intensity statin therapy and beta-yogi. 4. Hypertension: Blood pressure acceptable. Adjusting rate controlling medications. 5. Dyslipidemia: Continue high-intensity statin therapy. 6. Disposition: Cardiology will continue to follow. Patient care communicated with Dr. Shannon of the primary hospitalist service. Follow-up with Dr. Johns on discharge within 1 week. Thank you for allowing me to participate in the care of your patient. Please call for any other questions or concerns. Sincerely, Cory Baumann M.D. History of Present Illness Reason for Consultation: Atrial flutter Requesting Physician: Elliott Zaman Attending Physician: Seng Shannon MD History of Present Illness Mr. Noel is a 66-year-old gentleman with history significant for a CAD s/p PCI (LAD during anterior OH and Cx 1 month after in 2008), hypertension, dyslipidemia, COPD, CHF, esophageal ulcer and GI bleed (September 2021 with hemoglobin as low as 7.3 requiring prbc x 4 units), ischemic cardiomyopathy. His primary physician/ophthalmologist is Dr. Johns. He has been hospitalized several times since September 2021. He underwent bilateral inguinal hernia repair on 10/14/[address] Dudley. He was then hospitalized on 10/15/2021 with rhabdomyolysis and acute kidney injury. He was discharged on 10/18/2021, but readmitted on 10/24/2021 with GI bleed presenting as melena. He underwent EGD on 10/25/2021 demonstrated nonbleeding duodenal ulcer. It was recommended that he take Protonix 40 mg b.i.d. indefinitely and avoid all NSAIDs with a repeat EGD in 3 months. He underwent transfusion of PRBC x4 before discharged on 10/27/2021. He was also felt to have acute pancreatitis. He was again admitted on 11/05/2021 with acute on chronic systolic CHF per records. He was discharged on 11/08/2021 following diuresis. He then followed up with his primary physician/ophthalmologist, Dr. Johns, on 11/12/2021 before admitted on 11/16/2021 with atrial flutter with rapid ventricular response. He states that he felt fine when he woke up on 11/16/2021 but at some point during the day felt tired. He felt uncomfortable in his chest at some point but could not really describe the feeling other than that it was different than his prior OH. He denies any palpitations. He is not really sure when symptoms developed. When checking his blood pressure at home, it was noted that his heart rate was elevated. While here, he has been receiving intravenous digoxin 250 mcg q.6 hours x3 doses thus far. He also was placed on a diltiazem drip currently running at 5 milligrams/hour. With this, his heart rate has improved from 150s down to the low 100s. He is now asymptomatic. He has been placed on a heparin drip by the primary hospitalist service. He states that his legs were swollen and he was advised by Dr. Johns to increase Lasix from 20 mg daily to 40 mg daily for 2 days over the weekend, which did improve his edema. He denies shortness of breath, syncope, near-syncope, palpitations, or recurrent melena/hematochezia since documented bleed in the past month. He denies a history of stroke or TIA. He does not recall any history of AFib or a flutter. He made it clear that he does not want to live past the age of 72. Review of systems: As above. Review of systems otherwise negative/unr emarkable. Family history: Brother had OH at the age of 27. Social history: He had smoked 3 packs per day for approximately 20 years but quit 1989. Denies alcohol or drug abuse. Lives at home with his . Has 2 children, a son and daughter. 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 He was unaccompanied in his hospital room. Allergies Allergy/AdvReac Type Severity Reaction Status Date / Time tuberculin, purified protein Allergy Mild SWELLING Verified 11/16/21 11:26 deriva AT SITE guaifenesin [From Mucinex] AdvReac Intermediate felt like Verified 11/16/21 11:26 was on fire pseudoephedrine AdvReac Mild ELECTRIC Verified 11/16/21 11:26 [From Sudafed] CURRENTS THRU BODY simvastatin AdvReac Mild MYALGIA Verified 11/16/21 11:26 Home Medications Medication Instructions Recorded Confirmed Type metoprolol succinate 50 mg 50 mg PO QAM #90 tab 02/20/21 11/16/21 Rx tablet,extended release 24 hr nitroglycerin 0.4 mg sublingual 0.4 mg SUBLINGUAL .Q5 mins PRN #25 05/22/21 11/16/21 Rx tablet tab cholecalciferol (vitamin D3) 50 50 mcg PO QAM 07/13/21 11/16/21 History mcg (2,000 unit) capsule docusate sodium 100 mg tablet 100 mg PO DAILY PRN 10/06/21 11/16/21 History (Stool Softener) finasteride 5 mg tablet 5 mg PO QAM 10/06/21 11/16/21 History omega 6-llc-aua-fish oil 1,000 mg 1 cap PO QAM 10/06/21 11/16/21 History (120 mg-180 mg) capsule (Fish Oil) tamsulosin 0.4 mg capsule (Flomax) 0.4 mg PO QAM 10/06/21 11/16/21 History thiamine HCl (vitamin B1) 100 mg 100 mg PO QAM 10/06/21 11/16/21 History tablet umeclidinium 62.5 mcg-vilanterol 1 inh INHALATION QAM PRN 10/06/21 11/16/21 History 25 mcg/actuation powdr for inhalation (Anoro Ellipta) vitamin B12 500 mcg-folic acid 400 1 tab PO QAM 10/15/21 11/16/21 History mcg tablet polyethylene glycol 3350 17 gram 17 g PO DAILY PRN #14 ea 10/18/21 11/16/21 Rx oral powder packet (Miralax) ferrous sulfate 325 mg (65 mg 325 mg PO BID #60 tab 10/27/21 11/16/21 Rx iron) tablet,delayed release pantoprazole 40 mg tablet,delayed 40 mg PO BID #60 tab 10/27/21 11/16/21 Rx release (Protonix) atorvastatin 80 mg tablet (Lipitor) 80 mg PO PM #90 tab 11/02/21 11/16/21 Rx levothyroxine 112 mcg tablet 112 mcg PO QAM #30 tab 11/02/21 11/16/21 Rx aspirin 81 mg tablet,delayed 81 mg PO QAM 11/05/21 11/16/21 History release furosemide 20 mg tablet 20 mg PO QAM 11/05/21 11/16/21 History potassium chloride 20 mEq 20 meq PO QAM 11/05/21 11/16/21 History tablet,extended release(part/cryst) (Klor-Con M) bupropion HCl 100 mg tablet 200 mg PO HS tab 11/12/21 11/16/21 History Patient History Medical History (Updated 11/17/21 @ 13:18 by Isidro Baumann MD) Acute blood loss anemia Acute GI bleeding Acute pancreatitis Acute renal insufficiency Arthralgia of multiple sites Carpal tunnel syndrome Congestive heart failure Coronary artery disease h/o OH and s/p 2 bare metal stents-LAD and Cx in 2008, follows with [facility] Elevated alkaline phosphatase level Hypertension Hypothyroidism Hypothyroidism Indigestion Infarction of spleen under observation Morbid obesity with BMI of 45.0-49.9, adult Past myocardial infarction Pituitary hypogonadism follows with PCP Pre-diabetes Rhabdomyolysis Right hydrocele Signs and symptoms involving cognition Pt reports chronic mild memory dysfunction Snoring reports sleep study 4 yrs ago negative for sleep apnea, occ witnessed apneas per Surgical History (Updated 11/17/21 @ 13:18 by Isidro Baumann MD) History of cardiac cath bare metal stent placement x 2 to LAD and Cx in 2009 History of colonoscopy S/P coronary artery stent placement Family History Brother Hx of CABG Myocardial infarction Mother Myocardial infarction Other Coronary heart disease Lung disease Denies family history of Ovarian cancer Prostate cancer Breast cancer Colorectal cancer Social History Smoking Status: Never smoker Tobacco Type: Cigarettes Second Hand Exposure: No; Do You Dip or Chew Tobacco: Yes; Hx Alcohol Use: No Hx Substance Use: No Preferred Language: Hungarian Communication Ability: Effective Visual Impairment: No Limitations Hearing Ability: Normal Liturgical Music Director Required: No Beliefs That Will Affect Care: None marital status: Current Living Situation: Spouse current occupational status: other current occupation: HAS NOT WORKED PAST 1.5 YRS How many Children do You have: 2 Other Information That Helps Us Care for You: No Feels Safe at Home: Yes Safety Concerns: Feels Safe At This Time Childhood Exposure to Second-Hand Smoke: No during the past year weight has: increased > 10 lbs Seatbelt Use: always Assistive Devices: None, Glasses and Walker Physical Exam Physical Exam: Gen.: No acute distress. Alert and oriented. HEENT: Anicteric sclera. Neck: No JVD. No bruits. Normal carotid upstrokes bilaterally. Cardiac: PMI was nonpalpable. No ventricular heave. Regular with intermittent irregularity. Normal S1-S2. No murmurs, rubs, or gallops. Pulmonary: Clear to auscultation bilaterally without wheezes, rales, or rhonchi. Abdomen: Soft, nontender, nondistended, with normoactive bowel sounds. No bruits noted. Extremities: 2+ radial pulses bilaterally. 2+ posterior tibialis pulses bilaterally. 1+ bilateral lower extremity edema. No cyanosis. Psychiatric: Affect appears appropriate. Results & Data ([facility]) Vital Signs (Past 12 Hours) Vital Signs Temp Pulse Pulse Resp BP BP Pulse Ox 11/17/21 07:34 101 H 11/17/21 07:10 36.5 C 96 H 19 115/75 97 11/17/21 05:48 150 H 11/17/21 02:42 36.8 C 123 H 18 109/65 96 11/17/21 01:26 120 H 11/17/21 00:00 96/46 L 11/16/21 23:23 149 H 11/16/21 23:19 149 H 118/73 11/16/21 23:18 36.6 C 149 H 18 118/73 97 Intake & Output 11/15/21 11/16/21 11/17/21 11/18/21 06:59 06:59 06:59 06:59 Intake Total 703.467 / 703.467 278.033 / 278.033 Output Total 4000 / 4000 Balance -3296.533 / -3296.533 278.033 / 278.033 Weight 295 lb 6.711 oz Laboratory Results Laboratory Results - last 24 hr 11/16/21 11/16/21 11/16/21 17:00 17:00 17:00 WBC 5.79 RBC 3.57 L Hgb 11.0 L Hct 35.0 L MCV 98.0 MCH 30.8 MCHC 31.4 L RDW Std Deviation 63.5 H RDW Coeff of Emilee 17.8 H Plt Count 250 MPV 9.0 Immature Gran % (Auto) 0.2 Neut % (Auto) 72.5 Lymph % (Auto) 20.6 Franklin % (Auto) 5.2 Eos % (Auto) 1.0 Baso % (Auto) 0.5 Neut # (Auto) 4.20 Lymph # (Auto) 1.19 L Franklin # (Auto) 0.30 Eos # (Auto) 0.06 Baso # (Auto) 0.03 Immature Gran # (Auto) 0.01 Absolute Nucleated RBC 0.05 H Nucleated RBC % (auto) 0.9 PT INR APTT PTT Ratio D-Dimer Sodium 138 Potassium 4.0 Chloride 104 Carbon Dioxide 28 Anion Gap 6.0 BUN 21 H Creatinine 1.33 Est Cr Clr Drug Dosing 69.8 Est GFR ( Amer) 65.0 Est GFR (Non-Af Amer) 56.1 BUN/Creatinine Ratio 15.6 Glucose 122 H Calcium 8.9 Magnesium 2.0 Total Bilirubin 0.6 AST 19 ALT 31 Alkaline Phosphatase 104 Troponin I 0.064 H* NT-Pro-B Natriuret Pep 3930 H Total Protein 6.8 Albumin 3.2 L Globulin 3.6 Albumin/Globulin Ratio 0.9 TSH 3.430 SARS-CoV-2, RNA, NAAT Blood Type O Positive Antibody Screen NEGATIVE 11/16/21 11/16/21 11/16/21 18:05 22:29 22:39 WBC RBC Hgb Hct MCV MCH MCHC RDW Std Deviation RDW Coeff of Emilee Plt Count MPV Immature Gran % (Auto) Neut % (Auto) Lymph % (Auto) Franklin % (Auto) Eos % (Auto) Baso % (Auto) Neut # (Auto) Lymph # (Auto) Franklin # (Auto) Eos # (Auto) Baso # (Auto) Immature Gran # (Auto) Absolute Nucleated RBC Nucleated RBC % (auto) PT 10.7 INR 1.1 APTT 23.7 PTT Ratio 0.9 D-Dimer 2000 H* Sodium Potassium Chloride Carbon Dioxide Anion Gap BUN Creatinine Est Cr Clr Drug Dosing Est GFR ( Amer) Est GFR (Non-Af Amer) BUN/Creatinine Ratio Glucose Calcium Magnesium Total Bilirubin AST ALT Alkaline Phosphatase Troponin I NT-Pro-B Natriuret Pep Total Protein Albumin Globulin Albumin/Globulin Ratio TSH SARS-CoV-2, RNA, NAAT NEGATIVE Blood Type Antibody Screen 11/17/21 11/17/21 11/17/21 05:26 05:26 05:26 WBC 6.18 RBC 3.79 L Hgb 11.8 L Hct 37.3 L MCV 98.4 MCH 31.1 MCHC 31.6 L RDW Std Deviation 64.5 H RDW Coeff of Emilee 18.1 H Plt Count 262 MPV 9.2 Immature Gran % (Auto) 0.0 Neut % (Auto) 65.6 Lymph % (Auto) 24.8 Franklin % (Auto) 7.3 Eos % (Auto) 1.8 Baso % (Auto) 0.5 Neut # (Auto) 4.06 Lymph # (Auto) 1.53 Franklin # (Auto) 0.45 Eos # (Auto) 0.11 Baso # (Auto) 0.03 Immature Gran # (Auto) 0.00 Absolute Nucleated RBC Nucleated RBC % (auto) PT INR APTT 42.1 H PTT Ratio 1.6 D-Dimer Sodium 136 Potassium 3.7 Chloride 100 Carbon Dioxide 28 Anion Gap 8.0 BUN 19 H Creatinine 1.44 H Est Cr Clr Drug Dosing 65.3 Est GFR ( Amer) 59.1 Est GFR (Non-Af Amer) 51.0 BUN/Creatinine Ratio 13.1 Glucose 134 H Calcium 9.2 Magnesium Total Bilirubin AST ALT Alkaline Phosphatase Troponin I 0.226 H* NT-Pro-B Natriuret Pep Total Protein Albumin Globulin Albumin/Globulin Ratio TSH SARS-CoV-2, RNA, NAAT Blood Type Antibody Screen 11/17/21 12:30 WBC RBC Hgb Hct MCV MCH MCHC RDW Std Deviation RDW Coeff of Emilee Plt Count MPV Immature Gran % (Auto) Neut % (Auto) Lymph % (Auto) Franklin % (Auto) Eos % (Auto) Baso % (Auto) Neut # (Auto) Lymph # (Auto) Franklin # (Auto) Eos # (Auto) Baso # (Auto) Immature Gran # (Auto) Absolute Nucleated RBC Nucleated RBC % (auto) PT INR APTT 44.1 H PTT Ratio 1.7 D-Dimer Sodium Potassium Chloride Carbon Dioxide Anion Gap BUN Creatinine Est Cr Clr Drug Dosing Est GFR ( Amer) Est GFR (Non-Af Amer) BUN/Creatinine Ratio Glucose Calcium Magnesium Total Bilirubin AST ALT Alkaline Phosphatase Troponin I NT-Pro-B Natriuret Pep Total Protein Albumin Globulin Albumin/Globulin Ratio TSH SARS-CoV-2, RNA, NAAT Blood Type Antibody Screen Diagnostic Findings Telemetry personally reviewed: Atrial flutter/fibrillation with rapid ventricular response but which improved throughout hospitalization. No si gnificant pause. Echo 10/15/2021: LVEF 50-55%. Apical hypokinesis. No significant valvular abnormalities. ECGs personally reviewed: ECG 11/16/2021 at 01/17/2021: Atrial flutter 149 beats per minute. Septal infarct. Nonspecific ST/T-wave abnormality ECG 11/16/2021 at 5:13 p.m.: Atrial flutter 147 beats per minute. Septal infarct. Nonspecific ST/T-wave abnormality. ECG 11/16/2021 at 4:02 p.m.: Atrial flutter/fibrillation 151 beats per minute. Nonspecific ST/T-wave abnormality. ECG 11/17/2021 at 11:27 a.m.: Atrial fibrillation/flutter 86 beats per minute. Septal infarct. Nonspecific T-wave abnormality. CTA chest 11/16/2021: No PE. Medications Administered Current Inpatient Medications Acetaminophen (Acetaminophen 325 Mg Tab) 650 mg PO Q4H PRN PRN Reason: Pain or Fever Stop: 12/16/21 19:55 Aspirin (Aspirin 81 Mg Ectab) [facility] [place] [place]: 12/17/21 08:59 Last Admin: 11/17/21 07:59 Dose: 81 mg Documented by: Atorvastatin Calcium (Atorvastatin 40 Mg Tab) 80 mg PO PM [facility] Stop: 12/16/21 20:59 Last Admin: 11/16/21 21:47 Dose: 80 mg Documented by: Bupropion HCl (Bupropion Hcl 100 Mg Tablet) 200 mg PO HS [facility] Stop: 12/16/21 20:59 Last Admin: 11/16/21 21:48 Dose: 200 mg Documented by: Cyanocobalamin (Cyanocobalamin 500 Mcg Tablet (Vitamin B-12)) 500 mcg [facility] [place] [place]: 12/17/21 08:59 Last Admin: 11/17/21 07:59 Dose: 500 mcg Documented by: Docusate Sodium (Docusate Sodium 100 Mg Cap) 100 mg PO DAILY PRN PRN Reason: Constipation Ferrous Sulfate (Ferrous Sulfate 325 Mg Tab) 325 mg PO BID [facility] Stop: 12/16/21 20:59 Last Admin: 11/17/21 07:59 Dose: 325 mg Documented by: Finasteride (Finasteride 5 Mg Tab) 5 [facility] [place] [place]: 12/17/21 08:59 Last Admin: 11/17/21 07:59 Dose: 5 mg Documented by: Fish Oil ([place]-3 (Purified Fish Oil) 1 Gm Cap) 1 gm [facility] [place] [place]: 12/17/21 08:59 Last Admin: 11/17/21 07:59 Dose: 1 gm Documented by: Folic Acid (Folic Acid 400 Mcg Tab) 400 mcg [facility] [place] [place] Stop: 12/17/21 08:59 Last Admin: 11/17/21 07:59 Dose: 400 mcg Documented by: Heparin Sodium/Dextrose (Heparin Sodium/Dextrose) 25,000 units in 500 mls @ 36 mls/hr IV .[id number] [facility]; Protocol Stop: 12/16/21 22:44 Last Titration: 11/17/21 13:03 Dose: 1,800 units/hr, 36 mls/hr Documented by: Diltiazem HCl 125 mg/ Dextrose 125 mls @ 2.5 mls/hr IV .Q24H [facility]; Protocol Stop: 12/16/21 22:44 Last Titration: 11/17/21 13:13 Dose: 2.5 mg/hr, 2.5 mls/hr Documented by: Levothyroxine Sodium (Levothyroxine Sodium 112 Mcg Tablet) 112 mcg PO DAILYBB [facility] Stop: 12/17/21 06:29 Last Admin: 11/17/21 05:49 Dose: 112 mcg Documented by: Metoprolol Succinate (Metoprolol Succ 50mg Ext Rel Tab) 100 mg PO [facility] Stop: 12/18/21 08:59 Metoprolol Tartrate (Metoprolol Tartrate 1 Mg/Ml Vial) 5 mg IV Q4 PRN PRN Reason: HR > 120 Stop: 12/17/21 00:00 Ondansetron HCl (Ondansetron Inj 2 Mg/Ml 2 Ml Vial) 4 mg IV Q6H PRN PRN Reason: Nausea Stop: 12/16/21 19:55 Pantoprazole Sodium (Pantoprazole 40 Mg Tab) 40 mg PO BID [facility] Stop: 12/16/21 20:59 Last Admin: 11/17/21 07:59 Dose: 40 mg Documented by: Polyethylene Glycol (Polyethylene (Miralax) 17 Gm Pack) 17 gm PO DAILY PRN PRN Reason: constipation Stop: 12/16/21 19:55 Potassium Chloride (Potassium Chloride Crtab 20 Meq Tabcr) 20 meq PO [facility] Stop: 12/17/21 08:59 Last Admin: 11/17/21 07:59 Dose: 20 meq Documented by: Tamsulosin HCl (Tamsulosin Hcl 0.4 Mg Cap) 0.4 mg PO [facility] Stop: 12/17/21 08:59 Last Admin: 11/17/21 09:09 Dose: 0.4 mg Documented by: Thiamine HCl (Thiamine Hcl 100 Mg Tab) 100 mg PO [facility] Stop: 12/17/21 08:59 Last Admin: 11/17/21 07:59 Dose: 100 mg Documented by: Umeclidinium/Vilanterol (Umeclidinium/Vilanterol 62.5/25mcg 7 Puffs/Inhaler) 1 puffs INH QAM PRN PRN Reason: Shortness Of Breath Stop: 12/16/21 19:55 Vitamin D (Cholecalciferol 1,000 Units 25 Mcg Tab) 2,000 units PO QAM [facility] Stop: 12/17/21 08:59 Last Admin: 11/17/21 07:59 Dose: 2,000 units Documented by: Zolpidem Tartrate (Zolpidem Tartrate 5 Mg Tab) 5 mg PO HS PRN PRN Reason: Sleep Stop: 12/16/21 23:41 Last Admin: 11/17/21 00:45 Dose: 5 mg Documented by: PG Care Time/CCT Total # of Minutes Spent Total Time Spent with Patient: Total time spent is greater than 50% in coordination of care (as documented) at patient's floor/unit and/or counseling patient: Coding Level of Care Code 07568 Initial Inpt Care Lvl 3 Diagnoses Atrial flutter with rapid ventricular response I48.92 Elevated troponin R77.8 Chronic heart failure with preserved ejection fraction I50.32 Coronary artery disease I25.10 S/P coronary artery stent placement Z95.5 Dyslipidemia E78.5 Hypertension I10
--- NOTE | 2021-11-17 12:34 | Hospitalist Progress Note ---
Date of Service November 17, 2021 Assessment & Plan (1) Atrial flutter with rapid ventricular response: Plan: New onset - suspect started day of admission (11/16) but difficult to be sure. - Continue metoprolol XL 50 mg PO daily - Per prior notes, cardiology recommended started on digoxin 250mcg IV Q6H. - Now on diltiazem gtt at 5 mg/hr with HR ~100 bpm. - Continue heparin gtt. Given distinct etiology of PUD (increased NSAID use after surgery), I think he is acceptable risk for anticoagulation. CHADs-Vasc is 3, so anticoagulation would definitely be recommended. (2) Congestive heart failure: Plan: Acute on chronic HFpEF with pulmonary edema and peripheral edema. Appears improved from 11/05 admission for CHF. - Started Lasix 40mg IV. - Transitioned to oral by cardiology on 11/17. - Monitor response with I&Os and daily weights. - Fluid restrict 1500ml, Low sodium diet (3) Left-sided chest pain: Plan: Low suspicion of ACS. Reproducible on exam. Suspect combination of rate related ischemia and MSK pain. (4) Elevated troponin: Plan: Demand Ischemia in setting of new onset Atrial flutter with RVR. - Trend to assess for ACS -> Presently as high as 0.226, but no ischemic/thrombotic change. (5) Acute urinary retention: Plan: Recommend leaving Roberto catheter in and following up with urology on this occasion. - Continue home finasteride & tamsulosin (6) Testicular swelling: Plan: Suspected from CHF. - Elevate scrotum (7) Hypothyroidism: Plan: TSH 3.43 this admission. - Continue levothyroxine 112 mcg PO daily (8) Coronary artery disease: Plan: S/p bare metal stents placed in 2008. - Continue aspirin, metoprolol succinate, atorvastatin (9) Peptic ulcer disease with hemorrhage: Plan: Hx of peptic ulcer disease with ulcer in duodenum on EGD on 10/25/2021. In relation to increased NSAID use after hernia surgery. Hgb stable at pre-bleed levels (~11 - 12 g/dL). - Hold all NSAIDs - PPI PO BID - F/u with GI in 2 months for repeat EGD to ensure healing. Admission and Anticipated Discharge Date Admission Date: November 16, 2021 Subjective Doing better today. His leg swelling has improved today. Scrotum still moderately swollen. Reports no fevers/chills, chest pain, shortness of breath, abdominal pain, nausea, or vomiting. Physical Exam Constitutional: WD/WN, vitals as above Eyes: EOM intact bilaterally; no conjunctival abnormality ENMT: external ear and nose normal, oropharynx normal Neck: trachea midline, no thyromegaly normal visual inspection Respiratory: normal respiratory effort, lungs clear to auscultation no respiratory distress Cardiovascular: Rate/Rhythm: + tachycardic and + irregularly irregular Extremities: + edema (Mild) Gastrointestinal (Abdomen): Inspection/Auscultation: abdomen normal to inspection; abdomen not distended Musculoskeletal: no cyanosis or clubbing, extremities motor strength 5/5 Skin: no rashes, warm and dry Neurologic: moves all extremities and awake Psychiatric: Orientation: alert, oriented to person and cooperative Genitourinary: + scrotal swelling Results & Data Results & Data ([facility]) Vital Signs (Past 12 Hours) Vital Signs Temp Pulse Pulse Resp BP BP Pulse Ox 11/17/21 11:39 81 11/17/21 11:33 36.3 C L 81 20 118/72 96 11/17/21 07:34 101 H 11/17/21 07:10 36.5 C 96 H 19 115/75 97 11/17/21 05:48 150 H 11/17/21 02:42 36.8 C 123 H 18 109/65 96 11/17/21 01:26 120 H PG Care Time/CCT Total # of Minutes Spent Total Time Spent with Patient: Total time spent is greater than 50% in coordination of care (as documented) at patient's floor/unit and/or counseling patient: Coding Level of Care Code 50023 Subseq Hosp Care Lvl 3 Diagnoses Atrial flutter with rapid ventricular response I48.92 Congestive heart failure I50.9 Left-sided chest pain R07.9 Elevated troponin R77.8 Acute urinary retention R33.8 Testicular swelling N50.89 Hypothyroidism E03.9 Coronary artery disease I25.10 Peptic ulcer disease with hemorrhage K27.4
[2021-11-17] MEDS: HEPARIN SODIUM/DEXTROSE 25,000 UNITS/500 ML BAG IV SCH (12:39)
[2021-11-17 12:57] LABS: Partial Thromboplastin Ratio 1.7; Partial Thromboplastin Time 44.1 Seconds (21.0-31.0)
[2021-11-17] MEDS ORDERED: METOPROLOL SUCC 50MG EXT REL TAB PO ONE (13:00)
[2021-11-17 19:40] LABS: Partial Thromboplastin Ratio 1.8
[2021-11-17 20:19] LABS: Partial Thromboplastin Time 48.1 Seconds (21.0-31.0)
[2021-11-17] MEDS: buPROPion HCl 100 MG TABLET PO SCH (20:29)
[2021-11-17] MEDS: ATORVASTATIN 40 MG TAB PO SCH (20:30)
[2021-11-18] MEDS: HEPARIN SODIUM/DEXTROSE 25,000 UNITS/500 ML BAG IV SCH (02:06)
[2021-11-18] MEDS: LEVOTHYROXINE SODIUM 112 MCG TABLET PO SCH (05:32)
[2021-11-18 06:17] LABS: Hematocrit (blood only) 35.9 % (42-52); Hemoglobin 11.3 g/dL (14.0-18.0); Mean Corpuscular Hemoglobin 31.2 pg (25-34); Mean Corpuscular Hgb Conc 31.5 g/dL (32-36); Mean Corpuscular Volume 99.2 fL (80-100); Mean Platelet Volume 9.7 fL (7.4-10.4); Platelet Count 270 K/uL (130-400); RDW Standard Deviation 65.4 fL (36.4-46.3); Red Blood Count 3.62 M/uL (4.7-6.1); White Blood Count 8.49 K/uL (4.8-10.8)
[2021-11-18 06:36] LABS: Partial Thromboplastin Ratio 2.2
[2021-11-18 06:38] LABS: Partial Thromboplastin Time 58.1 Seconds (21.0-31.0)
[2021-11-18 07:01] LABS: BUN Creatinine Ratio 16.8 (10-20); Creatinine Clr Calc Pharmacy 74.1 ml/min; Est GFR (African American) 71.5 ml/min; Est GFR (Non-African American) 61.7 ml/min; Magnesium 2.4 mg/dl (1.8-2.4); Potassium 3.9 mmol/L (3.5-5.1)
[2021-11-18 07:37] LABS: Troponin I 0.164 ng/ml (0-0.045)
[2021-11-18] MEDS: CYANOCOBALAMIN 500 MCG TABLET (VITAMIN B-12) PO SCH (08:13)
[2021-11-18] MEDS: OMEGA-3 (PURIFIED FISH OIL) 1 GM CAP PO SCH (08:13)
[2021-11-18] MEDS: ASPIRIN 81 MG ECTAB PO SCH (08:14)
[2021-11-18] MEDS: FOLIC ACID 400 MCG TAB PO SCH (08:14)
[2021-11-18] MEDS: FERROUS SULFATE 325 MG TAB PO SCH (08:14)
[2021-11-18] MEDS: THIAMINE HCL 100 MG TAB PO SCH (08:14)
[2021-11-18] MEDS: PANTOprazole 40 MG TAB PO SCH (08:14)
[2021-11-18] MEDS: CHOLECALCIFEROL 1,000 UNITS 25 MCG TAB PO SCH (08:14)
[2021-11-18] MEDS: TAMSULOSIN HCL 0.4 MG CAP PO SCH (08:14)
[2021-11-18] MEDS: FINASTERIDE 5 MG TAB PO SCH (08:14)
[2021-11-18] MEDS ORDERED: METOPROLOL SUCC 50MG EXT REL TAB PO SCH (09:00)
[2021-11-18] MEDS: POTASSIUM CHLORIDE CRTAB 20 MEQ TABCR PO SCH (10:03)
--- NOTE | 2021-11-18 13:02 | Cardiology Progress Note ---
Date of Service November 18, 2021 Assessment & Plan (1) Atrial flutter with rapid ventricular response: (2) Elevated troponin: (3) Chronic heart failure with preserved ejection fraction: (4) Coronary artery disease: (5) S/P coronary artery stent placement: (6) Dyslipidemia: (7) Hypertension: Plan: ASSESSMENT/PLAN: 1. Atrial flutter/fibrillation: Initial ECGs more consistent with atrial flutter. Telemetry more suggestive of atrial fibrillation. Not overly symptomatic. He wishes for conservative management such as rate control strategy. Heart rate fortunately has improved. Heart rate was very well controlled yesterday after receiving intravenous digoxin for several doses. He also was on a diltiazem drip, low-dose. Trying to consolidate to 1 rate- controlling medication of possible. Would increase metoprolol succinate to 200 mg today. If necessary, could add digoxin or diltiazem orally in the future. Anticoagulation for stroke risk reduction is indicated but has had recent significant GI bleeding. If okay from a GI standpoint, can continue anticoagulation therapy. If bleed risk is felt to be unacceptable, could consider Watchman device as an outpatient. 2. Chronic heart failure with preserved EF: Most recent LV systolic function described as low normal. He appears to be mildly hypervolemic. Recommend Lasix 40 mg p.o. daily, which improved his symptoms and edema as an outpatient recently. Monitor and replete electrolytes as appropriate. Monitor renal function. Low-sodium diet. Consider heart failure program on discharge. Daily weights. Strict I&Os. 3. CAD s/p LAD and Cx PCI: No angina. Troponins slightly elevated likely due to demand ischemia from prolonged tachycardia. Continue aspirin 81 mg daily. Continue high-intensity statin therapy and beta-yogi. 4. Hypertension: Blood pressure acceptable. Adjusting rate controlling medications. 5. Dyslipidemia: Continue high-intensity statin therapy. 6. Disposition: Patient care communicated with Dr. Shannon of the primary hospitalist service. Follow-up with Dr. Johns on discharge within 1 week. Admission and Anticipated Discharge Date Admission Date: November 16, 2021 Subjective He feels well today. He denies chest pain, shortness of breath, palpitations, syncope, near-syncope, or bleeding. He believes that his swelling has improved. He is adamant about going home today. Review of systems: As above. Physical Exam Physical Exam: Gen.: No acute distress. Alert and oriented. HEENT: Anicteric sclera. Neck: No JVD. Cardiac: PMI was nonpalpable. No ventricular heave. Irregularly irregular. Normal S1-S2. No murmurs, rubs, or gallops. Pulmonary: Clear to auscultation bilaterally without wheezes, rales, or rhonchi. Abdomen: Soft, nontender, nondistended, with normoactive bowel sounds. No bruits noted. Extremities: 2+ radial pulses bilaterally. 2+ posterior tibialis pulses bilaterally. 1+ bilateral lower extremity edema. No cyanosis. Psychiatric: Affect appears appropriate. Results & Data ([facility]) Vital Signs (Past 12 Hours) Vital Signs Temp Pulse Resp BP BP Pulse Ox 11/18/21 11:00 37.2 C 91 H 19 128/74 96 11/18/21 07:43 37.1 C 83 124/78 96 11/18/21 06:52 36.9 C 100 H 20 109/75 96 11/18/21 04:03 36.7 C 81 22 119/73 95 Intake & Output 11/16/21 11/17/21 11/18/21 11/19/21 06:59 06:59 06:59 06:59 Intake Total 703.467 / 267.687 6394.100 / 1792.100 15.6 / 15.6 Output Total 4000 / 4000 1800 / 1800 Balance -3296.533 / -3296.533 -7.900 / -7.900 15.6 / 15.6 Weight 295 lb 6.711 oz 280 lb 6.848 oz Laboratory Results Laboratory Results - last 24 hr 11/17/21 11/17/21 11/18/21 12:30 18:57 05:23 WBC RBC Hgb Hct MCV MCH MCHC RDW Std Deviation RDW Coeff of Emilee Plt Count MPV APTT 44.1 H 48.1 H* 58.1 H* PTT Ratio 1.7 1.8 2.2 Sodium Potassium Chloride Carbon Dioxide Anion Gap BUN Creatinine Est Cr Clr Drug Dosing Est GFR ( Amer) Est GFR (Non-Af Amer) BUN/Creatinine Ratio Glucose Calcium Magnesium Troponin I 11/18/21 11/18/21 05:23 05:23 WBC 8.49 RBC 3.62 L Hgb 11.3 L Hct 35.9 L MCV 99.2 MCH 31.2 MCHC 31.5 L RDW Std Deviation 65.4 H RDW Coeff of Emilee 18.0 H Plt Count 270 MPV 9.7 APTT PTT Ratio Sodium 136 Potassium 3.9 Chloride 103 Carbon Dioxide 25 Anion Gap 8.0 BUN 21 H Creatinine 1.23 Est Cr Clr Drug Dosing 74.1 Est GFR ( Amer) 71.5 Est GFR (Non-Af Amer) 61.7 BUN/Creatinine Ratio 16.8 Glucose 131 H Calcium 9.0 Magnesium 2.4 Troponin I 0.164 H* Diagnostic Findings Telemetry personally reviewed: Atrial fibrillation. Overall heart rate has trended upward compared to yesterday afternoon but still improved compared to presentation. Medications Administered Current Inpatient Medications Acetaminophen (Acetaminophen 325 Mg Tab) 650 mg PO Q4H PRN PRN Reason: Pain or Fever Stop: 12/16/21 19:55 Aspirin (Aspirin 81 Mg Ectab) [facility] [place] Stop: 12/17/21 08:59 Last Admin: 11/18/21 08:14 Dose: 81 mg Documented by: Atorvastatin Calcium (Atorvastatin 40 Mg Tab) 80 mg PO PM [facility] Stop: 12/16/21 20:59 Last Admin: 11/17/21 20:30 Dose: 80 mg Documented by: Bupropion HCl (Bupropion Hcl 100 Mg Tablet) 200 mg PO HS [facility] Stop: 12/16/21 20:59 Last Admin: 11/17/21 20:29 Dose: 200 mg Documented by: Cyanocobalamin (Cyanocobalamin 500 Mcg Tablet (Vitamin B-12)) 500 mcg PO QAM [facility] Stop: 12/17/21 08:59 Last Admin: 11/18/21 08:13 Dose: 500 mcg Documented by: Docusate Sodium (Docusate Sodium 100 Mg Cap) 100 mg PO DAILY PRN PRN Reason: Constipation Ferrous Sulfate (Ferrous Sulfate 325 Mg Tab) 325 mg PO BID [facility] Stop: 12/16/21 20:59 Last Admin: 11/18/21 08:14 Dose: 325 mg Documented by: Finasteride (Finasteride 5 Mg Tab) 5 mg PO QAM [facility] Stop: 12/17/21 08:59 Last Admin: 11/18/21 08:14 Dose: 5 mg Documented by: Fish Oil (Atkins-3 (Purified Fish Oil) 1 Gm Cap) 1 gm PO [facility] Stop: 12/17/21 08:59 Last Admin: 11/18/21 08:13 Dose: 1 gm Documented by: Folic Acid (Folic Acid 400 Mcg Tab) 400 mcg PO [facility] Stop: 12/17/21 08:59 Last Admin: 11/18/21 08:14 Dose: 400 mcg Documented by: Heparin Sodium/Dextrose (Heparin Sodium/Dextrose) 25,000 units in 500 mls @ 36 mls/hr IV .[id number] [facility]; Protocol Stop: 12/16/21 22:44 Last Titration: 11/18/21 07:07 Dose: 1,800 units/hr, 36 mls/hr Documented by: Diltiazem HCl 125 mg/ Dextrose 125 mls @ 0 mls/hr IV .Q0M [facility]; Protocol Stop: 12/16/21 22:44 Last Titration: 11/17/21 14:17 Dose: 0 mg/hr, 0 mls/hr Documented by: Levothyroxine Sodium (Levothyroxine Sodium 112 Mcg Tablet) 112 mcg PO DAILYBB [facility] Stop: 12/17/21 06:29 Last Admin: 11/18/21 05:32 Dose: 112 mcg Documented by: Metoprolol Succinate (Metoprolol Succ 50mg Ext Rel Tab) 100 mg PO [facility] Stop: 12/18/21 08:59 Last Admin: 11/18/21 08:13 Dose: 100 mg Documented by: Metoprolol Tartrate (Metoprolol Tartrate 1 Mg/Ml Vial) 5 mg IV Q4 PRN PRN Reason: HR > 120 Stop: 12/17/21 00:00 Ondansetron HCl (Ondansetron Inj 2 Mg/Ml 2 Ml Vial) 4 mg IV Q6H PRN PRN Reason: Nausea Stop: 12/16/21 19:55 Pantoprazole Sodium (Pantoprazole 40 Mg Tab) 40 mg PO BID [facility] Stop: 12/16/21 20:59 Last Admin: 11/18/21 08:14 Dose: 40 mg Documented by: Polyethylene Glycol (Polyethylene (Miralax) 17 Gm Pack) 17 gm PO DAILY PRN PRN Reason: constipation Stop: 12/16/21 19:55 Potassium Chloride (Potassium Chloride Crtab 20 Meq Tabcr) 20 meq PO [facility] Stop: 12/17/21 08:59 Last Admin: 11/18/21 10:03 Dose: Not Given Documented by: Tamsulosin HCl (Tamsulosin Hcl 0.4 Mg Cap) 0.4 mg PO QAM [facility] Stop: 12/17/21 08:59 Last Admin: 11/18/21 08:14 Dose: 0.4 mg Documented by: Thiamine HCl (Thiamine Hcl 100 Mg Tab) 100 mg PO QAM [facility] Stop: 12/17/21 08:59 Last Admin: 11/18/21 08:14 Dose: 100 mg Documented by: Umeclidinium/Vilanterol (Umeclidinium/Vilanterol 62.5/25mcg 7 Puffs/Inhaler) 1 puffs INH QAM PRN PRN Reason: Shortness Of Breath Stop: 12/16/21 19:55 Vitamin D (Cholecalciferol 1,000 Units 25 Mcg Tab) 2,000 units PO QAM [facility] Stop: 12/17/21 08:59 Last Admin: 11/18/21 08:14 Dose: 2,000 units Documented by: Zolpidem Tartrate (Zolpidem Tartrate 5 Mg Tab) 5 mg PO HS PRN PRN Reason: Sleep Stop: 12/16/21 23:41 Last Admin: 11/17/21 20:27 Dose: 5 mg Documented by: PG Care Time/CCT Total # of Minutes Spent Total Time Spent with Patient: Total time spent is greater than 50% in coordination of care (as documented) at patient's floor/unit and/or counseling patient: Coding Level of Care Code 27758 Subseq Hosp Care Lvl 3 Diagnoses Atrial flutter with rapid ventricular response I48.92 Elevated troponin R77.8 Chronic heart failure with preserved ejection fraction I50.32 Coronary artery disease I25.10 S/P coronary artery stent placement Z95.5 Dyslipidemia E78.5 Hypertension I10
--- NOTE | 2021-11-18 17:25 | Discharge Summary ---
Date of Service November 18, 2021 Admission HPI Per Admitting Provider Froy Noel is a 66 year old male who presents to the ER on the advice of his PCP due to tachycardia, chest pain and presyncope on exertion. He reports his symptoms started acute onset today around 3pm just before and after his appointment. He denies significant pain but describes a left sided chest pressure that started around 5pm which is reproducible on palpation without radiation. He reports taking all his medications today but did take his moring medications later than usual around noon today. He has a recent complicated medical history starting with laparoscopic converted to open right inguinal hernia repair with mesh on October 14. He reports prolonged surgical time. He was discharged but readmitted the following day from October 15 - 2020 with rhabdomyolysis, urinary retention and SOFÍA. Unfortunately he was readmitted from October 242020 due to upper GI bleed suspected due to NSAID use, aspirin and plavix with a hemoglobin drop to 7.3. He received a total of 4 units packed RBCs this admission. He was again readmitted from November 05 - 2020 due to CHF exacerbation suspect secondary to urinary retention and recent IV fluids and blood products given. Unfortunately the patient requested the hernández catheter be removed on discharge despite recurrent urinary retention. He was able to pass urine but has been passing urine frequently and of low volume since. He denies any dysuria, CVA tenderness, fever or chills. He has a longstanding history of coronary artery disease with care metal stents placed in LAD and left circumflex in 2008. In the ER his HR has been consistently 150 with EKG concerning for atrial flutter with RVR. He was given metoprolol 5mg IV x2 with minimal response. On discussion with cardiology he was started on digoxin 250 mcg IV. HR remains 120-150 when seen. Principal Diagnosis Afib/flutter with RVR Acute on chronic diastolic heart failure Discharge Exam Constitutional WD/WN, vitals as above Eyes EOM intact bilaterally; no conjunctival abnormality ENMT external ear and nose normal, oropharynx normal Neck trachea midline, no thyromegaly normal visual inspection Respiratory normal respiratory effort, lungs clear to auscultation no respiratory distress Cardiovascular Rate/Rhythm: + tachycardic and + irregularly irregular Extremities: + edema (Mild) Gastrointestinal (Abdomen) Inspection/Auscultation: abdomen normal to inspection; abdomen not distended Musculoskeletal no cyanosis or clubbing, extremities motor strength 5/5 Skin no rashes, warm and dry Neurologic moves all extremities and awake Psychiatric Orientation: alert, oriented to person and cooperative Genitourinary + scrotal swelling Discharge Data Allergies Allergy/AdvReac Type Severity Reaction Status Date / Time tuberculin, purified protein Allergy Mild SWELLING Verified 11/16/21 11:26 deriva AT SITE guaifenesin [From Mucinex] AdvReac Intermediate felt like Verified 11/16/21 11:26 was on fire pseudoephedrine AdvReac Mild ELECTRIC Verified 11/16/21 11:26 [From Sudafed] CURRENTS THRU BODY simvastatin AdvReac Mild MYALGIA Verified 11/16/21 11:26 Consultations 11/16/21 19:32 ED Decision to Admit Stat 11/16/21 19:56 Consult Cardiology Routine Ordered Studies 11/16/21 23:59 CT angio chest PE protocol Urgent Hospital Course (1) Atrial flutter with rapid ventricular response: New onset - suspect started day of admission (11/16) but difficult to be sure. - Adjusted to metoprolol XL 200 mg PO daily with cardiology recommendation. - Given distinct etiology of PUD (increased NSAID use after surgery), I think he is acceptable risk for anticoagulation. CHADs-Vasc is 3, so anticoagulation would definitely be recommended. He reports he is taking *no* NSAIDs now and is compliant with his PPI. - While his HR was not entirely controlled (often ~100 - 110 bpm), the patient was adamant about leaving today. He was capable of making this decision, able to state risks/benefits of going home. He wanted to go home, and cardiology felt this was an acceptable risk level. - Discharged on Eliquis for anticoagulation. (2) Congestive heart failure: Acute on chronic HFpEF with pulmonary edema and peripheral edema. Appears improved from 11/05 admission for CHF. - Started Lasix 40mg IV. - Transitioned to oral by cardiology on 11/17. - Monitor response with I&Os and daily weights. -> F/u with Dr. Johns in 1 week. (3) Left-sided chest pain: Low suspicion of ACS. Reproducible on exam. Suspect combination of rate related ischemia and MSK pain. (4) Elevated troponin: Demand Ischemia in setting of new onset Atrial flutter with RVR. - Trend to assess for ACS -> Presently as high as 0.226, but no ischemic/thrombotic change. (5) Acute urinary retention: Leave Hernández catheter in and following up with urology on this occasion. Had prior episode where Hernández was removed. - Continue home finasteride & tamsulosin (6) Testicular swelling: Suspected from CHF. - Elevate scrotum (7) Hypothyroidism: TSH 3.43 this admission. - Continue levothyroxine 112 mcg PO daily (8) Coronary artery disease: S/p bare metal stents placed in 2008. - Continue aspirin, metoprolol succinate, atorvastatin (9) Peptic ulcer disease with hemorrhage: Hx of peptic ulcer disease with ulcer in duodenum on EGD on 10/25/2021. In relation to increased NSAID use after hernia surgery. Hgb stable at pre-bleed levels (~11 - 12 g/dL). - Hold all NSAIDs - PPI PO BID - F/u with GI in 2 months for repeat EGD to ensure healing. Total Time Total Time Spent Total Time Spent (In Minutes): 35 Discharge Plan Discharge Items Patient Disposition: Home - Home Health Services Reason For Visit: ACUTE URINARY RETENTION, ATRIL FLUTTER WITH RVR Discharge Diagnosis: CHF exacerbation, atrial fibrillation and flutter, urinary retention Activity: Resume your previous activity Non-emergency contact: Primary Care Provider and Collection Support Specialist Call non-emergency contact if: your symptoms worsen Follow-up/Referrals: Agapito Johns Jr, MD, [facility] [Physician] - 12/01/21 8:30 am (Please see Dr. Johns in 1 week.) Elaine Sofia MD [Primary Care Provider] - 12/01/21 10:15 am Diet: Heart Healthy Addtl Attending Provider Instructions: Mr. Noel, You were admitted to the hospital with atrial fibrillation and shortness of breath that was caused by fluid on the lungs. We got you feeling better with medication, and we are now sending you home with some mild adjustments to keep this from happening again. First, we have increased your metoprolol from 50 mg to 200 mg. The heart rhythm (atrial fibrillation) increases your heart rate, and we want to help keep your heart in a normal rate. Second, atrial fibrillation can allow blood clots to form in the heart and cause a stroke. A blood thinner called Eliquis (or apixaban) can help keep the blood thin and prevent stroke. You did have that ulcer about a month ago, but the Protonix has helped this heal. Please avoid NSAID medications (ibuprofen, Motrin, Aleve, naproxen) to keep that ulcer from recurring. Tylenol (in normal bottle dosages) is ok for occasional pain relief. Finally, I would encourage you to continue taking Lasix at 40 mg daily to help prevent fluid build-up. Please see Dr. Johns in 1 week to ensure you are doing well. Pending Studies at Discharge: No Stand-Alone Forms: My [facility], Smoking Cessation Medications and DC Order Prescriptions: New metoprolol succinate 200 mg tablet extended release 24 hr 200 mg PO DAILY Qty: 30 RF: 0 apixaban 5 mg tablet 5 mg PO BID Qty: 60 RF: 0 Continued nitroglycerin 0.4 mg tablet, sublingual 0.4 mg Sublingual .Q5 mins PRN (Reason: chest pain) Qty: 25 RF: 3 levothyroxine 112 mcg tablet 112 mcg PO QAM Qty: 30 RF: 2 atorvastatin [Lipitor] 80 mg tablet 80 mg PO PM Qty: 90 RF: 3 cholecalciferol (vitamin D3) 50 mcg (2,000 unit) capsule 50 mcg PO QAM RF: 0 bupropion HCl 100 mg tablet 200 mg PO HS RF: 0 finasteride 5 mg tablet 5 mg PO QAM RF: 0 tamsulosin [Flomax] 0.4 mg capsule 0.4 mg PO QAM RF: 0 Anoro Ellipta 62.5-25 mcg/actuation blister with device 1 inh inhalation QAM PRN (Reason: Shortness Of Breath) RF: 0 thiamine HCl (vitamin B1) 100 mg Tablet 100 mg PO QAM RF: 0 omega 7-ynm-caq-fish oil [Fish Oil] 1,000 mg (120 mg-180 mg) Capsule 1 cap PO QAM RF: 0 docusate sodium [Stool Softener] 100 mg Tablet 100 mg PO DAILY PRN (Reason: Constipation) RF: 0 vitamin F95-lmyro acid 500-400 mcg Tablet 1 tab PO QAM RF: 0 polyethylene glycol 3350 [Miralax] 17 gram Powder In Packet 17 g PO DAILY PRN (Reason: constipation) Qty: 14 RF: 0 ferrous sulfate 325 mg (65 mg iron) Tablet,Delayed Release (Dr/Ec) 325 mg PO BID Qty: 60 RF: 0 pantoprazole [Protonix] 40 mg tablet,delayed release (DR/EC) 40 mg PO BID Qty: 60 RF: 0 aspirin 81 mg Tablet,Delayed Release (Dr/Ec) 81 mg PO QAM RF: 0 potassium chloride [Klor-Con M20] 20 mEq tablet,ER particles/crystals 20 meq PO QAM RF: 0 Changed furosemide 20 mg tablet 40 mg PO QAM Qty: 0 RF: 0 Discontinued metoprolol succinate 50 mg tablet extended release 24 hr 50 mg PO QAM Qty: 90 RF: 3 Discharge Orders: Discharge Order (Routine); Ordered 11/18/21 Ordered By: Seng Shannon Admission Data Admit Date/Time: 11/16/21 18:29 Attending Provider: Seng Shannon Admit Provider: Elliott Zaman Primary Care Provider: Elaine Sofia V. Other Providers: Isidro Baumann ; Seng Shannon ; [facility],Home Healthcare Other Interventions: Discharge Summary Assessment (RN) Last Done: 11/18/21 13:40 Coding Level of Care Code D/C DAY MANAGEMENT >30 MINS Diagnoses Atrial flutter with rapid ventricular response I48.92 Congestive heart failure I50.9 Left-sided chest pain R07.9 Elevated troponin R77.8 Acute urinary retention R33.8 Testicular swelling N50.89 Hypothyroidism E03.9 Coronary artery disease I25.10 Peptic ulcer disease with hemorrhage K27.4
--- NOTE | 2021-11-19 05:46 | Electrocardiogram Report ---
Test Reason : Blood Pressure : / mmHG Vent. Rate : 151 BPM Atrial Rate : 151 BPM P-R Int : 100 ms QRS Dur : 082 ms QT Int : 322 ms P-R-T Axes : 000 001 086 degrees QTc Int : 510 ms Poor data quality, interpretation may be adversely affected Probable Atrial flutter Minimal voltage criteria for LVH, may be normal variant Septal infarct , age undetermined Nonspecific ST and T wave abnormality Abnormal ECG When compared with ECG of 07-NOV-2021 04:00, Atrial flutter has replaced Sinus rhythm Vent. rate has increased BY 70 BPM Septal infarct is now Present Confirmed by Isidro Baumann ([id number]) on 11/19/2021 5:46:48 AM Referred By: Confirmed By:Isidro Baumann
--- NOTE | 2021-11-19 05:49 | Electrocardiogram Report ---
Test Reason : Blood Pressure : / mmHG Vent. Rate : 147 BPM Atrial Rate : 147 BPM P-R Int : 126 ms QRS Dur : 088 ms QT Int : 288 ms P-R-T Axes : 092 002 134 degrees QTc Int : 450 ms Poor data quality, interpretation may be adversely affected Atrial flutter Minimal voltage criteria for LVH, may be normal variant Septal infarct (cited on or before 16-NOV-2021) Nonspecific ST and T wave abnormality Abnormal ECG When compared with ECG of 16-NOV-2021 16:02, No significant change Confirmed by Isidro Baumann ([id number]) on 11/19/2021 5:49:23 AM Referred By: REFERRED SELF Confirmed By:Isidro Baumann
--- NOTE | 2021-11-19 06:05 | Electrocardiogram Report ---
Test Reason : Blood Pressure : / mmHG Vent. Rate : 149 BPM Atrial Rate : 149 BPM P-R Int : 126 ms QRS Dur : 094 ms QT Int : 298 ms P-R-T Axes : 095 005 102 degrees QTc Int : 469 ms Poor data quality, interpretation may be adversely affected Atrial flutter Minimal voltage criteria for LVH, may be normal variant Septal infarct (cited on or before 16-NOV-2021) Nonspecific ST and T wave abnormality Abnormal ECG When compared with ECG of 16-NOV-2021 17:13, No significant change was found Confirmed by Isidro Baumann ([id number]) on 11/19/2021 6:04:43 AM Referred By: REFERRED SELF Confirmed By:Isidro Baumann
--- NOTE | 2021-11-19 06:30 | Electrocardiogram Report ---
Test Reason : Blood Pressure : / mmHG Vent. Rate : 086 BPM Atrial Rate : 300 BPM P-R Int : 000 ms QRS Dur : 082 ms QT Int : 390 ms P-R-T Axes : 000 007 113 degrees QTc Int : 466 ms Poor data quality, interpretation may be adversely affected Atrial fibrillation /flutter Left ventricular hypertrophy with repolarization abnormality Cannot rule out Septal infarct (cited on or before 16-NOV-2021) Abnormal ECG When compared with ECG of 16-NOV-2021 22:21, Vent. rate has decreased BY 63 BPM Non-specific change in ST segment in Inferior leads Confirmed by Isidro Baumann ([id number]) on 11/19/2021 6:30:14 AM Referred By: REFERRED SELF Confirmed By:Isidro Baumann
== END 2021-11-18 14:56 | disposition home health service (06) | DRG 308 ==
LOC: ED 15:51 → SUATTDRO 18:29 → EDINP 18:29 → 2S 20:05